=== PATIENT | female | born 1995 | race Caucasian/White ===

== ENCOUNTER 2020-01-29 15:37 | Outpatient (CLI) | payer OTHER ==
[2020-01-29 17:34] LABS: MUDS CUTOFF CONCENTRATIONS CUTOFF CONC BELOW:
[2020-01-29 17:36] LABS: BASOPHILS % (AUTO) 0.2 %; EOSINOPHILS % (AUTO) 0.9 %; HGB - HEMOGLOBIN 11.3 g/dL (12.0-16.0); LYMPHOCYTES # (AUTO) 1.5 10^3/uL (1.5-3.5); LYMPHOCYTES % (AUTO) 32.9 %; MEAN CORPUSCULAR HGB CONC 33.8 g/dL (32.0-36.0); MEAN CORPUSCULAR VOLUME 82.9 fL (81.0-99.0); MEAN PLATELET VOLUME 11.3 fL (7.9-10.8); MONOCYTES # (AUTO) 0.3 10^3/uL (0.0-1.0); MONOCYTES % (AUTO) 6.2 %; NEUTROPHILS # (AUTO) 2.7 10^3/uL (1.5-6.6); NEUTROPHILS % (AUTO) 59.6 %; PLT - PLATELET COUNT 119 10^3/uL (130-450); RED BLOOD COUNT 4.03 10^6/uL (4.20-5.40); RED CELL DISTRIBUTION WIDTH 16.8 % (12.0-15.0); WHITE BLOOD COUNT 4.5 x10^3/uL (4.8-10.8)
[2020-01-29 17:38] LABS: GLUCOSE, URINE (UA) 100 mg/dL (NEGATIVE); KETONES,URINE (UA) 40 mg/dL (NEGATIVE); LEUKOCYTE ESTERASE, URINE NEGATIVE (NEGATIVE); NITRITE,URINE NEGATIVE (NEGATIVE); OCCULT BLOOD,URINE NEGATIVE (NEGATIVE); PROTEIN,URINE TRACE mg/dL (NEGATIVE); UROBILINOGEN,URINE 0.2 (NORMAL) E.U./dL (NORMAL)
[2020-01-29 17:51] LABS: BACTERIA,URINE Few /HPF (None Seen); BILIRUBIN,URINE NEGATIVE (NEGATIVE); CLARITY,URINE HAZY (CLEAR); ICTOTEST,URINE NEGATIVE; RBC,URINE None Seen /HPF (0-5); SQUAMOUS EPITHELIAL CELL,UR FEW Squamous (<= Few)
[2020-01-29 17:52] LABS: AMPHETAMINE SCREEN,URINE NEGATIVE (NEGATIVE); BENZODIAZEPINES SCREEN, URINE NEGATIVE (NEGATIVE); COCAINE SCREEN URINE NEGATIVE (NEGATIVE); METHADONE SCREEN, URINE NEGATIVE (NEGATIVE); METHAMPHETAMINES SCREEN, URINE NEGATIVE (NEGATIVE); MUCUS,URINE Moderate Strands; OPIATE SCREEN, URINE NEGATIVE (NEGATIVE); OXYCODONE SCREEN, URINE NEGATIVE (NEGATIVE); PROPOXYPHENE SCREEN, URINE NEGATIVE (NEGATIVE); TRICYCLIC ANTIDEPRESSANT,URINE NEGATIVE (NEGATIVE)
[2020-01-30 10:57] LABS: HEPATITIS C ANTIBODY NON-REACTIVE (NON-REACTIVE)
[2020-01-30 11:13] LABS: HEPATITIS B SURFACE ANTIGEN NON-REACTIVE (NON-REACTIVE)
[2020-01-30 15:26] LABS: HIV AG/AB 4TH GEN NON-REACTIVE (NON-REACTIVE)
== END 2020-01-29 15:38 | disposition home or self-care (01) ==
LOC: LAB 15:37
PROVIDERS: ATTEND Obstetrics & Gynecology
DX: O99.840 Bariatric surgery status complicating pregnancy, unspecified trimester (principal); Z3A.00 Weeks of gestation of pregnancy not specified
CPT/HCPCS: 36415; 80306; 81001; 81599; 82746; 82950; 85025; 86592; 86762; 86787; 86803; 86850; 86900; 86901; 87086; 87340; 87389

== ENCOUNTER 2020-02-04 15:13 | Outpatient (CLI) | payer OTHER ==
[2020-02-04 18:31] LABS: HGB - HEMOGLOBIN 12.1 g/dL (12.0-16.0); MEAN CORPUSCULAR HEMOGLOBIN 27.6 pg (27.0-31.0); MEAN CORPUSCULAR HGB CONC 32.9 g/dL (32.0-36.0); MEAN PLATELET VOLUME 12.3 fL (7.9-10.8); RED BLOOD COUNT 4.38 10^6/uL (4.20-5.40); WHITE BLOOD COUNT 4.9 x10^3/uL (4.8-10.8)
== END 2020-02-04 23:59 | disposition home or self-care (01) ==
LOC: LAB.WCP 15:13
PROVIDERS: ATTEND Obstetrics & Gynecology
DX: Z34.90 Encounter for supervision of normal pregnancy, unspecified, unspecified trimester (principal)
CPT/HCPCS: 36415; 85025; 85027

== ENCOUNTER 2020-03-04 16:17 | Outpatient (CLI) | payer OTHER | END 2020-03-04 16:18 | disposition home or self-care (01) | LOC: LAB 16:17 | PROVIDERS: ATTEND Obstetrics & Gynecology | DX: Z36.8A Encounter for antenatal screening for other genetic defects (principal) | CPT/HCPCS: 81220; 81511; 81599 ==

== ENCOUNTER 2020-03-08 14:56 | Outpatient (CLI) | payer OTHER | END 2020-03-08 14:57 | disposition home or self-care (01) | LOC: NS 14:56 | PROVIDERS: ATTEND Family Medicine | DX: Z71.3 Dietary counseling and surveillance (principal); Z33.1 Pregnant state, incidental; Z98.84 Bariatric surgery status | CPT/HCPCS: 97802 ==

== ENCOUNTER 2020-04-05 15:01 | Outpatient (CLI) | payer OTHER ==
--- NOTE | 2020-04-06 10:32 | Ultrasound Report ---
PROCEDURE: OB Detailed Eval INDICATIONS: SCREENING TECHNIQUE: Real-time scanning was performed of the fetus, with image documentation and biometric measurements. Endovaginal scanning: Not performed COMPARISON: None. FINDINGS: General: A single living intrauterine gestation is present. Presentation: Cephalic Placenta: Placental position is posterior, without previa. Amniotic fluid index: 14 cm, 44th percentile for gestational age. heart rate: 139 beats per minute. Maternal cervical canal: 3.6 cm long; normal length is 2.5 cm or more. biometrics: Biparietal diameter: 5.4 centimeters Head circumference: 19.9 cm Abdominal circumference: 16.7 cm Femur length: 3.6 cm Estimated gestational age from initial scan: not applicable. Composite gestational age from present scan: 21 weeks 5 days Estimated weight and percentile: 437 g, 31st percentile Measurement variability in biometric dating: +/- 10 days from 12-20 weeks gestation, +/- 2 weeks from 20-30 weeks gestation, +/- 3 weeks at 30 weeks gestation or later. Anatomic survey: Neuro: Ventricles are normal at less than 10 mm. Cisterna magna is normal at 3-11 mm. Cerebellum i s normal in size and morphology. Nuchal skin fold: Normal at less than 6 mm between 14 and 20 weeks gestational age. Face: Nose and lips, facial profile are normal. Spine: No evidence for spina bifida. Heart: 4-chambered heart is present, with normal ventricular outflow tracts. Diaphragm: Diaphragm is intact. Stomach: Left-sided stomach is present. Kidneys: No hydronephrosis. Normal is less than 5 mm in 2nd trimester, less than 7 mm in 3rd trimester. Cord: Apparent 2 vessel cord with normal insertion. Bladder: Normal in size. Extremities: All 4 extremities are visualized. IMPRESSION: Suspected 2 vessel cord. Repeat study recommended to further assess. Otherwise normal anatomic survey. Reviewed by: Ari Monk MD on 04/06/2020 10:31 AM [facility] Approved by: Ari Monk MD on 04/06/2020 10:31 AM [facility] Station ID: [id number]
== END 2020-04-05 15:02 | disposition home or self-care (01) ==
LOC: DI 15:01
PROVIDERS: ATTEND Obstetrics & Gynecology
DX: Z36.89 Encounter for other specified antenatal screening (principal)

== ENCOUNTER 2020-04-30 16:56 | Outpatient (CLI) | payer OTHER ==
--- NOTE | 2020-05-03 17:15 | Ultrasound Report ---
PROCEDURE: OB F/U or Repeat INDICATIONS: TWO VESSEL CORD OUTSIDE/PRIOR DATING DATA: Last menstrual period (LMP): 11/04/2019. LMP-based estimated date of delivery (BRET): 08/10/2020. Estimated date of delivery (BRET) according to the provider: 08/10/2020. TECHNIQUE: Real-time scanning was performed of the fetus, with image documentation and biometric measurements. Endovaginal scanning: Not needed COMPARISON: 04/05/2020 FINDINGS: General: A single living intrauterine gestation is present. Presentation: Vertex Placenta: Placental position is posterior, without previa. Amniotic fluid index: 17.3 cm, normal for gestational age. heart rate: 147 beats per minute. Maternal cervical canal: 3.6 cm long; normal length is 2.5 cm or more. Estimated gestational age from first trimester scan: not applicable. Other: Two-vessel cord, normal amniotic fluid index. The umbilical artery systolic/diastolic ratio at the placenta, mid cord, and at the cord insertion is 3.0, 2.8, 3.8. IMPRESSION: 2 vessel cord, normal amniotic fluid index. Vertex presentation, normal systolic/diastol ic ratio through the umbilical artery within the cord. Reviewed by: Nate Rodriguez MD on 05/03/2020 5:14 PM PST Approved by: Nate Rodriguez MD on 05/03/2020 5:14 PM PST Station ID: [id number]
== END 2020-04-30 16:57 | disposition home or self-care (01) ==
LOC: DI 16:56
PROVIDERS: ATTEND Obstetrics & Gynecology
DX: Q27.0 Congenital absence and hypoplasia of umbilical artery (principal)

== ENCOUNTER 2020-05-07 08:00 | Outpatient (CLI) | payer OTHER ==
[2020-05-07 11:30] LABS: HGB - HEMOGLOBIN 8.8 g/dL (12.0-16.0); MEAN CORPUSCULAR HEMOGLOBIN 28.6 pg (27.0-31.0); MEAN CORPUSCULAR HGB CONC 30.4 g/dL (32.0-36.0); MEAN CORPUSCULAR VOLUME 93.8 fL (81.0-99.0); MEAN PLATELET VOLUME 10.7 fL (7.9-10.8); RED BLOOD COUNT 3.08 10^6/uL (4.20-5.40); RED CELL DISTRIBUTION WIDTH 13.3 % (12.0-15.0); WHITE BLOOD COUNT 4.1 x10^3/uL (4.8-10.8)
== END 2020-05-07 23:59 | disposition home or self-care (01) ==
LOC: LAB 08:00
PROVIDERS: ATTEND Obstetrics & Gynecology
DX: Z36.89 Encounter for other specified antenatal screening (principal)
CPT/HCPCS: 36415; 82950; 85027; 86850

== ENCOUNTER 2020-05-14 11:37 | Outpatient (CLI) | payer OTHER ==
[2020-05-14 11:57] VITALS: BP 115/59
[2020-05-14] MEDS ORDERED: FERRIC GLUCONATE 125 MG in SODIUM CHLORIDE 0.9% 100ML 100 ML IV ONE (12:30)
--- NOTE | 2020-05-14 17:01 | PROVIDER PROGRESS NOTE ---
Subjective - Subjective Subjective: Pt here for IV iron transfusion Dx = chronic iron deficiency anemia Not seen by MD. Objective - Vital Signs/Intake & Output Vital Signs: Vital Signs x48h Temp Pulse Pulse Resp BP Pulse Ox 05/14/20 11:56 98.2 F 83 16 115/59 L 05/14/20 11:50 98.2 F 83 16 115/59 L 100
== END 2020-05-14 14:05 | disposition home or self-care (01) ==
LOC: WFO 11:37 → FBP 11:39 → WFO 14:05
PROVIDERS: ATTEND Obstetrics & Gynecology
DX: O99.019 Anemia complicating pregnancy, unspecified trimester (principal); D50.9 Iron deficiency anemia, unspecified
CPT/HCPCS: 96365; J2916

== ENCOUNTER 2020-05-21 11:25 | Outpatient (CLI) | payer OTHER ==
[2020-05-21] MEDS ORDERED: FERRIC GLUCONATE 125 MG in SODIUM CHLORIDE 0.9% 100ML 100 ML IV ONE (12:00)
[2020-05-21 13:28] VITALS: BP 88/51
--- NOTE | 2020-06-15 23:41 | PROVIDER PROGRESS NOTE ---
- HPI Current : Current EDU 08/10/20 Gestation 28 Weeks and 3 Days 1 Para 0 Vital Signs Temperature 98.6 F 05/21/20 12:59 Heart Rate 100 05/21/20 12:59 Respiratory Rate 16 05/21/20 12:59 Blood Pressure 88/51 L 05/21/20 12:59 O2 Saturation 100 05/21/20 12:59 Temperature 98.6 F 05/21/20 13:28 Heart Rate 100 05/21/20 13:28 Respiratory Rate 16 05/21/20 13:28 Blood Pressure 88/51 L 05/21/20 13:28 O2 Saturation 100 05/21/20 12:59 - Exam Pt here for IV iron transfusion Dx = chronic iron deficiency anemia Not seen by MD. - Procedures NST Procedure: NST Procedure Stop Time 13:00 Patient States Movement Yes
== END 2020-05-21 13:15 | disposition home or self-care (01) ==
LOC: WFO 11:25 → FBP 11:26 → WFO 13:15
PROVIDERS: ATTEND Obstetrics & Gynecology
DX: O99.013 Anemia complicating pregnancy, third trimester (principal); D50.9 Iron deficiency anemia, unspecified; Z3A.28 28 weeks gestation of pregnancy
CPT/HCPCS: 96365; J2916

== ENCOUNTER 2020-05-25 08:00 | Outpatient (CLI) | payer OTHER ==
[2020-05-25 18:07] LABS: BASOPHILS % (AUTO) 0.4 %; EOSINOPHILS % (AUTO) 0.6 %; HGB - HEMOGLOBIN 9.8 g/dL (12.0-16.0); LYMPHOCYTES # (AUTO) 1.4 10^3/uL (1.5-3.5); LYMPHOCYTES % (AUTO) 25.4 %; MEAN CORPUSCULAR HEMOGLOBIN 28.7 pg (27.0-31.0); MEAN CORPUSCULAR HGB CONC 31.5 g/dL (32.0-36.0); MEAN CORPUSCULAR VOLUME 90.9 fL (81.0-99.0); MEAN PLATELET VOLUME 11.3 fL (7.9-10.8); MONOCYTES # (AUTO) 0.3 10^3/uL (0.0-1.0); MONOCYTES % (AUTO) 6.1 %; NEUTROPHILS # (AUTO) 3.6 10^3/uL (1.5-6.6); NEUTROPHILS % (AUTO) 67.3 %; PLT - PLATELET COUNT 161 10^3/uL (130-450); RED BLOOD COUNT 3.42 10^6/uL (4.20-5.40); RED CELL DISTRIBUTION WIDTH 14.3 % (12.0-15.0); WHITE BLOOD COUNT 5.4 x10^3/uL (4.8-10.8)
== END 2020-05-25 23:59 | disposition home or self-care (01) ==
LOC: LAB.WCP 08:00
PROVIDERS: ATTEND Obstetrics & Gynecology
DX: O99.012 Anemia complicating pregnancy, second trimester (principal)
CPT/HCPCS: 36415; 85025

== ENCOUNTER 2020-06-11 08:31 | Outpatient (CLI) | payer OTHER ==
[2020-06-11 09:09] VITALS: BP 106/56
[2020-06-11] MEDS ORDERED: FERRIC GLUCONATE 125 MG in SODIUM CHLORIDE 0.9% 100ML 100 ML IV ONE (09:45)
== END 2020-06-11 10:42 | disposition home or self-care (01) ==
LOC: WFO 08:31 → FBP 08:34 → WFO 10:42
PROVIDERS: ATTEND Obstetrics & Gynecology
DX: O99.012 Anemia complicating pregnancy, second trimester (principal); D64.9 Anemia, unspecified; Z3A.00 Weeks of gestation of pregnancy not specified
CPT/HCPCS: 96365; J2916

== ENCOUNTER 2020-06-29 16:01 | Outpatient (CLI) | payer OTHER ==
[2020-06-29 16:37] LABS: HCT - HEMATOCRIT 32.4 % (37.0-47.0); HGB - HEMOGLOBIN 10.5 g/dL (12.0-16.0); MEAN CORPUSCULAR HEMOGLOBIN 27.9 pg (27.0-31.0); MEAN CORPUSCULAR HGB CONC 32.4 g/dL (32.0-36.0); MEAN CORPUSCULAR VOLUME 86.2 fL (81.0-99.0); MEAN PLATELET VOLUME 10.8 fL (7.9-10.8); RED BLOOD COUNT 3.76 10^6/uL (4.20-5.40); RED CELL DISTRIBUTION WIDTH 15.1 % (12.0-15.0); WHITE BLOOD COUNT 5.3 x10^3/uL (4.8-10.8)
[2020-06-29 16:44] LABS: ALBUMIN 3.3 g/dL (3.2-5.5); ALBUMIN/GLOBULIN RATIO 0.9 (1.0-2.2); BILIRUBIN,TOTAL 0.3 mg/dL (0.2-1.0); CALCIUM 9.7 mg/dL (8.5-10.3); CREATININE 0.5 mg/dL (0.4-1.0); POTASSIUM 3.6 mmol/L (3.5-5.0); TOTAL PROTEIN 6.9 g/dL (6.7-8.2)
== END 2020-06-29 16:02 | disposition home or self-care (01) ==
LOC: LAB 16:01
PROVIDERS: ATTEND Obstetrics & Gynecology
DX: O99.012 Anemia complicating pregnancy, second trimester (principal); Z98.84 Bariatric surgery status
CPT/HCPCS: 36415; 80053; 85027

== ENCOUNTER 2020-06-30 15:10 | Outpatient (CLI) | payer OTHER ==
[2020-06-30 15:36] VITALS: BP 97/60
--- NOTE | 2020-06-30 16:38 | PROCEDURE REPORT ---
- HPI Diagnosis/Indication for NST: Other (Two vessel cord) Current EDU 08/10/20 Gestation 34 Weeks and 1 Days 1 Para 0 Vital Signs Temperature 99.0 F 06/30/20 15:32 Heart Rate 75 06/30/20 15:32 Respiratory Rate 16 06/30/20 15:32 Blood Pressure 97/60 06/30/20 15:32 Temperature 99.0 F 06/30/20 15:32 Heart Rate 75 06/30/20 15:32 Respiratory Rate 16 06/30/20 15:32 Blood Pressure 97/60 06/30/20 15:32 O2 Saturation - NST Procedure NST Procedure Start Date 06/30/20 Start Time 15:20 Stop Time 15:53 Vibroacoustic Stimulation Used No Patient States Movement Yes EFM 140 mod britton 15x15 accels no decels TOCO quiet - Results and Plan Findings/Impression: Patient is a 25 yo at 34+1 wga with 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
== END 2020-06-30 15:55 | disposition home or self-care (01) ==
LOC: WFO 15:10 → FBP 15:12 → WFO 15:55
PROVIDERS: ATTEND Obstetrics & Gynecology
DX: O35.8XX0 Maternal care for other (suspected) fetal abnormality and damage, not applicable or unspecified (principal); Z3A.34 34 weeks gestation of pregnancy
CPT/HCPCS: 59025

== ENCOUNTER 2020-07-02 09:47 | Outpatient (CLI) | payer OTHER ==
[2020-07-02 10:24] VITALS: BP 97/62
--- NOTE | 2020-07-03 09:38 | PROCEDURE REPORT ---
- HPI Diagnosis/Indication for NST: Other ( anomaly (2 vessel umbilical cord)) Current EDU 08/10/20 Gestation 34 Weeks and 3 Days 1 Para 0 Vital Signs Temperature 98.4 F 07/02/20 10:22 Heart Rate 110 H 07/02/20 10:22 Respiratory Rate 16 07/02/20 10:22 Blood Pressure 97/62 07/02/20 10:22 O2 Saturation 100 07/02/20 10:22 Temperature 98.4 F 07/02/20 10:22 Heart Rate 110 H 07/02/20 10:22 Respiratory Rate 16 07/02/20 10:22 Blood Pressure 97/62 07/02/20 10:22 O2 Saturation 100 07/02/20 10:22 - NST Procedure NST Procedure Start Date 07/02/20 Start Time 10:10 Stop Time 10:40 Vibroacoustic Stimulation Used No Patient States Movement Yes - Results and Plan Findings/Impression: Baseline: BPM 125 Variability: Moderate Accelerations: Present Decelerations: variable deceleration immediately after an acceleration, fanny 120BPM for 30 sec. Trends in FHR over time: no changes [place] contractions in 10 minutes: 0 Impression: reactive Category 1 NST
== END 2020-07-02 10:50 | disposition home or self-care (01) ==
LOC: WFO 09:47 → FBP 09:50 → WFO 10:50
PROVIDERS: ATTEND Obstetrics & Gynecology
DX: O36.8930 Maternal care for other specified fetal problems, third trimester, not applicable or unspecified (principal); Z3A.34 34 weeks gestation of pregnancy
CPT/HCPCS: 59025

== ENCOUNTER 2020-07-03 14:36 | Outpatient (CLI) | payer OTHER ==
--- NOTE | 2020-07-03 16:32 | Ultrasound Report ---
PROCEDURE: OB F/U or Repeat INDICATIONS: TWO VESSEL CORD OUTSIDE/PRIOR DATING DATA: Last menstrual period (LMP): 11/04/2019. LMP-based estimated date of delivery (BRET): 08/10/2020. First dating scan (date and location): None reported. Estimated date of delivery (BRET) from first dating scan: N/A. TECHNIQUE: Real-time scanning was performed of the fetus, with image documentation and biometric measurements. Additionally, cord Doppler and spectral ultrasound imaging was performed. COMPARISON: April 30, 2020 ultrasound FINDINGS: General: A single living intrauterine gestation is present. Presentation: Cephalic Placenta: Placental position is posterior, without previa. Amniotic fluid index: 8.5 cm, 6.6 for gestational age. heart rate: 133 beats per minute. Maternal cervical canal: 3.0 cm long; normal length is 2.5 cm or more. biometrics: Biparietal diameter: 8.5 cm, 34 weeks 1 day Head circumference: 30.4 cm, 33 weeks 6 days Abdominal circumference: 30.0 cm, 33 weeks 5 days Femur length: 6.7 cm, 34 weeks 4 days Estimated gestational age from initial scan: not applicable. Composite gestational age from present scan: 34 weeks 4 days Estimated weight and percentile: 2321 grams at the 29th percentile Measurement variability in biometric dating: +/- 10 days from 12-20 weeks gestation, +/- 2 weeks from 20-30 weeks gestation, +/- 3 weeks at 30 weeks gestation or more. Other: Two-vessel cord is present. cord Doppler measurements were obtained with a S/D range of 2.03-3.0 and a resistive index range of 0.51-0.67. IMPRESSION: 1. Estimated weight of 2321 g, at the 29th percentile for gestational age. 2. cord Doppler measurements were obtained with an S/D range of 2.03-3.0 and a resistive index range of 0.51-0.67, within normal range. Reviewed by: Drew Meyer on 07/03/2020 3:31 PM [facility] Approved by: Drew Meyer on 07/03/2020 3:31 PM [facility] Station ID: [id number]
== END 2020-07-03 14:37 | disposition home or self-care (01) ==
LOC: DI 14:36
PROVIDERS: ATTEND Obstetrics & Gynecology
DX: Q27.0 Congenital absence and hypoplasia of umbilical artery (principal)

== ENCOUNTER 2020-07-06 16:16 | Outpatient (CLI) | payer OTHER ==
[2020-07-06 17:46] VITALS: BP 97/56
--- NOTE | 2020-07-06 17:55 | PROCEDURE REPORT ---
- HPI Diagnosis/Indication for NST: Other ( anomaly (2 vessel cord)) Current EDU 08/10/20 Gestation 35 Weeks and 0 Days 1 Para 0 Vital Signs Temperature 98.8 F 07/06/20 17:44 Heart Rate 76 07/06/20 17:44 Respiratory Rate 16 07/06/20 17:44 Blood Pressure 97/56 L 07/06/20 17:44 Temperature 98.8 F 07/06/20 17:44 Heart Rate 76 07/06/20 17:44 Respiratory Rate 16 07/06/20 17:44 Blood Pressure 97/56 L 07/06/20 17:44 O2 Saturation - NST Procedure NST Procedure Start Date 07/06/20 Start Time 16:20 Stop Time 17:35 Vibroacoustic Stimulation Used No: patient used vibrate function on cellphone Patient States Movement Yes: 2 vessel cord - Results and Plan Findings/Impression: Baseline: BPM 130 Variability: Moderate Accelerations: Present Decelerations: Absent Trends in FHR over time: no changes [place] contractions in 10 minutes: 0 Impression: reactive Category 1 NST
== END 2020-07-06 17:35 | disposition home or self-care (01) ==
LOC: WFO 16:16 → FBP 16:17 → WFO 17:35
PROVIDERS: ATTEND Obstetrics & Gynecology
DX: O36.8930 Maternal care for other specified fetal problems, third trimester, not applicable or unspecified (principal); Z3A.35 35 weeks gestation of pregnancy
CPT/HCPCS: 59025

== ENCOUNTER 2020-07-09 09:35 | Outpatient (CLI) | payer OTHER ==
[2020-07-09 10:02] VITALS: BP 108/59
--- NOTE | 2020-07-09 14:20 | Ultrasound Report ---
PROCEDURE: OB Biophysical Profile INDICATIONS: non-reassuring NST OUTSIDE/PRIOR DATING DATA: Last menstrual period (LMP): 11/03/2020. LMP-based estimated date of delivery (BRET): 08/10/2020. Estimated date of delivery (BRET) according to provider: 08/10/2020. TECHNIQUE: Real-time scanning was performed of the fetus, with image documentation and biometric jasson surements. Biophysical profile was also obtained. COMPARISON: 04/05/2020, 04/30/2020, 07/03/2020. FINDINGS: General: A single living intrauterine gestation is present. Presentation: Vertex Placenta: Placental position is posterior, without previa. Amniotic fluid index: 9.7 cm, 13th percentile for gestational age. Largest pocket measures 4.9 cm. heart rate: 141 beats per minute. Maternal cervical canal: 3 cm long; normal length is 2.5 cm or more. Estimated gestational age from initial scan: 35 weeks 3 days Biophysical profile: Tone: 2 points. Movement: 2 points. Respiration: 2 points. Largest pocket of fluid: 2 points. Umbilical artery Doppler: Systolic/diastolic ratios within the amniotic cord measure 3.2 proximally, 2.7 in the midsegment and 2.4 distally. IMPRESSION: 1. Single living intrauterine in vertex presentation redemonstrated. 2. Normal biophysical profile of 11/07. 3. Umbilical artery waveforms within normal limits with preserved diastolic flow demonstrated. Reviewed by: Shady Mccauley MD on 07/09/2020 2:18 PM PDT Approved by: Shady Mccauley MD on 07/09/2020 2:18 PM PDT Station ID: [id number]
--- NOTE | 2020-07-09 15:26 | PROCEDURE REPORT ---
- HPI Diagnosis/Indication for NST: Other ( anomaly--2 vessel cord) Current EDU 08/10/20 Gestation 35 Weeks and 3 Days 1 Para 0 Vital Signs Heart Rate 78 07/09/20 09:59 Respiratory Rate 16 07/09/20 09:59 Blood Pressure 108/59 L 07/09/20 09:59 O2 Saturation 100 07/09/20 09:59 Temperature Heart Rate 78 07/09/20 09:59 Respiratory Rate 16 07/09/20 09:59 Blood Pressure 108/59 L 07/09/20 09:59 O2 Saturation 100 07/09/20 09:59 - NST Procedure NST Procedure Start Date 07/09/20 Start Time 09:55 Stop Time 10:55 Vibroacoustic Stimulation Used No Patient States Movement Yes - Results and Plan Findings/Impression: Baseline: BPM 135 Variability: Moderate Accelerations: Present Decelerations: Spontaneous deceleration lasting 80 sec, fanny 115 Trends in FHR over time: no further decels [place] contractions in 10 minutes: 0 Impression: reactive Category 1 NST Patient being monitored for 2V cord. Initial monitoring was reactive but there was the 80sec mild decel. Pt monitored for 2h following this without decels, with mod LTV, and with accels seen. BPP done which was 8/8, normal fluid, normal dopplers. Pt with normal FM. Plan routine followup for ongoing surveillance.
== END 2020-07-09 13:50 | disposition home or self-care (01) ==
LOC: WFO 09:35 → FBP 09:39 → WFO 13:50
PROVIDERS: ATTEND Obstetrics & Gynecology
DX: O36.8930 Maternal care for other specified fetal problems, third trimester, not applicable or unspecified (principal); O36.8330 Maternal care for abnormalities of the fetal heart rate or rhythm, third trimester, not applicable or unspecified; Z3A.35 35 weeks gestation of pregnancy
CPT/HCPCS: 59025; 99213

== ENCOUNTER 2020-07-13 15:22 | Outpatient (CLI) | payer OTHER ==
[2020-07-13 15:41] VITALS: BP 101/61
--- NOTE | 2020-07-13 18:54 | PROCEDURE REPORT ---
- HPI Diagnosis/Indication for NST: Other ( anomaly, 2 vessel umbilical cord) Current EDU 08/10/20 Gestation 36 Weeks and 0 Days 1 Para 0 Vital Signs Temperature 97.9 F 07/13/20 15:30 Heart Rate 94 07/13/20 15:30 Respiratory Rate 18 07/13/20 15:30 Blood Pressure 101/61 07/13/20 15:30 O2 Saturation 98 07/13/20 15:30 Temperature 97.9 F 07/13/20 15:30 Heart Rate 94 07/13/20 15:30 Respiratory Rate 18 07/13/20 15:30 Blood Pressure 101/61 07/13/20 15:30 O2 Saturation 98 07/13/20 15:30 - NST Procedure NST Procedure Start Date 07/13/20 Start Time 15:30 Stop Time 16:30 Vibroacoustic Stimulation Used Yes Patient States Movement Yes: decreased and more subtle - Results and Plan Findings/Impression: Baseline: BPM Variability: Moderate Accelerations: Present Decelerations: Absent Trends in FHR over time: no changes [place] contractions in 10 minutes: 0 Impression: reactive Category 1 NST
== END 2020-07-13 16:40 | disposition home or self-care (01) ==
LOC: WFO 15:22 → FBP 15:23 → WFO 16:40
PROVIDERS: ATTEND Obstetrics & Gynecology
DX: O36.8930 Maternal care for other specified fetal problems, third trimester, not applicable or unspecified (principal); Z3A.36 36 weeks gestation of pregnancy
CPT/HCPCS: 59025

== ENCOUNTER 2020-07-16 10:42 | Outpatient (CLI) | payer OTHER ==
[2020-07-16 10:54] VITALS: BP 103/72
--- NOTE | 2020-07-16 17:40 | PROCEDURE REPORT ---
- HPI Diagnosis/Indication for NST: Other (2VC, hx of gastric sleeve) Current EDU 08/10/20 Gestation 36 Weeks and 3 Days 1 Para 0 Vital Signs Heart Rate 61 07/16/20 10:52 Respiratory Rate 17 07/16/20 10:52 Blood Pressure 103/72 07/16/20 10:52 O2 Saturation 100 07/16/20 10:52 Temperature Heart Rate 61 07/16/20 10:52 Respiratory Rate 17 07/16/20 10:52 Blood Pressure 103/72 07/16/20 10:52 O2 Saturation 100 07/16/20 10:52 - NST Procedure NST Procedure Start Date 07/16/20 Start Time 10:50 Stop Time 11:25 Vibroacoustic Stimulation Used No Patient States Movement Yes EFM 130 mod britton 15x15 accels no decels TOCO: quiet - Results and Plan Findings/Impression: 25 yo at 36+3 with affected by 2VC, hx of gastric sleeve. had been jia overnight. Stopped at 3 am . No painful contractions at present. No contractions on monitor Cat I tracing Cont with twice weekly NST and weekly NATHANIEL for 2VC DX: IUP at 36+3 wga Single umbilical artery Hx of gastric sleeve
== END 2020-07-16 11:31 | disposition home or self-care (01) ==
LOC: WFO 10:42 → FBP 10:44 → WFO 11:31
PROVIDERS: ATTEND Obstetrics & Gynecology
DX: O36.8930 Maternal care for other specified fetal problems, third trimester, not applicable or unspecified (principal); O99.843 Bariatric surgery status complicating pregnancy, third trimester; Z3A.36 36 weeks gestation of pregnancy
CPT/HCPCS: 59025

== ENCOUNTER 2020-07-20 16:21 | Outpatient (CLI) | payer OTHER ==
[2020-07-20 16:33] VITALS: BP 110/71
--- NOTE | 2020-07-21 09:43 | PROCEDURE REPORT ---
- HPI Diagnosis/Indication for NST: Other (two vessel cord) Current EDU 08/10/20 Gestation 37 Weeks and 0 Days 1 Para 0 Vital Signs Temperature 36.7 C 07/20/20 16:32 Heart Rate 79 07/20/20 16:32 Respiratory Rate 16 07/20/20 16:32 Blood Pressure 110/71 07/20/20 16:32 O2 Saturation 100 07/20/20 16:32 Temperature 36.7 C 07/20/20 16:32 Heart Rate 79 07/20/20 16:32 Respiratory Rate 16 07/20/20 16:32 Blood Pressure 110/71 07/20/20 16:32 O2 Saturation 100 07/20/20 16:32 - NST Procedure NST Procedure Start Date 07/20/20 Start Time 16:26 Stop Time 16:47 Vibroacoustic Stimulation Used No Patient States Movement Yes - Results and Plan Findings/Impression: Reactive NST Plan: Continue antinatal testing
--- NOTE | 2020-07-21 12:55 | PROCEDURE REPORT ---
- HPI Diagnosis/Indication for NST: Other ([place] vessel cord) Current EDU 08/10/20 Gestation 37 Weeks and 0 Days 1 Para 0 Vital Signs Temperature 36.7 C 07/20/20 16:32 Heart Rate 79 07/20/20 16:32 Respiratory Rate 16 07/20/20 16:32 Blood Pressure 110/71 07/20/20 16:32 O2 Saturation 100 07/20/20 16:32 Temperature 36.7 C 07/20/20 16:32 Heart Rate 79 07/20/20 16:32 Respiratory Rate 16 07/20/20 16:32 Blood Pressure 110/71 07/20/20 16:32 O2 Saturation 100 07/20/20 16:32 - NST Procedure NST Procedure Start Date 07/20/20 Start Time 16:26 Stop Time 16:47 Vibroacoustic Stimulation Used No Patient States Movement Yes - Results and Plan Findings/Impression: Reactive NST Plan: Continue testing
== END 2020-07-20 16:50 | disposition home or self-care (01) ==
LOC: WFO 16:21 → FBP 16:21 → WFO 16:50
PROVIDERS: ATTEND Obstetrics & Gynecology
DX: O36.8930 Maternal care for other specified fetal problems, third trimester, not applicable or unspecified (principal); Z3A.37 37 weeks gestation of pregnancy
CPT/HCPCS: 59025

== ENCOUNTER 2020-07-21 08:00 | Outpatient (CLI) | payer OTHER | END 2020-07-21 23:59 | disposition home or self-care (01) | LOC: LAB.R 08:00 | PROVIDERS: ATTEND Obstetrics & Gynecology | DX: Z36.85 Encounter for antenatal screening for Streptococcus B (principal) | CPT/HCPCS: 87797 ==

== ENCOUNTER 2020-07-23 14:57 | Outpatient (CLI) | payer OTHER ==
[2020-07-23 15:27] VITALS: BP 110/64
--- NOTE | 2020-07-23 15:46 | PROCEDURE REPORT ---
- HPI Diagnosis/Indication for NST: Other (TWO VESSEL CORD) Current EDU 08/10/20 Gestation 37 Weeks and 3 Days 1 Para 0 Vital Signs Temperature 36.8 C 07/23/20 15:26 Heart Rate 75 07/23/20 15:26 Respiratory Rate 16 07/23/20 15:26 Blood Pressure 110/64 07/23/20 15:26 Temperature 36.8 C 07/23/20 15:26 Heart Rate 75 07/23/20 15:26 Respiratory Rate 16 07/23/20 15:26 Blood Pressure 110/64 07/23/20 15:26 O2 Saturation - NST Procedure NST Procedure Start Date 07/23/20 Start Time 15:05 Stop Time 16:47 Vibroacoustic Stimulation Used No Patient States Movement Yes - Results and Plan Findings/Impression: CONTINUE TESTING
== END 2020-07-23 15:45 | disposition home or self-care (01) ==
LOC: WFO 14:57 → FBP 14:58 → WFO 15:45
PROVIDERS: ATTEND Obstetrics & Gynecology
DX: O36.8930 Maternal care for other specified fetal problems, third trimester, not applicable or unspecified (principal); Z3A.37 37 weeks gestation of pregnancy
CPT/HCPCS: 59025

== ENCOUNTER 2020-07-25 15:03 | Outpatient (CLI) | payer OTHER ==
--- NOTE | 2020-07-25 16:23 | Ultrasound Report ---
PROCEDURE: OB F/U or Repeat INDICATIONS: TWO VESSEL CORD, SMALL FOR GESTATIONAL AGE OUTSIDE/PRIOR DATING DATA: Last menstrual period (LMP): 11/04/2019. LMP-based estimated date of delivery (BRET): 08/10/2020. First dating scan (date and location): The applicable Estimated date of delivery (BRET) from first dating scan: Given as 08/10/2020. TECHNIQUE: Real-time scanning was performed of the fetus, with image documentation and biometric measurements. COMPARISON: 07/09/2020, 07/03/2020, 04/30/2020, 04/05/2020 FINDINGS: General: A single live intrauterine gestation is present. Presentation: Cephalic Placenta: Placental position is posterior, without previa. Amniotic fluid index: 9.7 cm, 16 percentile for gestational age. heart rate: 150 beats per minute. Maternal cervical canal: 3.7 cm long; normal length is 2.5 cm or more. biometrics: Biparietal diameter: 9 cm equals 36 weeks 3 days Head circumference: 32.8 cm equals 37 weeks 2 days Abdominal circumference: 33.2 cm equals 37 weeks 1 day Femur length: 7 cm equals 36 weeks 0 days Estimated gestational age from initial scan: 37 weeks 5 days. Composite gestational age from present scan: 36 weeks 5 days Estimated weight and percentile: 3032 g, 36% Measurement variability in biometric dating: +/- 10 days from 12-20 weeks gestation, +/- 2 weeks from 20-30 weeks gestation, +/- 3 weeks at 30 weeks gestation or more. Other: Not applicable. Cord Dopplers measure 2.8 proximally and 2.3 within the midportion. The distal cord is not well seen. IMPRESSION: Normal interval growth compared to the prior ultrasound examination. The fetus is estimated to be at least 36 percentile for gestational age. Reviewed by: Isreal Samson MD on 07/25/2020 3:22 PM [facility] Approved by: Isreal Samson MD on 07/25/2020 3:22 PM [facility] Station ID: [id number]
== END 2020-07-25 15:04 | disposition home or self-care (01) ==
LOC: DI 15:03
PROVIDERS: ATTEND Obstetrics & Gynecology
DX: O36.5990 Maternal care for other known or suspected poor fetal growth, unspecified trimester, not applicable or unspecified (principal); O28.8 Other abnormal findings on antenatal screening of mother; Z3A.36 36 weeks gestation of pregnancy

== ENCOUNTER 2020-07-27 16:36 | Outpatient (CLI) | payer OTHER ==
[2020-07-27 16:52] VITALS: BP 114/65
--- NOTE | 2020-07-27 19:44 | Ultrasound Report ---
PROCEDURE: OB Biophysical Profile INDICATIONS: non-reasurring NST OUTSIDE/PRIOR DATING DATA: Last menstrual period (LMP): 11/04/2019. LMP-based estimated date of delivery (BRET): 08/10/2020. Estimated date of delivery (BRET) from from provider: 08/10/2020. TECHNIQUE: Real-time scanning was performed of the fetus, with image documentation and biometric jasson surements. Biophysical profile was also obtained. Endovaginal scanning: Not performed COMPARISON: 04/05/2020, 04/30/2020, 07/03/2020, 07/09/2020, 07/25/2020. FINDINGS: General: A single living intrauterine gestation is present. Presentation: Vertex Placenta: Placental position is posterior, without previa. Amniotic fluid index: 17.4 cm, 74th percentile for gestational age. heart rate: 141 beats per minute. Biophysical profile: Tone: 2 points. Movement: 2 points. Respiration: 2 points. Largest pocket of fluid: 2 points. Largest pocket measures 5.5 cm. Umbilical artery Doppler: SD ratios measure 2.0, 2.3, 2.4, within normal limits. bladder volume measures 44 cc. IMPRESSION: Single living intrauterine fetus in vertex presentation. Normal biophysical profile Normal cord Doppler examination Incidentally noted distended bladder measuring 44 cc in volume. Reviewed by: Armani Rockwell MD on 07/27/2020 7:43 PM PDT Approved by: Armani Rockwell MD on 07/27/2020 7:43 PM PDT Station ID: [id number]
--- NOTE | 2020-07-28 11:21 | PROCEDURE REPORT ---
- HPI Diagnosis/Indication for NST: Other (TWO VESSEL CORD DOS 07/27/20) Current EDU 08/10/20 Gestation 38 Weeks and 0 Days 1 Para 0 Vital Signs Temperature 36.6 C 07/27/20 16:47 Heart Rate 65 07/27/20 16:47 Respiratory Rate 16 07/27/20 16:47 Blood Pressure 114/65 07/27/20 16:47 O2 Saturation 100 07/27/20 16:47 Temperature 36.6 C 07/27/20 16:47 Heart Rate 65 07/27/20 16:47 Respiratory Rate 16 07/27/20 16:47 Blood Pressure 114/65 07/27/20 16:47 O2 Saturation 100 07/27/20 16:47 - NST Procedure NST Procedure Start Date 07/27/20 Start Time 16:43 Stop Time 15:35 Vibroacoustic Stimulation Used No Patient States Movement Yes - Results and Plan Findings/Impression: REACTIVE NST Plan: CONTINUE ANTINATAL TESTING
== END 2020-07-27 19:14 | disposition home or self-care (01) ==
LOC: WFO 16:36 → FBP 16:37 → WFO 19:14
PROVIDERS: ATTEND Obstetrics & Gynecology
DX: O36.8930 Maternal care for other specified fetal problems, third trimester, not applicable or unspecified (principal); Z3A.38 38 weeks gestation of pregnancy
CPT/HCPCS: 59025; 99213; 99214

== ENCOUNTER 2020-07-30 10:01 | Outpatient (CLI) | payer OTHER ==
[2020-07-30 10:11] VITALS: BP 102/65
--- NOTE | 2020-07-30 15:05 | PROCEDURE REPORT ---
- HPI Diagnosis/Indication for NST: Other (2VC) Current EDU 08/10/20 Gestation 38 Weeks and 3 Days 1 Para 0 Vital Signs Temperature 98.4 F 07/30/20 10:10 Heart Rate 87 07/30/20 10:10 Respiratory Rate 17 07/30/20 10:10 Blood Pressure 102/65 07/30/20 10:10 O2 Saturation 100 07/30/20 10:10 Temperature 98.4 F 07/30/20 10:10 Heart Rate 87 07/30/20 10:10 Respiratory Rate 17 07/30/20 10:10 Blood Pressure 102/65 07/30/20 10:10 O2 Saturation 100 07/30/20 10:10 - NST Procedure NST Procedure Start Date 07/30/20 Start Time 10:04 Stop Time 10:36 Vibroacoustic Stimulation Used Yes Patient States Movement Yes - Results and Plan Findings/Impression: 25 yo at 38+3 wga with affected by 2VC here for NST Cat I tracing Cont with twice weekly NSt and weekly [place]
== END 2020-07-30 10:50 | disposition home or self-care (01) ==
LOC: WFO 10:01 → FBP 10:02 → WFO 10:50
PROVIDERS: ATTEND Obstetrics & Gynecology
DX: O36.8930 Maternal care for other specified fetal problems, third trimester, not applicable or unspecified (principal); Z3A.38 38 weeks gestation of pregnancy
CPT/HCPCS: 59025

== ENCOUNTER 2020-08-03 08:14 | Inpatient (IN) | payer OTHER ==
--- NOTE | 2020-08-03 08:53 | HISTORY & PHYSICAL EXAMINATION ---
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 Varicella immune. Genetic: normal cell free DNA FAS: 2V cord, otherwise normal with MFM, post placenta, normal fluid Glucola normal RhoGAM s/p Tdap s/p GBS: negative MOD: Anticipate . Contraception: TBD. 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 Normal echo. Has been getting surveillance O: AVSS Alert, smiling, NAD Abd soft, nt/nd Max 7.5# EFG without lesions SVE unchanged from 07/27 /-3/medium/posterior, cervix well-applied to head but baby not in pelvis US: vertex, LOP, neck flexed Cat 1 NST [place] neg A/P: 25yo G1 at 39w0d by LMP c/w 9w US here for IOL due to 2V cord. --Anemia: last Hct 32, s/p IV fe. will get CBC and iron studies --HSV + titer in the past: on Valtrex. No hx of visible lesion prior to or during . No hx of burning or tingling sensations. No lesions on exam. Continue valtrex here. --Rh Neg: s/p Rhogam --Fetus--2V cord: normal CF DNA and remainder of anatomy. Normal echo. Has been getting surveillance. Cat 1 NST, normal EFW by max. --: will need rhogam eval. RI/, s/p Tdap --IOL/labor: 4cm but not in pelvis, encouraged lots of squats/movement. Pt plans epidural, discussed other pain options and encouraged ongoing movement when contractions start. Anticipate . Meds/Allgy - Allergies Allergies/Adverse Reactions: Allergies Allergy/AdvReac Type Severity Reaction Status Date / Time Sulfa (Sulfonamide AdvReac Rash Verified 05/14/20 11:47 Antibiotics)
[2020-08-03] MEDS ORDERED: TERBUTALINE 1 MG/ML VIAL SUBQ PRN (09:10)
[2020-08-03] MEDS ORDERED: CARBOPROST TROMETHAMINE 250 MCG/ML AMP IM PRN (09:10)
[2020-08-03] MEDS ORDERED: miSOPROStoL 200 MCG TABLET BC PRN (09:10)
[2020-08-03] MEDS ORDERED: SODIUM CHLORIDE FLUSH 0.9% 10 ML SYRINGE IVP PRN (09:10)
[2020-08-03] MEDS ORDERED: OXYTOCIN/SODIUM CHLORIDE 500 ML IV PRN ×2 (09:10)
[2020-08-03] MEDS ORDERED: fentaNYL 100 MCG/2 ML VIAL IVP PRN (09:10)
[2020-08-03] MEDS ORDERED: METOCLOPRAMIDE 10 MG/2 ML VIAL IVP PRN (09:10)
[2020-08-03] MEDS ORDERED: LIDOCAINE-MPF 1% 30 ML VIAL ID PRN (09:10)
[2020-08-03] MEDS ORDERED: OXYTOCIN 10 UNIT/ML VIAL IM PRN (09:10)
[2020-08-03] MEDS ORDERED: ONDANSETRON 4 MG/2 ML VIAL IVP PRN ×2 (09:10→17:47)
[2020-08-03] MEDS ORDERED: TRANEXAMIC ACID IN NACL 1,000 MG/100 ML BAG IV PRN (09:10)
[2020-08-03] MEDS ORDERED: METHYLERGONOVINE 0.2 MG/ML VIAL IM PRN (09:10)
[2020-08-03] MEDS ORDERED: miSOPROStoL 100 MCG TABLET BC SCH (09:13)
[2020-08-03 09:36] LABS: BASOPHILS % (AUTO) 0.5 %; EOSINOPHILS % (AUTO) 0.5 %; HCT - HEMATOCRIT 30.7 % (37.0-47.0); HGB - HEMOGLOBIN 10.3 g/dL (12.0-16.0); LYMPHOCYTES # (AUTO) 1.3 10^3/uL (1.5-3.5); LYMPHOCYTES % (AUTO) 30.7 %; MEAN CORPUSCULAR HEMOGLOBIN 28.2 pg (27.0-31.0); MEAN CORPUSCULAR HGB CONC 33.6 g/dL (32.0-36.0); MEAN CORPUSCULAR VOLUME 84.1 fL (81.0-99.0); MEAN PLATELET VOLUME 11.3 fL (7.9-10.8); MONOCYTES # (AUTO) 0.4 10^3/uL (0.0-1.0); MONOCYTES % (AUTO) 8.1 %; NEUTROPHILS # (AUTO) 2.6 10^3/uL (1.5-6.6); PLT - PLATELET COUNT 151 10^3/uL (130-450); RED BLOOD COUNT 3.65 10^6/uL (4.20-5.40); RED CELL DISTRIBUTION WIDTH 16.6 % (12.0-15.0); WHITE BLOOD COUNT 4.3 x10^3/uL (4.8-10.8)
[2020-08-03] MEDS: LACTATED RINGERS 1,000 ML IV PRN ×3 (10:45→20:28)
[2020-08-03 10:47] LABS: % IRON SATURATION 12 % (20-50); IRON 67 ug/dL (28-170); TOTAL IRON BINDING CAPACITY 547 ug/dL (250-450); TRANSFERRIN 391 mg/dL (192-382)
[2020-08-03] MEDS ORDERED: OXYTOCIN/SODIUM CHLORIDE 500 ML IV SCH (14:00)
[2020-08-03] MEDS ORDERED: SODIUM CHLORIDE FLUSH 0.9% 10 ML SYRINGE IVP SCH (17:00)
[2020-08-03] MEDS ORDERED: ROPIVACAINE 0.2% 200 MG/100 ML BAG EP ONE (17:43)
--- NOTE | 2020-08-03 17:46 | ANESTHESIA ---
Pre-Anesthesia VS, & Labs - Diagnosis Active labor - Procedure vaginal delivery Vital Signs: Temp Pulse Resp BP Pulse Ox 36.6 C 136 H 18 105/68 08/03/20 08:54 08/03/20 08:54 08/03/20 08:54 08/03/20 08:54 Height: 5 ft 4 in - NPO Other (clear liquids, labor) - Is Patient ?: Yes - Lab Results Current Lab Results: Laboratory Tests 08/03/20 10:00: Blood Type A NEGATIVE, Antibody Screen POSITIVE, Antibody Identification See Comments 08/03/20 09:15: Iron 67, TIBC 547 H, % Saturation 12 L, Transferrin 391 H 08/03/20 09:15: WBC 4.3 L, RBC 3.65 L, Hgb 10.3 L, Hct 30.7 L, MCV 84.1, MCH 28.2, MCHC 33.6, RDW 16.6 H, Plt Count 151, MPV 11.3 H, Neut # (Auto) 2.6, Lymph # (Auto) 1.3 L, Holt # (Auto) 0.4, Eos # (Auto) 0.0, Baso # (Auto) 0.0, Absolute Nucleated RBC 0.00, Nucleated RBC % 0.0 Fish Bones: 08/03/20 09:15 Home Medications and Allergies Home Medications: Ambulatory Orders Valacyclovir HCl [Valtrex] 500 mg PO 08/03/20 Active Medications Carboprost Tromethamine (Carboprost Tromethamine 250 Mcg/Ml Amp) 250 mcg IM Q15M PRN PRN Reason: Step 4: Hemorrhage protocol Stop: 08/08/20 09:10 Fentanyl (Fentanyl 100 Mcg/2 Ml Vial) 100 mcg IVP Q1H PRN PRN Reason: PAIN Oxytocin/Sodium Chloride (Pitocin/Sodium Chloride) 500 mls @ 999 mls/hr IV PRN PRN; Protocol PRN Reason: POST- HEMORR PREVENTION Stop: 08/08/20 09:10 Tranexamic Acid (Tranexamic 1,000 Mg/100ml-Nacl) 1,000 mg in 100 mls @ 600 mls/hr IV .ONCE PRN PRN Reason: EBL >1200mL and within 3hr Stop: 08/08/20 09:10 Oxytocin/Sodium Chloride (Pitocin/Sodium Chloride) 500 mls @ 1 mls/hr IV TITR PRN; Protocol PRN Reason: PRN labor indication Lactated Ringer's (Lr) 1,000 mls @ 75 mls/hr IV .[id number] PRN PRN Reason: Labor indication Last Admin: 08/03/20 14:27 Dose: 999 mls/hr Documented by: Oxytocin/Sodium Chloride (Pitocin/Sodium Chloride) 500 mls @ 1 mls/hr IV TITR ALL; Protocol Last Titration: 08/03/20 16:26 Dose: 3 milliunit/min, 3 mls/hr Documented by: Lidocaine HCl (Lidocaine-Mpf 1% 30 Ml Vial) 30 ml ID .ONCE PRN PRN Reason: PERINEAL REPAIR Stop: 08/08/20 09:10 Methylergonovine Maleate (Methylergonovine 0.2 Mg/Ml Vial) 0.2 mg IM .ONCE PRN PRN Reason: Step 2: Hemorrhage protocol Stop: 08/08/20 09:10 Metoclopramide HCl (Metoclopramide 10 Mg/2 Ml Vial) 10 mg IVP Q6H PRN PRN Reason: Nausea / Vomiting Misoprostol (Misoprostol 200 Mcg Tablet) 800 mcg BC .ONCE PRN PRN Reason: Step 3: Hemorrhage protocol Stop: 08/08/20 09:10 Misoprostol (Misoprostol 100 Mcg Tablet) 50 mcg BC Q4H ALL Last Admin: 08/03/20 09:50 Dose: 50 mcg Documented by: Ondansetron HCl (Ondansetron 4 Mg/2 Ml Vial) 4 mg IVP Q4H PRN PRN Reason: Nausea / Vomiting Oxytocin (Oxytocin 10 Unit/Ml Vial) 10 unit IM .ONCE PRN PRN Reason: Step one: If no IV access Stop: 08/08/20 09:10 Sodium Chloride (Sodium Chloride Flush 0.9% 10 Ml Syringe) 10 ml IVP PRN PRN PRN Reason: NEEDED PER PROVIDER ORDERS Sodium Chloride (Sodium Chloride Flush 0.9% 10 Ml Syringe) 10 ml IVP 0100,0900,1700 [facility] Terbutaline Sulfate (Terbutaline 1 Mg/Ml Vial) 0.25 mg SUBQ Q1H PRN PRN Reason: labor indication Valacyclovir HCl [Valtrex] 500 mg PO 08/03/20 Allergies/Adverse Reactions: Allergies Allergy/AdvReac Type Severity Reaction Status Date / Time Sulfa (Sulfonamide AdvReac Rash Verified 05/14/20 11:47 Antibiotics) Anes History & Medical History - Anesthetic History Anesthesia Complications: reports: No previous complications - Medical History Cardiovascular: reports: None Pulmonary: reports: None Gastrointestinal: reports: GERD Urinary: reports: None Neuro: reports: None Musculoskeletal: reports: None Endocrine/Autoimmune: reports: None Blood Disorders: reports: None Skin: reports: None Smoking Status: Never smoker Psychosocial: reports: No issues indicated History of Cancer?: No - Surgical History General: reports: Gastric surgery (gastric sleeve) - Obstetrical History : 1 Parity: 0 Events: reports: None Complications: reports: None Problems: 2 vessel cord Exam General: Alert, Oriented x3, Cooperative, No acute distress Dental: WNL Mouth Openin Fingerbreadth Neck Mobility: Normal Mallampati classification: II Thyromental Distance: 4-6 cm Mental/Cognitive Status: Alert/Oriented X3, Normal for patient Plan Anesthesia Type: Epidural Consent for Procedure(s) Verified and Reviewed: Yes Code Status: Attempt Resuscitation ASA classification: 2-Mild systemic disease Is this case an emergency?: No
[2020-08-03] MEDS ORDERED: ROPIVACAINE 0.2% 200 MG/100 ML BAG EP PRN (17:47)
[2020-08-03] MEDS ORDERED: NALBUPHINE 10 MG/ML AMP IVP PRN (17:47)
[2020-08-04] MEDS ORDERED: WITCH HAZEL/GLYCERIN 1 PAD TOP PRN (00:33)
[2020-08-04] MEDS ORDERED: diphenhydrAMINE 25 MG CAPSULE PO PRN (00:33)
[2020-08-04] MEDS ORDERED: ONDANSETRON ODT 4 MG TABLET TL PRN (00:33)
[2020-08-04] MEDS ORDERED: HYDROCORTISONE 1% CREAM 28 GM TUBE PR PRN (00:33)
--- NOTE | 2020-08-04 00:53 | DELIVERY NOTE ---
Delivery Note - Delivery Comments (Free Text/Narrative) Delivery Comments (Free Text/Narrative): Please see THOMAS Mccall note for delivery details. MD needed to attend to another emergent patient when patient delivered. Patient pushed very effectively and I had to depart when she was +3 station. Uncomplicated delivery of baby and placenta, EBL 200cc, and a superficial vaginal laceration was repaired. I will re-assume complete care of patient.
[2020-08-04] MEDS: IBUPROFEN 600 MG TABLET PO SCH ×4 (01:24→21:35)
[2020-08-04] MEDS: ACETAMINOPHEN 500 MG TABLET PO SCH ×3 (01:26→19:49)
--- NOTE | 2020-08-04 01:27 | DELIVERY NOTE ---
Delivery Note - Labor Labor: positive: Induced by oxytocin - Infant Delivery Method Delivery Method: positive: Spontaneous vaginal delivery - Presentation Presentation: positive: LOP - left occiput posterior - Nuchal Cord Nuchal Cord: positive: None - Amniotic Fluid Description Amniotic Fluid Description: positive: Clear - Laceration Laceration: positive: 1st degree, Vaginal - Suture Suture Type: positive: Vicryl Suture Size: positive: 2-0 - Delivery Outcome Delivery Outcome: positive: Livebirth - [place] : positive: Placed in direct skin contact with mother, Stimulated, Warmed, [place] used [place] sex: positive: Female - Cord Cord: positive: 3 vessels - Placenta Placenta: positive: Intact, Spontaneous - Estimated Blood Loss Estimated Blood Loss (in cc): 200 - Post Delivery Events Post Delivery Events: positive: No post delivery events - Delivery Comments (Free Text/Narrative) Delivery Comments (Free Text/Narrative): Note: I was called to assist in the delivery of this 25yo @ 39.1wks gestation by LMP c/w 9wk U/S who presented on 08/03/2020 for medical induction of labor secondary to 2 vessel umbilical cord. Normal labor course. Epidural placed per maternal request. Pitocin administered for induction of labor for a maximum infusion rate of 4mU/mL. Patient progressed to c/c @ 2245. AROM occurred at 2300 and was noted to be a moderate amount of clear fluid. Onset of pushing at 2328. I presented to the bedside for delivery secondary to operations analyst physician attending to obstetric emergency with another patient on the unit. Pitocin infusing at 2mU/mL. station 3+ at that time. : Normal of viable female on 08/04/2020 @ 0005 in LOP position. No nuchal cord. The was placed on maternal abdomen, stimulated, dried, and placed skin to skin. 's were 8/9 at 1 and 5 min respectively. Pitocin administered via IV for hemostasis. The umbilical cord was allowed to pulsate x 90 seconds at which time it was doubly clamped by CNM and cut by FOB. 2VC confirmed. Cord blood was obtained. Fundal massage and gentle cord traction applied for active management of the third stage. Placenta delivered spontaneously and intact @ 0008. Placenta sent to pathology secondary to 2 vessel umbilical cord. EBL 200mL. Fourth stage: Uterine fundus firm and there is no excessive bleeding. The mg neum, vagina, and cervix were inspected and noted to have 1st degree vaginal laceration which was repaired using a 2-[address]-1 needle, in standard fashion and under sterile conditions. Tissues well approximated. Family bonding well. Both mother and baby were left in stable condition. Complete care handed to operations analyst physician for further management and plan of care.
[2020-08-04] MEDS ORDERED: RHO(D) IMMUNE GLOBULIN 300 MCG SYRINGE IVP ONE (06:07)
[2020-08-04] MEDS: DOCUSATE SODIUM 100 MG CAPSULE PO SCH ×2 (10:08→19:49)
--- NOTE | 2020-08-04 13:38 | PROVIDER PROGRESS NOTE ---
Subjective - Subjective Subjective: No issues. No heavy bleeding, mood issues, significant pain, or problems. Urinate and ambulate OK. AVSS, alert smiling NAD, abd soft, nt/nd, fundus NT 1cm below U 25yo P1 PPD #0.5 s/p induced vag delivery at term, for 2V cord. Doing well, routine care. Baby rh + so rhogam ordered. Objective - Vital Signs/Intake & Output Vital Signs: Vital Signs x48h Temp Pulse Resp BP Pulse Ox 08/04/20 08:30 98.4 F 62 16 112/74 100 Intake & Output: Intake & Output 08/01/20 08/02/20 08/03/20 08/04/20 23:59 23:59 23:59 23:59 Intake Total 3702.716 Output Total 600 300 Balance 3102.716 -300 - Lab Results Fish Bones: 08/03/20 09:15 Other Labs: Lab Results x24hrs 08/04/20 Range/Units 03:20 Blood Type A NEGATIVE Weak D (Du) WEAK-D NEGATIVE Maternal Bleed NEGATIVE (NEGATIVE)
[2020-08-04] MEDS ORDERED: SIMETHICONE CHEW 80 MG TABLET PO PRN (19:29)
[2020-08-05] MEDS: IBUPROFEN 600 MG TABLET PO SCH ×2 (03:15→08:53)
[2020-08-05] MEDS: ACETAMINOPHEN 500 MG TABLET PO SCH ×2 (04:56→13:10)
[2020-08-05] MEDS: DOCUSATE SODIUM 100 MG CAPSULE PO SCH (08:53)
--- NOTE | 2020-08-05 09:18 | Discharge Plan ---
Discharge Plan Problem Reviewed?: Yes Disposition: Home, Self Care Condition: Good Diet: Regular Activity Restrictions: Nothing in vagina Shower Restrictions: No Driving Restrictions: No No Smoking: If you smoke, Please STOP! Call for help. Follow-up with: Kartik Alvarado MD [Provider Admit Priv/Credential] - 1 Week
--- NOTE | 2020-08-05 09:20 | DISCHARGE SUMMARY ---
"Discharge Summary Admit Date: 08/03/20 Discharge Date: 08/05/20 Discharging Provider: Jessica Condition at Discharge: Good Discharge Disposition: 01 Home, Self Care - DIAGNOSES Admission Diagnoses: Induction of labor at term for 2 vessel umbilical cord Discharge Diagnoses with Status of Each Condition: Status post spontaneous vaginal delivery - CONSULTS | PROCEDURES Procedures: Spontaneous vaginal delivery at term on 08/04/2020 - HOSPITAL COURSE Hospital Course: Admitted for induction, uncomplicated, received epidural. By day 1 she was requesting discharge home. Was eating, ambulating, urinating, and without problems. No abnormal pain or heavy bleeding. - ALLERGIES Allergies/Adverse Reactions: Allergies Allergy/AdvReac Type Severity Reaction Status Date / Time Sulfa (Sulfonamide AdvReac Rash Verified 08/04/20 20:26 Antibiotics) - MEDICATIONS Home Medications: Ambulatory Orders Medication Instructions Recorded Confirmed Valacyclovir HCl [Valtrex] 500 mg PO BID 08/03/20 08/04/20 - PHYSICAL EXAM AT DISCHARGE General Appearance: positive: No acute distress Eyes Bilateral: positive: EOMI Abdomen: positive: Non-tender, Other (Fundus 1cm below umbilicus, firm and non- tender) Skin: positive: Color nml Neurologic/Psychiatric: positive: Mood/affect nml - LABS Result Diagrams: 08/03/20 09:15 - FOLLOW UP Follow Up: 1w Dr. Alvarado"
[2020-08-05 09:37] VITALS: BP 106/60
--- NOTE | 2020-08-05 15:20 | Labor Flowsheet ---
Labor Flowsheet Datetime Report Generated by CPN: 08/05/2020 15:20 Datetime: 08/05/2020 09:15 VITAL SIGNS NBP Sys/Tracy/Mean (mmHg): 96 : 50 : 60 Pulse: 101 Datetime: 08/04/2020 00:45 Stage of : Datetime: 08/04/2020 00:30 LaborFlag: Labor Datetime: 08/04/2020 00:14 SpO2 (%): 100 Datetime: 08/04/2020 00:05 UTERINE ACTIVITY Monitor Mode: External Frequency (min): 1-2 Quality: Moderate Duration (sec): 60-80 Resting Tone (Palpate): Relaxed ASSESSMENT A Monitor Mode: Telemetry FHR Baseline Rate : 140 Variability: Moderate 6-25 bpm Accelerations: None Datetime: 08/04/2020 00:01 STAGE 2 Pushing: Coached on Pushing Pushing Position: Pushing with Contractions; Pushing Lithotomy Pushing Progress: Descent with Pushing; Presenting Part Visible; Pushing Effectively with Contracti ons Datetime: 08/04/2020 00:00 Pattern: Normal: <= 5 Contractions in 10 Minutes Decelerations: Variable Actions for Decelerations: Side to Side; Oxygen Applied Category: Category II Datetime: 08/03/2020 23:48 Patient Position/Activity: Right Lateral Datetime: 08/03/2020 23:45 Comments: halfed pitocin MEDICATIONS Pitocin (milliunits): Decreased to @ 2 Datetime: 08/03/2020 23:41 COMMUNICATION Communication: Provider at Bedside Provider Notified (Name): Jessica Datetime: 08/03/2020 23:23 VAGINAL EXAM Dilatation (cm): 10.0 Effacement (%): 100 Datetime: 08/03/2020 23:00 Resting Tone IUP (mmHg): PAIN Pain Scale: 0 Pain Presence: None/Denies Pain Type: N/A Membranes Rupture Method: Artificial Amniotic Fluid Color: Clear Amniotic Fluid Amount: Small Membrane Comments: rupture 2300 Datetime: 08/03/2020 22:56 Communication Comments: jessica @ bedside Datetime: 08/03/2020 22:52 Anesthesia Level Check: T9 Datetime: 08/03/2020 22:45 Station: -1 Exam by: Jeffrey Atkinson, RN Datetime: 08/03/2020 22:30 Vibroacoustic Stim: Datetime: 08/03/2020 22:20 Patient Care Comments: peanut ball positioned under right leg, throne Datetime: 08/03/2020 21:57 Hygiene: Yudy Care Datetime: 08/03/2020 21:55 Temperature (C): 36.8 Datetime: 08/03/2020 20:24 Monitor Interventions for UA: [place] Adjusted Datetime: 08/03/2020 20:23 PATIENT CARE IV/Blood Work: New IV Bag Hung Datetime: 08/03/2020 19:57 Pain Assessment Comments: resting Datetime: 08/03/2020 19:39 MATERNAL ASSESSMENT Level of Consciousness: Alert DTR's/Clonus: DTRs 2+; No Clonus Headache: Denies Breath Sounds, Left: Clear and Equal Breath Sounds, Right: Clear and Equal Nausea/Vomiting: Denies RUQ Epigastric Pain: Denies I/O Interventions: Ice Chips Given; Clear Liquids Given Datetime: 08/03/2020 18:30 Pitocin Checklist: At Least 1 Acceleration of 15 bpm x 15 Seconds in 30 Minutes or Adequate Variabi lity; Uterus Palpates Soft between Contractions FHR Baseline Changes: No Baseline Change Oxygen Method: Room Air Datetime: 08/03/2020 18:11 Anesthesia Comments: Pt Positioned low fowlers Datetime: 08/03/2020 18:09 Epidural Procedure: Loading Dose Datetime: 08/03/2020 17:53 PROCEDURE TIME OUT Procedure Type: Call out Procedure Verify: Correct Patient Identity; Correct Side and Site are Marked; Accurate Procedure Co nsent Form; Agreement on Procedure to be Done; Correct Patient Position ANESTHESIA Anesthesia Plans: Epidural Epidural Positioning: Sitting Datetime: 08/03/2020 17:16 Pain Location: Abdomen Pain Coping: Requesting Pain Medication or Epidural Vaginal Bleeding: Normal Show Cervix, Consistency: Soft Cervix, Position: Anterior Datetime: 08/03/2020 13:59 Comfort Measures: Breathing/Relaxation; Family Support Datetime: 08/03/2020 13:30 Provider Reviewed Strip: No Strip Reviewed by: [facility] Notification Reason: Status Update Datetime: 08/03/2020 13:00 Monitor Interventions for FHR: Ultrasound Adjusted Datetime: 08/03/2020 10:00 Contraction Comments: uterine irritability noted Datetime: 08/03/2020 09:50 Cervical Ripening Agents: Cytotec @
== END 2020-08-05 14:45 | disposition home or self-care (01) | DRG 806 ==
LOC: WFO 08:14 → FBP 08:19 → WFO 09:09 → FBP 09:10 → OBSVTOIN 14:35
PROVIDERS: ADMIT Obstetrics & Gynecology; ATTEND Obstetrics & Gynecology
PROC: 3E033VJ Introduction of Other Hormone into Peripheral Vein, Percutaneous Approach (ICD-10-PCS; 2020-08-03)
PROC: 10907ZC Drainage of Amniotic Fluid, Therapeutic from Products of Conception, Via Natural or Artificial Opening (ICD-10-PCS; 2020-08-03)
PROC: 10E0XZZ Delivery of Products of Conception, External Approach (ICD-10-PCS; principal; 2020-08-04)
PROC: 0HQ9XZZ Repair Perineum Skin, External Approach (ICD-10-PCS; 2020-08-04)
DX: O69.89X0 Labor and delivery complicated by other cord complications, not applicable or unspecified (principal); O98.32 Other infections with a predominantly sexual mode of transmission complicating childbirth; Z37.0 Single live birth; A60.00 Herpesviral infection of urogenital system, unspecified; O99.02 Anemia complicating childbirth; D50.9 Iron deficiency anemia, unspecified; O70.0 First degree perineal laceration during delivery; O75.89 Other specified complications of labor and delivery; O99.844 Bariatric surgery status complicating childbirth; Z67.11 Type A blood, Rh negative; Z3A.39 39 weeks gestation of pregnancy; Z79.899 Other long term (current) drug therapy
CPT/HCPCS: 36415; 83033; 83540; 84466; 85025; 86850; 86870; 86900; 86901; A9270; G0378; J7120

== ENCOUNTER 2020-10-07 08:00 | Outpatient (CLI) | payer OTHER ==
[2020-10-07 21:52] LABS: BACTERIAL VAGINOSIS DNA NEGATIVE (NEGATIVE); CANDIDA GLABRATA DNA NEGATIVE (NEGATIVE); CANDIDA GROUP DNA NEGATIVE (NEGATIVE); CANDIDA KRUSEI DNA NEGATIVE (NEGATIVE); TRICHOMONAS VAGINALIS DNA NEGATIVE (NEGATIVE)
== END 2020-10-07 23:59 | disposition home or self-care (01) ==
LOC: LAB.WC 08:00
PROVIDERS: ATTEND Obstetrics & Gynecology
DX: Z39.1 Encounter for care and examination of lactating mother (principal)
CPT/HCPCS: 87661; 87797; 87801

== ENCOUNTER 2021-07-27 14:48 | Emergency (ER) | payer OTHER ==
[2021-07-27 15:14] LABS: EOSINOPHILS # (AUTO) 0.1 10^3/uL (0.0-0.7); EOSINOPHILS % (AUTO) 2.4 %; HCT - HEMATOCRIT 35.9 % (37.0-47.0); HGB - HEMOGLOBIN 12.3 g/dL (12.0-16.0); LYMPHOCYTES # (AUTO) 1.2 10^3/uL (1.5-3.5); MEAN CORPUSCULAR HEMOGLOBIN 29.6 pg (27.0-31.0); MEAN CORPUSCULAR HGB CONC 34.3 g/dL (32.0-36.0); MEAN CORPUSCULAR VOLUME 86.3 fL (81.0-99.0); MEAN PLATELET VOLUME 11.1 fL (7.9-10.8); MONOCYTES # (AUTO) 0.4 10^3/uL (0.0-1.0); MONOCYTES % (AUTO) 9.3 %; NEUTROPHILS # (AUTO) 2.5 10^3/uL (1.5-6.6); NEUTROPHILS % (AUTO) 59.1 %; PLT - PLATELET COUNT 165 10^3/uL (130-450); RED BLOOD COUNT 4.16 10^6/uL (4.20-5.40); RED CELL DISTRIBUTION WIDTH 14.5 % (12.0-15.0); WHITE BLOOD COUNT 4.2 x10^3/uL (4.8-10.8)
[2021-07-27 15:25] LABS: ALBUMIN 3.9 g/dL (3.2-5.5); BILIRUBIN,TOTAL 0.7 mg/dL (0.2-1.0); CREATININE 0.7 mg/dL (0.4-1.0); POTASSIUM 3.4 mmol/L (3.5-5.0); TOTAL PROTEIN 7.7 g/dL (6.7-8.2)
--- NOTE | 2021-07-27 15:39 | ED Physician Documentation ---
History of Present Illness - Stated complaint Stated Complaint: CRAMPING - Chief complaint Chief Complaint: Abd Pain - History obtained from History obtained from: Patient - History of Present Illness Timing: How many days ago (2) Pain level max: 3 Pain level now: 2 - Additonal information Additional information: Patient is a 26-year-old female, 2 para 1, think she is about 5 weeks . States that she has developed lower abdominal pain and pelvic cramping over the past 2 days. No vaginal bleeding or discharge. Nothing makes it better or worse. She states that she just wanted to come in to "get checked out". Review of Systems Constitutional: denies: Fever, Chills Respiratory: denies: Cough GI: denies: Nausea, Vomiting, Diarrhea Skin: denies: Rash Musculoskeletal: denies: Neck pain, Back pain Neurologic: denies: Headache PD PAST MEDICAL HISTORY - Past Medical History Past Medical History: Yes Cardiovascular: None Respiratory: None Neuro: None Endocrine/Autoimmune: None GI: GERD : None Musculoskeletal: None Derm: None - Past Surgical History General: Gastric surgery - Present Medications Home Medications: Ambulatory Orders Medication Instructions Recorded Confirmed Valacyclovir HCl [Valtrex] 500 mg PO BID 08/03/20 08/04/20 Metoclopramide [Reglan] 10 mg PO Q6H PRN #20 tablet 07/27/21 - Allergies Allergies/Adverse Reactions: Allergies Allergy/AdvReac Type Severity Reaction Status Date / Time Sulfa (Sulfonamide AdvReac Rash Verified 07/27/21 14:53 Antibiotics) - Social History Does the pt smoke?: No Smoking Status: Never smoker PD ED PE NORMAL - Vitals Vital signs reviewed: Yes - General General: Alert and oriented X 3, No acute distress - HEENT HEENT: Moist mucous membranes - Neck Neck: Supple, no meningeal sign - Cardiac Cardiac: RRR, Strong equal pulses - Respiratory Respiratory: No respiratory distress, Clear bilaterally - Abdomen Abdomen: Soft, Non tender, Non distended - Derm Derm: Warm and dry - Extremities Extremities: No edema - Neuro Neuro: Alert and oriented X 3 - Psych Psych: Normal mood, Normal affect Results - Vitals Vitals: Vital Signs - 24 hr 07/27/21 07/27/21 14:50 18:20 Temperature 36.0 C L Heart Rate 96 84 Respiratory 16 16 Rate Blood Pressure 127/87 H 123/82 H O2 Saturation 100 99 Oxygen O2 Source Room air - Labs Labs: Laboratory Tests 07/27/21 07/27/21 07/27/21 15:07 15:07 15:07 WBC 4.2 L RBC 4.16 L Hgb 12.3 Hct 35.9 L MCV 86.3 MCH 29.6 MCHC 34.3 RDW 14.5 Plt Count 165 MPV 11.1 H Neut # (Auto) 2.5 Lymph # (Auto) 1.2 L Ashley # (Auto) 0.4 Eos # (Auto) 0.1 Baso # (Auto) 0.0 Absolute Nucleated RBC 0.00 Nucleated RBC % 0.0 Sodium 134 L Potassium 3.4 L Chloride 101 Carbon Dioxide 19 L Anion Gap 14.0 H BUN 14 Creatinine 0.7 Estimated GFR (MDRD) 100 Glucose 84 Calcium 9.0 Total Bilirubin 0.7 AST 58 H ALT 36 Alkaline Phosphatase 51 Total Protein 7.7 Albumin 3.9 Globulin 3.8 Albumin/Globulin Ratio 1.0 Lipase 39 HCG, Quant 2670.00 Urine Color Urine Clarity Urine pH Ur Specific [place] Urine Protein Urine Glucose (UA) Urine Ketones Urine Occult Blood Urine Nitrite Urine Bilirubin Urine Urobilinogen Ur Leukocyte Esterase Urine RBC Urine WBC Ur Squamous Epith Cells Urine Bacteria Urine Mucus Ur Microscopic Review Urine Culture Comments 07/27/21 15:38 WBC RBC Hgb Hct MCV MCH MCHC RDW Plt Count MPV Neut # (Auto) Lymph # (Auto) Ashley # (Auto) Eos # (Auto) Baso # (Auto) Absolute Nucleated RBC Nucleated RBC % Sodium Potassium Chloride Carbon Dioxide Anion Gap BUN Creatinine Estimated GFR (MDRD) Glucose Calcium Total Bilirubin AST ALT Alkaline Phosphatase Total Protein Albumin Globulin Albumin/Globulin Ratio Lipase HCG, Quant Urine Color YELLOW Urine Clarity CLOUDY Urine pH 6.0 Ur Specific [place] >=1.030 H Urine Protein NEGATIVE Urine Glucose (UA) NEGATIVE Urine Ketones 15 H Urine Occult Blood NEGATIVE Urine Nitrite NEGATIVE Urine Bilirubin NEGATIVE Urine Urobilinogen 0.2 (NORMAL) Ur Leukocyte Esterase TRACE H Urine RBC 0-5 Urine WBC 6-10 H Ur Squamous Epith Cells MANY Squamous H Urine Bacteria Many H Urine Mucus Moderate Strands Ur Microscopic Review INDICATED Urine Culture Comments NOT INDICATED - Rads (name of study) OB US Radiology: Final report received, EMP read contemporaneously, See rad report PD MEDICAL DECISION MAKING - ED course Complexity details: reviewed results, re-evaluated patient, considered differential, d/w patient ED course: 26-year-old female, EGA 5 weeks 1 day. Does have some crampy abdominal pain, ectopic precautions given at bedside. Recommend follow-up ultrasound with her doctor. I will prescribe nausea medications for home. No vaginal bleeding or discharge. Patient is well-appearing, nontoxic. Patient counseled regarding signs and symptoms for which I believe and urgent re-evaluation would be necessary. Patient with good understanding of and agreement to plan and is comfortable going home at this time This document was made in part using voice recognition software. While efforts are made to proofread this document, sound alike and grammatical errors may occur. IMPRESSION: There is a gestational sac with a mean gestational sac diameter of 0.35 cm, 5 weeks 1 day. There may potentially be a tiny pole without a heart rate. Comment: Recommend serial beta-hCGs and possible follow-up ultrasound in 1-2 weeks. Urinalysis appears likely contaminated by squamous cells. Departure - Departure Disposition: 01 Home, Self Care Clinical Impression: Intrauterine normal Qualifiers: Trimester: first trimester Qualified Code(s): Z34.91 - Encounter for supervision of normal , unspecified, first trimester Condition: Good Instructions: ED Abdominal Pain Rule Out Ectopic, ED Care Follow-Up: Mar Chapin ARNP [Primary Care Provider] - Within 1 week Prescriptions: Metoclopramide [Reglan] 10 mg PO Q6H PRN #20 tablet PRN Reason: Nausea / Vomiting Comments: Your prescription was sent to [facility] in [place]. You appear to have an intrauterine that is approximately 5 weeks and 1 day along. If your pain continues, you should have a repeat ultrasound in approximately 1 week. Your hCG was 2670 today. Please follow-up with OB for further care. Please return if you worsen. You can use Tylenol for pain at home. Discharge Date/Time: 07/27/21 19:06
[2021-07-27 15:59] LABS: GLUCOSE, URINE (UA) NEGATIVE (NEGATIVE); KETONES,URINE (UA) 15 mg/dL (NEGATIVE); LEUKOCYTE ESTERASE, URINE TRACE (NEGATIVE); NITRITE,URINE NEGATIVE (NEGATIVE); OCCULT BLOOD,URINE NEGATIVE (NEGATIVE); PROTEIN,URINE NEGATIVE (NEGATIVE); UROBILINOGEN,URINE 0.2 (NORMAL) E.U./dL (NORMAL)
[2021-07-27 16:00] LABS: CLARITY,URINE CLOUDY (CLEAR)
[2021-07-27 16:08] LABS: BACTERIA,URINE Many /HPF (None Seen); BILIRUBIN,URINE NEGATIVE (NEGATIVE); ICTOTEST,URINE NEGATIVE; RBC,URINE 0-5 /HPF (0-5); SQUAMOUS EPITHELIAL CELL,UR MANY Squamous (<= Few)
[2021-07-27 16:09] LABS: MUCUS,URINE Moderate Strands
[2021-07-27 18:21] VITALS: BP 123/82
--- NOTE | 2021-07-27 19:49 | Ultrasound Report ---
PROCEDURE: OB First Trimester w/TV INDICATIONS: pelvic pain, 5 weeks preg OUTSIDE/PRIOR DATING DATA: Last menstrual period (LMP): 06/24/2021. LMP-based estimated date of delivery (BRET): 03/31/2022. First dating scan (date and location): 07/27/2021. Estimated date of delivery (BRET) from first dating scan: N/A TECHNIQUE: Real-time scanning was performed of the fetus and maternal pelvic organs, with image documentation. Endovaginal scanning was also performed to better visualize the fetus and maternal ovaries. COMPARISON: None FINDINGS: There is a gestational sac which measures 0.35 cm, 5 weeks 1 day. There is a question tiny crown-rump length measuring 1.1 mm. No heart rate is noted. Measurement variability in dating: +/- 4 weeks by LMP, +/- 7 days by mean sac diameter (use before 6 weeks gestation if crown-rump length not able to be measured), +/- 5 days by crown-rump length (6-12 weeks gestation). Maternal organs: Ovaries demonstrate a left corpus luteum. IMPRESSION: There is a gestational sac with a mean gestational sac diameter of 0.35 cm, 5 weeks 1 day. There may potentially be a tiny pole without a heart rate. Comment: Recommend serial beta-hCGs and possible follow-up ultrasound in 1-2 weeks. Reviewed by: Santos Payne MD on 07/27/2021 7:47 PM PDT Approved by: Santos Payne MD on 07/27/2021 7:47 PM PDT Station ID: [id number]
== END 2021-07-27 19:06 | disposition home or self-care (01) ==
LOC: ED 14:48
DX: O26.891 Other specified pregnancy related conditions, first trimester (principal); R10.30 Lower abdominal pain, unspecified; Z3A.01 Less than 8 weeks gestation of pregnancy
CPT/HCPCS: 36415; 80053; 81001; 81003; 83690; 84702; 85025; 87086; 99282; 99284

== ENCOUNTER 2021-08-02 09:10 | Outpatient (CLI) | payer OTHER | END 2021-08-02 09:11 | disposition home or self-care (01) | LOC: LAB.N 09:10 | PROVIDERS: ATTEND Physician Assistant | DX: Z33.1 Pregnant state, incidental (principal) | CPT/HCPCS: 36415; 84702 ==

== ENCOUNTER 2022-04-18 12:00 | Inpatient (IN) | payer OTHER ==
--- NOTE | 2022-04-18 12:39 | XRAY Report ---
PROCEDURE: Chest 1 View X-Ray INDICATIONS: Chest pain TECHNIQUE: One view of the chest was acquired. COMPARISON: None. FINDINGS: Surgical changes and devices: None. Lungs and pleura: No pleural effusions or pneumothorax. Lungs are clear. Mediastinum: Mediastinal contours appear normal. Heart size is normal. Bones and chest wall: No suspicious bony lesions. Overlying soft tissues appear unremarkable. IMPRESSION: No acute pulmonary process. Reviewed by: Lisa Hall MD on 04/18/2022 12:38 PM [facility] Approved by: Lisa Hall MD on 04/18/2022 12:38 PM [facility] Station ID: [id number]
--- OUTSIDE RECORDS SUMMARY | 2022-04-18 12:41 | EXTERNAL MEDICAL SUMMARY RPT | Continuity of Care Document ---
:1995 Author Organization [facility] Address [address] [place] [address] Phone Care Team Providers Name Role Phone Destinee Colin Unavailable Unavailable Allergies and Intolerances date description facility type (no date) [facility] (unknown) (no date) Sulfa (Sulfonamide Antibiotics) [facility] (unknown) Encounters No information. Functional Status No information. Immunizations date description facility 2022-03-08 00:00 MMR-Measles, Mumps, and Rubella Virus V accine [facility] Medications date description facility 2022-03-07 00:00 Ondansetron [facility] 2022-04-05 00:00 Ibuprofen [facility] 2022-02-17 00:00 Valacyclovir [facility] Problems date description facility 2022-01-22 [facility]42 M[facility] care for other known or suspec [facility] growth 2022-03-02 00:00 Varices of umbilical vein [facility] 2022-03-02 00:00 36 weeks gestation of [facility] 2022-03-03 07:40 36 weeks gestation of [facility] 2022-03-06 08:46 36 weeks gestation of [facility] 2022-03-20 09:29 Maternal care for other known or suspec [facility] growth 2022-04-18 09:40 Presence of (intrauterine) contraceptiv e device [facility] 2022-04-18 09:43 Presence of (intrauterine) contraceptiv e device [facility] Procedures date description facility 2022-03-06 00:00 drainage of amniotic fluid, therapeutic from [facility] products of conception, via natural or artificial opening 2022-03-06 00:00 Delivery of Products of Conception, Ext [facility] Approach 2022-02-24 00:00 US biophysical profile [facility] 2022-03-06 00:00 Introduction of Other Hormone into [facility] Vein, Percutaneous Approach Results/Labs test date author facility value unit interpret ation Result panel 1 (unknown) (no date[facility]) Result panel 2 (unknown) (no date) (unknown[facility]) Result panel 3 (unknown) (no date) (unknown[facility]) Result panel 4 (unknown) (no date) (unknown[facility]) Result panel 5 (unknown) (no date) (unknown[facility]) Result panel 6 (unknown) (no date) (unknown[facility]) Result panel 7 (unknown) (no date) (unknown[facility]) Result panel 8 (unknown) (no date) (unknown[facility]) Result panel 9 (unknown) (no date) (unknown[facility]) Result panel 10 (unknown) (no date) (unknown[facility]) Result panel 11 (unknown) (no date) (unknown[facility]) Result panel 12 (unknown) (no date) (unknown[facility]) Result panel 13 (unknown) (no date) (unknown[facility]) Result panel 14 (unknown) (no date) (unknown[facility]) Result panel 15 (unknown) (no date) (unknown[facility]) Result panel 16 (unknown) (no date) (unknown[facility]) Result panel 17 (unknown) (no date) (unknown[facility]) Result panel 18 (unknown) (no date) (unknown[facility]) Result panel 19 (unknown) (no date) (unknown[facility]) Result panel 20 (unknown) (no date) (unknown[facility]) Result panel 21 (unknown) (no date) (unknown[facility]) Result panel 22 (unknown) (no date) (unknown[facility]) Result panel 23 (unknown) (no date) (unknown[facility]) Result panel 24 (unknown) (no date) (unknown[facility]) Result panel 25 (unknown) (no date) (unknown[facility]) Result panel 26 (unknown) (no date) (unknown[facility]) Result panel 27 (unknown) (no date) (unknown[facility]) Result panel 28 (unknown) (no date) (unknown[facility]) Result panel 29 (unknown) (no date) (unknown[facility]) Result panel 30 (unknown) (no date) (unknown[facility]) Result panel 31 (unknown) (no date) (unknown[facility]) Result panel 32 (unknown) (no date) (unknown[facility]) Result panel 33 (unknown) (no date) (unknown[facility]) Result panel 34 (unknown) (no date) (unknown[facility]) Result panel 35 (unknown) (no date) (unknown[facility]) Result panel 36 (unknown) (no date) (unknown[facility]) Result panel 37 (unknown) (no date) (unknown[facility]) Result panel 38 (unknown) (no date) (unknown[facility]) Result panel 39 (unknown) (no date) (unknown[facility]) Result panel 40 (unknown) (no date) (unknown[facility]) Result panel 41 (unknown) (no date) (unknown[facility]) Result panel 42 (unknown) (no date) (unknown[facility]) Result panel 43 (unknown) (no date) (unknown[facility]) Result panel 44 (unknown) (no date) (unknown[facility]) Result panel 45 (unknown) (no date) (unknown[facility]) Result panel 46 (unknown) (no date) (unknown[facility]) Result panel 47 (unknown) (no date) (unknown[facility]) Result panel 48 (unknown) (no date) (unknown[facility]) Result panel 49 (unknown) (no date) (unknown[facility]) Result panel 50 (unknown) (no date) (unknown[facility]) Result panel 51 (unknown) (no date) (unknown[facility]) Result panel 52 (unknown) (no date) (unknown[facility]) Result panel 53 (unknown) (no date) (unknown[facility]) Result panel 54 (unknown) (no date) (unknown[facility]) Result panel 55 (unknown) (no date) (unknown[facility]) Result panel 56 (unknown) (no date) (unknown[facility]) Result panel 57 (unknown) (no date) (unknown[facility]) Result panel 58 (unknown) (no date) (unknown[facility]) Result panel 59 (unknown) (no date) (unknown[facility]) Result panel 60 (unknown) (no date) (unknown[facility]) Result panel 61 (unknown) (no date) (unknown[facility]) Result panel 62 (unknown) (no date) (unknown[facility]) Result panel 63 (unknown) (no date) (unknown[facility]) Result panel 64 (unknown) (no date) (unknown[facility]) Result panel 65 (unknown) (no date) (unknown[facility]) Result panel 66 (unknown) (no date) (unknown[facility]) Result panel 67 (unknown) (no date) (unknown[facility]) Result panel 68 (unknown) (no date) (unknown[facility]) Result panel 69 (unknown) (no date) (unknown[facility]) Result panel 70 (unknown) (no date) (unknown[facility]) Result panel 71 (unknown) (no date) (unknown[facility]) Result panel 72 (unknown) (no date) (unknown[facility]) Result panel 73 (unknown) (no date) (unknown[facility]) Result panel 74 (unknown) (no date) (unknown[facility]) Result panel 75 (unknown) (no date) (unknown[facility]) Result panel 76 (unknown) (no date) (unknown[facility]) Result panel 77 (unknown) (no date) (unknown[facility]) Result panel 78 (unknown) (no date) (unknown[facility]) Result panel 79 (unknown) (no date) (unknown[facility]) Result panel 80 (unknown) (no date) (unknown[facility]) Result panel 81 (unknown) (no date) (unknown[facility]) Result panel 82 (unknown) (no date) (unknown[facility]) Result panel 83 (unknown) (no date) (unknown[facility]) Result panel 84 (unknown) (no date) (unknown[facility]) Result panel 85 (unknown) (no date) (unknown[facility]) Result panel 86 (unknown) (no date) (unknown[facility]) Result panel 87 (unknown) (no date) (unknown[facility]) Result panel 88 (unknown) (no date) (unknown[facility]) Result panel 89 (unknown) (no date) (unknown[facility]) Result panel 90 (unknown) (no date) (unknown[facility]) Result panel 91 (unknown) (no date) (unknown[facility]) Result panel 92 (unknown) (no date) (unknown[facility]) Result panel 93 (unknown) (no date) (unknown[facility]) Result panel 94 (unknown) (no date) (unknown[facility]) Result panel 95 (unknown) (no date) (unknown[facility]) Result panel 96 (unknown) (no date) (unknown[facility]) Result panel 97 (unknown) (no date) (unknown[facility]) Result panel 98 (unknown) (no date) (unknown[facility]) Result panel 99 (unknown) (no date) (unknown[facility]) Result panel 100 (unknown) (no date) (unknown[facility]) Result panel 101 (unknown) (no date) (unknown[facility]) Result panel 102 (unknown) (no date) (unknown[facility]) Result panel 103 (unknown) (no date) (unknown[facility]) Result panel 104 (unknown) (no date) (unknown[facility]) Result panel 105 (unknown) (no date) (unknown[facility]) Result panel 106 (unknown) (no date) (unknown[facility]) Result panel 107 (unknown) (no date) (unknown[facility]) Result panel 108 (unknown) (no date) (unknown[facility]) Result panel 109 (unknown) (no date) (unknown[facility]) Result panel 110 (unknown) (no date) (unknown[facility]) Result panel 111 (unknown) (no date) (unknown[facility]) Result panel 112 (unknown) (no date) (unknown[facility]) Result panel 113 (unknown) (no date) (unknown[facility]) Result panel 114 (unknown) (no date) (unknown[facility]) Result panel 115 (unknown) (no date) (unknown[facility]) Result panel 116 (unknown) (no date) (unknown[facility]) Result panel 117 (unknown) (no date) (unknown[facility]) Result panel 118 (unknown) (no date) (unknown[facility]) Result panel 119 (unknown) (no date) (unknown[facility]) Result panel 120 (unknown) (no date) (unknown[facility]) Result panel 121 (unknown) (no date) (unknown[facility]) Result panel 122 (unknown) (no date) (unknown[facility]) Result panel 123 (unknown) (no date) (unknown[facility]) Result panel 124 (unknown) (no date) (unknown[facility]) Result panel 125 (unknown) (no date) (unknown[facility]) Result panel 126 (unknown) (no date) (unknown[facility]) Result panel 127 (unknown) (no date) (unknown[facility]) Result panel 128 (unknown) (no (unknown) (unknown) (no value) (units (unk nown) date) unknown) (unknown) (no (unknown) (unknown) (-16 oz) 100/68 (units (unknown) date) N unknown) (unknown) (no (unknown) (unknown) (-16 oz) 108/64 (units (unknown) date) N unknown) (unknown) (no (unknown) (unknown) (-5 lb) 100/62 N (units (unknown) date) unknown) (unknown) (no (unknown) (unknown) (-6 lb) 110/64 N (units (unknown) date) unknown) (unknown) (no (unknown) (unknown) (EG,TYPE 1 (units (unk nown) date) Diabetes, PKU), unknown) Denies Patient or baby's father had a child with (unknown) (no (unknown) (unknown) Genetic (units (unkn own) date) Screening/Teratol unknown) ogy Counseling - Includes patient, baby's father, or (unknown) (no (unknown) (unknown) -?-?-?-?-?-?-?-? (units (unknown) date) -?-?-?-? unknown) (unknown) (no (unknown) (unknown) 08/04/20 39 15 6 (units (unknown) date) lb 13 oz Female unknown) vaginal live - full term (unknown) (no (unknown) (unknown) 09/15/21 (units (unkno wn) date) unknown) (unknown) (no (unknown) (unknown) 10/14/21 (units (unkno wn) date) unknown) (unknown) (no (unknown) (unknown) 11/14/21 (units (unkno wn) date) unknown) (unknown) (no (unknown) (unknown) 1+ No no 158 16 (units (unknown) date) N/A absent 4 wks unknown) (unknown) (no (unknown) (unknown) 1+ No no 176 12 (units (unknown) date) N/A absent unknown) long/closed AGA (unknown) (no (unknown) (unknown) 01/06/22 (units (unkno wn) date) unknown) (unknown) (no (unknown) (unknown) 01/20/22 (units (unkno wn) date) unknown) (unknown) (no (unknown) (unknown) 01/20/22] (units (unkn own) date) unknown) (unknown) (no (unknown) (unknown) 11w5d 4 wks (units (un known) date) unknown) (unknown) (no (unknown) (unknown) 04/01/22 (units (unkno wn) date) Ultrasound #2 29w unknown) 6d (unknown) (no (unknown) (unknown) 12w 2d 179 lb (units ( unknown) date) unknown) (unknown) (no (unknown) (unknown) 16:05 (units (unkno wn) date) unknown) (unknown) (no (unknown) (unknown) 16w 3d 174 lb (units ( unknown) date) unknown) (unknown) (no (unknown) (unknown) 20w 6d 179 lb (units ( unknown) date) unknown) (unknown) (no (unknown) (unknown) 28w 3d 175 lb (units ( unknown) date) unknown) (unknown) (no (unknown) (unknown) 364 (units (unkno wn) date) unknown) (unknown) (no (unknown) (unknown) Abnormal lab (units (u nknown) date) values 1st unknown) trimester: discussed (unknown) (no (unknown) (unknown) Add'l Plan (units (unk nown) date) Details unknown) (unknown) (no (unknown) (unknown) Age/Sex: 26 / F (units (unknown) date) Date of Service: unknown) (unknown) (no (unknown) (unknown) Allergies (units (unkn own) date) unknown) (unknown) (no (unknown) (unknown) [place], [place] (units ( unknown) date) [id number] unknown) (unknown) (no (unknown) (unknown) Anemia (-2010) (units (unknown) date) unknown) (unknown) (no (unknown) (unknown) Anesthesia (units (unk nown) date) unknown) (unknown) (no (unknown) (unknown) Aneuploidy (units (unk nown) date) Screening unknown) Offered: Accepted (unknown) (no (unknown) (unknown) Anticipated (units (un known) date) course of unknown) care: discussed (unknown) (no (unknown) (unknown) Assessment and (units (unknown) date) Plan unknown) (unknown) (no (unknown) (unknown) Asthma (units (unkno wn) date) unknown) (unknown) (no (unknown) (unknown) Attending Dr: (units ( unknown) date) Destinee Colin unknown) (unknown) (no (unknown) (unknown) Autoimmune (units (unk nown) date) vasculitis unknown) (unknown) (no (unknown) (unknown) BMI 32.0 (units (unkno wn) date) unknown) (unknown) (no (unknown) (unknown) BP 100/68 (units (unkn own) date) unknown) (unknown) (no (unknown) (unknown) (units (unkno wn) date) Plan/Preferences unknown) (unknown) (no (unknown) (unknown) Planning (units (unknown) date) unknown) (unknown) (no (unknown) (unknown) Blood Pressure (units (unknown) date) Location Rt unknown) brachial (unknown) (no (unknown) (unknown) Blood (units (unkno wn) date) transfusions?: unknown) yes (Never had but would accept) (unknown) (no (unknown) (unknown) Breastfeed Preg (units (unknown) date) Comp Name unknown) (unknown) (no (unknown) (unknown) Caffeine use, (units ( unknown) date) Exercise and unknown) activity, work/environmenta l/hazards, Sexual (unknown) (no (unknown) (unknown) Covid x 2, boost (units (unknown) date) x1 unknown) (unknown) (no (unknown) (unknown) Current Estimate (units (unknown) date) 03/28/22 unknown) Ultrasound #1 30w 3d (unknown) (no (unknown) (unknown) Current (units (unkno wn) date) History unknown) (unknown) (no (unknown) (unknown) DNA (units (unkno wn) date) unknown) (unknown) (no (unknown) (unknown) : 1995 (units (unknown) date) Acct:[id number] unknown) (unknown) (no (unknown) (unknown) Date of positive (units (unknown) date) home unknown) test: 07/19/21 (unknown) (no (unknown) (unknown) Date (units (unkno wn) date) unknown) (unknown) (no (unknown) (unknown) Del. Date (units (unkn own) date) GA/Weeks Labor unknown) Lgth Wt Sex Route Outcome Anesthesia Place (unknown) (no (unknown) (unknown) Delivery Date: (units (unknown) date) 08/04/20 Last unknown) Updated by: Courtney Hanson R.N. (unknown) (no (unknown) (unknown) Delv (units (unkno wn) date) unknown) (unknown) (no (unknown) (unknown) Denies Congenital (units (unknown) date) Heart Defect, unknown) Denies Down Syndrome, Denies Muscular Dystrophy, (unknown) (no (unknown) (unknown) Denies Neural (units ( unknown) date) Tube Defect unknown) (Meningomyelocele , Spina Bifida, or Anencephaly), (unknown) (no (unknown) (unknown) Denies Sickle (units ( unknown) date) Cell Disease or unknown) Trait (), Denies Hemophilia or other blood (unknown) (no (unknown) (unknown) Denies Giancarlo-Sachs (units (unknown) date) (Ashkenazi unknown) Confucianism, Cajun, Anguillan Bhutanese), Denies Sebastian (unknown) (no (unknown) (unknown) Denies other (units (u nknown) date) unknown) (unknown) (no (unknown) (unknown) Denies over the (units (unknown) date) counter unknown) medications, Denies alcohol, Denies illicit drugs and (unknown) (no (unknown) (unknown) Depression: (units (un known) date) discussed unknown) (unknown) (no (unknown) (unknown) Dept at (units (unkno wn) date) . unknown) (unknown) (no (unknown) (unknown) Diabetes (units (unkno wn) date) mellitus unknown) (unknown) (no (unknown) (unknown) Diet and (units (unkno wn) date) Exercise unknown) (unknown) (no (unknown) (unknown) Disease (units (unkno wn) date) (Ashkenazi unknown) Confucianism), Denies Familial Dysautonomia (Ashkenazi Confucianism), (unknown) (no (unknown) (unknown) Documented By: (units (unknown) date) Destinee Colin unknownYe YOUNG 01/20/22 1603 (unknown) (no (unknown) (unknown) Draft (units (unkno wn) date) unknown) (unknown) (no (unknown) (unknown) BRET Calculator (units (unknown) date) unknown) (unknown) (no (unknown) (unknown) EGA Weight BP (units ( unknown) date) UGlucose unknown) (unknown) (no (unknown) (unknown) Emphysema lung (units (unknown) date) unknown) (unknown) (no (unknown) (unknown) Estimated (units (unkn own) date) Delivery Date unknown) Method Current (unknown) (no (unknown) (unknown) Family History (units (unknown) date) (Updated 10/04/21 unknown) @ 15:41 by Kiki Barksdale) (unknown) (no (unknown) (unknown) Father TBI (units (unk nown) date) (traumatic brain unknown) injury) (unknown) (no (unknown) (unknown) Father of Baby: (units (unknown) date) same unknown) (unknown) (no (unknown) (unknown) [facility]) (unknown) (no (unknown) (unknown) First Trimester (units (unknown) date) Education unknown) Checklist (unknown) (no (unknown) (unknown) (units (unkno wn) date) unknown) (unknown) (no (unknown) (unknown) GERD (units (unkno wn) date) (gastroesophageal unknown) reflux disease) (-2017) (unknown) (no (unknown) (unknown) Genetic (units (unkno wn) date) Screening + unknown) Counseling (unknown) (no (unknown) (unknown) Genetic (units (unkno wn) date) Screening unknown) (unknown) (no (unknown) (unknown) Grandfather (units (un known) date) Asthma unknown) (unknown) (no (unknown) (unknown) Grandfather (units (un known) date) Heart unknown) disease (unknown) (no (unknown) (unknown) Grandmother (units (un known) date) Bladder cancer unknown) (unknown) (no (unknown) (unknown) Grandmother (units (un known) date) unknown) Hypertension (unknown) (no (unknown) (unknown) 2 (units (unkn own) date) Multiple births unknown) (unknown) (no (unknown) (unknown) H/O gastric (units (un known) date) sleeve () unknown) (unknown) (no (unknown) (unknown) HEG, Reglan, (units (u nknown) date) added Zofran unknown) (unknown) (no (unknown) (unknown) HIV risk (units (unkno wn) date) evaluation: low unknown) risk (unknown) (no (unknown) (unknown) 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) (unknown) (no (unknown) (unknown) [facility] (units ( unknown) date) Education unknown) (unknown) (no (unknown) (unknown) Health center (units ( unknown) date) information: unknown) nature of practice discussed, personnel (unknown) (no (unknown) (unknown) Heart disease (units ( unknown) date) unknown) (unknown) (no (unknown) (unknown) Heavy menstrual (units (unknown) date) period (-2009) unknown) (unknown) (no (unknown) (unknown) Height 5 ft 2 in (units (unknown) date) unknown) (unknown) (no (unknown) (unknown) Hepatitis C risk (units (unknown) date) evaluation: low unknown) risk (unknown) (no (unknown) (unknown) History of (units (unk nown) date) Hepatitis B: No unknown) (unknown) (no (unknown) (unknown) History of (units (unk nown) date) Hepatitis C: No unknown) (unknown) (no (unknown) (unknown) History of (units (unk nown) date) repair of hiatal unknown) hernia () (unknown) (no (unknown) (unknown) [facility] ([facility] ([facility] n[facility] unknown) (unknown) (no (unknown) (unknown) 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) (unknown) (no (unknown) (unknown) Hx # (units (u nknown) date) Pregnancies unknown) Elective abortions (unknown) (no (unknown) (unknown) Hx # Term (units (unkn own) date) Pregnancies 1 unknown) Ectopic pregnancies (unknown) (no (unknown) (unknown) Hx HSV-2, 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 (unknown) (no (unknown) (unknown) Hx severe anemia (units (unknown) date) w/ 1st pg unknown) requiring weekly iron infusion (unknown) (no (unknown) (unknown) Hyperlipidemia (units (unknown) date) unknown) (unknown) (no (unknown) (unknown) Hypertension (units (u nknown) date) unknown) (unknown) (no (unknown) (unknown) Infant will be (units (unknown) date) adopted?: no unknown) (unknown) (no (unknown) (unknown) Infection (units (unkn own) date) History unknown) (unknown) (no (unknown) (unknown) Infectious (units (unk nown) date) Disease Education unknown) (unknown) (no (unknown) (unknown) Infectious (units (unk nown) date) disease exposure: unknown) chicken pox immunity discussed, hepatitis risk (unknown) (no (unknown) (unknown) Initial Weight: (units (unknown) date) 180 lb unknown) (unknown) (no (unknown) (unknown) Initials (units (unkno wn) date) unknown) (unknown) (no (unknown) (unknown) Intake Clinical (units (unknown) date) Staff unknown) (unknown) (no (unknown) (unknown) Intake Note: (units (u nknown) date) unknown) (unknown) (no (unknown) (unknown) Intake performed (units (unknown) date) by: unknown) Nicky Emerson (unknown) (no (unknown) (unknown) Intake (units (unkno wn) date) unknown) (unknown) (no (unknown) (unknown) Live with (units (unkn own) date) someone with TB unknown) or exposed to TB: No (unknown) (no (unknown) (unknown) Loc: [facility] (units (unkno wn) date) unknown) (unknown) (no (unknown) (unknown) Lung cancer (units (un known) date) unknown) (unknown) (no (unknown) (unknown) Marital status: (units (unknown) date) unknown) (unknown) (no (unknown) (unknown) Maternal (units (unknown) date) Medicine to unknown) evaluate the enlarged renal pelvises. No (unknown) (no (unknown) (unknown) Medical History (units (unknown) date) (Updated 11/14/21 unknown) @ 15:06 by Anitra Najera MD) (unknown) (no (unknown) (unknown) Medications (units (un known) date) unknown) (unknown) (no (unknown) (unknown) Mother (units (unkno wn) date) Gestational unknown) diabetes (unknown) (no (unknown) (unknown) Myocardial (units (unk nown) date) infarction unknown) (unknown) (no (unknown) (unknown) NF (units (unkno wn) date) unknown) (unknown) (no (unknown) (unknown) Notes (units (unkno wn) date) unknown) (unknown) (no (unknown) (unknown) Number of Living (units (unknown) date) Children unknown) (unknown) (no (unknown) (unknown) Number of (units (unkn own) date) fetuses:: Single unknown) (unknown) (no (unknown) (unknown) Nutrition and (units ( unknown) date) weight gain unknown) counseling: special diet: discussed (unknown) (no (unknown) (unknown) OB Office Visit (units (unknown) date) unknown) (unknown) (no (unknown) (unknown) OB Visit Log (units (u nknown) date) unknown) (unknown) (no (unknown) (unknown) OB check (units (unkno wn) date) unknown) (unknown) (no (unknown) (unknown) On control (units (unknown) date) at conception?: unknown) No (unknown) (no (unknown) (unknown) Other Estimates (units (unknown) date) 03/31/22 LMP unknown) (Certain) 30w 0d (unknown) (no (unknown) (unknown) PFSH (units (unkno wn) date) unknown) (unknown) (no (unknown) (unknown) Painful (units (unkno wn) date) menstrual periods unknown) (-2009) (unknown) (no (unknown) (unknown) Pap performed?: (units (unknown) date) No unknown) (unknown) (no (unknown) (unknown) Para 1 (units (unkno wn) date) Spontaneous unknown) abortions (unknown) (no (unknown) (unknown) Partner history (units (unknown) date) of STD: denies hx unknown) (unknown) (no (unknown) (unknown) Partner history (units (unknown) date) of genital unknown) herpes: No (unknown) (no (unknown) (unknown) Partner: Manny (units ( unknown) date) Diaz unknown) (unknown) (no (unknown) (unknown) Past Pregnancies (units (unknown) date) unknown) (unknown) (no (unknown) (unknown) Patient comes in (units (unknown) date) for routine OB unknown) visit at 28 weeks. She has not been able (unknown) (no (unknown) (unknown) Patient presents (units (unknown) date) for a new OB unknown) visit at 12 weeks gestation. She has had (unknown) (no (unknown) (unknown) Patient presents (units (unknown) date) for a routine unknown) visit at 16 weeks gestation. She (unknown) (no (unknown) (unknown) Patient states (units (unknown) date) she is starting unknown) to feel some baby movement. Her nausea is (unknown) (no (unknown) (unknown) Patient's age 34 (units (unknown) date) years or older as unknown) of estimated date of delivery: No (unknown) (no (unknown) (unknown) Patient: (units (unkno wn) date) Suzi Diaz MR#: unknown) [id number] (unknown) (no (unknown) (unknown) [employer]: (units ( unknown) date) Pediatric unknown) [facility] (unknown) (no (unknown) (unknown) Personal history (units (unknown) date) of STD: other unknown) (HSV-2) (unknown) (no (unknown) (unknown) Personal history (units (unknown) date) of genital unknown) herpes: Yes (unknown) (no (unknown) (unknown) Position Sitting (units (unknown) date) unknown) (unknown) (no (unknown) (unknown) (units (unk nown) date) depression unknown) (unknown) (no (unknown) (unknown) Pre-diabetes (units (u nknown) date) unknown) (unknown) (no (unknown) (unknown) (units (unkn own) date) History unknown) (unknown) (no (unknown) (unknown) type:: (units (unknown) date) Other Normal unknown) (unknown) (no (unknown) (unknown) (units (unkno wn) date) Education unknown) (unknown) (no (unknown) (unknown) Initial (units (unknown) date) Assessment unknown) (unknown) (no (unknown) (unknown) (units (unkno wn) date) Specific unknown) Issues/Plans (unknown) (no (unknown) (unknown) (units (unkno wn) date) Testing: unknown) discussed (unknown) (no (unknown) (unknown) Visit (units (unknown) date) unknown) (unknown) (no (unknown) (unknown) (units (unkno wn) date) education packet: unknown) Child education/plan, symptoms, (unknown) (no (unknown) (unknown) Primary Care (units (u nknown) date) Provider: Mar unknown) CARRINGTON Chapin (unknown) (no (unknown) (unknown) Primary Ob (units (unk nown) date) Provider: unknown) Destinee Colin (unknown) (no (unknown) (unknown) Prior (units (unkno wn) date) GBS-Infected unknown) child: No (unknown) (no (unknown) (unknown) Providers (units (unkn own) date) unknown) (unknown) (no (unknown) (unknown) Rash or viral (units ( unknown) date) illness since unknown) last menstrual period: No (unknown) (no (unknown) (unknown) Rash (units (unkno wn) date) unknown) (unknown) (no (unknown) (unknown) Reason For Visit (units (unknown) date) unknown) (unknown) (no (unknown) (unknown) Recent travel (units ( unknown) date) outside of unknown) country?: No (unknown) (no (unknown) (unknown) Recurrent (units (unkn own) date) loss or unknown) a stillbirth: No (unknown) (no (unknown) (unknown) Reports Mental (units (unknown) date) Retardation/Autis unknown) m ('s family (multiple cousins and (unknown) (no (unknown) (unknown) Safety (units (unkno wn) date) unknown) (unknown) (no (unknown) (unknown) Signed By: (units (unk nown) date) unknown) (unknown) (no (unknown) (unknown) Sister Asthma (units ( unknown) date) unknown) (unknown) (no (unknown) (unknown) Smoking Status: (units (unknown) date) Never smoker unknown) (unknown) (no (unknown) (unknown) Social History (units (unknown) date) unknown) (unknown) (no (unknown) (unknown) Sulfa (units (unkno wn) date) (Sulfonamide unknown) Antibiotics) Adverse Reaction (Mild, Verified 01/20/22 16:04) (unknown) (no (unknown) (unknown) Support (units (unkno wn) date) Person(s):: Manny unknown) (unknown) (no (unknown) (unknown) Surgical History (units (unknown) date) (Updated 11/14/21 unknown) @ 15:06 by Anitra Najera MD) (unknown) (no (unknown) (unknown) Surrogate (units (unkn own) date) ?: no unknown) (unknown) (no (unknown) (unknown) Symptoms since (units (unknown) date) LMP: Reports unknown) amenorrhea, nausea, vomiting, fatigue, breast (unknown) (no (unknown) (unknown) TR Yes no 150 20 (units (unknown) date) N/A absent 4wk unknown) (unknown) (no (unknown) (unknown) TR Yes no 152 28 (units (unknown) date) N/A absent 2wk unknown) (unknown) (no (unknown) (unknown) Teratogen (units (unkn own) date) Exposures since unknown) LMP/Conception: Denies prescription medications, (unknown) (no (unknown) (unknown) Testing (units (unkno wn) date) Education unknown) (unknown) (no (unknown) (unknown) Testing (units (unkno wn) date) education unknown) completed: group B strep, Spina bifida testing and Cell Free (unknown) (no (unknown) (unknown) This note may (units ( unknown) date) have been all or unknown) partially generated using voice recognition (unknown) (no (unknown) (unknown) Tobacco + (units (unkn own) date) Substance Use unknown) (unknown) (no (unknown) (unknown) Tobacco Status (units (unknown) date) unknown) (unknown) (no (unknown) (unknown) Trimester:: 3rd (units (unknown) date) Trimester unknown) (28wks-Del) (unknown) (no (unknown) (unknown) Two vessel (units (unk nown) date) umbilical cord in unknown) gates , antepartum (unknown) (no (unknown) (unknown) Type(s) of (units (unk nown) date) exercise: walking unknown) (unknown) (no (unknown) (unknown) UProtein Movement (units (unknown) date) PreLabor FHR Fndl unknown) Ht Pres Edema Cerv Exam US/Comment Next Appt (unknown) (no (unknown) (unknown) Varicella/chicke (units (unknown) date) n pox status: unknown) immunized (unknown) (no (unknown) (unknown) Visit Date: (units (un known) date) 09/15/21 Last unknown) Updated by: Destinee Colin MD (unknown) (no (unknown) (unknown) Visit Date: (units (un known) date) 10/14/21 Last unknown) Updated by: Destinee Colin MD (unknown) (no (unknown) (unknown) Visit Date: (units (un known) date) 11/14/21 Last unknown) Updated by: Anitra Najera MD (unknown) (no (unknown) (unknown) Visit Date: (units (un known) date) 01/06/22 Last unknown) Updated by: Anitra Najera MD (unknown) (no (unknown) (unknown) Visit Reasons: (units (unknown) date) OB check unknown) (unknown) (no (unknown) (unknown) Vitals (units (unkno wn) date) unknown) (unknown) (no (unknown) (unknown) Vitamins and (units (u nknown) date) iron, Diet and unknown) weight gain, Fish and mercury intake, Smoking, (unknown) (no (unknown) (unknown) WG (units (unkno wn) date) unknown) (unknown) (no (unknown) (unknown) [facility] 1 month (units (un known) date) unknown) (unknown) (no (unknown) (unknown) Weeks (units (unkno wn) date) gestation:: 30 unknown) (unknown) (no (unknown) (unknown) Weight 175 lb (units ( unknown) date) unknown) (unknown) (no (unknown) (unknown) [place] teeth (units (u nknown) date) extracted unknown) (-10/2017) (unknown) (no (unknown) (unknown) Zika virus (units (unk nown) date) exposure: No unknown) (unknown) (no (unknown) (unknown) activity, X-ray (units (unknown) date) exposure, unknown) Medication use, Sauna/hot tub use, Dental care, HIV (unknown) (no (unknown) (unknown) alcohol intake: (units (unknown) date) former unknown) (unknown) (no (unknown) (unknown) anyone in either (units (unknown) date) family with: unknown) (unknown) (no (unknown) (unknown) defects (units ( unknown) date) not listed above unknown) and Denies Other (unknown) (no (unknown) (unknown) caffeine: Yes (units ( unknown) date) unknown) (unknown) (no (unknown) (unknown) carbon monox (units (u nknown) date) detector in home: unknown) Yes (unknown) (no (unknown) (unknown) current (units (unkno wn) date) occupational unknown) exposures/hazards : No (unknown) (no (unknown) (unknown) daily servings (units (unknown) date) fruits/ve-4 unknown) (unknown) (no (unknown) (unknown) described, visit (units (unknown) date) schedule unknown) reviewed, ultrasounds policy reviewed, coverage 24 (unknown) (no (unknown) (unknown) discussed, (units (unk nown) date) tuberculosis unknown) exposure discussed, CMV discussed, Toxoplasmosis (unknown) (no (unknown) (unknown) disorders, (units (unk nown) date) Denies Cystic unknown) Fibrosis, Denies Jyoti's Chorea, Denies Other (unknown) (no (unknown) (unknown) do you feel safe (units (unknown) date) at home: Yes unknown) (unknown) (no (unknown) (unknown) during the past (units (unknown) date) year weight has: unknown) remained stable (unknown) (no (unknown) (unknown) education level: (units (unknown) date) vocational unknown) (unknown) (no (unknown) (unknown) education, (units (unk nown) date) Travel and unknown) Influenza vaccine (no flu vaccine, Covid x2) (unknown) (no (unknown) (unknown) octavio/confucianism: (units (unknown) date) Mandaen unknown) (unknown) (no (unknown) (unknown) fire (units (unkno wn) date) extinguisher in unknown) home: Yes (unknown) (no (unknown) (unknown) firearms in (units (un known) date) home: No unknown) (unknown) (no (unknown) (unknown) frequency: 3-4 (units (unknown) date) times per week unknown) (unknown) (no (unknown) (unknown) gastric bypass (units (unknown) date) surgery. She is unknown) unable to tolerate the iron pills. Will try to (unknown) (no (unknown) (unknown) get prior (units (unkn own) date) authorization for unknown) IV iron infusions. Patient with some structures not (unknown) (no (unknown) (unknown) have occurred. (units (unknown) date) If there are any unknown) questions, please contact the Medical Records (unknown) (no (unknown) (unknown) hours a day and (units (unknown) date) participation of unknown) father in care and office visits (unknown) (no (unknown) (unknown) household (units (unkn own) date) members: spouse unknown) and children (unknown) (no (unknown) (unknown) housing: (units (unkno wn) date) apartment unknown) (townhouse ) (unknown) (no (unknown) (unknown) improving (units (unkn own) date) significantly. unknown) She has significant constipation and she was okay to (unknown) (no (unknown) (unknown) inherited (units (unkn own) date) genetic or unknown) chromosomal disorder, Denies Maternal Metabolic Disorder (unknown) (no (unknown) (unknown) intrauterine (units (u nknown) date) gestational sac unknown) with a fetus measuring 4.99 cm consistent with 11 (unknown) (no (unknown) (unknown) is receiving (units (u nknown) date) Zofran infusions unknown) for nausea and vomiting. No movement. No (unknown) (no (unknown) (unknown) kag (units (unkno wn) date) unknown) (unknown) (no (unknown) (unknown) leakage of fluid (units (unknown) date) or vaginal unknown) bleeding. Plan: Quad screen ordered. Twenty week (unknown) (no (unknown) (unknown) lives (units (unkno wn) date) independently: unknown) Yes (unknown) (no (unknown) (unknown) marital status: (units (unknown) date) unknown) (unknown) (no (unknown) (unknown) may occur. (units (unk nown) date) Occasional unknown) wrong-word or 'sound-alike' substitutions may have (unknown) (no (unknown) (unknown) number of (units (unkn own) date) children: 1 unknown) (unknown) (no (unknown) (unknown) occasionally use (units (unknown) date) an enema. Patient unknown) with significant anemia with a history of (unknown) (no (unknown) (unknown) occupational (units (u nknown) date) status: employed unknown) (Works from home ) (unknown) (no (unknown) (unknown) occurred due to (units (unknown) date) the inherent unknown) limitations of voice recognition software. Please (unknown) (no (unknown) (unknown) ondansetron 4 mg (units (unknown) date) disintegrating unknown) tablet 4 mg PO Q6H PRN nausea and vomiting #20 (unknown) (no (unknown) (unknown) other (units (unkno wn) date) unknown) (unknown) (no (unknown) (unknown) pets and (units (unkno wn) date) animals: No unknown) (unknown) (no (unknown) (unknown) precautions (units (un known) date) reviewed. unknown) Follow-up in 4 weeks. (unknown) (no (unknown) (unknown) precautions, (units (u nknown) date) Listeriosis unknown) prevention and Rubella Immunization (unknown) (no (unknown) (unknown) prenat.vits,charles, (units (unknown) date) [id number] 1 unknown) tab PO DAILY 08/23/21 [History Confirmed (unknown) (no (unknown) (unknown) labor (units ( unknown) date) Denisa unknown) (unknown) (no (unknown) (unknown) labor (units ( unknown) date) symptoms. Good unknown) movement. Routine precautions reviewed. (unknown) (no (unknown) (unknown) read the note (units ( unknown) date) carefully and unknown) recognize, using context, where these substitutions (unknown) (no (unknown) (unknown) relatives)); (units (u nknown) date) unknown) (unknown) (no (unknown) (unknown) right ovary. The (units (unknown) date) left ovary was unknown) not visualized. Plan: Zofran. Labs with quad (unknown) (no (unknown) (unknown) screen next (units (un known) date) visit. Warning unknown) signs reviewed. kag (unknown) (no (unknown) (unknown) seatbelt use: (units ( unknown) date) always unknown) (unknown) (no (unknown) (unknown) second hand (units (un known) date) exposure: Yes unknown) ( smokes, mostly outside) (unknown) (no (unknown) (unknown) software. (units (unkn own) date) Although every unknown) effort is made to edit content, gunstock spray unit feeder errors (unknown) (no (unknown) (unknown) some nausea. No (units (unknown) date) meds so far. No unknown) vaginal bleeding. 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 She is going to (unknown) (no (unknown) (unknown) two vessel cord (units (unknown) date) unknown) (unknown) (no (unknown) (unknown) ultrasound (units (unk nown) date) ordered. unknown) Follow-up in 4 weeks. Warning signs reviewed. kag (unknown) (no (unknown) (unknown) water heater (units (u nknown) date) temp set < 120 unknown) deg: Yes (unknown) (no (unknown) (unknown) weeks 5 days. (units ( unknown) date) heart rate unknown) 176 beats per minute. Corpus luteal cyst on the (unknown) (no (unknown) (unknown) well seen on (units (u nknown) date) ultrasound will unknown) call to schedule follow-up ultrasound. Routine (unknown) (no (unknown) (unknown) well-balanced (units ( unknown) date) diet: daily or unknown) most days (unknown) (no (unknown) (unknown) work hard at (units (u nknown) date) trying to get unknown) this started. She has an appointment next week with (unknown) (no (unknown) (unknown) working smoke (units ( unknown) date) detector in home: unknown) Yes Result panel 129 (unknown) (no (unknown) (unknown) (no value) (units (unk nown) date) unknown) (unknown) (no (unknown) (unknown) (-16 oz) 100/68 (units (unknown) date) N unknown) (unknown) (no (unknown) (unknown) (-16 oz) 108/64 (units (unknown) date) N unknown) (unknown) (no (unknown) (unknown) (-5 lb) 100/62 N (units (unknown) date) unknown) (unknown) (no (unknown) (unknown) (-5 lb) 100/68 (units (unknown) date) unknown) (unknown) (no (unknown) (unknown) (-6 lb) 110/64 N (units (unknown) date) unknown) (unknown) (no (unknown) (unknown) (1) growth (units (unknown) date) restriction: unknown) (unknown) (no (unknown) (unknown) (2) 30 weeks (units (u nknown) date) gestation of unknown) : (unknown) (no (unknown) (unknown) (EG,TYPE 1 (units (unk nown) date) Diabetes, PKU), unknown) Denies Patient or baby's father had a child with (unknown) (no (unknown) (unknown) Genetic (units (unkn own) date) Screening/Teratol unknown) ogy Counseling - Includes patient, baby's father, or (unknown) (no (unknown) (unknown) -?-?-?-?-?-?-?-? (units (unknown) date) -?-?-?-? unknown) (unknown) (no (unknown) (unknown) 08/04/20 39 15 6 (units (unknown) date) lb 13 oz Female unknown) vaginal live - full term (unknown) (no (unknown) (unknown) 09/15/21 (units (unkno wn) date) unknown) (unknown) (no (unknown) (unknown) 10/14/21 (units (unkno wn) date) unknown) (unknown) (no (unknown) (unknown) 11/14/21 (units (unkno wn) date) unknown) (unknown) (no (unknown) (unknown) 1 wk (units (unkno wn) date) unknown) (unknown) (no (unknown) (unknown) 1+ No no 158 16 (units (unknown) date) N/A absent 4 wks unknown) (unknown) (no (unknown) (unknown) 1+ No no 176 12 (units (unknown) date) N/A absent unknown) long/closed AGA (unknown) (no (unknown) (unknown) 01/06/22 (units (unkno wn) date) unknown) (unknown) (no (unknown) (unknown) 01/20/22 (units (unkno wn) date) unknown) (unknown) (no (unknown) (unknown) 01/20/22] (units (unkn own) date) unknown) (unknown) (no (unknown) (unknown) 01/22/22 1814 (units ( unknown) date) unknown) (unknown) (no (unknown) (unknown) 11w5d 4 wks (units (un known) date) unknown) (unknown) (no (unknown) (unknown) 04/01/22 (units (unkno wn) date) Ultrasound #2 30w unknown) 1d (unknown) (no (unknown) (unknown) 12w 2d 179 lb (units ( unknown) date) unknown) (unknown) (no (unknown) (unknown) 16:05 (units (unkno wn) date) unknown) (unknown) (no (unknown) (unknown) 16w 3d 174 lb (units ( unknown) date) unknown) (unknown) (no (unknown) (unknown) 20w 6d 179 lb (units ( unknown) date) unknown) (unknown) (no (unknown) (unknown) 28w 3d 175 lb (units ( unknown) date) unknown) (unknown) (no (unknown) (unknown) 2cm Pocket of (units ( unknown) date) fluid: 2 unknown) (unknown) (no (unknown) (unknown) 30w 3d 175 lb (units ( unknown) date) unknown) (unknown) (no (unknown) (unknown) 364 (units (unkno wn) date) unknown) (unknown) (no (unknown) (unknown) Abnormal lab (units (u nknown) date) values 1st unknown) trimester: discussed (unknown) (no (unknown) (unknown) Add'l Plan (units (unk nown) date) Details unknown) (unknown) (no (unknown) (unknown) Age/Sex: 26 / F (units (unknown) date) Date of Service: unknown) (unknown) (no (unknown) (unknown) Allergies (units (unkn own) date) unknown) (unknown) (no (unknown) (unknown) [place], [place] (units ( unknown) date) [id number] unknown) (unknown) (no (unknown) (unknown) Anemia (-2010) (units (unknown) date) unknown) (unknown) (no (unknown) (unknown) Anesthesia (units (unk nown) date) unknown) (unknown) (no (unknown) (unknown) Aneuploidy (units (unk nown) date) Screening unknown) Offered: Accepted (unknown) (no (unknown) (unknown) Anticipated (units (un known) date) course of unknown) care: discussed (unknown) (no (unknown) (unknown) Assessment and (units (unknown) date) Plan unknown) (unknown) (no (unknown) (unknown) Asthma (units (unkno wn) date) unknown) (unknown) (no (unknown) (unknown) Attending Dr: (units ( unknown) date) Destinee Colin unknown) (unknown) (no (unknown) (unknown) Autoimmune (units (unk nown) date) vasculitis unknown) (unknown) (no (unknown) (unknown) BMI 32.0 (units (unkno wn) date) unknown) (unknown) (no (unknown) (unknown) BP 100/68 (units (unkn own) date) unknown) (unknown) (no (unknown) (unknown) BPP Score: 8 (units (u nknown) date) unknown) (unknown) (no (unknown) (unknown) BPP-Biophysical (units (unknown) date) Profile Score unknown) (unknown) (no (unknown) (unknown) Billing- BPP US: (units (unknown) date) Biophysical unknown) Profile/BPP- [id number] (unknown) (no (unknown) (unknown) Biophysical (units (un known) date) Profile Score unknown) Notes: (unknown) (no (unknown) (unknown) (units (unkno wn) date) Plan/Preferences unknown) (unknown) (no (unknown) (unknown) Planning (units (unknown) date) unknown) (unknown) (no (unknown) (unknown) Blood Pressure (units (unknown) date) Location Rt unknown) brachial (unknown) (no (unknown) (unknown) Blood (units (unkno wn) date) transfusions?: unknown) yes (Never had but would accept) (unknown) (no (unknown) (unknown) Breastfeed Preg (units (unknown) date) Comp Name unknown) (unknown) (no (unknown) (unknown) Breathin (units (u nknown) date) unknown) (unknown) (no (unknown) (unknown) Caffeine use, (units ( unknown) date) Exercise and unknown) activity, work/environmenta l/hazards, Sexual (unknown) (no (unknown) (unknown) Covid x 2, boost (units (unknown) date) x1 unknown) (unknown) (no (unknown) (unknown) Current Estimate (units (unknown) date) 03/28/22 unknown) Ultrasound #1 30w 5d (unknown) (no (unknown) (unknown) Current (units (unkno wn) date) History unknown) (unknown) (no (unknown) (unknown) DNA (units (unkno wn) date) unknown) (unknown) (no (unknown) (unknown) : 1995 (units (unknown) date) Acct:[id number] unknown) (unknown) (no (unknown) (unknown) Date of positive (units (unknown) date) home unknown) test: 07/19/21 (unknown) (no (unknown) (unknown) Date (units (unkno wn) date) unknown) (unknown) (no (unknown) (unknown) Del. Date (units (unkn own) date) GA/Weeks Labor unknown) Lgth Wt Sex Route Outcome Anesthesia Place (unknown) (no (unknown) (unknown) Delivery Date: (units (unknown) date) 08/04/20 Last unknown) Updated by: Courtney Hanson R.N. (unknown) (no (unknown) (unknown) Delv (units (unkno wn) date) unknown) (unknown) (no (unknown) (unknown) Denies Congenital (units (unknown) date) Heart Defect, unknown) Denies Down Syndrome, Denies Muscular Dystrophy, (unknown) (no (unknown) (unknown) Denies Neural (units ( unknown) date) Tube Defect unknown) (Meningomyelocele , Spina Bifida, or Anencephaly), (unknown) (no (unknown) (unknown) Denies Sickle (units ( unknown) date) Cell Disease or unknown) Trait (), Denies Hemophilia or other blood (unknown) (no (unknown) (unknown) Denies Giancarlo-Sachs (units (unknown) date) (Ashkenazi unknown) Confucianism, Cajun, Anguillan Bhutanese), Denies Sebastian (unknown) (no (unknown) (unknown) Denies other (units (u nknown) date) unknown) (unknown) (no (unknown) (unknown) Denies over the (units (unknown) date) counter unknown) medications, Denies alcohol, Denies illicit drugs and (unknown) (no (unknown) (unknown) Depression: (units (un known) date) discussed unknown) (unknown) (no (unknown) (unknown) Dept at (units (unkno wn) date) . unknown) (unknown) (no (unknown) (unknown) Diabetes (units (unkno wn) date) mellitus unknown) (unknown) (no (unknown) (unknown) Diet and (units (unkno wn) date) Exercise unknown) (unknown) (no (unknown) (unknown) Disease (units (unkno wn) date) (Ashkenazi unknown) Confucianism), Denies Familial Dysautonomia (Ashkenazi Confucianism), (unknown) (no (unknown) (unknown) Documented By: (units (unknown) date) eDstinee Colin unknownYe YOUNG 01/20/22 1603 (unknown) (no (unknown) (unknown) BRET Calculator (units (unknown) date) unknown) (unknown) (no (unknown) (unknown) EGA Weight BP (units ( unknown) date) UGlucose unknown) (unknown) (no (unknown) (unknown) Emphysema lung (units (unknown) date) unknown) (unknown) (no (unknown) (unknown) Estimated (units (unkn own) date) Delivery Date unknown) Method Current (unknown) (no (unknown) (unknown) Explained (units (unkn own) date) Risks/Benefits/Al unknown) ternatives: Yes (unknown) (no (unknown) (unknown) Family History (units (unknown) date) (Updated 10/04/21 unknown) @ 15:41 by Kiki Barksdale) (unknown) (no (unknown) (unknown) Father TBI (units (unk nown) date) (traumatic brain unknown) injury) (unknown) (no (unknown) (unknown) Father of Baby: (units (unknown) date) same unknown) (unknown) (no (unknown) (unknown) [facility] ([facility] unknown) (unknown) (no (unknown) (unknown) First Trimester (units (unknown) date) Education unknown) Checklist (unknown) (no (unknown) (unknown) (units (unkno wn) date) unknown) (unknown) (no (unknown) (unknown) GERD (units (unkno wn) date) (gastroesophageal unknown) reflux disease) (-2017) (unknown) (no (unknown) (unknown) Genetic (units (unkno wn) date) Screening + unknown) Counseling (unknown) (no (unknown) (unknown) Genetic (units (unkno wn) date) Screening unknown) (unknown) (no (unknown) (unknown) Grandfather (units (un known) date) Asthma unknown) (unknown) (no (unknown) (unknown) Grandfather (units (un known) date) Heart unknown) disease (unknown) (no (unknown) (unknown) Grandmother (units (un known) date) Bladder cancer unknown) (unknown) (no (unknown) (unknown) Grandmother (units (un known) date) unknown) Hypertension (unknown) (no (unknown) (unknown) 2 (units (unkn own) date) Multiple births unknown) (unknown) (no (unknown) (unknown) Gross body (units (unk nown) date) movement: 2 unknown) (unknown) (no (unknown) (unknown) H/O gastric (units (un known) date) sleeve () unknown) (unknown) (no (unknown) (unknown) HEG, Reglan, (units (u nknown) date) added Zofran unknown) (unknown) (no (unknown) (unknown) HIV risk (units (unkno wn) date) evaluation: low unknown) risk (unknown) (no (unknown) (unknown) 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) (unknown) (no (unknown) (unknown) Health Center (units ( unknown) date) Education unknown) (unknown) (no (unknown) (unknown) Health center (units ( unknown) date) information: unknown) nature of practice discussed, personnel (unknown) (no (unknown) (unknown) Heart disease (units ( unknown) date) unknown) (unknown) (no (unknown) (unknown) Heavy menstrual (units (unknown) date) period (-2009) unknown) (unknown) (no (unknown) (unknown) Height 5 ft 2 in (units (unknown) date) unknown) (unknown) (no (unknown) (unknown) Hepatitis C risk (units (unknown) date) evaluation: low unknown) risk (unknown) (no (unknown) (unknown) History of (units (unk nown) date) Hepatitis B: No unknown) (unknown) (no (unknown) (unknown) History of (units (unk nown) date) Hepatitis C: No unknown) (unknown) (no (unknown) (unknown) History of (units (unk nown) date) repair of hiatal unknown) hernia () (unknown) (no (unknown) (unknown) [facility] (units (u nknown) date) unknown) (unknown) (no (unknown) (unknown) 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) (unknown) (no (unknown) (unknown) Hx # (units (u nknown) date) Pregnancies unknown) Elective abortions (unknown) (no (unknown) (unknown) Hx # Term (units (unkn own) date) Pregnancies 1 unknown) Ectopic pregnancies (unknown) (no (unknown) (unknown) Hx HSV-2, 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 (unknown) (no (unknown) (unknown) Hx severe anemia (units (unknown) date) w/ 1st pg unknown) requiring weekly iron infusion (unknown) (no (unknown) (unknown) Hyperlipidemia (units (unknown) date) unknown) (unknown) (no (unknown) (unknown) Hypertension (units (u nknown) date) unknown) (unknown) (no (unknown) (unknown) will be (units (unknown) date) adopted?: no unknown) (unknown) (no (unknown) (unknown) Infection (units (unkn own) date) History unknown) (unknown) (no (unknown) (unknown) Infectious (units (unk nown) date) Disease Education unknown) (unknown) (no (unknown) (unknown) Infectious (units (unk nown) date) disease exposure: unknown) chicken pox immunity discussed, hepatitis risk (unknown) (no (unknown) (unknown) Initial Weight: (units (unknown) date) 180 lb unknown) (unknown) (no (unknown) (unknown) Initials (units (unkno wn) date) unknown) (unknown) (no (unknown) (unknown) Intake Clinical (units (unknown) date) Staff unknown) (unknown) (no (unknown) (unknown) Intake Note: (units (u nknown) date) unknown) (unknown) (no (unknown) (unknown) Intake performed (units (unknown) date) by: unknown) Nicky Emerson (unknown) (no (unknown) (unknown) Intake (units (unkno wn) date) unknown) (unknown) (no (unknown) (unknown) Limb movement: 2 (units (unknown) date) unknown) (unknown) (no (unknown) (unknown) Live with (units (unkn own) date) someone with TB unknown) or exposed to TB: No (unknown) (no (unknown) (unknown) Loc: [facility] (units (unkno wn) date) unknown) (unknown) (no (unknown) (unknown) Lung cancer (units (un known) date) unknown) (unknown) (no (unknown) (unknown) Marital status: (units (unknown) date) unknown) (unknown) (no (unknown) (unknown) Maternal (units (unknown) date) Medicine to unknown) evaluate the enlarged renal pelvises. No (unknown) (no (unknown) (unknown) Medical History (units (unknown) date) (Updated 01/22/22 unknown) @ 18:14 by Destinee Colin MD) (unknown) (no (unknown) (unknown) Medications (units (un known) date) unknown) (unknown) (no (unknown) (unknown) Mother (units (unkno wn) date) Gestational unknown) diabetes (unknown) (no (unknown) (unknown) Myocardial (units (unk nown) date) infarction unknown) (unknown) (no (unknown) (unknown) NF (units (unkno wn) date) unknown) (unknown) (no (unknown) (unknown) Notes (units (unkno wn) date) unknown) (unknown) (no (unknown) (unknown) Number of Living (units (unknown) date) Children unknown) (unknown) (no (unknown) (unknown) Number of (units (unkn own) date) fetuses:: Single unknown) (unknown) (no (unknown) (unknown) Nutrition and (units ( unknown) date) weight gain unknown) counseling: special diet: discussed (unknown) (no (unknown) (unknown) OB Office Visit (units (unknown) date) unknown) (unknown) (no (unknown) (unknown) OB Visit Log (units (u nknown) date) unknown) (unknown) (no (unknown) (unknown) OB check (units (unkno wn) date) unknown) (unknown) (no (unknown) (unknown) Office Procedure (units (unknown) date) unknown) (unknown) (no (unknown) (unknown) Office (units (unkno wn) date) Procedures unknown) (unknown) (no (unknown) (unknown) On control (units (unknown) date) at conception?: unknown) No (unknown) (no (unknown) (unknown) Other Estimates (units (unknown) date) 03/31/22 LMP unknown) (Certain) 30w 2d (unknown) (no (unknown) (unknown) PFSH (units (unkno wn) date) unknown) (unknown) (no (unknown) (unknown) Painful (units (unkno wn) date) menstrual periods unknown) () (unknown) (no (unknown) (unknown) Pap performed?: (units (unknown) date) No unknown) (unknown) (no (unknown) (unknown) Para 1 (units (unkno wn) date) Spontaneous unknown) abortions (unknown) (no (unknown) (unknown) Partner history (units (unknown) date) of STD: denies hx unknown) (unknown) (no (unknown) (unknown) Partner history (units (unknown) date) of genital unknown) herpes: No (unknown) (no (unknown) (unknown) Partner: Manny (units ( unknown) date) Diaz unknown) (unknown) (no (unknown) (unknown) Past Pregnancies (units (unknown) date) unknown) (unknown) (no (unknown) (unknown) Patient comes in (units (unknown) date) for routine OB unknown) visit at 28 weeks. She has not been able (unknown) (no (unknown) (unknown) Patient presents (units (unknown) date) for a new OB unknown) visit at 12 weeks gestation. She has had (unknown) (no (unknown) (unknown) Patient presents (units (unknown) date) for a routine unknown) visit at 16 weeks gestation. She (unknown) (no (unknown) (unknown) Patient states (units (unknown) date) she is starting unknown) to feel some baby movement. Her nausea is (unknown) (no (unknown) (unknown) Patient's age 34 (units (unknown) date) years or older as unknown) of estimated date of delivery: No (unknown) (no (unknown) (unknown) Patient: (units (unkno wn) date) Suzi Diaz MR#: unknown) [id number] (unknown) (no (unknown) (unknown) [employer]: (units ( unknown) date) Pediatric unknown) [facility] (unknown) (no (unknown) (unknown) Personal history (units (unknown) date) of STD: other unknown) (HSV-2) (unknown) (no (unknown) (unknown) Personal history (units (unknown) date) of genital unknown) herpes: Yes (unknown) (no (unknown) (unknown) Placenta grade (units (unknown) date) 0. Plan: To BC unknown) for NST. F/U 1 wk for BPP/NST. FKC's discussed. (unknown) (no (unknown) (unknown) Position Sitting (units (unknown) date) unknown) (unknown) (no (unknown) (unknown) (units (unk nown) date) depression unknown) (unknown) (no (unknown) (unknown) Pre-diabetes (units (u nknown) date) unknown) (unknown) (no (unknown) (unknown) (units (unkn own) date) History unknown) (unknown) (no (unknown) (unknown) type:: (units (unknown) date) Other Normal unknown) (unknown) (no (unknown) (unknown) (units (unkno wn) date) Education unknown) (unknown) (no (unknown) (unknown) Initial (units (unknown) date) Assessment unknown) (unknown) (no (unknown) (unknown) (units (unkno wn) date) Specific unknown) Issues/Plans (unknown) (no (unknown) (unknown) (units (unkno wn) date) Testing: unknown) discussed (unknown) (no (unknown) (unknown) Visit (units (unknown) date) unknown) (unknown) (no (unknown) (unknown) (units (unkno wn) date) education packet: unknown) Child education/plan, symptoms, (unknown) (no (unknown) (unknown) Primary Care (units (u nknown) date) Provider: Mar unknown) CARRINGTON Chapin (unknown) (no (unknown) (unknown) Primary Ob (units (unk nown) date) Provider: unknown) Destinee Colin (unknown) (no (unknown) (unknown) Prior (units (unkno wn) date) GBS-Infected unknown) child: No (unknown) (no (unknown) (unknown) Providers (units (unkn own) date) unknown) (unknown) (no (unknown) (unknown) Pt presents for (units (unknown) date) a routine PNV at unknown) 30 wks gest. Seen at [facility] 01/17/22 for (unknown) (no (unknown) (unknown) Rash or viral (units ( unknown) date) illness since unknown) last menstrual period: No (unknown) (no (unknown) (unknown) Rash (units (unkno wn) date) unknown) (unknown) (no (unknown) (unknown) Reason For Visit (units (unknown) date) unknown) (unknown) (no (unknown) (unknown) Recent travel (units ( unknown) date) outside of unknown) country?: No (unknown) (no (unknown) (unknown) Recurrent (units (unkn own) date) loss or unknown) a stillbirth: No (unknown) (no (unknown) (unknown) Reports Mental (units (unknown) date) Retardation/Autis unknown) m ('s family (multiple cousins and (unknown) (no (unknown) (unknown) Safety (units (unkno wn) date) unknown) (unknown) (no (unknown) (unknown) Signed By: (units (unk nown) date) <Electronically unknown) signed by Destinee Colin MD> (unknown) (no (unknown) (unknown) Signed (units (unkno wn) date) unknown) (unknown) (no (unknown) (unknown) Sister Asthma (units ( unknown) date) unknown) (unknown) (no (unknown) (unknown) Smoking Status: (units (unknown) date) Never smoker unknown) (unknown) (no (unknown) (unknown) Social History (units (unknown) date) unknown) (unknown) (no (unknown) (unknown) Status: Acute (units ( unknown) date) unknown) (unknown) (no (unknown) (unknown) Sulfa (units (unkno wn) date) (Sulfonamide unknown) Antibiotics) Adverse Reaction (Mild, Verified 01/20/22 16:04) (unknown) (no (unknown) (unknown) Support (units (unkno wn) date) Person(s):: Manny unknown) (unknown) (no (unknown) (unknown) Surgical History (units (unknown) date) (Updated 11/14/21 unknown) @ 15:06 by Anitra Najera MD) (unknown) (no (unknown) (unknown) Surrogate (units (unkn own) date) ?: no unknown) (unknown) (no (unknown) (unknown) Symptoms since (units (unknown) date) LMP: Reports unknown) amenorrhea, nausea, vomiting, fatigue, breast (unknown) (no (unknown) (unknown) TR Yes no 150 20 (units (unknown) date) N/A absent 4wk unknown) (unknown) (no (unknown) (unknown) TR Yes no 152 28 (units (unknown) date) N/A absent 2wk unknown) (unknown) (no (unknown) (unknown) Teratogen (units (unkn own) date) Exposures since unknown) LMP/Conception: Denies prescription medications, (unknown) (no (unknown) (unknown) Testing (units (unkno wn) date) Education unknown) (unknown) (no (unknown) (unknown) Testing (units (unkno wn) date) education unknown) completed: group B strep, Spina bifida testing and Cell Free (unknown) (no (unknown) (unknown) This note may (units ( unknown) date) have been all or unknown) partially generated using voice recognition (unknown) (no (unknown) (unknown) Tobacco + (units (unkn own) date) Substance Use unknown) (unknown) (no (unknown) (unknown) Tobacco Status (units (unknown) date) unknown) (unknown) (no (unknown) (unknown) Took 18 minutes (units (unknown) date) to get all unknown) components. (unknown) (no (unknown) (unknown) Trimester:: 3rd (units (unknown) date) Trimester unknown) (28wks-Del) (unknown) (no (unknown) (unknown) Two vessel (units (unk nown) date) umbilical cord in unknown) gates , antepartum (unknown) (no (unknown) (unknown) Type(s) of (units (unk nown) date) exercise: walking unknown) (unknown) (no (unknown) (unknown) UProtein Movement (units (unknown) date) PreLabor FHR Fndl unknown) Ht Pres Edema Cerv Exam US/Comment Next Appt (unknown) (no (unknown) (unknown) Varicella/chicke (units (unknown) date) n pox status: unknown) immunized (unknown) (no (unknown) (unknown) Visit Date: (units (un known) date) 09/15/21 Last unknown) Updated by: Destinee Colin MD (unknown) (no (unknown) (unknown) Visit Date: (units (un known) date) 10/14/21 Last unknown) Updated by: Destinee Colin MD (unknown) (no (unknown) (unknown) Visit Date: (units (un known) date) 11/14/21 Last unknown) Updated by: Anitra Najera MD (unknown) (no (unknown) (unknown) Visit Date: (units (un known) date) 01/06/22 Last unknown) Updated by: Anitra Najera MD (unknown) (no (unknown) (unknown) Visit Date: (units (un known) date) 01/20/22 Last unknown) Updated by: Destinee Colin MD (unknown) (no (unknown) (unknown) Visit Reasons: (units (unknown) date) OB check unknown) (unknown) (no (unknown) (unknown) Vitals (units (unkno wn) date) unknown) (unknown) (no (unknown) (unknown) Vitamins and (units (u nknown) date) iron, Diet and unknown) weight gain, Fish and mercury intake, Smoking, (unknown) (no (unknown) (unknown) WG (units (unkno wn) date) unknown) (unknown) (no (unknown) (unknown) [facility] 1 month (units (un known) date) unknown) (unknown) (no (unknown) (unknown) Warning signs (units ( unknown) date) reviewed. unknown) (unknown) (no (unknown) (unknown) Weeks (units (unkno wn) date) gestation:: 30 unknown) (unknown) (no (unknown) (unknown) Weight 175 lb (units ( unknown) date) unknown) (unknown) (no (unknown) (unknown) [place] teeth (units (u nknown) date) extracted unknown) (-10/2017) (unknown) (no (unknown) (unknown) Yes no 132 30 (units ( unknown) date) Vertex absent NATHANIEL unknown) 18.45cm (unknown) (no (unknown) (unknown) Zika virus (units (unk nown) date) exposure: No unknown) (unknown) (no (unknown) (unknown) activity, X-ray (units (unknown) date) exposure, unknown) Medication use, Sauna/hot tub use, Dental care, HIV (unknown) (no (unknown) (unknown) alcohol intake: (units (unknown) date) former unknown) (unknown) (no (unknown) (unknown) anyone in either (units (unknown) date) family with: unknown) (unknown) (no (unknown) (unknown) defects (units ( unknown) date) not listed above unknown) and Denies Other (unknown) (no (unknown) (unknown) caffeine: Yes (units ( unknown) date) unknown) (unknown) (no (unknown) (unknown) carbon monox (units (u nknown) date) detector in home: unknown) Yes (unknown) (no (unknown) (unknown) current (units (unkno wn) date) occupational unknown) exposures/hazards : No (unknown) (no (unknown) (unknown) daily servings (units (unknown) date) fruits/ve-4 unknown) (unknown) (no (unknown) (unknown) described, visit (units (unknown) date) schedule unknown) reviewed, ultrasounds policy reviewed, coverage 24 (unknown) (no (unknown) (unknown) discussed, (units (unk nown) date) tuberculosis unknown) exposure discussed, CMV discussed, Toxoplasmosis (unknown) (no (unknown) (unknown) disorders, (units (unk nown) date) Denies Cystic unknown) Fibrosis, Denies Jyoti's Chorea, Denies Other (unknown) (no (unknown) (unknown) do you feel safe (units (unknown) date) at home: Yes unknown) (unknown) (no (unknown) (unknown) during the past (units (unknown) date) year weight has: unknown) remained stable (unknown) (no (unknown) (unknown) education level: (units (unknown) date) vocational unknown) (unknown) (no (unknown) (unknown) education, (units (unk nown) date) Travel and unknown) Influenza vaccine (no flu vaccine, Covid x2) (unknown) (no (unknown) (unknown) f/u dilated (units (un known) date) renal pelvices in unknown) baby. Found AC at 8%ile. Recommend dopplers (unknown) (no (unknown) (unknown) octavio/confucianism: (units (unknown) date) Mandaen unknown) (unknown) (no (unknown) (unknown) fire (units (unkno wn) date) extinguisher in unknown) home: Yes (unknown) (no (unknown) (unknown) firearms in (units (un known) date) home: No unknown) (unknown) (no (unknown) (unknown) frequency: 3-4 (units (unknown) date) times per week unknown) (unknown) (no (unknown) (unknown) gastric bypass (units (unknown) date) surgery. She is unknown) unable to tolerate the iron pills. Will try to (unknown) (no (unknown) (unknown) get prior (units (unkn own) date) authorization for unknown) IV iron infusions. Patient with some structures not (unknown) (no (unknown) (unknown) have occurred. (units (unknown) date) If there are any unknown) questions, please contact the Medical Records (unknown) (no (unknown) (unknown) hours a day and (units (unknown) date) participation of unknown) father in care and office visits (unknown) (no (unknown) (unknown) household (units (unkn own) date) members: spouse unknown) and children (unknown) (no (unknown) (unknown) housing: (units (unkno wn) date) [facility] (unknown) (no (unknown) (unknown) improving (units (unkn own) date) significantly. unknown) She has significant constipation and she was okay to (unknown) (no (unknown) (unknown) inherited (units (unkn own) date) genetic or unknown) chromosomal disorder, Denies Maternal Metabolic Disorder (unknown) (no (unknown) (unknown) intrauterine (units (u nknown) date) gestational sac unknown) with a fetus measuring 4.99 cm consistent with 11 (unknown) (no (unknown) (unknown) is receiving (units (u nknown) date) Zofran infusions unknown) for nausea and vomiting. No movement. No (unknown) (no (unknown) (unknown) kag (units (unkno wn) date) unknown) (unknown) (no (unknown) (unknown) leakage of fluid (units (unknown) date) or vaginal unknown) bleeding. Plan: Quad screen ordered. Twenty week (unknown) (no (unknown) (unknown) lives (units (unkno wn) date) independently: unknown) Yes (unknown) (no (unknown) (unknown) marital status: (units (unknown) date) unknown) (unknown) (no (unknown) (unknown) may occur. (units (unk nown) date) Occasional unknown) wrong-word or 'sound-alike' substitutions may have (unknown) (no (unknown) (unknown) number of (units (unkn own) date) children: 1 unknown) (unknown) (no (unknown) (unknown) occasionally use (units (unknown) date) an enema. Patient unknown) with significant anemia with a history of (unknown) (no (unknown) (unknown) occupational (units (u nknown) date) status: employed unknown) (Works from home ) (unknown) (no (unknown) (unknown) occurred due to (units (unknown) date) the inherent unknown) limitations of voice recognition software. Please (unknown) (no (unknown) (unknown) ondansetron 4 mg (units (unknown) date) disintegrating unknown) tablet 4 mg PO Q6H PRN nausea and vomiting #20 (unknown) (no (unknown) (unknown) other (units (unkno wn) date) unknown) (unknown) (no (unknown) (unknown) pets and (units (unkno wn) date) animals: No unknown) (unknown) (no (unknown) (unknown) precautions (units (un known) date) reviewed. unknown) Follow-up in 4 weeks. (unknown) (no (unknown) (unknown) precautions, (units (u nknown) date) Listeriosis unknown) prevention and Rubella Immunization (unknown) (no (unknown) (unknown) prenat.vits,charles, (units (unknown) date) [id number] 1 unknown) tab PO DAILY 08/23/21 [History Confirmed (unknown) (no (unknown) (unknown) labor (units ( unknown) date) Denisa unknown) (unknown) (no (unknown) (unknown) labor (units ( unknown) date) symptoms. Good unknown) movement. Routine precautions reviewed. (unknown) (no (unknown) (unknown) read the note (units ( unknown) date) carefully and unknown) recognize, using context, where these substitutions (unknown) (no (unknown) (unknown) relatives)); (units (u nknown) date) unknown) (unknown) (no (unknown) (unknown) right ovary. The (units (unknown) date) left ovary was unknown) not visualized. Plan: Zofran. Labs with quad (unknown) (no (unknown) (unknown) screen next (units (un known) date) visit. Warning unknown) signs reviewed. kag (unknown) (no (unknown) (unknown) seatbelt use: (units ( unknown) date) always unknown) (unknown) (no (unknown) (unknown) second hand (units (un known) date) exposure: Yes unknown) ( smokes, mostly outside) (unknown) (no (unknown) (unknown) software. (units (unkn own) date) Although every unknown) effort is made to edit content, gunstock spray unit feeder errors (unknown) (no (unknown) (unknown) some nausea. No (units (unknown) date) meds so far. No unknown) vaginal bleeding. 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 She is going to (unknown) (no (unknown) (unknown) two vessel cord (units (unknown) date) unknown) (unknown) (no (unknown) (unknown) ultrasound (units (un nown) date) ordered. unknown) Follow-up in 4 weeks. Warning signs reviewed. kag (unknown) (no (unknown) (unknown) water heater (units (u ) date) temp set < 120 unknown) deg: Yes (unknown) (no (unknown) (unknown) weekly or BPP. (units (unknown) date) Good FM. No LOF unknown) or VB. On U/S: BPP 11/07. NATHANIEL 18.45cm. (unknown) (no (unknown) (unknown) weeks 5 days. (units ( unknown) date) heart rate unknown) 176 beats per minute. Corpus luteal cyst on the (unknown) (no (unknown) (unknown) well seen on (units (u ) date) ultrasound will unknown) call to schedule follow-up ultrasound. Routine (unknown) (no (unknown) (unknown) well-balanced (units ( unknown) date) diet: daily or unknown) most days (unknown) (no (unknown) (unknown) work hard at (units (u n) date) trying to get unknown) this started. She has an appointment next week with (unknown) (no (unknown) (unknown) working smoke (units ( unknown) date) detector in home: unknown) Yes Result panel 130 (unknown) (no (unknown) (unknown) (no value) (units (unk nown) date) unknown) (unknown) (no (unknown) (unknown) (-16 oz) 100/68 (units (unknown) date) N unknown) (unknown) (no (unknown) (unknown) (-16 oz) 108/64 (units (unknown) date) N unknown) (unknown) (no (unknown) (unknown) (-5 lb) 100/62 N (units (unknown) date) unknown) (unknown) (no (unknown) (unknown) (-5 lb) 100/68 (units (unknown) date) unknown) (unknown) (no (unknown) (unknown) (-6 lb) 110/64 N (units (unknown) date) unknown) (unknown) (no (unknown) (unknown) (EG,TYPE 1 (units (unk nown) date) Diabetes, PKU), unknown) Denies Patient or baby's father had a child with (unknown) (no (unknown) (unknown) Genetic (units (unkn own) date) Screening/Teratol unknown) ogy Counseling - Includes patient, baby's father, or (unknown) (no (unknown) (unknown) -?-?-?-?-?-?-?-? (units (unknown) date) -?-?-?-? unknown) (unknown) (no (unknown) (unknown) 08/04/20 39 15 6 (units (unknown) date) lb 13 oz Female unknown) vaginal live - full term (unknown) (no (unknown) (unknown) 09/15/21 (units (unkno wn) date) unknown) (unknown) (no (unknown) (unknown) 10/14/21 (units (unkno wn) date) unknown) (unknown) (no (unknown) (unknown) 11/14/21 (units (unkno wn) date) unknown) (unknown) (no (unknown) (unknown) 1 wk (units (unkno wn) date) unknown) (unknown) (no (unknown) (unknown) 1+ No no 158 16 (units (unknown) date) N/A absent 4 wks unknown) (unknown) (no (unknown) (unknown) 1+ No no 176 12 (units (unknown) date) N/A absent unknown) long/closed AGA (unknown) (no (unknown) (unknown) 01/06/22 (units (unkno wn) date) unknown) (unknown) (no (unknown) (unknown) 01/20/22 (units (unkno wn) date) unknown) (unknown) (no (unknown) (unknown) 01/27/22 (units (unkno wn) date) unknown) (unknown) (no (unknown) (unknown) 01/27/22] (units (unkn own) date) unknown) (unknown) (no (unknown) (unknown) 11w5d 4 wks (units (un known) date) unknown) (unknown) (no (unknown) (unknown) 04/01/22 (units (unkno wn) date) Ultrasound #2 30w unknown) 6d (unknown) (no (unknown) (unknown) 12w 2d 179 lb (units ( unknown) date) unknown) (unknown) (no (unknown) (unknown) 16:22 (units (unkno wn) date) unknown) (unknown) (no (unknown) (unknown) 16w 3d 174 lb (units ( unknown) date) unknown) (unknown) (no (unknown) (unknown) 20w 6d 179 lb (units ( unknown) date) unknown) (unknown) (no (unknown) (unknown) 28w 3d 175 lb (units ( unknown) date) unknown) (unknown) (no (unknown) (unknown) 30w 3d 175 lb (units ( unknown) date) unknown) (unknown) (no (unknown) (unknown) 364 (units (unkno wn) date) unknown) (unknown) (no (unknown) (unknown) Abnormal lab (units (u nknown) date) values 1st unknown) trimester: discussed (unknown) (no (unknown) (unknown) Add'l Plan (units (unk nown) date) Details unknown) (unknown) (no (unknown) (unknown) Age/Sex: 26 / F (units (unknown) date) Date of Service: unknown) (unknown) (no (unknown) (unknown) Allergies (units (unkn own) date) unknown) (unknown) (no (unknown) (unknown) [place], [place] (units ( unknown) date) [id number] unknown) (unknown) (no (unknown) (unknown) Anemia (-2010) (units (unknown) date) unknown) (unknown) (no (unknown) (unknown) Anesthesia (units (unk nown) date) unknown) (unknown) (no (unknown) (unknown) Aneuploidy (units (unk nown) date) Screening unknown) Offered: Accepted (unknown) (no (unknown) (unknown) Anticipated (units (un known) date) course of unknown) care: discussed (unknown) (no (unknown) (unknown) Assessment and (units (unknown) date) Plan unknown) (unknown) (no (unknown) (unknown) Asthma (units (unkno wn) date) unknown) (unknown) (no (unknown) (unknown) Attending Dr: (units ( unknown) date) Destinee Colin unknown) (unknown) (no (unknown) (unknown) Autoimmune (units (unk nown) date) vasculitis unknown) (unknown) (no (unknown) (unknown) BMI 32.0 (units (unkno wn) date) unknown) (unknown) (no (unknown) (unknown) BP 100/68 (units (unkn own) date) unknown) (unknown) (no (unknown) (unknown) (units (unkno wn) date) Plan/Preferences unknown) (unknown) (no (unknown) (unknown) Planning (units (unknown) date) unknown) (unknown) (no (unknown) (unknown) Blood Pressure (units (unknown) date) Location Lt unknown) brachial (unknown) (no (unknown) (unknown) Blood (units (unkno wn) date) transfusions?: unknown) yes (Never had but would accept) (unknown) (no (unknown) (unknown) Breastfeed Preg (units (unknown) date) Comp Name unknown) (unknown) (no (unknown) (unknown) Caffeine use, (units ( unknown) date) Exercise and unknown) activity, work/environmenta l/hazards, Sexual (unknown) (no (unknown) (unknown) Covid x 2, boost (units (unknown) date) x1 unknown) (unknown) (no (unknown) (unknown) Current Estimate (units (unknown) date) 03/28/22 unknown) Ultrasound #1 31w 3d (unknown) (no (unknown) (unknown) Current (units (unkno wn) date) History unknown) (unknown) (no (unknown) (unknown) DNA (units (unkno wn) date) unknown) (unknown) (no (unknown) (unknown) : 1995 (units (unknown) date) Acct:[id number] unknown) (unknown) (no (unknown) (unknown) Date of positive (units (unknown) date) home unknown) test: 07/19/21 (unknown) (no (unknown) (unknown) Date (units (unkno wn) date) unknown) (unknown) (no (unknown) (unknown) Del. Date (units (unkn own) date) GA/Weeks Labor unknown) Lgth Wt Sex Route Outcome Anesthesia Place (unknown) (no (unknown) (unknown) Delivery Date: (units (unknown) date) 08/04/20 Last unknown) Updated by: Courtney Hanson R.N. (unknown) (no (unknown) (unknown) Delv (units (unkno wn) date) unknown) (unknown) (no (unknown) (unknown) Denies Congenital (units (unknown) date) Heart Defect, unknown) Denies Down Syndrome, Denies Muscular Dystrophy, (unknown) (no (unknown) (unknown) Denies Neural (units ( unknown) date) Tube Defect unknown) (Meningomyelocele , Spina Bifida, or Anencephaly), (unknown) (no (unknown) (unknown) Denies Sickle (units ( unknown) date) Cell Disease or unknown) Trait (), Denies Hemophilia or other blood (unknown) (no (unknown) (unknown) Denies Giancarlo-Sachs (units (unknown) date) (Ashkenazi unknown) Confucianism, Cajun, [place]guillan Bhutanese), Denies Sebastian (unknown) (no (unknown) (unknown) Denies other (units (u nknown) date) unknown) (unknown) (no (unknown) (unknown) Denies over the (units (unknown) date) counter unknown) medications, Denies alcohol, Denies illicit drugs and (unknown) (no (unknown) (unknown) Depression: (units (un known) date) discussed unknown) (unknown) (no (unknown) (unknown) Dept at (units (unkno wn) date) . unknown) (unknown) (no (unknown) (unknown) Diabetes (units (unkno wn) date) mellitus unknown) (unknown) (no (unknown) (unknown) Diet and (units (unkno wn) date) Exercise unknown) (unknown) (no (unknown) (unknown) Disease (units (unkno wn) date) (Ashkenazi unknown) Confucianism), Denies Familial Dysautonomia (Ashkenazi Confucianism), (unknown) (no (unknown) (unknown) Documented By: (units (unknown) date) Destinee Colin unknownYe YOUNG 01/27/22 1621 (unknown) (no (unknown) (unknown) Draft (units (unkno wn) date) unknown) (unknown) (no (unknown) (unknown) BRET Calculator (units (unknown) date) unknown) (unknown) (no (unknown) (unknown) EGA Weight BP (units ( unknown) date) UGlucose unknown) (unknown) (no (unknown) (unknown) Emphysema lung (units (unknown) date) unknown) (unknown) (no (unknown) (unknown) Estimated (units (unkn own) date) Delivery Date unknown) Method Current (unknown) (no (unknown) (unknown) Family History (units (unknown) date) (Updated 10/04/21 unknown) @ 15:41 by Kiki Barksdale) (unknown) (no (unknown) (unknown) Father TBI (units (unk nown) date) (traumatic brain unknown) injury) (unknown) (no (unknown) (unknown) Father of Baby: (units (unknown) date) same unknown) (unknown) (no (unknown) (unknown) [facility] ([facility] unknown) (unknown) (no (unknown) (unknown) First Trimester (units (unknown) date) Education unknown) Checklist (unknown) (no (unknown) (unknown) (units (unkno wn) date) unknown) (unknown) (no (unknown) (unknown) GERD (units (unkno wn) date) (gastroesophageal unknown) reflux disease) (-2017) (unknown) (no (unknown) (unknown) Genetic (units (unkno wn) date) Screening + unknown) Counseling (unknown) (no (unknown) (unknown) Genetic (units (unkno wn) date) Screening unknown) (unknown) (no (unknown) (unknown) Grandfather (units (un known) date) Asthma unknown) (unknown) (no (unknown) (unknown) Grandfather (units (un known) date) Heart unknown) disease (unknown) (no (unknown) (unknown) Grandmother (units (un known) date) Bladder cancer unknown) (unknown) (no (unknown) (unknown) Grandmother (units (un known) date) unknown) Hypertension (unknown) (no (unknown) (unknown) 2 (units (unkn own) date) Multiple births unknown) (unknown) (no (unknown) (unknown) H/O gastric (units (un known) date) sleeve () unknown) (unknown) (no (unknown) (unknown) HEG, Reglan, (units (u nknown) date) added Zofran unknown) (unknown) (no (unknown) (unknown) HIV risk (units (unkno wn) date) evaluation: low unknown) risk (unknown) (no (unknown) (unknown) 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) (unknown) (no (unknown) (unknown) Health Center (units ( unknown) date) Education unknown) (unknown) (no (unknown) (unknown) Health center (units ( unknown) date) information: unknown) nature of practice discussed, personnel (unknown) (no (unknown) (unknown) Heart disease (units ( unknown) date) unknown) (unknown) (no (unknown) (unknown) Heavy menstrual (units (unknown) date) period (-2009) unknown) (unknown) (no (unknown) (unknown) Height 5 ft 2 in (units (unknown) date) unknown) (unknown) (no (unknown) (unknown) Hepatitis C risk (units (unknown) date) evaluation: low unknown) risk (unknown) (no (unknown) (unknown) History of (units (unk nown) date) Hepatitis B: No unknown) (unknown) (no (unknown) (unknown) History of (units (unk nown) date) Hepatitis C: No unknown) (unknown) (no (unknown) (unknown) History of (units (unk nown) date) repair of hiatal unknown) hernia () (unknown) (no (unknown) (unknown) [facility] (units (u nknown) date) unknown) (unknown) (no (unknown) (unknown) 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) (unknown) (no (unknown) (unknown) Hx # (units (u nknown) date) Pregnancies unknown) Elective abortions (unknown) (no (unknown) (unknown) Hx # Term (units (unkn own) date) Pregnancies 1 unknown) Ectopic pregnancies (unknown) (no (unknown) (unknown) Hx HSV-2, 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 (unknown) (no (unknown) (unknown) Hx severe anemia (units (unknown) date) w/ 1st pg unknown) requiring weekly iron infusion (unknown) (no (unknown) (unknown) Hyperlipidemia (units (unknown) date) unknown) (unknown) (no (unknown) (unknown) Hypertension (units (u nknown) date) unknown) (unknown) (no (unknown) (unknown) will be (units (unknown) date) adopted?: no unknown) (unknown) (no (unknown) (unknown) Infection (units (unkn own) date) History unknown) (unknown) (no (unknown) (unknown) Infectious (units (unk nown) date) Disease Education unknown) (unknown) (no (unknown) (unknown) Infectious (units (unk nown) date) disease exposure: unknown) chicken pox immunity discussed, hepatitis risk (unknown) (no (unknown) (unknown) Initial Weight: (units (unknown) date) 180 lb unknown) (unknown) (no (unknown) (unknown) Initials (units (unkno wn) date) unknown) (unknown) (no (unknown) (unknown) Intake Clinical (units (unknown) date) Staff unknown) (unknown) (no (unknown) (unknown) Intake Note: (units (u nknown) date) unknown) (unknown) (no (unknown) (unknown) Intake performed (units (unknown) date) by: unknown) Nicky Emerson (unknown) (no (unknown) (unknown) Intake (units (unkno wn) date) unknown) (unknown) (no (unknown) (unknown) Live with (units (unkn own) date) someone with TB unknown) or exposed to TB: No (unknown) (no (unknown) (unknown) Loc: [facility] (units (unkno wn) date) unknown) (unknown) (no (unknown) (unknown) Lung cancer (units (un known) date) unknown) (unknown) (no (unknown) (unknown) Marital status: (units (unknown) date) unknown) (unknown) (no (unknown) (unknown) Maternal (units (unknown) date) Medicine to unknown) evaluate the enlarged renal pelvises. No (unknown) (no (unknown) (unknown) Medical History (units (unknown) date) (Updated 01/22/22 unknown) @ 18:14 by Destinee Colin MD) (unknown) (no (unknown) (unknown) Medications (units (un known) date) unknown) (unknown) (no (unknown) (unknown) Mother (units (unkno wn) date) Gestational unknown) diabetes (unknown) (no (unknown) (unknown) Myocardial (units (unk nown) date) infarction unknown) (unknown) (no (unknown) (unknown) NF (units (unkno wn) date) unknown) (unknown) (no (unknown) (unknown) Notes (units (unkno wn) date) unknown) (unknown) (no (unknown) (unknown) Number of Living (units (unknown) date) Children unknown) (unknown) (no (unknown) (unknown) Number of (units (unkn own) date) fetuses:: Single unknown) (unknown) (no (unknown) (unknown) Nutrition and (units ( unknown) date) weight gain unknown) counseling: special diet: discussed (unknown) (no (unknown) (unknown) OB Office Visit (units (unknown) date) unknown) (unknown) (no (unknown) (unknown) OB Visit Log (units (u nknown) date) unknown) (unknown) (no (unknown) (unknown) OB check (units (unkno wn) date) unknown) (unknown) (no (unknown) (unknown) On control (units (unknown) date) at conception?: unknown) No (unknown) (no (unknown) (unknown) Other Estimates (units (unknown) date) 03/31/22 LMP unknown) (Certain) 31w 0d (unknown) (no (unknown) (unknown) PFSH (units (unkno wn) date) unknown) (unknown) (no (unknown) (unknown) Painful (units (unkno wn) date) menstrual periods unknown) (-2009) (unknown) (no (unknown) (unknown) Pap performed?: (units (unknown) date) No unknown) (unknown) (no (unknown) (unknown) Para 1 (units (unkno wn) date) Spontaneous unknown) abortions (unknown) (no (unknown) (unknown) Partner history (units (unknown) date) of STD: denies hx unknown) (unknown) (no (unknown) (unknown) Partner history (units (unknown) date) of genital unknown) herpes: No (unknown) (no (unknown) (unknown) Partner: Manny (units ( unknown) date) Diaz unknown) (unknown) (no (unknown) (unknown) Past Pregnancies (units (unknown) date) unknown) (unknown) (no (unknown) (unknown) Patient comes in (units (unknown) date) for routine OB unknown) visit at 28 weeks. She has not been able (unknown) (no (unknown) (unknown) Patient presents (units (unknown) date) for a new OB unknown) visit at 12 weeks gestation. She has had (unknown) (no (unknown) (unknown) Patient presents (units (unknown) date) for a routine unknown) visit at 16 weeks gestation. She (unknown) (no (unknown) (unknown) Patient states (units (unknown) date) she is starting unknown) to feel some baby movement. Her nausea is (unknown) (no (unknown) (unknown) Patient's age 34 (units (unknown) date) years or older as unknown) of estimated date of delivery: No (unknown) (no (unknown) (unknown) Patient: (units (unkno wn) date) Suzi Diaz MR#: unknown) [id number] (unknown) (no (unknown) (unknown) [employer]: (units ( unknown) date) Pediatric unknown) [facility] (unknown) (no (unknown) (unknown) Personal history (units (unknown) date) of STD: other unknown) (HSV-2) (unknown) (no (unknown) (unknown) Personal history (units (unknown) date) of genital unknown) herpes: Yes (unknown) (no (unknown) (unknown) Placenta grade (units (unknown) date) 0. Plan: To BC unknown) for NST. F/U 1 wk for BPP/NST. C's discussed. (unknown) (no (unknown) (unknown) Position Sitting (units (unknown) date) unknown) (unknown) (no (unknown) (unknown) (units (unk nown) date) depression unknown) (unknown) (no (unknown) (unknown) Pre-diabetes (units (u nknown) date) unknown) (unknown) (no (unknown) (unknown) (units (unkn own) date) History unknown) (unknown) (no (unknown) (unknown) type:: (units (unknown) date) Other Normal unknown) (unknown) (no (unknown) (unknown) (units (unkno wn) date) Education unknown) (unknown) (no (unknown) (unknown) Initial (units (unknown) date) Assessment unknown) (unknown) (no (unknown) (unknown) (units (unkno wn) date) Specific unknown) Issues/Plans (unknown) (no (unknown) (unknown) (units (unkno wn) date) Testing: unknown) discussed (unknown) (no (unknown) (unknown) Visit (units (unknown) date) unknown) (unknown) (no (unknown) (unknown) (units (unkno wn) date) education packet: unknown) Child education/plan, symptoms, (unknown) (no (unknown) (unknown) Primary Care (units (u nknown) date) Provider: Mar unknown) CARRINGTON Chapin (unknown) (no (unknown) (unknown) Primary Ob (units (unk nown) date) Provider: unknown) Destinee Colin (unknown) (no (unknown) (unknown) Prior (units (unkno wn) date) GBS-Infected unknown) child: No (unknown) (no (unknown) (unknown) Providers (units (unkn own) date) unknown) (unknown) (no (unknown) (unknown) Pt presents for (units (unknown) date) a routine PNV at unknown) 30 wks gest. Seen at [facility] 01/17/22 for (unknown) (no (unknown) (unknown) Rash or viral (units ( unknown) date) illness since unknown) last menstrual period: No (unknown) (no (unknown) (unknown) Rash (units (unkno wn) date) unknown) (unknown) (no (unknown) (unknown) Reason For Visit (units (unknown) date) unknown) (unknown) (no (unknown) (unknown) Recent travel (units ( unknown) date) outside of unknown) country?: No (unknown) (no (unknown) (unknown) Recurrent (units (unkn own) date) loss or unknown) a stillbirth: No (unknown) (no (unknown) (unknown) Reports Mental (units (unknown) date) Retardation/Autis unknown) m ('s family (multiple cousins and (unknown) (no (unknown) (unknown) Safety (units (unkno wn) date) unknown) (unknown) (no (unknown) (unknown) Signed By: (units (unk nown) date) unknown) (unknown) (no (unknown) (unknown) Sister Asthma (units ( unknown) date) unknown) (unknown) (no (unknown) (unknown) Smoking Status: (units (unknown) date) Never smoker unknown) (unknown) (no (unknown) (unknown) Social History (units (unknown) date) unknown) (unknown) (no (unknown) (unknown) Sulfa (units (unkno wn) date) (Sulfonamide unknown) Antibiotics) Adverse Reaction (Mild, Verified 01/27/22 16:22) (unknown) (no (unknown) (unknown) Support (units (unkno wn) date) Person(s):: Manny unknown) (unknown) (no (unknown) (unknown) Surgical History (units (unknown) date) (Updated 11/14/21 unknown) @ 15:06 by Anitra Najera MD) (unknown) (no (unknown) (unknown) Surrogate (units (unkn own) date) ?: no unknown) (unknown) (no (unknown) (unknown) Symptoms since (units (unknown) date) LMP: Reports unknown) amenorrhea, nausea, vomiting, fatigue, breast (unknown) (no (unknown) (unknown) TR Yes no 150 20 (units (unknown) date) N/A absent 4wk unknown) (unknown) (no (unknown) (unknown) TR Yes no 152 28 (units (unknown) date) N/A absent 2wk unknown) (unknown) (no (unknown) (unknown) Teratogen (units (unkn own) date) Exposures since unknown) LMP/Conception: Denies prescription medications, (unknown) (no (unknown) (unknown) Testing (units (unkno wn) date) Education unknown) (unknown) (no (unknown) (unknown) Testing (units (unkno wn) date) education unknown) completed: group B strep, Spina bifida testing and Cell Free (unknown) (no (unknown) (unknown) This note may (units ( unknown) date) have been all or unknown) partially generated using voice recognition (unknown) (no (unknown) (unknown) Tobacco + (units (unkn own) date) Substance Use unknown) (unknown) (no (unknown) (unknown) Tobacco Status (units (unknown) date) unknown) (unknown) (no (unknown) (unknown) Trimester:: 3rd (units (unknown) date) Trimester unknown) (28wks-Del) (unknown) (no (unknown) (unknown) Two vessel (units (unk nown) date) umbilical cord in unknown) gates , antepartum (unknown) (no (unknown) (unknown) Type(s) of (units (unk nown) date) exercise: walking unknown) (unknown) (no (unknown) (unknown) UProtein Movement (units (unknown) date) PreLabor FHR Fndl unknown) Ht Pres Edema Cerv Exam US/Comment Next Appt (unknown) (no (unknown) (unknown) Ultrasound (units (unk nown) date) performed?: Yes unknown) (unknown) (no (unknown) (unknown) Varicella/chicke (units (unknown) date) n pox status: unknown) immunized (unknown) (no (unknown) (unknown) Visit Date: (units (un known) date) 09/15/21 Last unknown) Updated by: Destinee Colin MD (unknown) (no (unknown) (unknown) Visit Date: (units (un known) date) 10/14/21 Last unknown) Updated by: Destinee Colin MD (unknown) (no (unknown) (unknown) Visit Date: (units (un known) date) 11/14/21 Last unknown) Updated by: Anitra Najera MD (unknown) (no (unknown) (unknown) Visit Date: (units (un known) date) 01/06/22 Last unknown) Updated by: Anitra Najera MD (unknown) (no (unknown) (unknown) Visit Date: (units (un known) date) 01/20/22 Last unknown) Updated by: Destinee Colin MD (unknown) (no (unknown) (unknown) Visit Reasons: (units (unknown) date) OB w/NATHANIEL/BPP and unknown) NST after (unknown) (no (unknown) (unknown) Vitals (units (unkno wn) date) unknown) (unknown) (no (unknown) (unknown) Vitamins and (units (u nknown) date) iron, Diet and unknown) weight gain, Fish and mercury intake, Smoking, (unknown) (no (unknown) (unknown) WG (units (unkno wn) date) unknown) (unknown) (no (unknown) (unknown) [facility] 1 month (units (un known) date) unknown) (unknown) (no (unknown) (unknown) Warning signs (units ( unknown) date) reviewed. unknown) (unknown) (no (unknown) (unknown) Weeks (units (unkno wn) date) gestation:: 31 unknown) (unknown) (no (unknown) (unknown) Weight 175 lb (units ( unknown) date) unknown) (unknown) (no (unknown) (unknown) [place] teeth (units (u nknown) date) extracted unknown) (-10/2017) (unknown) (no (unknown) (unknown) Yes no 132 30 (units ( unknown) date) Vertex absent NATHANIEL unknown) 18.45cm (unknown) (no (unknown) (unknown) Zika virus (units (unk nown) date) exposure: No unknown) (unknown) (no (unknown) (unknown) activity, X-ray (units (unknown) date) exposure, unknown) Medication use, Sauna/hot tub use, Dental care, HIV (unknown) (no (unknown) (unknown) alcohol intake: (units (unknown) date) former unknown) (unknown) (no (unknown) (unknown) anyone in either (units (unknown) date) family with: unknown) (unknown) (no (unknown) (unknown) defects (units ( unknown) date) not listed above unknown) and Denies Other (unknown) (no (unknown) (unknown) caffeine: Yes (units ( unknown) date) unknown) (unknown) (no (unknown) (unknown) carbon monox (units (u nknown) date) detector in home: unknown) Yes (unknown) (no (unknown) (unknown) current (units (unkno wn) date) occupational unknown) exposures/hazards : No (unknown) (no (unknown) (unknown) daily servings (units (unknown) date) fruits/ve-4 unknown) (unknown) (no (unknown) (unknown) described, visit (units (unknown) date) schedule unknown) reviewed, ultrasounds policy reviewed, coverage 24 (unknown) (no (unknown) (unknown) discussed, (units (unk nown) date) tuberculosis unknown) exposure discussed, CMV discussed, Toxoplasmosis (unknown) (no (unknown) (unknown) disorders, (units (unk nown) date) Denies Cystic unknown) Fibrosis, Denies [place]'s Chorea, Denies Other (unknown) (no (unknown) (unknown) do you feel safe (units (unknown) date) at home: Yes unknown) (unknown) (no (unknown) (unknown) during the past (units (unknown) date) year weight has: unknown) remained stable (unknown) (no (unknown) (unknown) education level: (units (unknown) date) vocational unknown) (unknown) (no (unknown) (unknown) education, (units (unk nown) date) Travel and unknown) Influenza vaccine (no flu vaccine, Covid x2) (unknown) (no (unknown) (unknown) f/u dilated (units (un known) date) renal pelvices in unknown) baby. Found AC at 8%ile. Recommend dopplers (unknown) (no (unknown) (unknown) octavio/confucianism: (units (unknown) date) Mandaen unknown) (unknown) (no (unknown) (unknown) fire (units (unkno wn) date) extinguisher in unknown) home: Yes (unknown) (no (unknown) (unknown) firearms in (units (un known) date) home: No unknown) (unknown) (no (unknown) (unknown) frequency: 3-4 (units (unknown) date) times per week unknown) (unknown) (no (unknown) (unknown) gastric bypass (units (unknown) date) surgery. She is unknown) unable to tolerate the iron pills. Will try to (unknown) (no (unknown) (unknown) get prior (units (unkn own) date) authorization for unknown) IV iron infusions. Patient with some structures not (unknown) (no (unknown) (unknown) have occurred. (units (unknown) date) If there are any unknown) questions, please contact the Medical Records (unknown) (no (unknown) (unknown) hours a day and (units (unknown) date) participation of unknown) father in care and office visits (unknown) (no (unknown) (unknown) household (units (unkn own) date) members: spouse unknown) and children (unknown) (no (unknown) (unknown) housing: (units (unkno wn) date) apartment unknown) ([facility] ) (unknown) (no (unknown) (unknown) improving (units (unkn own) date) significantly. unknown) She has significant constipation and she was okay to (unknown) (no (unknown) (unknown) inherited (units (unkn own) date) genetic or unknown) chromosomal disorder, Denies Maternal Metabolic Disorder (unknown) (no (unknown) (unknown) intrauterine (units (u nknown) date) gestational sac unknown) with a fetus measuring 4.99 cm consistent with 11 (unknown) (no (unknown) (unknown) is receiving (units (u nknown) date) Zofran infusions unknown) for nausea and vomiting. No movement. No (unknown) (no (unknown) (unknown) kag (units (unkno wn) date) unknown) (unknown) (no (unknown) (unknown) leakage of fluid (units (unknown) date) or vaginal unknown) bleeding. Plan: Quad screen ordered. Twenty week (unknown) (no (unknown) (unknown) lives (units (unkno wn) date) independently: unknown) Yes (unknown) (no (unknown) (unknown) marital status: (units (unknown) date) unknown) (unknown) (no (unknown) (unknown) may occur. (units (unk nown) date) Occasional unknown) wrong-word or 'sound-alike' substitutions may have (unknown) (no (unknown) (unknown) number of (units (unkn own) date) children: 1 unknown) (unknown) (no (unknown) (unknown) occasionally use (units (unknown) date) an enema. Patient unknown) with significant anemia with a history of (unknown) (no (unknown) (unknown) occupational (units (u nknown) date) status: employed unknown) (Works from home ) (unknown) (no (unknown) (unknown) occurred due to (units (unknown) date) the inherent unknown) limitations of voice recognition software. Please (unknown) (no (unknown) (unknown) ondansetron 4 mg (units (unknown) date) disintegrating unknown) tablet 4 mg PO Q6H PRN nausea and vomiting #20 (unknown) (no (unknown) (unknown) other (units (unkno wn) date) unknown) (unknown) (no (unknown) (unknown) pets and (units (unkno wn) date) animals: No unknown) (unknown) (no (unknown) (unknown) precautions (units (un known) date) reviewed. unknown) Follow-up in 4 weeks. (unknown) (no (unknown) (unknown) precautions, (units (u nknown) date) Listeriosis unknown) prevention and Rubella Immunization (unknown) (no (unknown) (unknown) prenat.vits,charles, (units (unknown) date) [id number] 1 unknown) tab PO DAILY 08/23/21 [History Confirmed (unknown) (no (unknown) (unknown) labor (units ( unknown) date) Denisa unknown) (unknown) (no (unknown) (unknown) labor (units ( unknown) date) symptoms. Good unknown) movement. Routine precautions reviewed. (unknown) (no (unknown) (unknown) read the note (units ( unknown) date) carefully and unknown) recognize, using context, where these substitutions (unknown) (no (unknown) (unknown) relatives)); (units (u nknown) date) unknown) (unknown) (no (unknown) (unknown) right ovary. The (units (unknown) date) left ovary was unknown) not visualized. Plan: Zofran. Labs with quad (unknown) (no (unknown) (unknown) screen next (units (un known) date) visit. Warning unknown) signs reviewed. kag (unknown) (no (unknown) (unknown) seatbelt use: (units ( unknown) date) always unknown) (unknown) (no (unknown) (unknown) second hand (units (un known) date) exposure: Yes unknown) ( smokes, mostly outside) (unknown) (no (unknown) (unknown) software. (units (unkn own) date) Although every unknown) effort is made to edit content, gunstock spray unit feeder errors (unknown) (no (unknown) (unknown) some nausea. No (units (unknown) date) meds so far. No unknown) vaginal bleeding. 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 She is going to (unknown) (no (unknown) (unknown) two vessel cord (units (unknown) date) unknown) (unknown) (no (unknown) (unknown) ultrasound (units (unk nown) date) ordered. unknown) Follow-up in 4 weeks. Warning signs reviewed. kag (unknown) (no (unknown) (unknown) water heater (units (u nknown) date) temp set < 120 unknown) deg: Yes (unknown) (no (unknown) (unknown) weekly or BPP. (units (unknown) date) Good FM. No LOF unknown) or VB. On U/S: BPP 11/07. NATHANIEL 18.45cm. (unknown) (no (unknown) (unknown) weeks 5 days. (units ( unknown) date) heart rate unknown) 176 beats per minute. Corpus luteal cyst on the (unknown) (no (unknown) (unknown) well seen on (units (u nknown) date) ultrasound will unknown) call to schedule follow-up ultrasound. Routine (unknown) (no (unknown) (unknown) well-balanced (units ( unknown) date) diet: daily or unknown) most days (unknown) (no (unknown) (unknown) work hard at (units (u nknown) date) trying to get unknown) this started. She has an appointment next week with (unknown) (no (unknown) (unknown) working smoke (units ( unknown) date) detector in home: unknown) Yes Result panel 131 (unknown) (no (unknown) (unknown) (no value) (units (unk nown) date) unknown) (unknown) (no (unknown) (unknown) (-16 oz) 100/68 (units (unknown) date) N unknown) (unknown) (no (unknown) (unknown) (-16 oz) 108/64 (units (unknown) date) N unknown) (unknown) (no (unknown) (unknown) (-5 lb) 100/62 N (units (unknown) date) unknown) (unknown) (no (unknown) (unknown) (-5 lb) 100/68 N (units (unknown) date) unknown) (unknown) (no (unknown) (unknown) (-5 lb) 100/68 (units (unknown) date) unknown) (unknown) (no (unknown) (unknown) (-6 lb) 110/64 N (units (unknown) date) unknown) (unknown) (no (unknown) (unknown) Genetic (units (unkn own) date) Screening/Teratol unknown) ogy Counseling - Includes patient, baby's father, or (unknown) (no (unknown) (unknown) -?-?-?-?-?-?-?-? (units (unknown) date) -?-?-?-? unknown) (unknown) (no (unknown) (unknown) 08/04/20 39 15 6 (units (unknown) date) lb 13 oz Female unknown) vaginal live - full term (unknown) (no (unknown) (unknown) 09/15/21 (units (unkno wn) date) unknown) (unknown) (no (unknown) (unknown) 10/14/21 (units (unkno wn) date) unknown) (unknown) (no (unknown) (unknown) 11/14/21 (units (unkno wn) date) unknown) (unknown) (no (unknown) (unknown) 1 wk (units (unkno wn) date) unknown) (unknown) (no (unknown) (unknown) 1+ No no 158 16 (units (unknown) date) N/A absent 4 wks unknown) (unknown) (no (unknown) (unknown) 1+ No no 176 12 (units (unknown) date) N/A absent unknown) long/closed AGA (unknown) (no (unknown) (unknown) 01/06/22 (units (unkno wn) date) unknown) (unknown) (no (unknown) (unknown) 01/20/22 (units (unkno wn) date) unknown) (unknown) (no (unknown) (unknown) 01/27/22 (units (unkno wn) date) unknown) (unknown) (no (unknown) (unknown) 01/27/22] (units (unkn own) date) unknown) (unknown) (no (unknown) (unknown) 11w5d 4 wks (units (un known) date) unknown) (unknown) (no (unknown) (unknown) 04/01/22 (units (unkno wn) date) Ultrasound #2 30w unknown) 6d (unknown) (no (unknown) (unknown) 12w 2d 179 lb (units ( unknown) date) unknown) (unknown) (no (unknown) (unknown) 16:22 (units (unkno wn) date) unknown) (unknown) (no (unknown) (unknown) 16w 3d 174 lb (units ( unknown) date) unknown) (unknown) (no (unknown) (unknown) 20w 6d 179 lb (units ( unknown) date) unknown) (unknown) (no (unknown) (unknown) 28w 3d 175 lb (units ( unknown) date) unknown) (unknown) (no (unknown) (unknown) 30w 3d 175 lb (units ( unknown) date) unknown) (unknown) (no (unknown) (unknown) 31w 3d 175 lb (units ( unknown) date) unknown) (unknown) (no (unknown) (unknown) 364 (units (unkno wn) date) unknown) (unknown) (no (unknown) (unknown) Abnormal lab (units (u nknown) date) values 1st unknown) trimester: discussed (unknown) (no (unknown) (unknown) Add'l Plan (units (unk nown) date) Details unknown) (unknown) (no (unknown) (unknown) Age/Sex: 26 / F (units (unknown) date) Date of Service: unknown) (unknown) (no (unknown) (unknown) Allergies (units (unkn own) date) unknown) (unknown) (no (unknown) (unknown) [place], [place] (units ( unknown) date) [id number] unknown) (unknown) (no (unknown) (unknown) Anemia (-2009) (units (unknown) date) unknown) (unknown) (no (unknown) (unknown) Anesthesia (units (unk nown) date) unknown) (unknown) (no (unknown) (unknown) Aneuploidy (units (unk nown) date) Screening unknown) Offered: Accepted (unknown) (no (unknown) (unknown) Anticipated (units (un known) date) course of unknown) care: discussed (unknown) (no (unknown) (unknown) Assessment and (units (unknown) date) Plan unknown) (unknown) (no (unknown) (unknown) Asthma (units (unkno wn) date) unknown) (unknown) (no (unknown) (unknown) Attending Dr: (units ( unknown) date) Destinee Colin unknown) (unknown) (no (unknown) (unknown) Autoimmune (units (unk nown) date) vasculitis unknown) (unknown) (no (unknown) (unknown) BMI 32.0 (units (unkno wn) date) unknown) (unknown) (no (unknown) (unknown) BP 100/68 (units (unkn own) date) unknown) (unknown) (no (unknown) (unknown) (units (unkno wn) date) Plan/Preferences unknown) (unknown) (no (unknown) (unknown) Planning (units (unknown) date) unknown) (unknown) (no (unknown) (unknown) Blood Pressure (units (unknown) date) Location Lt unknown) brachial (unknown) (no (unknown) (unknown) Blood (units (unkno wn) date) transfusions?: unknown) yes (Never had but would accept) (unknown) (no (unknown) (unknown) Breastfeed Preg (units (unknown) date) Comp Name unknown) (unknown) (no (unknown) (unknown) Caffeine use, (units ( unknown) date) Exercise and unknown) activity, work/environmenta l/hazards, Sexual (unknown) (no (unknown) (unknown) Covid x 2, boost (units (unknown) date) x1 unknown) (unknown) (no (unknown) (unknown) Current Estimate (units (unknown) date) 03/28/22 unknown) Ultrasound #1 31w 3d (unknown) (no (unknown) (unknown) Current (units (unkno wn) date) History unknown) (unknown) (no (unknown) (unknown) DNA (units (unkno wn) date) unknown) (unknown) (no (unknown) (unknown) : 1995 (units (unknown) date) Acct:[id number] unknown) (unknown) (no (unknown) (unknown) Date of positive (units (unknown) date) home unknown) test: 07/19/21 (unknown) (no (unknown) (unknown) Date (units (unkno wn) date) unknown) (unknown) (no (unknown) (unknown) Del. Date (units (unkn own) date) GA/Weeks Labor unknown) Lgth Wt Sex Route Outcome Anesthesia Place (unknown) (no (unknown) (unknown) Delivery Date: (units (unknown) date) 08/04/20 Last unknown) Updated by: Courtney Hanson R.N. (unknown) (no (unknown) (unknown) Delv (units (unkno wn) date) unknown) (unknown) (no (unknown) (unknown) Denies Congenital (units (unknown) date) Heart Defect, unknown) Denies Down Syndrome, Denies Muscular Dystrophy, (unknown) (no (unknown) (unknown) Denies Neural (units ( unknown) date) Tube Defect unknown) (Meningomyelocele , Spina Bifida, or Anencephaly), (unknown) (no (unknown) (unknown) Denies Sickle (units ( unknown) date) Cell Disease or unknown) Trait (), Denies Hemophilia or other blood (unknown) (no (unknown) (unknown) Denies Giancarlo-Sachs (units (unknown) date) (Ashkenazi unknown) Confucianism, Cajun, [place]guillan Bhutanese), Denies Sebastian (unknown) (no (unknown) (unknown) Denies other (units (u nknown) date) unknown) (unknown) (no (unknown) (unknown) Denies over the (units (unknown) date) counter unknown) medications, Denies alcohol, Denies illicit drugs and (unknown) (no (unknown) (unknown) Depression: (units (un known) date) discussed unknown) (unknown) (no (unknown) (unknown) Dept at (units (unkno wn) date) . unknown) (unknown) (no (unknown) (unknown) Diabetes (units (unkno wn) date) mellitus unknown) (unknown) (no (unknown) (unknown) Diet and (units (unkno wn) date) Exercise unknown) (unknown) (no (unknown) (unknown) Disease (units (unkno wn) date) (Ashkenazi unknown) Confucianism), Denies Familial Dysautonomia (Ashkenazi Confucianism), (unknown) (no (unknown) (unknown) Documented By: (units (unknown) date) Destinee Colin unknown) 01/27/22 1621 (unknown) (no (unknown) (unknown) Draft (units (unkno wn) date) unknown) (unknown) (no (unknown) (unknown) BRET Calculator (units (unknown) date) unknown) (unknown) (no (unknown) (unknown) EG,TYPE 1 (units (unkno wn) date) Diabetes, PKU), unknown) Denies Patient or baby's father had a child with (unknown) (no (unknown) (unknown) EGA Weight BP (units ( unknown) date) UGlucose unknown) (unknown) (no (unknown) (unknown) Emphysema lung (units (unknown) date) unknown) (unknown) (no (unknown) (unknown) Estimated (units (unkn own) date) Delivery Date unknown) Method Current (unknown) (no (unknown) (unknown) Family History (units (unknown) date) (Updated 10/04/21 unknown) @ 15:41 by Kiki Barksdale) (unknown) (no (unknown) (unknown) Father TBI (units (unk nown) date) (traumatic brain unknown) injury) (unknown) (no (unknown) (unknown) Father of Baby: (units (unknown) date) same unknown) (unknown) (no (unknown) (unknown) [facility] ([facility] unknown) (unknown) (no (unknown) (unknown) First Trimester (units (unknown) date) Education unknown) Checklist (unknown) (no (unknown) (unknown) (units (unkno wn) date) unknown) (unknown) (no (unknown) (unknown) GERD (units (unkno wn) date) (gastroesophageal unknown) reflux disease) () (unknown) (no (unknown) (unknown) Genetic (units (unkno wn) date) Screening + unknown) Counseling (unknown) (no (unknown) (unknown) Genetic (units (unkno wn) date) Screening unknown) (unknown) (no (unknown) (unknown) Grandfather (units (un known) date) Asthma unknown) (unknown) (no (unknown) (unknown) Grandfather (units (un known) date) Heart unknown) disease (unknown) (no (unknown) (unknown) Grandmother (units (un known) date) Bladder cancer unknown) (unknown) (no (unknown) (unknown) Grandmother (units (un known) date) unknown) Hypertension (unknown) (no (unknown) (unknown) 2 (units (unkn own) date) Multiple births unknown) (unknown) (no (unknown) (unknown) H/O gastric (units (un known) date) sleeve () unknown) (unknown) (no (unknown) (unknown) HEG, Reglan, (units (u nknown) date) added Zofran unknown) (unknown) (no (unknown) (unknown) HIV risk (units (unkno wn) date) evaluation: low unknown) risk (unknown) (no (unknown) (unknown) 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) (unknown) (no (unknown) (unknown) Health Center (units ( unknown) date) Education unknown) (unknown) (no (unknown) (unknown) Health center (units ( unknown) date) information: unknown) nature of practice discussed, personnel (unknown) (no (unknown) (unknown) Heart disease (units ( unknown) date) unknown) (unknown) (no (unknown) (unknown) Heavy menstrual (units (unknown) date) period (-2009) unknown) (unknown) (no (unknown) (unknown) Height 5 ft 2 in (units (unknown) date) unknown) (unknown) (no (unknown) (unknown) Hepatitis C risk (units (unknown) date) evaluation: low unknown) risk (unknown) (no (unknown) (unknown) History of (units (unk nown) date) Hepatitis B: No unknown) (unknown) (no (unknown) (unknown) History of (units (unk nown) date) Hepatitis C: No unknown) (unknown) (no (unknown) (unknown) History of (units (unk nown) date) repair of hiatal unknown) hernia () (unknown) (no (unknown) (unknown) Hospital: [facility] (units (u nknown) date) unknown) (unknown) (no (unknown) (unknown) 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) (unknown) (no (unknown) (unknown) Hx # (units (u nknown) date) Pregnancies unknown) Elective abortions (unknown) (no (unknown) (unknown) Hx # Term (units (unkn own) date) Pregnancies 1 unknown) Ectopic pregnancies (unknown) (no (unknown) (unknown) Hx HSV-2, 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 (unknown) (no (unknown) (unknown) Hx severe anemia (units (unknown) date) w/ 1st pg unknown) requiring weekly iron infusion (unknown) (no (unknown) (unknown) Hyperlipidemia (units (unknown) date) unknown) (unknown) (no (unknown) (unknown) Hypertension (units (u nknown) date) unknown) (unknown) (no (unknown) (unknown) Infant will be (units (unknown) date) adopted?: no unknown) (unknown) (no (unknown) (unknown) Infection (units (unkn own) date) History unknown) (unknown) (no (unknown) (unknown) Infectious (units (unk nown) date) Disease Education unknown) (unknown) (no (unknown) (unknown) Infectious (units (unk nown) date) disease exposure: unknown) chicken pox immunity discussed, hepatitis risk (unknown) (no (unknown) (unknown) Initial Weight: (units (unknown) date) 180 lb unknown) (unknown) (no (unknown) (unknown) Initials (units (unkno wn) date) unknown) (unknown) (no (unknown) (unknown) Intake Clinical (units (unknown) date) Staff unknown) (unknown) (no (unknown) (unknown) Intake Note: (units (u nknown) date) unknown) (unknown) (no (unknown) (unknown) Intake performed (units (unknown) date) by: unknown) Nicky Emerson (unknown) (no (unknown) (unknown) Intake (units (unkno wn) date) unknown) (unknown) (no (unknown) (unknown) Live with (units (unkn own) date) someone with TB unknown) or exposed to TB: No (unknown) (no (unknown) (unknown) Loc: [facility] (units (unkno wn) date) unknown) (unknown) (no (unknown) (unknown) Lung cancer (units (un known) date) unknown) (unknown) (no (unknown) (unknown) Marital status: (units (unknown) date) unknown) (unknown) (no (unknown) (unknown) Maternal (units (unknown) date) Medicine to unknown) evaluate the enlarged renal pelvises. No (unknown) (no (unknown) (unknown) Medical History (units (unknown) date) (Updated 01/22/22 unknown) @ 18:14 by Destinee Colin MD) (unknown) (no (unknown) (unknown) Medications (units (un known) date) unknown) (unknown) (no (unknown) (unknown) Mother (units (unkno wn) date) Gestational unknown) diabetes (unknown) (no (unknown) (unknown) Myocardial (units (unk nown) date) infarction unknown) (unknown) (no (unknown) (unknown) N Yes no 31 (units (un known) date) unknown) (unknown) (no (unknown) (unknown) NF (units (unkno wn) date) unknown) (unknown) (no (unknown) (unknown) Notes (units (unkno wn) date) unknown) (unknown) (no (unknown) (unknown) Number of Living (units (unknown) date) Children unknown) (unknown) (no (unknown) (unknown) Number of (units (unkn own) date) fetuses:: Single unknown) (unknown) (no (unknown) (unknown) Nutrition and (units ( unknown) date) weight gain unknown) counseling: special diet: discussed (unknown) (no (unknown) (unknown) OB Office Visit (units (unknown) date) unknown) (unknown) (no (unknown) (unknown) OB Visit Log (units (u nknown) date) unknown) (unknown) (no (unknown) (unknown) OB check (units (unkno wn) date) unknown) (unknown) (no (unknown) (unknown) On control (units (unknown) date) at conception?: unknown) No (unknown) (no (unknown) (unknown) Other Estimates (units (unknown) date) 03/31/22 LMP unknown) (Certain) 31w 0d (unknown) (no (unknown) (unknown) PFSH (units (unkno wn) date) unknown) (unknown) (no (unknown) (unknown) Painful (units (unkno wn) date) menstrual periods unknown) () (unknown) (no (unknown) (unknown) Pap performed?: (units (unknown) date) No unknown) (unknown) (no (unknown) (unknown) Para 1 (units (unkno wn) date) Spontaneous unknown) abortions (unknown) (no (unknown) (unknown) Partner history (units (unknown) date) of STD: denies hx unknown) (unknown) (no (unknown) (unknown) Partner history (units (unknown) date) of genital unknown) herpes: No (unknown) (no (unknown) (unknown) Partner: Manny (units ( unknown) date) Diaz unknown) (unknown) (no (unknown) (unknown) Past Pregnancies (units (unknown) date) unknown) (unknown) (no (unknown) (unknown) Patient comes in (units (unknown) date) for routine OB unknown) visit at 28 weeks. She has not been able (unknown) (no (unknown) (unknown) Patient presents (units (unknown) date) for a new OB unknown) visit at 12 weeks gestation. She has had (unknown) (no (unknown) (unknown) Patient presents (units (unknown) date) for a routine unknown) visit at 16 weeks gestation. She (unknown) (no (unknown) (unknown) Patient states (units (unknown) date) she is starting unknown) to feel some baby movement. Her nausea is (unknown) (no (unknown) (unknown) Patient's age 34 (units (unknown) date) years or older as unknown) of estimated date of delivery: No (unknown) (no (unknown) (unknown) Patient: (units (unkno wn) date) Suzi Diaz MR#: unknown) [id number] (unknown) (no (unknown) (unknown) [employer]: (units ( unknown) date) Pediatric unknown) [facility] (unknown) (no (unknown) (unknown) Personal history (units (unknown) date) of STD: other unknown) (HSV-2) (unknown) (no (unknown) (unknown) Personal history (units (unknown) date) of genital unknown) herpes: Yes (unknown) (no (unknown) (unknown) Placenta grade (units (unknown) date) 0. Plan: To BC unknown) for NST. F/U 1 wk for BPP/NST. C's discussed. (unknown) (no (unknown) (unknown) Position Sitting (units (unknown) date) unknown) (unknown) (no (unknown) (unknown) (units (unk nown) date) depression unknown) (unknown) (no (unknown) (unknown) Pre-diabetes (units (u nknown) date) unknown) (unknown) (no (unknown) (unknown) (units (unkn own) date) History unknown) (unknown) (no (unknown) (unknown) type:: (units (unknown) date) Other Normal unknown) (unknown) (no (unknown) (unknown) (units (unkno wn) date) Education unknown) (unknown) (no (unknown) (unknown) Initial (units (unknown) date) Assessment unknown) (unknown) (no (unknown) (unknown) (units (unkno wn) date) Specific unknown) Issues/Plans (unknown) (no (unknown) (unknown) (units (unkno wn) date) Testing: unknown) discussed (unknown) (no (unknown) (unknown) Visit (units (unknown) date) unknown) (unknown) (no (unknown) (unknown) (units (unkno wn) date) education packet: unknown) Child education/plan, symptoms, (unknown) (no (unknown) (unknown) Primary Care (units (u nknown) date) Provider: Mar unknown) CARRINGTON Chapin (unknown) (no (unknown) (unknown) Primary Ob (units (unk nown) date) Provider: unknown) Destinee Colin (unknown) (no (unknown) (unknown) Prior (units (unkno wn) date) GBS-Infected unknown) child: No (unknown) (no (unknown) (unknown) Providers (units (unkn own) date) unknown) (unknown) (no (unknown) (unknown) Pt presents for (units (unknown) date) a routine PNV at unknown) 30 wks gest. Seen at [facility] 01/17/22 for (unknown) (no (unknown) (unknown) Rash or viral (units ( unknown) date) illness since unknown) last menstrual period: No (unknown) (no (unknown) (unknown) Rash (units (unkno wn) date) unknown) (unknown) (no (unknown) (unknown) Reason For Visit (units (unknown) date) unknown) (unknown) (no (unknown) (unknown) Recent travel (units ( unknown) date) outside of unknown) country?: No (unknown) (no (unknown) (unknown) Recurrent (units (unkn own) date) loss or unknown) a stillbirth: No (unknown) (no (unknown) (unknown) Reports Mental (units (unknown) date) Retardation/Autis unknown) m ('s family (multiple cousins and (unknown) (no (unknown) (unknown) Safety (units (unkno wn) date) unknown) (unknown) (no (unknown) (unknown) Signed By: (units (unk nown) date) unknown) (unknown) (no (unknown) (unknown) Sister Asthma (units ( unknown) date) unknown) (unknown) (no (unknown) (unknown) Smoking Status: (units (unknown) date) Never smoker unknown) (unknown) (no (unknown) (unknown) Social History (units (unknown) date) unknown) (unknown) (no (unknown) (unknown) Sulfa (units (unkno wn) date) (Sulfonamide unknown) Antibiotics) Adverse Reaction (Mild, Verified 01/27/22 16:22) (unknown) (no (unknown) (unknown) Support (units (unkno wn) date) Person(s):: Manny unknown) (unknown) (no (unknown) (unknown) Surgical History (units (unknown) date) (Updated 11/14/21 unknown) @ 15:06 by Anitra Najera MD) (unknown) (no (unknown) (unknown) Surrogate (units (unkn own) date) ?: no unknown) (unknown) (no (unknown) (unknown) Symptoms since (units (unknown) date) LMP: Reports unknown) amenorrhea, nausea, vomiting, fatigue, breast (unknown) (no (unknown) (unknown) TR Yes no 150 20 (units (unknown) date) N/A absent 4wk unknown) (unknown) (no (unknown) (unknown) TR Yes no 152 28 (units (unknown) date) N/A absent 2wk unknown) (unknown) (no (unknown) (unknown) Teratogen (units (unkn own) date) Exposures since unknown) LMP/Conception: Denies prescription medications, (unknown) (no (unknown) (unknown) Testing (units (unkno wn) date) Education unknown) (unknown) (no (unknown) (unknown) Testing (units (unkno wn) date) education unknown) completed: group B strep, Spina bifida testing and Cell Free (unknown) (no (unknown) (unknown) This note may (units ( unknown) date) have been all or unknown) partially generated using voice recognition (unknown) (no (unknown) (unknown) Tobacco + (units (unkn own) date) Substance Use unknown) (unknown) (no (unknown) (unknown) Tobacco Status (units (unknown) date) unknown) (unknown) (no (unknown) (unknown) Trimester:: 3rd (units (unknown) date) Trimester unknown) (28wks-Del) (unknown) (no (unknown) (unknown) Two vessel (units (unk nown) date) umbilical cord in unknown) gates , antepartum (unknown) (no (unknown) (unknown) Type(s) of (units (unk nown) date) exercise: walking unknown) (unknown) (no (unknown) (unknown) UProtein Movement (units (unknown) date) PreLabor FHR Fndl unknown) Ht Pres Edema Cerv Exam US/Comment Next Appt (unknown) (no (unknown) (unknown) Ultrasound (units (unk nown) date) performed?: Yes unknown) (unknown) (no (unknown) (unknown) Varicella/chicke (units (unknown) date) n pox status: unknown) immunized (unknown) (no (unknown) (unknown) Visit Date: (units (un known) date) 09/15/21 Last unknown) Updated by: Destinee Colin MD (unknown) (no (unknown) (unknown) Visit Date: (units (un known) date) 10/14/21 Last unknown) Updated by: Destinee Colin MD (unknown) (no (unknown) (unknown) Visit Date: (units (un known) date) 11/14/21 Last unknown) Updated by: Anitra Najera MD (unknown) (no (unknown) (unknown) Visit Date: (units (un known) date) 01/06/22 Last unknown) Updated by: Anitra Najera MD (unknown) (no (unknown) (unknown) Visit Date: (units (un known) date) 01/20/22 Last unknown) Updated by: Destinee Colin MD (unknown) (no (unknown) (unknown) Visit Reasons: (units (unknown) date) OB w/NATHANIEL/BPP and unknown) NST after (unknown) (no (unknown) (unknown) Vitals (units (unkno wn) date) unknown) (unknown) (no (unknown) (unknown) Vitamins and (units (u nknown) date) iron, Diet and unknown) weight gain, Fish and mercury intake, Smoking, (unknown) (no (unknown) (unknown) WG (units (unkno wn) date) unknown) (unknown) (no (unknown) (unknown) [facility] 1 month (units (un known) date) unknown) (unknown) (no (unknown) (unknown) Warning signs (units ( unknown) date) reviewed. unknown) (unknown) (no (unknown) (unknown) Weeks (units (unkno wn) date) gestation:: 31 unknown) (unknown) (no (unknown) (unknown) Weight 175 lb (units ( unknown) date) unknown) (unknown) (no (unknown) (unknown) [place] teeth (units (u nknown) date) extracted unknown) () (unknown) (no (unknown) (unknown) Yes no 132 30 (units ( unknown) date) Vertex absent NATHANIEL unknown) 18.45cm (unknown) (no (unknown) (unknown) Zika virus (units (unk nown) date) exposure: No unknown) (unknown) (no (unknown) (unknown) activity, X-ray (units (unknown) date) exposure, unknown) Medication use, Sauna/hot tub use, Dental care, HIV (unknown) (no (unknown) (unknown) alcohol intake: (units (unknown) date) former unknown) (unknown) (no (unknown) (unknown) anyone in either (units (unknown) date) family with: unknown) (unknown) (no (unknown) (unknown) caffeine: Yes (units ( unknown) date) unknown) (unknown) (no (unknown) (unknown) carbon monox (units (u nknown) date) detector in home: unknown) Yes (unknown) (no (unknown) (unknown) current (units (unkno wn) date) occupational unknown) exposures/hazards : No (unknown) (no (unknown) (unknown) daily servings (units (unknown) date) fruits/ve-4 unknown) (unknown) (no (unknown) (unknown) defects not (units (un known) date) listed above and unknown) Denies Other (unknown) (no (unknown) (unknown) described, visit (units (unknown) date) schedule unknown) reviewed, ultrasounds policy reviewed, coverage 24 (unknown) (no (unknown) (unknown) discussed, (units (unk nown) date) tuberculosis unknown) exposure discussed, CMV discussed, Toxoplasmosis (unknown) (no (unknown) (unknown) disorders, (units (unk nown) date) Denies Cystic unknown) Fibrosis, Denies [place]'s Chorea, Denies Other (unknown) (no (unknown) (unknown) do you feel safe (units (unknown) date) at home: Yes unknown) (unknown) (no (unknown) (unknown) during the past (units (unknown) date) year weight has: unknown) remained stable (unknown) (no (unknown) (unknown) education level: (units (unknown) date) vocational unknown) (unknown) (no (unknown) (unknown) education, (units (unk nown) date) Travel and unknown) Influenza vaccine (no flu vaccine, Covid x2) (unknown) (no (unknown) (unknown) f/u dilated (units (un known) date) renal pelvices in unknown) baby. Found AC at 8%ile. Recommend dopplers (unknown) (no (unknown) (unknown) octavio/confucianism: (units (unknown) date) Mandaen unknown) (unknown) (no (unknown) (unknown) fire (units (unkno wn) date) extinguisher in unknown) home: Yes (unknown) (no (unknown) (unknown) firearms in (units (un known) date) home: No unknown) (unknown) (no (unknown) (unknown) frequency: 3-4 (units (unknown) date) times per week unknown) (unknown) (no (unknown) (unknown) gastric bypass (units (unknown) date) surgery. She is unknown) unable to tolerate the iron pills. Will try to (unknown) (no (unknown) (unknown) get prior (units (unkn own) date) authorization for unknown) IV iron infusions. Patient with some structures not (unknown) (no (unknown) (unknown) have occurred. (units (unknown) date) If there are any unknown) questions, please contact the Medical Records (unknown) (no (unknown) (unknown) hours a day and (units (unknown) date) participation of unknown) father in care and office visits (unknown) (no (unknown) (unknown) household (units (unkn own) date) members: spouse unknown) and children (unknown) (no (unknown) (unknown) housing: (units (unkno wn) date) apartment unknown) ([facility] ) (unknown) (no (unknown) (unknown) improving (units (unkn own) date) significantly. unknown) She has significant constipation and she was okay to (unknown) (no (unknown) (unknown) inherited (units (unkn own) date) genetic or unknown) chromosomal disorder, Denies Maternal Metabolic Disorder ( (unknown) (no (unknown) (unknown) intrauterine (units (u nknown) date) gestational sac unknown) with a fetus measuring 4.99 cm consistent with 11 (unknown) (no (unknown) (unknown) is receiving (units (u nknown) date) Zofran infusions unknown) for nausea and vomiting. No movement. No (unknown) (no (unknown) (unknown) kag (units (unkno wn) date) unknown) (unknown) (no (unknown) (unknown) leakage of fluid (units (unknown) date) or vaginal unknown) bleeding. Plan: Quad screen ordered. Twenty week (unknown) (no (unknown) (unknown) lives (units (unkno wn) date) independently: unknown) Yes (unknown) (no (unknown) (unknown) marital status: (units (unknown) date) unknown) (unknown) (no (unknown) (unknown) may occur. (units (unk nown) date) Occasional unknown) wrong-word or 'sound-alike' substitutions may have (unknown) (no (unknown) (unknown) number of (units (unkn own) date) children: 1 unknown) (unknown) (no (unknown) (unknown) occasionally use (units (unknown) date) an enema. Patient unknown) with significant anemia with a history of (unknown) (no (unknown) (unknown) occupational (units (u nknown) date) status: employed unknown) (Works from home ) (unknown) (no (unknown) (unknown) occurred due to (units (unknown) date) the inherent unknown) limitations of voice recognition software. Please (unknown) (no (unknown) (unknown) ondansetron 4 mg (units (unknown) date) disintegrating unknown) tablet 4 mg PO Q6H PRN nausea and vomiting #20 (unknown) (no (unknown) (unknown) other (units (unkno wn) date) unknown) (unknown) (no (unknown) (unknown) pets and (units (unkno wn) date) animals: No unknown) (unknown) (no (unknown) (unknown) precautions (units (un known) date) reviewed. unknown) Follow-up in 4 weeks. (unknown) (no (unknown) (unknown) precautions, (units (u nknown) date) Listeriosis unknown) prevention and Rubella Immunization (unknown) (no (unknown) (unknown) prenat.vits,charles, (units (unknown) date) [id number] 1 unknown) tab PO DAILY 08/23/21 [History Confirmed (unknown) (no (unknown) (unknown) labor (units ( unknown) date) Denisa unknown) (unknown) (no (unknown) (unknown) labor (units ( unknown) date) symptoms. Good unknown) movement. Routine precautions reviewed. (unknown) (no (unknown) (unknown) read the note (units ( unknown) date) carefully and unknown) recognize, using context, where these substitutions (unknown) (no (unknown) (unknown) relatives)); (units (u nknown) date) unknown) (unknown) (no (unknown) (unknown) right ovary. The (units (unknown) date) left ovary was unknown) not visualized. Plan: Zofran. Labs with quad (unknown) (no (unknown) (unknown) screen next (units (un known) date) visit. Warning unknown) signs reviewed. kag (unknown) (no (unknown) (unknown) seatbelt use: (units ( unknown) date) always unknown) (unknown) (no (unknown) (unknown) second hand (units (un known) date) exposure: Yes unknown) ( smokes, mostly outside) (unknown) (no (unknown) (unknown) software. (units (unkn own) date) Although every unknown) effort is made to edit content, gunstock spray unit feeder errors (unknown) (no (unknown) (unknown) some nausea. No (units (unknown) date) meds so far. No unknown) vaginal bleeding. 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 She is going to (unknown) (no (unknown) (unknown) two vessel cord (units (unknown) date) unknown) (unknown) (no (unknown) (unknown) ultrasound (units (un) date) ordered. unknown) Follow-up in 4 weeks. Warning signs reviewed. kag (unknown) (no (unknown) (unknown) water heater (units (u n) date) temp set < 120 unknown) deg: Yes (unknown) (no (unknown) (unknown) weekly or BPP. (units (unknown) date) Good FM. No LOF unknown) or VB. On U/S: BPP 11/07. NATHANIEL 18.45cm. (unknown) (no (unknown) (unknown) weeks 5 days. (units ( unknown) date) heart rate unknown) 176 beats per minute. Corpus luteal cyst on the (unknown) (no (unknown) (unknown) well seen on (units (u ) date) ultrasound will unknown) call to schedule follow-up ultrasound. Routine (unknown) (no (unknown) (unknown) well-balanced (units ( unknown) date) diet: daily or unknown) most days (unknown) (no (unknown) (unknown) work hard at (units (u ) date) trying to get unknown) this started. She has an appointment next week with (unknown) (no (unknown) (unknown) working smoke (units ( unknown) date) detector in home: unknown) Yes Result panel 132 (unknown) (no (unknown) (unknown) (no value) (units (unk nown) date) unknown) (unknown) (no (unknown) (unknown) (-16 oz) 100/68 (units (unknown) date) N unknown) (unknown) (no (unknown) (unknown) (-16 oz) 108/64 (units (unknown) date) N unknown) (unknown) (no (unknown) (unknown) (-5 lb) 100/62 N (units (unknown) date) unknown) (unknown) (no (unknown) (unknown) (-5 lb) 100/68 N (units (unknown) date) unknown) (unknown) (no (unknown) (unknown) (-5 lb) 100/68 (units (unknown) date) unknown) (unknown) (no (unknown) (unknown) (-6 lb) 110/64 N (units (unknown) date) unknown) (unknown) (no (unknown) (unknown) (1) growth (units (unknown) date) restriction: unknown) (unknown) (no (unknown) (unknown) (2) 31 weeks (units (u nknown) date) gestation of unknown) : (unknown) (no (unknown) (unknown) (EG,TYPE 1 (units (unk nown) date) Diabetes, PKU), unknown) Denies Patient or baby's father had a child with (unknown) (no (unknown) (unknown) Genetic (units (unkn own) date) Screening/Teratol unknown) ogy Counseling - Includes patient, baby's father, or (unknown) (no (unknown) (unknown) -?-?-?-?-?-?-?-? (units (unknown) date) -?-?-?-? unknown) (unknown) (no (unknown) (unknown) 08/04/20 39 15 6 (units (unknown) date) lb 13 oz Female unknown) vaginal live - full term (unknown) (no (unknown) (unknown) 09/15/21 (units (unkno wn) date) unknown) (unknown) (no (unknown) (unknown) 10/14/21 (units (unkno wn) date) unknown) (unknown) (no (unknown) (unknown) 11/14/21 (units (unkno wn) date) unknown) (unknown) (no (unknown) (unknown) 1 wk (units (unkno wn) date) unknown) (unknown) (no (unknown) (unknown) 1+ No no 158 16 (units (unknown) date) N/A absent 4 wks unknown) (unknown) (no (unknown) (unknown) 1+ No no 176 12 (units (unknown) date) N/A absent unknown) long/closed AGA (unknown) (no (unknown) (unknown) 01/06/22 (units (unkno wn) date) unknown) (unknown) (no (unknown) (unknown) 01/20/22 (units (unkno wn) date) unknown) (unknown) (no (unknown) (unknown) 01/27/22 (units (unkno wn) date) unknown) (unknown) (no (unknown) (unknown) 01/27/22] (units (unkn own) date) unknown) (unknown) (no (unknown) (unknown) 02/15/222058 (units ( unknown) date) unknown) (unknown) (no (unknown) (unknown) 11w5d 4 wks (units (un known) date) unknown) (unknown) (no (unknown) (unknown) 04/01/22 (units (unkno wn) date) Ultrasound #2 33w unknown) 4d (unknown) (no (unknown) (unknown) 12w 2d 179 lb (units ( unknown) date) unknown) (unknown) (no (unknown) (unknown) 16:22 (units (unkno wn) date) unknown) (unknown) (no (unknown) (unknown) 16w 3d 174 lb (units ( unknown) date) unknown) (unknown) (no (unknown) (unknown) 20w 6d 179 lb (units ( unknown) date) unknown) (unknown) (no (unknown) (unknown) 28w 3d 175 lb (units ( unknown) date) unknown) (unknown) (no (unknown) (unknown) 2cm Pocket of (units ( unknown) date) fluid: 2 unknown) (unknown) (no (unknown) (unknown) 30w 3d 175 lb (units ( unknown) date) unknown) (unknown) (no (unknown) (unknown) 31w 3d 175 lb (units ( unknown) date) unknown) (unknown) (no (unknown) (unknown) 364 (units (unkno wn) date) unknown) (unknown) (no (unknown) (unknown) Abnormal lab (units (u nknown) date) values 1st unknown) trimester: discussed (unknown) (no (unknown) (unknown) Add'l Plan (units (unk nown) date) Details unknown) (unknown) (no (unknown) (unknown) Age/Sex: 26 / F (units (unknown) date) Date of Service: unknown) (unknown) (no (unknown) (unknown) Allergies (units (unkn own) date) unknown) (unknown) (no (unknown) (unknown) MORENA Hurtado (units ( unknown) date) [id number] unknown) (unknown) (no (unknown) (unknown) Anemia (-2010) (units (unknown) date) unknown) (unknown) (no (unknown) (unknown) Anesthesia (units (unk nown) date) unknown) (unknown) (no (unknown) (unknown) Aneuploidy (units (unk nown) date) Screening unknown) Offered: Accepted (unknown) (no (unknown) (unknown) Anticipated (units (un known) date) course of unknown) care: discussed (unknown) (no (unknown) (unknown) Assessment and (units (unknown) date) Plan unknown) (unknown) (no (unknown) (unknown) Asthma (units (unkno wn) date) unknown) (unknown) (no (unknown) (unknown) Attending Dr: (units ( unknown) date) Destinee Colin unknown) (unknown) (no (unknown) (unknown) Autoimmune (units (unk nown) date) vasculitis unknown) (unknown) (no (unknown) (unknown) BMI 32.0 (units (unkno wn) date) unknown) (unknown) (no (unknown) (unknown) BP 100/68 (units (unkn own) date) unknown) (unknown) (no (unknown) (unknown) BPP Score: 8 (units (u nknown) date) unknown) (unknown) (no (unknown) (unknown) BPP-Biophysical (units (unknown) date) Profile Score unknown) (unknown) (no (unknown) (unknown) Billing- BPP US: (units (unknown) date) Biophysical unknown) Profile/BPP- [id number] (unknown) (no (unknown) (unknown) (units (unkno wn) date) Plan/Preferences unknown) (unknown) (no (unknown) (unknown) Planning (units (unknown) date) unknown) (unknown) (no (unknown) (unknown) Blood Pressure (units (unknown) date) Location Lt unknown) brachial (unknown) (no (unknown) (unknown) Blood (units (unkno wn) date) transfusions?: unknown) yes (Never had but would accept) (unknown) (no (unknown) (unknown) Breastfeed Preg (units (unknown) date) Comp Name unknown) (unknown) (no (unknown) (unknown) Breathin (units (u nknown) date) unknown) (unknown) (no (unknown) (unknown) Caffeine use, (units ( unknown) date) Exercise and unknown) activity, work/environmenta l/hazards, Sexual (unknown) (no (unknown) (unknown) Center for NST. (units (unknown) date) Warning signs unknown) reviewed. F/U 1 wk. kag (unknown) (no (unknown) (unknown) Covid x 2, boost (units (unknown) date) x1 unknown) (unknown) (no (unknown) (unknown) Current Estimate (units (unknown) date) 03/28/22 unknown) Ultrasound #1 34w 1d (unknown) (no (unknown) (unknown) Current (units (unkno wn) date) History unknown) (unknown) (no (unknown) (unknown) DNA (units (unkno wn) date) unknown) (unknown) (no (unknown) (unknown) : 1995 (units (unknown) date) Acct:[id number] unknown) (unknown) (no (unknown) (unknown) Date of positive (units (unknown) date) home unknown) test: 07/19/21 (unknown) (no (unknown) (unknown) Date (units (unkno wn) date) unknown) (unknown) (no (unknown) (unknown) Del. Date (units (unkn own) date) GA/Weeks Labor unknown) Lgth Wt Sex Route Outcome Anesthesia Place (unknown) (no (unknown) (unknown) Delivery Date: (units (unknown) date) 08/04/20 Last unknown) Updated by: Courtney Hanson R.N. (unknown) (no (unknown) (unknown) Delv (units (unkno wn) date) unknown) (unknown) (no (unknown) (unknown) Denies Congenital (units (unknown) date) Heart Defect, unknown) Denies Down Syndrome, Denies Muscular Dystrophy, (unknown) (no (unknown) (unknown) Denies Neural (units ( unknown) date) Tube Defect unknown) (Meningomyelocele , Spina Bifida, or Anencephaly), (unknown) (no (unknown) (unknown) Denies Sickle (units ( unknown) date) Cell Disease or unknown) Trait (), Denies Hemophilia or other blood (unknown) (no (unknown) (unknown) Denies Giancarlo-Sachs (units (unknown) date) (Ashkenazi unknown) Confucianism, Cajun, [place]guillan Bhutanese), Denies Sebastian (unknown) (no (unknown) (unknown) Denies other (units (u nknown) date) unknown) (unknown) (no (unknown) (unknown) Denies over the (units (unknown) date) counter unknown) medications, Denies alcohol, Denies illicit drugs and (unknown) (no (unknown) (unknown) Depression: (units (un known) date) discussed unknown) (unknown) (no (unknown) (unknown) Dept at (units (unkno wn) date) . unknown) (unknown) (no (unknown) (unknown) Diabetes (units (unkno wn) date) mellitus unknown) (unknown) (no (unknown) (unknown) Diet and (units (unkno wn) date) Exercise unknown) (unknown) (no (unknown) (unknown) Disease (units (unkno wn) date) (Ashkenazi unknown) Confucianism), Denies Familial Dysautonomia (Ashkenazi Confucianism), (unknown) (no (unknown) (unknown) Documented By: (units (unknown) date) Destinee Colin unknownYe YOUNG 01/27/22 1621 (unknown) (no (unknown) (unknown) BRET Calculator (units (unknown) date) unknown) (unknown) (no (unknown) (unknown) EGA Weight BP (units ( unknown) date) UGlucose unknown) (unknown) (no (unknown) (unknown) Emphysema lung (units (unknown) date) unknown) (unknown) (no (unknown) (unknown) Estimated (units (unkn own) date) Delivery Date unknown) Method Current (unknown) (no (unknown) (unknown) FM. No LOF/VB. (units (unknown) date) On U/S: NATHANIEL unknown) 15.66cm. Placenta Grade 0. BPP 11/07. Plan: To (unknown) (no (unknown) (unknown) Family History (units (unknown) date) (Updated 10/04/21 unknown) @ 15:41 by Kiki Barksdale) (unknown) (no (unknown) (unknown) Father TBI (units (unk nown) date) (traumatic brain unknown) injury) (unknown) (no (unknown) (unknown) Father of Baby: (units (unknown) date) same unknown) (unknown) (no (unknown) (unknown) [facility]) (unknown) (no (unknown) (unknown) First Trimester (units (unknown) date) Education unknown) Checklist (unknown) (no (unknown) (unknown) (units (unkno wn) date) unknown) (unknown) (no (unknown) (unknown) GERD (units (unkno wn) date) (gastroesophageal unknown) reflux disease) () (unknown) (no (unknown) (unknown) Genetic (units (unkno wn) date) Screening + unknown) Counseling (unknown) (no (unknown) (unknown) Genetic (units (unkno wn) date) Screening unknown) (unknown) (no (unknown) (unknown) Grandfather (units (un known) date) Asthma unknown) (unknown) (no (unknown) (unknown) Grandfather (units (un known) date) Heart unknown) disease (unknown) (no (unknown) (unknown) Grandmother (units (un known) date) Bladder cancer unknown) (unknown) (no (unknown) (unknown) Grandmother (units (un known) date) unknown) Hypertension (unknown) (no (unknown) (unknown) 2 (units (unkn own) date) Multiple births unknown) (unknown) (no (unknown) (unknown) Gross body (units (unk nown) date) movement: 2 unknown) (unknown) (no (unknown) (unknown) H/O gastric (units (un known) date) sleeve (-06/2019) unknown) (unknown) (no (unknown) (unknown) HEG, Reglan, (units (u nknown) date) added Zofran unknown) (unknown) (no (unknown) (unknown) HIV risk (units (unkno wn) date) evaluation: low unknown) risk (unknown) (no (unknown) (unknown) 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) (unknown) (no (unknown) (unknown) Health Center (units ( unknown) date) Education unknown) (unknown) (no (unknown) (unknown) Health center (units ( unknown) date) information: unknown) nature of practice discussed, personnel (unknown) (no (unknown) (unknown) Heart disease (units ( unknown) date) unknown) (unknown) (no (unknown) (unknown) Heavy menstrual (units (unknown) date) period (-2009) unknown) (unknown) (no (unknown) (unknown) Height 5 ft 2 in (units (unknown) date) unknown) (unknown) (no (unknown) (unknown) Hepatitis C risk (units (unknown) date) evaluation: low unknown) risk (unknown) (no (unknown) (unknown) History of (units (unk nown) date) Hepatitis B: No unknown) (unknown) (no (unknown) (unknown) History of (units (unk nown) date) Hepatitis C: No unknown) (unknown) (no (unknown) (unknown) History of (units (unk nown) date) repair of hiatal unknown) hernia () (unknown) (no (unknown) (unknown) [facility] ([facility] (u nknown) date) unknown) (unknown) (no (unknown) (unknown) 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) (unknown) (no (unknown) (unknown) Hx # (units (u nknown) date) Pregnancies unknown) Elective abortions (unknown) (no (unknown) (unknown) Hx # Term (units (unkn own) date) Pregnancies 1 unknown) Ectopic pregnancies (unknown) (no (unknown) (unknown) Hx HSV-2, 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 (unknown) (no (unknown) (unknown) Hx severe anemia (units (unknown) date) w/ 1st pg unknown) requiring weekly iron infusion (unknown) (no (unknown) (unknown) Hyperlipidemia (units (unknown) date) unknown) (unknown) (no (unknown) (unknown) Hypertension (units (u nknown) date) unknown) (unknown) (no (unknown) (unknown) Infant will be (units (unknown) date) adopted?: no unknown) (unknown) (no (unknown) (unknown) Infection (units (unkn own) date) History unknown) (unknown) (no (unknown) (unknown) Infectious (units (unk nown) date) Disease Education unknown) (unknown) (no (unknown) (unknown) Infectious (units (unk nown) date) disease exposure: unknown) chicken pox immunity discussed, hepatitis risk (unknown) (no (unknown) (unknown) Initial Weight: (units (unknown) date) 180 lb unknown) (unknown) (no (unknown) (unknown) Initials (units (unkno wn) date) unknown) (unknown) (no (unknown) (unknown) Intake Clinical (units (unknown) date) Staff unknown) (unknown) (no (unknown) (unknown) Intake Note: (units (u nknown) date) unknown) (unknown) (no (unknown) (unknown) Intake performed (units (unknown) date) by: unknown) Nicky Emerson (unknown) (no (unknown) (unknown) Intake (units (unkno wn) date) unknown) (unknown) (no (unknown) (unknown) Limb movement: 2 (units (unknown) date) unknown) (unknown) (no (unknown) (unknown) Live with (units (unkn own) date) someone with TB unknown) or exposed to TB: No (unknown) (no (unknown) (unknown) Loc: [facility] (units (unkno wn) date) unknown) (unknown) (no (unknown) (unknown) Lung cancer (units (un known) date) unknown) (unknown) (no (unknown) (unknown) Marital status: (units (unknown) date) unknown) (unknown) (no (unknown) (unknown) Maternal (units (unknown) date) Medicine to unknown) evaluate the enlarged renal pelvises. No (unknown) (no (unknown) (unknown) Medical History (units (unknown) date) (Updated 01/22/22 unknown) @ 18:14 by Destinee Colin MD) (unknown) (no (unknown) (unknown) Medications (units (un known) date) unknown) (unknown) (no (unknown) (unknown) Mother (units (unkno wn) date) Gestational unknown) diabetes (unknown) (no (unknown) (unknown) Myocardial (units (unk nown) date) infarction unknown) (unknown) (no (unknown) (unknown) N Yes no 154 31 (units (unknown) date) Vertex absent NATHANIEL unknown) 15.66cm (unknown) (no (unknown) (unknown) NF (units (unkno wn) date) unknown) (unknown) (no (unknown) (unknown) Notes (units (unkno wn) date) unknown) (unknown) (no (unknown) (unknown) Number of Living (units (unknown) date) Children unknown) (unknown) (no (unknown) (unknown) Number of (units (unkn own) date) fetuses:: Single unknown) (unknown) (no (unknown) (unknown) Nutrition and (units ( unknown) date) weight gain unknown) counseling: special diet: discussed (unknown) (no (unknown) (unknown) OB Office Visit (units (unknown) date) unknown) (unknown) (no (unknown) (unknown) OB Visit Log (units (u nknown) date) unknown) (unknown) (no (unknown) (unknown) OB check (units (unkno wn) date) unknown) (unknown) (no (unknown) (unknown) Office Procedure (units (unknown) date) unknown) (unknown) (no (unknown) (unknown) Office (units (unkno wn) date) Procedures unknown) (unknown) (no (unknown) (unknown) On control (units (unknown) date) at conception?: unknown) No (unknown) (no (unknown) (unknown) Other Estimates (units (unknown) date) 03/31/22 LMP unknown) (Certain) 33w 5d (unknown) (no (unknown) (unknown) PFSH (units (unkno wn) date) unknown) (unknown) (no (unknown) (unknown) Painful (units (unkno wn) date) menstrual periods unknown) (-2009) (unknown) (no (unknown) (unknown) Pap performed?: (units (unknown) date) No unknown) (unknown) (no (unknown) (unknown) Para 1 (units (unkno wn) date) Spontaneous unknown) abortions (unknown) (no (unknown) (unknown) Partner history (units (unknown) date) of STD: denies hx unknown) (unknown) (no (unknown) (unknown) Partner history (units (unknown) date) of genital unknown) herpes: No (unknown) (no (unknown) (unknown) Partner: Manny (units ( unknown) date) Diaz unknown) (unknown) (no (unknown) (unknown) Past Pregnancies (units (unknown) date) unknown) (unknown) (no (unknown) (unknown) Patient comes in (units (unknown) date) for routine OB unknown) visit at 28 weeks. She has not been able (unknown) (no (unknown) (unknown) Patient presents (units (unknown) date) for a new OB unknown) visit at 12 weeks gestation. She has had (unknown) (no (unknown) (unknown) Patient presents (units (unknown) date) for a routine unknown) visit at 16 weeks gestation. She (unknown) (no (unknown) (unknown) Patient states (units (unknown) date) she is starting unknown) to feel some baby movement. Her nausea is (unknown) (no (unknown) (unknown) Patient's age 34 (units (unknown) date) years or older as unknown) of estimated date of delivery: No (unknown) (no (unknown) (unknown) Patient: (units (unkno wn) date) Suzi Diaz MR#: unknown) [id number] (unknown) (no (unknown) (unknown) [employer]: (units ( unknown) date) Pediatric unknown) [facility] (unknown) (no (unknown) (unknown) Personal history (units (unknown) date) of STD: other unknown) (HSV-2) (unknown) (no (unknown) (unknown) Personal history (units (unknown) date) of genital unknown) herpes: Yes (unknown) (no (unknown) (unknown) Placenta grade (units (unknown) date) 0. Plan: To [facility] unknown) for NST. F/U 1 wk for BPP/NST. FKC's discussed. (unknown) (no (unknown) (unknown) Position Sitting (units (unknown) date) unknown) (unknown) (no (unknown) (unknown) (units (unk nown) date) depression unknown) (unknown) (no (unknown) (unknown) Pre-diabetes (units (u nknown) date) unknown) (unknown) (no (unknown) (unknown) (units (unkn own) date) History unknown) (unknown) (no (unknown) (unknown) type:: (units (unknown) date) Other Normal unknown) (unknown) (no (unknown) (unknown) (units (unkno wn) date) Education unknown) (unknown) (no (unknown) (unknown) Initial (units (unknown) date) Assessment unknown) (unknown) (no (unknown) (unknown) (units (unkno wn) date) Specific unknown) Issues/Plans (unknown) (no (unknown) (unknown) (units (unkno wn) date) Testing: unknown) discussed (unknown) (no (unknown) (unknown) Visit (units (unknown) date) unknown) (unknown) (no (unknown) (unknown) (units (unkno wn) date) education packet: unknown) Child education/plan, symptoms, (unknown) (no (unknown) (unknown) Primary Care (units (u nknown) date) Provider: Mar unknown) CARRINGTON Chapin (unknown) (no (unknown) (unknown) Primary Ob (units (unk nown) date) Provider: unknown) Destinee Colin (unknown) (no (unknown) (unknown) Prior (units (unkno wn) date) GBS-Infected unknown) child: No (unknown) (no (unknown) (unknown) Providers (units (unkn own) date) unknown) (unknown) (no (unknown) (unknown) Pt presents for (units (unknown) date) a routine PNV at unknown) 30 wks gest. Seen at [facility] 01/17/22 for (unknown) (no (unknown) (unknown) Pt presents for (units (unknown) date) a routine PNV at unknown) 31 wks gestation. AC at 8%ile. Good (unknown) (no (unknown) (unknown) Rash or viral (units ( unknown) date) illness since unknown) last menstrual period: No (unknown) (no (unknown) (unknown) Rash (units (unkno wn) date) unknown) (unknown) (no (unknown) (unknown) Reason For Visit (units (unknown) date) unknown) (unknown) (no (unknown) (unknown) Recent travel (units ( unknown) date) outside of unknown) country?: No (unknown) (no (unknown) (unknown) Recurrent (units (unkn own) date) loss or unknown) a stillbirth: No (unknown) (no (unknown) (unknown) Reports Mental (units (unknown) date) Retardation/Autis unknown) m ('s family (multiple cousins and (unknown) (no (unknown) (unknown) Safety (units (unkno wn) date) unknown) (unknown) (no (unknown) (unknown) Signed By: (units (unk nown) date) <Electronically unknown) signed by Destinee Colin MD> (unknown) (no (unknown) (unknown) Signed (units (unkno wn) date) unknown) (unknown) (no (unknown) (unknown) Sister Asthma (units ( unknown) date) unknown) (unknown) (no (unknown) (unknown) Smoking Status: (units (unknown) date) Never smoker unknown) (unknown) (no (unknown) (unknown) Social History (units (unknown) date) unknown) (unknown) (no (unknown) (unknown) Status: Acute (units ( unknown) date) unknown) (unknown) (no (unknown) (unknown) Sulfa (units (unkno wn) date) (Sulfonamide unknown) Antibiotics) Adverse Reaction (Mild, Verified 01/27/22 16:22) (unknown) (no (unknown) (unknown) Support (units (unkno wn) date) Person(s):: Manny unknown) (unknown) (no (unknown) (unknown) Surgical History (units (unknown) date) (Updated 11/14/21 unknown) @ 15:06 by Anitra Najera MD) (unknown) (no (unknown) (unknown) Surrogate (units (unkn own) date) ?: no unknown) (unknown) (no (unknown) (unknown) Symptoms since (units (unknown) date) LMP: Reports unknown) amenorrhea, nausea, vomiting, fatigue, breast (unknown) (no (unknown) (unknown) TR Yes no 150 20 (units (unknown) date) N/A absent 4wk unknown) (unknown) (no (unknown) (unknown) TR Yes no 152 28 (units (unknown) date) N/A absent 2wk unknown) (unknown) (no (unknown) (unknown) Teratogen (units (unkn own) date) Exposures since unknown) LMP/Conception: Denies prescription medications, (unknown) (no (unknown) (unknown) Testing (units (unkno wn) date) Education unknown) (unknown) (no (unknown) (unknown) Testing (units (unkno wn) date) education unknown) completed: group B strep, Spina bifida testing and Cell Free (unknown) (no (unknown) (unknown) This note may (units ( unknown) date) have been all or unknown) partially generated using voice recognition (unknown) (no (unknown) (unknown) Tobacco + (units (unkn own) date) Substance Use unknown) (unknown) (no (unknown) (unknown) Tobacco Status (units (unknown) date) unknown) (unknown) (no (unknown) (unknown) Trimester:: 3rd (units (unknown) date) Trimester unknown) (28wks-Del) (unknown) (no (unknown) (unknown) Two vessel (units (unk nown) date) umbilical cord in unknown) gates , antepartum (unknown) (no (unknown) (unknown) Type(s) of (units (unk nown) date) exercise: walking unknown) (unknown) (no (unknown) (unknown) UProtein Movement (units (unknown) date) PreLabor FHR Fndl unknown) Ht Pres Edema Cerv Exam US/Comment Next Appt (unknown) (no (unknown) (unknown) Ultrasound (units (unk nown) date) performed?: Yes unknown) (unknown) (no (unknown) (unknown) Varicella/chicke (units (unknown) date) n pox status: unknown) immunized (unknown) (no (unknown) (unknown) Visit Date: (units (un known) date) 09/15/21 Last unknown) Updated by: Destinee Colin MD (unknown) (no (unknown) (unknown) Visit Date: (units (un known) date) 10/14/21 Last unknown) Updated by: Destinee Colin MD (unknown) (no (unknown) (unknown) Visit Date: (units (un known) date) 11/14/21 Last unknown) Updated by: Anitra Najera MD (unknown) (no (unknown) (unknown) Visit Date: (units (un known) date) 01/06/22 Last unknown) Updated by: Anitra Najera MD (unknown) (no (unknown) (unknown) Visit Date: (units (un known) date) 01/20/22 Last unknown) Updated by: Destinee Colin MD (unknown) (no (unknown) (unknown) Visit Date: (units (un known) date) 01/27/22 Last unknown) Updated by: Destinee Colin MD (unknown) (no (unknown) (unknown) Visit Reasons: (units (unknown) date) OB w/NATHANIEL/BPP and unknown) NST after (unknown) (no (unknown) (unknown) Vitals (units (unkno wn) date) unknown) (unknown) (no (unknown) (unknown) Vitamins and (units (u nknown) date) iron, Diet and unknown) weight gain, Fish and mercury intake, Smoking, (unknown) (no (unknown) (unknown) WG (units (unkno wn) date) unknown) (unknown) (no (unknown) (unknown) [facility] 1 month (units (un known) date) unknown) (unknown) (no (unknown) (unknown) Warning signs (units ( unknown) date) reviewed. unknown) (unknown) (no (unknown) (unknown) Weeks (units (unkno wn) date) gestation:: 31 unknown) (unknown) (no (unknown) (unknown) Weight 175 lb (units ( unknown) date) unknown) (unknown) (no (unknown) (unknown) [place] teeth (units (u nknown) date) extracted unknown) (-10/2017) (unknown) (no (unknown) (unknown) Yes no 132 30 (units ( unknown) date) Vertex absent NATHANIEL unknown) 18.45cm (unknown) (no (unknown) (unknown) Zika virus (units (unk nown) date) exposure: No unknown) (unknown) (no (unknown) (unknown) activity, X-ray (units (unknown) date) exposure, unknown) Medication use, Sauna/hot tub use, Dental care, HIV (unknown) (no (unknown) (unknown) alcohol intake: (units (unknown) date) former unknown) (unknown) (no (unknown) (unknown) anyone in either (units (unknown) date) family with: unknown) (unknown) (no (unknown) (unknown) defects (units ( unknown) date) not listed above unknown) and Denies Other (unknown) (no (unknown) (unknown) caffeine: Yes (units ( unknown) date) unknown) (unknown) (no (unknown) (unknown) carbon monox (units (u nknown) date) detector in home: unknown) Yes (unknown) (no (unknown) (unknown) current (units (unkno wn) date) occupational unknown) exposures/hazards : No (unknown) (no (unknown) (unknown) daily servings (units (unknown) date) fruits/ve-4 unknown) (unknown) (no (unknown) (unknown) described, visit (units (unknown) date) schedule unknown) reviewed, ultrasounds policy reviewed, coverage 24 (unknown) (no (unknown) (unknown) discussed, (units (unk nown) date) tuberculosis unknown) exposure discussed, CMV discussed, Toxoplasmosis (unknown) (no (unknown) (unknown) disorders, (units (unk nown) date) Denies Cystic unknown) Fibrosis, Denies Jyoti's Chorea, Denies Other (unknown) (no (unknown) (unknown) do you feel safe (units (unknown) date) at home: Yes unknown) (unknown) (no (unknown) (unknown) during the past (units (unknown) date) year weight has: unknown) remained stable (unknown) (no (unknown) (unknown) education level: (units (unknown) date) vocational unknown) (unknown) (no (unknown) (unknown) education, (units (unk nown) date) Travel and unknown) Influenza vaccine (no flu vaccine, Covid x2) (unknown) (no (unknown) (unknown) f/u dilated (units (un known) date) renal pelvices in unknown) baby. Found AC at 8%ile. Recommend dopplers (unknown) (no (unknown) (unknown) octavio/confucianism: (units (unknown) date) Mandaen unknown) (unknown) (no (unknown) (unknown) fire (units (unkno wn) date) extinguisher in unknown) home: Yes (unknown) (no (unknown) (unknown) firearms in (units (un known) date) home: No unknown) (unknown) (no (unknown) (unknown) frequency: 3-4 (units (unknown) date) times per week unknown) (unknown) (no (unknown) (unknown) gastric bypass (units (unknown) date) surgery. She is unknown) unable to tolerate the iron pills. Will try to (unknown) (no (unknown) (unknown) get prior (units (unkn own) date) authorization for unknown) IV iron infusions. Patient with some structures not (unknown) (no (unknown) (unknown) have occurred. (units (unknown) date) If there are any unknown) questions, please contact the Medical Records (unknown) (no (unknown) (unknown) hours a day and (units (unknown) date) participation of unknown) father in care and office visits (unknown) (no (unknown) (unknown) household (units (unkn own) date) members: spouse unknown) and children (unknown) (no (unknown) (unknown) housing: (units (unkno wn) date) apartment unknown) ([facility] ) (unknown) (no (unknown) (unknown) improving (units (unkn own) date) significantly. unknown) She has significant constipation and she was okay to (unknown) (no (unknown) (unknown) inherited (units (unkn own) date) genetic or unknown) chromosomal disorder, Denies Maternal Metabolic Disorder (unknown) (no (unknown) (unknown) is receiving (units (u nknown) date) Zofran infusions unknown) for nausea and vomiting. No movement. No (unknown) (no (unknown) (unknown) kag (units (unkno wn) date) unknown) (unknown) (no (unknown) (unknown) leakage of fluid (units (unknown) date) or vaginal unknown) bleeding. Plan: Quad screen ordered. Twenty week (unknown) (no (unknown) (unknown) lives (units (unkno wn) date) independently: unknown) Yes (unknown) (no (unknown) (unknown) marital status: (units (unknown) date) unknown) (unknown) (no (unknown) (unknown) may occur. (units (unk nown) date) Occasional unknown) wrong-word or 'sound-alike' substitutions may have (unknown) (no (unknown) (unknown) number of (units (unkn own) date) children: 1 unknown) (unknown) (no (unknown) (unknown) occasionally use (units (unknown) date) an enema. Patient unknown) with significant anemia with a history of (unknown) (no (unknown) (unknown) occupational (units (u nknown) date) status: employed unknown) (Works from home ) (unknown) (no (unknown) (unknown) occurred due to (units (unknown) date) the inherent unknown) limitations of voice recognition software. Please (unknown) (no (unknown) (unknown) ondansetron 4 mg (units (unknown) date) disintegrating unknown) tablet 4 mg PO Q6H PRN nausea and vomiting #20 (unknown) (no (unknown) (unknown) other (units (unkno wn) date) unknown) (unknown) (no (unknown) (unknown) pets and (units (unkno wn) date) animals: No unknown) (unknown) (no (unknown) (unknown) precautions (units (un known) date) reviewed. unknown) Follow-up in 4 weeks. (unknown) (no (unknown) (unknown) precautions, (units (u nknown) date) Listeriosis unknown) prevention and Rubella Immunization (unknown) (no (unknown) (unknown) prenat.vits,charles, (units (unknown) date) [id number] 1 unknown) tab PO DAILY 08/23/21 [History Confirmed (unknown) (no (unknown) (unknown) labor (units ( unknown) date) Denisa unknown) (unknown) (no (unknown) (unknown) labor (units ( unknown) date) symptoms. Good unknown) movement. Routine precautions reviewed. (unknown) (no (unknown) (unknown) rauterine (units (unkn own) date) gestational sac unknown) with a fetus measuring 4.99 cm consistent with 11 (unknown) (no (unknown) (unknown) read the note (units ( unknown) date) carefully and unknown) recognize, using context, where these substitutions (unknown) (no (unknown) (unknown) relatives)); (units (u nknown) date) unknown) (unknown) (no (unknown) (unknown) right ovary. The (units (unknown) date) left ovary was unknown) not visualized. Plan: Zofran. Labs with quad (unknown) (no (unknown) (unknown) screen next (units (un known) date) visit. Warning unknown) signs reviewed. kag (unknown) (no (unknown) (unknown) seatbelt use: (units ( unknown) date) always unknown) (unknown) (no (unknown) (unknown) second hand (units (un known) date) exposure: Yes unknown) ( smokes, mostly outside) (unknown) (no (unknown) (unknown) software. (units (unkn own) date) Although every unknown) effort is made to edit content, gunstock spray unit feeder errors (unknown) (no (unknown) (unknown) some nausea. No (units (unknown) date) meds so far. No unknown) vaginal bleeding. 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 She is going to (unknown) (no (unknown) (unknown) two vessel cord (units (unknown) date) unknown) (unknown) (no (unknown) (unknown) ultrasound (units (unk nown) date) ordered. unknown) Follow-up in 4 weeks. Warning signs reviewed. kag (unknown) (no (unknown) (unknown) water heater (units (u nknown) date) temp set < 120 unknown) deg: Yes (unknown) (no (unknown) (unknown) weekly or BPP. (units (unknown) date) Good FM. No LOF unknown) or VB. On U/S: BPP 8/8. NATHANIEL 18.45cm. (unknown) (no (unknown) (unknown) weeks 5 days. (units ( unknown) date) heart rate unknown) 176 beats per minute. Corpus luteal cyst on the (unknown) (no (unknown) (unknown) well seen on (units (u nknown) date) ultrasound will unknown) call to schedule follow-up ultrasound. Routine (unknown) (no (unknown) (unknown) well-balanced (units ( unknown) date) diet: daily or unknown) most days (unknown) (no (unknown) (unknown) work hard at (units (u nknown) date) trying to get unknown) this started. She has an appointment next week with (unknown) (no (unknown) (unknown) working smoke (units ( unknown) date) detector in home: unknown) Yes Result panel 133 (unknown) (no (unknown) (unknown) (no value) (units (unk nown) date) unknown) (unknown) (no (unknown) (unknown) (-16 oz) 100/68 (units (unknown) date) N unknown) (unknown) (no (unknown) (unknown) (-16 oz) 108/64 (units (unknown) date) N unknown) (unknown) (no (unknown) (unknown) (-5 lb) 100/62 N (units (unknown) date) unknown) (unknown) (no (unknown) (unknown) (-5 lb) 100/68 N (units (unknown) date) unknown) (unknown) (no (unknown) (unknown) (-5 lb) 100/68 (units (unknown) date) unknown) (unknown) (no (unknown) (unknown) (-6 lb) 110/64 N (units (unknown) date) unknown) (unknown) (no (unknown) (unknown) (EG,TYPE 1 (units (unk nown) date) Diabetes, PKU), unknown) Denies Patient or baby's father had a child with (unknown) (no (unknown) (unknown) Genetic (units (unkn own) date) Screening/Teratol unknown) ogy Counseling - Includes patient, baby's father, or (unknown) (no (unknown) (unknown) -?-?-?-?-?-?-?-? (units (unknown) date) -?-?-?-? unknown) (unknown) (no (unknown) (unknown) 08/04/20 39 15 6 (units (unknown) date) lb 13 oz Female unknown) vaginal live - full term (unknown) (no (unknown) (unknown) 09/15/21 (units (unkno wn) date) unknown) (unknown) (no (unknown) (unknown) 10/14/21 (units (unkno wn) date) unknown) (unknown) (no (unknown) (unknown) 11/14/21 (units (unkno wn) date) unknown) (unknown) (no (unknown) (unknown) 1 wk (units (unkno wn) date) unknown) (unknown) (no (unknown) (unknown) 1+ No no 158 16 (units (unknown) date) N/A absent 4 wks unknown) (unknown) (no (unknown) (unknown) 1+ No no 176 12 (units (unknown) date) N/A absent unknown) long/closed AGA (unknown) (no (unknown) (unknown) 01/06/22 (units (unkno wn) date) unknown) (unknown) (no (unknown) (unknown) 01/20/22 (units (unkno wn) date) unknown) (unknown) (no (unknown) (unknown) 01/27/22 (units (unkno wn) date) unknown) (unknown) (no (unknown) (unknown) 02/17/22 (units (unkno wn) date) unknown) (unknown) (no (unknown) (unknown) 02/17/22] (units (unkn own) date) unknown) (unknown) (no (unknown) (unknown) 11w5d 4 wks (units (un known) date) unknown) (unknown) (no (unknown) (unknown) 04/01/22 (units (unkno wn) date) Ultrasound #2 33w unknown) 6d (unknown) (no (unknown) (unknown) 12w 2d 179 lb (units ( unknown) date) unknown) (unknown) (no (unknown) (unknown) 16:11 (units (unkno wn) date) unknown) (unknown) (no (unknown) (unknown) 16w 3d 174 lb (units ( unknown) date) unknown) (unknown) (no (unknown) (unknown) 20w 6d 179 lb (units ( unknown) date) unknown) (unknown) (no (unknown) (unknown) 28w 3d 175 lb (units ( unknown) date) unknown) (unknown) (no (unknown) (unknown) 30w 3d 175 lb (units ( unknown) date) unknown) (unknown) (no (unknown) (unknown) 31w 3d 175 lb (units ( unknown) date) unknown) (unknown) (no (unknown) (unknown) 364 (units (unkno wn) date) unknown) (unknown) (no (unknown) (unknown) Abnormal lab (units (u nknown) date) values 1st unknown) trimester: discussed (unknown) (no (unknown) (unknown) Add'l Plan (units (unk nown) date) Details unknown) (unknown) (no (unknown) (unknown) Age/Sex: 27 / F (units (unknown) date) Date of Service: unknown) (unknown) (no (unknown) (unknown) Allergies (units (unkn own) date) unknown) (unknown) (no (unknown) (unknown) [place], [place] (units ( unknown) date) [id number] unknown) (unknown) (no (unknown) (unknown) Anemia (-2010) (units (unknown) date) unknown) (unknown) (no (unknown) (unknown) Anesthesia (units (unk nown) date) unknown) (unknown) (no (unknown) (unknown) Aneuploidy (units (unk nown) date) Screening unknown) Offered: Accepted (unknown) (no (unknown) (unknown) Anticipated (units (un known) date) course of unknown) care: discussed (unknown) (no (unknown) (unknown) Assessment and (units (unknown) date) Plan unknown) (unknown) (no (unknown) (unknown) Asthma (units (unkno wn) date) unknown) (unknown) (no (unknown) (unknown) Attending Dr: (units ( unknown) date) Destinee Colin unknown) (unknown) (no (unknown) (unknown) Autoimmune (units (unk nown) date) vasculitis unknown) (unknown) (no (unknown) (unknown) BMI 31.8 (units (unkno wn) date) unknown) (unknown) (no (unknown) (unknown) BP 110/70 (units (unkn own) date) unknown) (unknown) (no (unknown) (unknown) (units (unkno wn) date) Plan/Preferences unknown) (unknown) (no (unknown) (unknown) Planning (units (unknown) date) unknown) (unknown) (no (unknown) (unknown) Blood Pressure (units (unknown) date) Location Lt unknown) brachial (unknown) (no (unknown) (unknown) Blood (units (unkno wn) date) transfusions?: unknown) yes (Never had but would accept) (unknown) (no (unknown) (unknown) Breastfeed Preg (units (unknown) date) Comp Name unknown) (unknown) (no (unknown) (unknown) Caffeine use, (units ( unknown) date) Exercise and unknown) activity, work/environmenta l/hazards, Sexual (unknown) (no (unknown) (unknown) Center for NST. (units (unknown) date) Warning signs unknown) reviewed. F/U 1 wk. kag (unknown) (no (unknown) (unknown) Covid x 2, boost (units (unknown) date) x1 unknown) (unknown) (no (unknown) (unknown) Current Estimate (units (unknown) date) 03/28/22 unknown) Ultrasound #1 34w 3d (unknown) (no (unknown) (unknown) Current (units (unkno wn) date) History unknown) (unknown) (no (unknown) (unknown) DNA (units (unkno wn) date) unknown) (unknown) (no (unknown) (unknown) : 1995 (units (unknown) date) Acct:[id number] unknown) (unknown) (no (unknown) (unknown) Date of positive (units (unknown) date) home unknown) test: 07/19/21 (unknown) (no (unknown) (unknown) Date (units (unkno wn) date) unknown) (unknown) (no (unknown) (unknown) Del. Date (units (unkn own) date) GA/Weeks Labor unknown) Lgth Wt Sex Route Outcome Anesthesia Place (unknown) (no (unknown) (unknown) Delivery Date: (units (unknown) date) 08/04/20 Last unknown) Updated by: Courtney Valentin, R.N. (unknown) (no (unknown) (unknown) Delv (units (unkno wn) date) unknown) (unknown) (no (unknown) (unknown) Denies Congenital (units (unknown) date) Heart Defect, unknown) Denies Down Syndrome, Denies Muscular Dystrophy, (unknown) (no (unknown) (unknown) Denies Neural (units ( unknown) date) Tube Defect unknown) (Meningomyelocele , Spina Bifida, or Anencephaly), (unknown) (no (unknown) (unknown) Denies Sickle (units ( unknown) date) Cell Disease or unknown) Trait (), Denies Hemophilia or other blood (unknown) (no (unknown) (unknown) Denies Giancarlo-Sachs (units (unknown) date) (Ashkenazi unknown) Confucianism, Cajun, Anguillan Bhutanese), Denies Sebastian (unknown) (no (unknown) (unknown) Denies other (units (u nknown) date) unknown) (unknown) (no (unknown) (unknown) Denies over the (units (unknown) date) counter unknown) medications, Denies alcohol, Denies illicit drugs and (unknown) (no (unknown) (unknown) Depression: (units (un known) date) discussed unknown) (unknown) (no (unknown) (unknown) Dept at (units (unkno wn) date) . unknown) (unknown) (no (unknown) (unknown) Diabetes (units (unkno wn) date) mellitus unknown) (unknown) (no (unknown) (unknown) Diet and (units (unkno wn) date) Exercise unknown) (unknown) (no (unknown) (unknown) Disease (units (unkno wn) date) (Ashkenazi unknown) Confucianism), Denies Familial Dysautonomia (Ashkenazi Confucianism), (unknown) (no (unknown) (unknown) Documented By: (units (unknown) date) Destinee Colin unknownYe YOUNG 02/17/22 1610 (unknown) (no (unknown) (unknown) Draft (units (unkno wn) date) unknown) (unknown) (no (unknown) (unknown) BRET Calculator (units (unknown) date) unknown) (unknown) (no (unknown) (unknown) EGA Weight BP (units ( unknown) date) UGlucose unknown) (unknown) (no (unknown) (unknown) Emphysema lung (units (unknown) date) unknown) (unknown) (no (unknown) (unknown) Estimated (units (unkn own) date) Delivery Date unknown) Method Current (unknown) (no (unknown) (unknown) FM. No LOF/VB. (units (unknown) date) On U/S: NATHANIEL unknown) 15.66cm. Placenta Grade 0. BPP 11/07. Plan: To (unknown) (no (unknown) (unknown) Family History (units (unknown) date) (Updated 10/04/21 unknown) @ 15:41 by Kiki Barksdale) (unknown) (no (unknown) (unknown) Father TBI (units (unk nown) date) (traumatic brain unknown) injury) (unknown) (no (unknown) (unknown) Father of Baby: (units (unknown) date) same unknown) (unknown) (no (unknown) (unknown) [facility] ([facility] unknown) (unknown) (no (unknown) (unknown) First Trimester (units (unknown) date) Education unknown) Checklist (unknown) (no (unknown) (unknown) (units (unkno wn) date) unknown) (unknown) (no (unknown) (unknown) GERD (units (unkno wn) date) (gastroesophageal unknown) reflux disease) () (unknown) (no (unknown) (unknown) Genetic (units (unkno wn) date) Screening + unknown) Counseling (unknown) (no (unknown) (unknown) Genetic (units (unkno wn) date) Screening unknown) (unknown) (no (unknown) (unknown) Grandfather (units (un known) date) Asthma unknown) (unknown) (no (unknown) (unknown) Grandfather (units (un known) date) Heart unknown) disease (unknown) (no (unknown) (unknown) Grandmother (units (un known) date) Bladder cancer unknown) (unknown) (no (unknown) (unknown) Grandmother (units (un known) date) unknown) Hypertension (unknown) (no (unknown) (unknown) 2 (units (unkn own) date) Multiple births unknown) (unknown) (no (unknown) (unknown) H/O gastric (units (un known) date) sleeve () unknown) (unknown) (no (unknown) (unknown) HEG, Reglan, (units (u nknown) date) added Zofran unknown) (unknown) (no (unknown) (unknown) HIV risk (units (unkno wn) date) evaluation: low unknown) risk (unknown) (no (unknown) (unknown) 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) (unknown) (no (unknown) (unknown) Health Center (units ( unknown) date) Education unknown) (unknown) (no (unknown) (unknown) Health center (units ( unknown) date) information: unknown) nature of practice discussed, personnel (unknown) (no (unknown) (unknown) Heart disease (units ( unknown) date) unknown) (unknown) (no (unknown) (unknown) Heavy menstrual (units (unknown) date) period () unknown) (unknown) (no (unknown) (unknown) Height 5 ft 2 in (units (unknown) date) unknown) (unknown) (no (unknown) (unknown) Hepatitis C risk (units (unknown) date) evaluation: low unknown) risk (unknown) (no (unknown) (unknown) History of (units (unk nown) date) Hepatitis B: No unknown) (unknown) (no (unknown) (unknown) History of (units (unk nown) date) Hepatitis C: No unknown) (unknown) (no (unknown) (unknown) History of (units (unk nown) date) repair of hiatal unknown) hernia () (unknown) (no (unknown) (unknown) [facility] (units (u nknown) date) unknown) (unknown) (no (unknown) (unknown) 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) (unknown) (no (unknown) (unknown) Hx # (units (u nknown) date) Pregnancies unknown) Elective abortions (unknown) (no (unknown) (unknown) Hx # Term (units (unkn own) date) Pregnancies 1 unknown) Ectopic pregnancies (unknown) (no (unknown) (unknown) Hx HSV-2, 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 (unknown) (no (unknown) (unknown) Hx severe anemia (units (unknown) date) w/ 1st pg unknown) requiring weekly iron infusion (unknown) (no (unknown) (unknown) Hyperlipidemia (units (unknown) date) unknown) (unknown) (no (unknown) (unknown) Hypertension (units (u nknown) date) unknown) (unknown) (no (unknown) (unknown) Infant will be (units (unknown) date) adopted?: no unknown) (unknown) (no (unknown) (unknown) Infection (units (unkn own) date) History unknown) (unknown) (no (unknown) (unknown) Infectious (units (unk nown) date) Disease Education unknown) (unknown) (no (unknown) (unknown) Infectious (units (unk nown) date) disease exposure: unknown) chicken pox immunity discussed, hepatitis risk (unknown) (no (unknown) (unknown) Initial Weight: (units (unknown) date) 180 lb unknown) (unknown) (no (unknown) (unknown) Initials (units (unkno wn) date) unknown) (unknown) (no (unknown) (unknown) Intake Clinical (units (unknown) date) Staff unknown) (unknown) (no (unknown) (unknown) Intake Note: (units (u nknown) date) unknown) (unknown) (no (unknown) (unknown) Intake performed (units (unknown) date) by: unknown) Nicky Emerson (unknown) (no (unknown) (unknown) Intake (units (unkno wn) date) unknown) (unknown) (no (unknown) (unknown) Live with (units (unkn own) date) someone with TB unknown) or exposed to TB: No (unknown) (no (unknown) (unknown) Loc: [facility] (units (unkno wn) date) unknown) (unknown) (no (unknown) (unknown) Lung cancer (units (un known) date) unknown) (unknown) (no (unknown) (unknown) Marital status: (units (unknown) date) unknown) (unknown) (no (unknown) (unknown) Maternal (units (unknown) date) Medicine to unknown) evaluate the enlarged renal pelvises. No (unknown) (no (unknown) (unknown) Medical History (units (unknown) date) (Updated 01/22/22 unknown) @ 18:14 by Destinee Colin MD) (unknown) (no (unknown) (unknown) Medications (units (un known) date) unknown) (unknown) (no (unknown) (unknown) Mother (units (unkno wn) date) Gestational unknown) diabetes (unknown) (no (unknown) (unknown) Myocardial (units (unk nown) date) infarction unknown) (unknown) (no (unknown) (unknown) N Yes no 154 31 (units (unknown) date) Vertex absent NATHANIEL unknown) 15.66cm (unknown) (no (unknown) (unknown) NF (units (unkno wn) date) unknown) (unknown) (no (unknown) (unknown) Notes (units (unkno wn) date) unknown) (unknown) (no (unknown) (unknown) Number of Living (units (unknown) date) Children unknown) (unknown) (no (unknown) (unknown) Number of (units (unkn own) date) fetuses:: Single unknown) (unknown) (no (unknown) (unknown) Nutrition and (units ( unknown) date) weight gain unknown) counseling: special diet: discussed (unknown) (no (unknown) (unknown) OB Office Visit (units (unknown) date) unknown) (unknown) (no (unknown) (unknown) OB Visit Log (units (u nknown) date) unknown) (unknown) (no (unknown) (unknown) OB check (units (unkno wn) date) unknown) (unknown) (no (unknown) (unknown) On control (units (unknown) date) at conception?: unknown) No (unknown) (no (unknown) (unknown) Other Estimates (units (unknown) date) 03/31/22 LMP unknown) (Certain) 34w 0d (unknown) (no (unknown) (unknown) PFSH (units (unkno wn) date) unknown) (unknown) (no (unknown) (unknown) Painful (units (unkno wn) date) menstrual periods unknown) () (unknown) (no (unknown) (unknown) Pap performed?: (units (unknown) date) No unknown) (unknown) (no (unknown) (unknown) Para 1 (units (unkno wn) date) Spontaneous unknown) abortions (unknown) (no (unknown) (unknown) Partner history (units (unknown) date) of STD: denies hx unknown) (unknown) (no (unknown) (unknown) Partner history (units (unknown) date) of genital unknown) herpes: No (unknown) (no (unknown) (unknown) Partner: Manny (units ( unknown) date) Diaz unknown) (unknown) (no (unknown) (unknown) Past Pregnancies (units (unknown) date) unknown) (unknown) (no (unknown) (unknown) Patient comes in (units (unknown) date) for routine OB unknown) visit at 28 weeks. She has not been able (unknown) (no (unknown) (unknown) Patient presents (units (unknown) date) for a new OB unknown) visit at 12 weeks gestation. She has had (unknown) (no (unknown) (unknown) Patient presents (units (unknown) date) for a routine unknown) visit at 16 weeks gestation. She (unknown) (no (unknown) (unknown) Patient states (units (unknown) date) she is starting unknown) to feel some baby movement. Her nausea is (unknown) (no (unknown) (unknown) Patient's age 34 (units (unknown) date) years or older as unknown) of estimated date of delivery: No (unknown) (no (unknown) (unknown) Patient: (units (unkno wn) date) Suzi Diaz MR#: unknown) [id number] (unknown) (no (unknown) (unknown) [employer]: (units ( unknown) date) Pediatric unknown) [facility] (unknown) (no (unknown) (unknown) Personal history (units (unknown) date) of STD: other unknown) (HSV-2) (unknown) (no (unknown) (unknown) Personal history (units (unknown) date) of genital unknown) herpes: Yes (unknown) (no (unknown) (unknown) Placenta grade (units (unknown) date) 0. Plan: To BC unknown) for NST. F/U 1 wk for BPP/NST. FKC's discussed. (unknown) (no (unknown) (unknown) Position Sitting (units (unknown) date) unknown) (unknown) (no (unknown) (unknown) (units (unk nown) date) depression unknown) (unknown) (no (unknown) (unknown) Pre-diabetes (units (u nknown) date) unknown) (unknown) (no (unknown) (unknown) (units (unkn own) date) History unknown) (unknown) (no (unknown) (unknown) type:: (units (unknown) date) Other Normal unknown) (unknown) (no (unknown) (unknown) (units (unkno wn) date) Education unknown) (unknown) (no (unknown) (unknown) Initial (units (unknown) date) Assessment unknown) (unknown) (no (unknown) (unknown) (units (unkno wn) date) Specific unknown) Issues/Plans (unknown) (no (unknown) (unknown) (units (unkno wn) date) Testing: unknown) discussed (unknown) (no (unknown) (unknown) Visit (units (unknown) date) unknown) (unknown) (no (unknown) (unknown) (units (unkno wn) date) education packet: unknown) Child education/plan, symptoms, (unknown) (no (unknown) (unknown) Primary Care (units (u nknown) date) Provider: Mar unknown) CARRINGTON Chapin (unknown) (no (unknown) (unknown) Primary Ob (units (unk nown) date) Provider: unknown) Destinee Colin (unknown) (no (unknown) (unknown) Prior (units (unkno wn) date) GBS-Infected unknown) child: No (unknown) (no (unknown) (unknown) Providers (units (unkn own) date) unknown) (unknown) (no (unknown) (unknown) Pt presents for (units (unknown) date) a routine PNV at unknown) 30 wks gest. Seen at [facility] 01/17/22 for (unknown) (no (unknown) (unknown) Pt presents for (units (unknown) date) a routine PNV at unknown) 31 wks gestation. AC at 8%ile. Good (unknown) (no (unknown) (unknown) Rash or viral (units ( unknown) date) illness since unknown) last menstrual period: No (unknown) (no (unknown) (unknown) Rash (units (unkno wn) date) unknown) (unknown) (no (unknown) (unknown) Reason For Visit (units (unknown) date) unknown) (unknown) (no (unknown) (unknown) Recent travel (units ( unknown) date) outside of unknown) country?: No (unknown) (no (unknown) (unknown) Recurrent (units (unkn own) date) loss or unknown) a stillbirth: No (unknown) (no (unknown) (unknown) Reports Mental (units (unknown) date) Retardation/Autis unknown) m ('s family (multiple cousins and (unknown) (no (unknown) (unknown) Safety (units (unkno wn) date) unknown) (unknown) (no (unknown) (unknown) Signed By: (units (unk nown) date) unknown) (unknown) (no (unknown) (unknown) Sister Asthma (units ( unknown) date) unknown) (unknown) (no (unknown) (unknown) Smoking Status: (units (unknown) date) Never smoker unknown) (unknown) (no (unknown) (unknown) Social History (units (unknown) date) unknown) (unknown) (no (unknown) (unknown) Sulfa (units (unkno wn) date) (Sulfonamide unknown) Antibiotics) Adverse Reaction (Mild, Verified 02/17/22 16:11) (unknown) (no (unknown) (unknown) Support (units (unkno wn) date) Person(s):: Manny unknown) (unknown) (no (unknown) (unknown) Surgical History (units (unknown) date) (Updated 11/14/21 unknown) @ 15:06 by Anitra Najera MD) (unknown) (no (unknown) (unknown) Surrogate (units (unkn own) date) ?: no unknown) (unknown) (no (unknown) (unknown) Symptoms since (units (unknown) date) LMP: Reports unknown) amenorrhea, nausea, vomiting, fatigue, breast (unknown) (no (unknown) (unknown) TR Yes no 150 20 (units (unknown) date) N/A absent 4wk unknown) (unknown) (no (unknown) (unknown) TR Yes no 152 28 (units (unknown) date) N/A absent 2wk unknown) (unknown) (no (unknown) (unknown) Teratogen (units (unkn own) date) Exposures since unknown) LMP/Conception: Denies prescription medications, (unknown) (no (unknown) (unknown) Testing (units (unkno wn) date) Education unknown) (unknown) (no (unknown) (unknown) Testing (units (unkno wn) date) education unknown) completed: group B strep, Spina bifida testing and Cell Free (unknown) (no (unknown) (unknown) This note may (units ( unknown) date) have been all or unknown) partially generated using voice recognition (unknown) (no (unknown) (unknown) Tobacco + (units (unkn own) date) Substance Use unknown) (unknown) (no (unknown) (unknown) Tobacco Status (units (unknown) date) unknown) (unknown) (no (unknown) (unknown) Trimester:: 3rd (units (unknown) date) Trimester unknown) (28wks-Del) (unknown) (no (unknown) (unknown) Two vessel (units (unk nown) date) umbilical cord in unknown) gates , antepartum (unknown) (no (unknown) (unknown) Type(s) of (units (unk nown) date) exercise: walking unknown) (unknown) (no (unknown) (unknown) UProtein Movement (units (unknown) date) PreLabor FHR Fndl unknown) Ht Pres Edema Cerv Exam US/Comment Next Appt (unknown) (no (unknown) (unknown) Ultrasound (units (unk nown) date) performed?: Yes unknown) (unknown) (no (unknown) (unknown) Varicella/chicke (units (unknown) date) n pox status: unknown) immunized (unknown) (no (unknown) (unknown) Visit Date: (units (un known) date) 09/15/21 Last unknown) Updated by: Destinee Colin MD (unknown) (no (unknown) (unknown) Visit Date: (units (un known) date) 10/14/21 Last unknown) Updated by: Destinee Colin MD (unknown) (no (unknown) (unknown) Visit Date: (units (un known) date) 11/14/21 Last unknown) Updated by: Anitra Najera MD (unknown) (no (unknown) (unknown) Visit Date: (units (un known) date) 01/06/22 Last unknown) Updated by: Anitra Najera MD (unknown) (no (unknown) (unknown) Visit Date: (units (un known) date) 01/20/22 Last unknown) Updated by: Destinee Colin MD (unknown) (no (unknown) (unknown) Visit Date: (units (un known) date) 01/27/22 Last unknown) Updated by: Destinee Colin MD (unknown) (no (unknown) (unknown) Visit Reasons: (units (unknown) date) OB Ck w/ US NATHANIEL unknown) and BPP (unknown) (no (unknown) (unknown) Vitals (units (unkno wn) date) unknown) (unknown) (no (unknown) (unknown) Vitamins and (units (u nknown) date) iron, Diet and unknown) weight gain, Fish and mercury intake, Smoking, (unknown) (no (unknown) (unknown) WG (units (unkno wn) date) unknown) (unknown) (no (unknown) (unknown) [facility] 1 month (units (un known) date) unknown) (unknown) (no (unknown) (unknown) Warning signs (units ( unknown) date) reviewed. unknown) (unknown) (no (unknown) (unknown) Weeks (units (unkno wn) date) gestation:: 34 unknown) (unknown) (no (unknown) (unknown) Weight 174 lb (units ( unknown) date) unknown) (unknown) (no (unknown) (unknown) [place] teeth (units (u nknown) date) extracted unknown) (-10/2017) (unknown) (no (unknown) (unknown) Yes no 132 30 (units ( unknown) date) Vertex absent NATHANIEL unknown) 18.45cm (unknown) (no (unknown) (unknown) Zika virus (units (unk nown) date) exposure: No unknown) (unknown) (no (unknown) (unknown) activity, X-ray (units (unknown) date) exposure, unknown) Medication use, Sauna/hot tub use, Dental care, HIV (unknown) (no (unknown) (unknown) alcohol intake: (units (unknown) date) former unknown) (unknown) (no (unknown) (unknown) anyone in either (units (unknown) date) family with: unknown) (unknown) (no (unknown) (unknown) defects (units ( unknown) date) not listed above unknown) and Denies Other (unknown) (no (unknown) (unknown) caffeine: Yes (units ( unknown) date) unknown) (unknown) (no (unknown) (unknown) carbon monox (units (u nknown) date) detector in home: unknown) Yes (unknown) (no (unknown) (unknown) current (units (unkno wn) date) occupational unknown) exposures/hazards : No (unknown) (no (unknown) (unknown) daily servings (units (unknown) date) fruits/ve-4 unknown) (unknown) (no (unknown) (unknown) described, visit (units (unknown) date) schedule unknown) reviewed, ultrasounds policy reviewed, coverage 24 (unknown) (no (unknown) (unknown) discussed, (units (unk nown) date) tuberculosis unknown) exposure discussed, CMV discussed, Toxoplasmosis (unknown) (no (unknown) (unknown) disorders, (units (unk nown) date) Denies Cystic unknown) Fibrosis, Denies [place]'s Chorea, Denies Other (unknown) (no (unknown) (unknown) do you feel safe (units (unknown) date) at home: Yes unknown) (unknown) (no (unknown) (unknown) during the past (units (unknown) date) year weight has: unknown) remained stable (unknown) (no (unknown) (unknown) education level: (units (unknown) date) vocational unknown) (unknown) (no (unknown) (unknown) education, (units (unk nown) date) Travel and unknown) Influenza vaccine (no flu vaccine, Covid x2) (unknown) (no (unknown) (unknown) f/u dilated (units (un known) date) renal pelvices in unknown) baby. Found AC at 8%ile. Recommend dopplers (unknown) (no (unknown) (unknown) octavio/confucianism: (units (unknown) date) Mandaen unknown) (unknown) (no (unknown) (unknown) fire (units (unkno wn) date) extinguisher in unknown) home: Yes (unknown) (no (unknown) (unknown) firearms in (units (un known) date) home: No unknown) (unknown) (no (unknown) (unknown) frequency: 3-4 (units (unknown) date) times per week unknown) (unknown) (no (unknown) (unknown) gastric bypass (units (unknown) date) surgery. She is unknown) unable to tolerate the iron pills. Will try to (unknown) (no (unknown) (unknown) get prior (units (unkn own) date) authorization for unknown) IV iron infusions. Patient with some structures not (unknown) (no (unknown) (unknown) have occurred. (units (unknown) date) If there are any unknown) questions, please contact the Medical Records (unknown) (no (unknown) (unknown) hours a day and (units (unknown) date) participation of unknown) father in care and office visits (unknown) (no (unknown) (unknown) household (units (unkn own) date) members: spouse unknown) and children (unknown) (no (unknown) (unknown) housing: (units (unkno wn) date) apartment unknown) ([facility] ) (unknown) (no (unknown) (unknown) improving (units (unkn own) date) significantly. unknown) She has significant constipation and she was okay to (unknown) (no (unknown) (unknown) inherited (units (unkn own) date) genetic or unknown) chromosomal disorder, Denies Maternal Metabolic Disorder (unknown) (no (unknown) (unknown) is receiving (units (u nknown) date) Zofran infusions unknown) for nausea and vomiting. No movement. No (unknown) (no (unknown) (unknown) kag (units (unkno wn) date) unknown) (unknown) (no (unknown) (unknown) leakage of fluid (units (unknown) date) or vaginal unknown) bleeding. Plan: Quad screen ordered. Twenty week (unknown) (no (unknown) (unknown) lives (units (unkno wn) date) independently: unknown) Yes (unknown) (no (unknown) (unknown) marital status: (units (unknown) date) unknown) (unknown) (no (unknown) (unknown) may occur. (units (unk nown) date) Occasional unknown) wrong-word or 'sound-alike' substitutions may have (unknown) (no (unknown) (unknown) number of (units (unkn own) date) children: 1 unknown) (unknown) (no (unknown) (unknown) occasionally use (units (unknown) date) an enema. Patient unknown) with significant anemia with a history of (unknown) (no (unknown) (unknown) occupational (units (u nknown) date) status: employed unknown) (Works from home ) (unknown) (no (unknown) (unknown) occurred due to (units (unknown) date) the inherent unknown) limitations of voice recognition software. Please (unknown) (no (unknown) (unknown) ondansetron 4 mg (units (unknown) date) disintegrating unknown) tablet 4 mg PO Q6H PRN nausea and vomiting #20 (unknown) (no (unknown) (unknown) other (units (unkno wn) date) unknown) (unknown) (no (unknown) (unknown) pets and (units (unkno wn) date) animals: No unknown) (unknown) (no (unknown) (unknown) precautions (units (un known) date) reviewed. unknown) Follow-up in 4 weeks. (unknown) (no (unknown) (unknown) precautions, (units (u nknown) date) Listeriosis unknown) prevention and Rubella Immunization (unknown) (no (unknown) (unknown) prenat.vits,charles, (units (unknown) date) ham-sflk-pnyza 1 unknown) tab PO DAILY 08/23/21 [History Confirmed (unknown) (no (unknown) (unknown) labor (units ( unknown) date) Denisa unknown) (unknown) (no (unknown) (unknown) labor (units ( unknown) date) symptoms. Good unknown) movement. Routine precautions reviewed. (unknown) (no (unknown) (unknown) rauterine (units (unkn own) date) gestational sac unknown) with a fetus measuring 4.99 cm consistent with 11 (unknown) (no (unknown) (unknown) read the note (units ( unknown) date) carefully and unknown) recognize, using context, where these substitutions (unknown) (no (unknown) (unknown) relatives)); (units (u nknown) date) unknown) (unknown) (no (unknown) (unknown) right ovary. The (units (unknown) date) left ovary was unknown) not visualized. Plan: Zofran. Labs with quad (unknown) (no (unknown) (unknown) screen next (units (un known) date) visit. Warning unknown) signs reviewed. kag (unknown) (no (unknown) (unknown) seatbelt use: (units ( unknown) date) always unknown) (unknown) (no (unknown) (unknown) second hand (units (un known) date) exposure: Yes unknown) ( smokes, mostly outside) (unknown) (no (unknown) (unknown) software. (units (unkn own) date) Although every unknown) effort is made to edit content, gunstock spray unit feeder errors (unknown) (no (unknown) (unknown) some nausea. No (units (unknown) date) meds so far. No unknown) vaginal bleeding. 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 She is going to (unknown) (no (unknown) (unknown) two vessel cord (units (unknown) date) unknown) (unknown) (no (unknown) (unknown) ultrasound (units (unk nown) date) ordered. unknown) Follow-up in 4 weeks. Warning signs reviewed. kag (unknown) (no (unknown) (unknown) water heater (units (u nknown) date) temp set < 120 unknown) deg: Yes (unknown) (no (unknown) (unknown) weekly or BPP. (units (unknown) date) Good FM. No LOF unknown) or VB. On U/S: BPP 11/07. NATHANIEL 18.45cm. (unknown) (no (unknown) (unknown) weeks 5 days. (units ( unknown) date) heart rate unknown) 176 beats per minute. Corpus luteal cyst on the (unknown) (no (unknown) (unknown) well seen on (units (u nknown) date) ultrasound will unknown) call to schedule follow-up ultrasound. Routine (unknown) (no (unknown) (unknown) well-balanced (units ( unknown) date) diet: daily or unknown) most days (unknown) (no (unknown) (unknown) work hard at (units (u nknown) date) trying to get unknown) this started. She has an appointment next week with (unknown) (no (unknown) (unknown) working smoke (units ( unknown) date) detector in home: unknown) Yes Result panel 134 (unknown) (no (unknown) (unknown) (no value) (units (unk nown) date) unknown) (unknown) (no (unknown) (unknown) (-16 oz) 100/68 (units (unknown) date) N unknown) (unknown) (no (unknown) (unknown) (-16 oz) 108/64 (units (unknown) date) N unknown) (unknown) (no (unknown) (unknown) (-5 lb) 100/62 N (units (unknown) date) unknown) (unknown) (no (unknown) (unknown) (-5 lb) 100/68 N (units (unknown) date) unknown) (unknown) (no (unknown) (unknown) (-5 lb) 100/68 (units (unknown) date) unknown) (unknown) (no (unknown) (unknown) (-6 lb) 110/64 N (units (unknown) date) unknown) (unknown) (no (unknown) (unknown) (-6 lb) 110/70 (units (unknown) date) unknown) (unknown) (no (unknown) (unknown) (EG,TYPE 1 (units (unk nown) date) Diabetes, PKU), unknown) Denies Patient or baby's father had a child with (unknown) (no (unknown) (unknown) Genetic (units (unkn own) date) Screening/Teratol unknown) ogy Counseling - Includes patient, baby's father, or (unknown) (no (unknown) (unknown) -?-?-?-?-?-?-?-? (units (unknown) date) -?-?-?-? unknown) (unknown) (no (unknown) (unknown) 08/04/20 39 15 6 (units (unknown) date) lb 13 oz Female unknown) vaginal live - full term (unknown) (no (unknown) (unknown) 09/15/21 (units (unkno wn) date) unknown) (unknown) (no (unknown) (unknown) 10/14/21 (units (unkno wn) date) unknown) (unknown) (no (unknown) (unknown) 11/14/21 (units (unkno wn) date) unknown) (unknown) (no (unknown) (unknown) 1 wk (units (unkno wn) date) unknown) (unknown) (no (unknown) (unknown) 1+ No no 158 16 (units (unknown) date) N/A absent 4 wks unknown) (unknown) (no (unknown) (unknown) 1+ No no 176 12 (units (unknown) date) N/A absent unknown) long/closed AGA (unknown) (no (unknown) (unknown) 01/06/22 (units (unkno wn) date) unknown) (unknown) (no (unknown) (unknown) 01/20/22 (units (unkno wn) date) unknown) (unknown) (no (unknown) (unknown) 01/27/22 (units (unkno wn) date) unknown) (unknown) (no (unknown) (unknown) 02/17/22 (units (unkno wn) date) unknown) (unknown) (no (unknown) (unknown) 02/17/22] (units (unkn own) date) unknown) (unknown) (no (unknown) (unknown) 11w5d 4 wks (units (un known) date) unknown) (unknown) (no (unknown) (unknown) 04/01/22 (units (unkno wn) date) Ultrasound #2 33w unknown) 6d (unknown) (no (unknown) (unknown) 12w 2d 179 lb (units ( unknown) date) unknown) (unknown) (no (unknown) (unknown) 16:11 (units (unkno wn) date) unknown) (unknown) (no (unknown) (unknown) 16w 3d 174 lb (units ( unknown) date) unknown) (unknown) (no (unknown) (unknown) 20w 6d 179 lb (units ( unknown) date) unknown) (unknown) (no (unknown) (unknown) 28w 3d 175 lb (units ( unknown) date) unknown) (unknown) (no (unknown) (unknown) 30w 3d 175 lb (units ( unknown) date) unknown) (unknown) (no (unknown) (unknown) 31w 3d 175 lb (units ( unknown) date) unknown) (unknown) (no (unknown) (unknown) 34w 3d 174 lb (units ( unknown) date) unknown) (unknown) (no (unknown) (unknown) 364 (units (unkno wn) date) unknown) (unknown) (no (unknown) (unknown) Abnormal lab (units (u nknown) date) values 1st unknown) trimester: discussed (unknown) (no (unknown) (unknown) Add'l Plan (units (unk nown) date) Details unknown) (unknown) (no (unknown) (unknown) Age/Sex: 27 / F (units (unknown) date) Date of Service: unknown) (unknown) (no (unknown) (unknown) Allergies (units (unkn own) date) unknown) (unknown) (no (unknown) (unknown) [place], [place] (units ( unknown) date) [id number] unknown) (unknown) (no (unknown) (unknown) Anemia (-2010) (units (unknown) date) unknown) (unknown) (no (unknown) (unknown) Anesthesia (units (unk nown) date) unknown) (unknown) (no (unknown) (unknown) Aneuploidy (units (unk nown) date) Screening unknown) Offered: Accepted (unknown) (no (unknown) (unknown) Anticipated (units (un known) date) course of unknown) care: discussed (unknown) (no (unknown) (unknown) Assessment and (units (unknown) date) Plan unknown) (unknown) (no (unknown) (unknown) Asthma (units (unkno wn) date) unknown) (unknown) (no (unknown) (unknown) Attending Dr: (units ( unknown) date) Destinee Colin unknown) (unknown) (no (unknown) (unknown) Autoimmune (units (unk nown) date) vasculitis unknown) (unknown) (no (unknown) (unknown) BMI 31.8 (units (unkno wn) date) unknown) (unknown) (no (unknown) (unknown) BP 110/70 (units (unkn own) date) unknown) (unknown) (no (unknown) (unknown) (units (unkno wn) date) Plan/Preferences unknown) (unknown) (no (unknown) (unknown) Planning (units (unknown) date) unknown) (unknown) (no (unknown) (unknown) Blood Pressure (units (unknown) date) Location Lt unknown) brachial (unknown) (no (unknown) (unknown) Blood (units (unkno wn) date) transfusions?: unknown) yes (Never had but would accept) (unknown) (no (unknown) (unknown) Breastfeed Preg (units (unknown) date) Comp Name unknown) (unknown) (no (unknown) (unknown) Caffeine use, (units ( unknown) date) Exercise and unknown) activity, work/environmenta l/hazards, Sexual (unknown) (no (unknown) (unknown) Center for NST. (units (unknown) date) Warning signs unknown) reviewed. F/U 1 wk. kag (unknown) (no (unknown) (unknown) Confirmed (units (unkn own) date) 02/17/22] unknown) (unknown) (no (unknown) (unknown) Covid x 2, boost (units (unknown) date) x1 unknown) (unknown) (no (unknown) (unknown) Current Estimate (units (unknown) date) 03/28/22 unknown) Ultrasound #1 34w 3d (unknown) (no (unknown) (unknown) Current (units (unkno wn) date) History unknown) (unknown) (no (unknown) (unknown) DNA (units (unkno wn) date) unknown) (unknown) (no (unknown) (unknown) : 1995 (units (unknown) date) Acct:[id number] unknown) (unknown) (no (unknown) (unknown) Date of positive (units (unknown) date) home unknown) test: 07/19/21 (unknown) (no (unknown) (unknown) Date (units (unkno wn) date) unknown) (unknown) (no (unknown) (unknown) Del. Date (units (unkn own) date) GA/Weeks Labor unknown) Lgth Wt Sex Route Outcome Anesthesia Place (unknown) (no (unknown) (unknown) Delivery Date: (units (unknown) date) 08/04/20 Last unknown) Updated by: Courtney Hanson R.N. (unknown) (no (unknown) (unknown) Delv (units (unkno wn) date) unknown) (unknown) (no (unknown) (unknown) Denies Congenital (units (unknown) date) Heart Defect, unknown) Denies Down Syndrome, Denies Muscular Dystrophy, (unknown) (no (unknown) (unknown) Denies Neural (units ( unknown) date) Tube Defect unknown) (Meningomyelocele , Spina Bifida, or Anencephaly), (unknown) (no (unknown) (unknown) Denies Sickle (units ( unknown) date) Cell Disease or unknown) Trait (), Denies Hemophilia or other blood (unknown) (no (unknown) (unknown) Denies Giancarlo-Sachs (units (unknown) date) (Ashkenazi unknown) Confucianism, Cajun, [place]guillan Bhutanese), Denies Sebastian (unknown) (no (unknown) (unknown) Denies other (units (u nknown) date) unknown) (unknown) (no (unknown) (unknown) Denies over the (units (unknown) date) counter unknown) medications, Denies alcohol, Denies illicit drugs and (unknown) (no (unknown) (unknown) Depression: (units (un known) date) discussed unknown) (unknown) (no (unknown) (unknown) Dept at (units (unkno wn) date) . unknown) (unknown) (no (unknown) (unknown) Diabetes (units (unkno wn) date) mellitus unknown) (unknown) (no (unknown) (unknown) Diet and (units (unkno wn) date) Exercise unknown) (unknown) (no (unknown) (unknown) Disease (units (unkno wn) date) (Ashkenazi unknown) Confucianism), Denies Familial Dysautonomia (Ashkenazi Confucianism), (unknown) (no (unknown) (unknown) Documented By: (units (unknown) date) Destinee Colin unknownYe YOUNG 02/17/22 1610 (unknown) (no (unknown) (unknown) Draft (units (unkno wn) date) unknown) (unknown) (no (unknown) (unknown) BRET Calculator (units (unknown) date) unknown) (unknown) (no (unknown) (unknown) EGA Weight BP (units ( unknown) date) UGlucose unknown) (unknown) (no (unknown) (unknown) Emphysema lung (units (unknown) date) unknown) (unknown) (no (unknown) (unknown) Estimated (units (unkn own) date) Delivery Date unknown) Method Current (unknown) (no (unknown) (unknown) FM. No LOF/VB. (units (unknown) date) On U/S: NATHANIEL unknown) 15.66cm. Placenta Grade 0. BPP 11/07. Plan: To (unknown) (no (unknown) (unknown) Family History (units (unknown) date) (Updated 10/04/21 unknown) @ 15:41 by Kiki Barksdale) (unknown) (no (unknown) (unknown) Father TBI (units (unk nown) date) (traumatic brain unknown) injury) (unknown) (no (unknown) (unknown) Father of Baby: (units (unknown) date) same unknown) (unknown) (no (unknown) (unknown) [facility] ([facility] unknown) (unknown) (no (unknown) (unknown) First Trimester (units (unknown) date) Education unknown) Checklist (unknown) (no (unknown) (unknown) (units (unkno wn) date) unknown) (unknown) (no (unknown) (unknown) GERD (units (unkno wn) date) (gastroesophageal unknown) reflux disease) () (unknown) (no (unknown) (unknown) Genetic (units (unkno wn) date) Screening + unknown) Counseling (unknown) (no (unknown) (unknown) Genetic (units (unkno wn) date) Screening unknown) (unknown) (no (unknown) (unknown) Grandfather (units (un known) date) Asthma unknown) (unknown) (no (unknown) (unknown) Grandfather (units (un known) date) Heart unknown) disease (unknown) (no (unknown) (unknown) Grandmother (units (un known) date) Bladder cancer unknown) (unknown) (no (unknown) (unknown) Grandmother (units (un known) date) unknown) Hypertension (unknown) (no (unknown) (unknown) 2 (units (unkn own) date) Multiple births unknown) (unknown) (no (unknown) (unknown) H/O gastric (units (un known) date) sleeve () unknown) (unknown) (no (unknown) (unknown) HEG, Reglan, (units (u nknown) date) added Zofran unknown) (unknown) (no (unknown) (unknown) HIV risk (units (unkno wn) date) evaluation: low unknown) risk (unknown) (no (unknown) (unknown) 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) (unknown) (no (unknown) (unknown) Health Center (units ( unknown) date) Education unknown) (unknown) (no (unknown) (unknown) Health center (units ( unknown) date) information: unknown) nature of practice discussed, personnel (unknown) (no (unknown) (unknown) Heart disease (units ( unknown) date) unknown) (unknown) (no (unknown) (unknown) Heavy menstrual (units (unknown) date) period (-2009) unknown) (unknown) (no (unknown) (unknown) Height 5 ft 2 in (units (unknown) date) unknown) (unknown) (no (unknown) (unknown) Hepatitis C risk (units (unknown) date) evaluation: low unknown) risk (unknown) (no (unknown) (unknown) History of (units (unk nown) date) Hepatitis B: No unknown) (unknown) (no (unknown) (unknown) History of (units (unk nown) date) Hepatitis C: No unknown) (unknown) (no (unknown) (unknown) History of (units (unk nown) date) repair of hiatal unknown) hernia () (unknown) (no (unknown) (unknown) Hospital: [facility] (units (u nknown) date) unknown) (unknown) (no (unknown) (unknown) 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) (unknown) (no (unknown) (unknown) Hx # (units (u nknown) date) Pregnancies unknown) Elective abortions (unknown) (no (unknown) (unknown) Hx # Term (units (unkn own) date) Pregnancies 1 unknown) Ectopic pregnancies (unknown) (no (unknown) (unknown) Hx HSV-2, 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 (unknown) (no (unknown) (unknown) Hx severe anemia (units (unknown) date) w/ 1st pg unknown) requiring weekly iron infusion (unknown) (no (unknown) (unknown) Hyperlipidemia (units (unknown) date) unknown) (unknown) (no (unknown) (unknown) Hypertension (units (u nknown) date) unknown) (unknown) (no (unknown) (unknown) Infant will be (units (unknown) date) adopted?: no unknown) (unknown) (no (unknown) (unknown) Infection (units (unkn own) date) History unknown) (unknown) (no (unknown) (unknown) Infectious (units (unk nown) date) Disease Education unknown) (unknown) (no (unknown) (unknown) Infectious (units (unk nown) date) disease exposure: unknown) chicken pox immunity discussed, hepatitis risk (unknown) (no (unknown) (unknown) Initial Weight: (units (unknown) date) 180 lb unknown) (unknown) (no (unknown) (unknown) Initials (units (unkno wn) date) unknown) (unknown) (no (unknown) (unknown) Intake Clinical (units (unknown) date) Staff unknown) (unknown) (no (unknown) (unknown) Intake Note: (units (u nknown) date) unknown) (unknown) (no (unknown) (unknown) Intake performed (units (unknown) date) by: unknown) Nicky Emerson (unknown) (no (unknown) (unknown) Intake (units (unkno wn) date) unknown) (unknown) (no (unknown) (unknown) Live with (units (unkn own) date) someone with TB unknown) or exposed to TB: No (unknown) (no (unknown) (unknown) Loc: [facility] (units (unkno wn) date) unknown) (unknown) (no (unknown) (unknown) Lung cancer (units (un known) date) unknown) (unknown) (no (unknown) (unknown) Marital status: (units (unknown) date) unknown) (unknown) (no (unknown) (unknown) Maternal (units (unknown) date) Medicine to unknown) evaluate the enlarged renal pelvises. No (unknown) (no (unknown) (unknown) Medical History (units (unknown) date) (Updated 01/22/22 unknown) @ 18:14 by Destinee Colin MD) (unknown) (no (unknown) (unknown) Medications (units (un known) date) unknown) (unknown) (no (unknown) (unknown) Medications: (units (u nknown) date) unknown) (unknown) (no (unknown) (unknown) Mother (units (unkno wn) date) Gestational unknown) diabetes (unknown) (no (unknown) (unknown) Myocardial (units (unk nown) date) infarction unknown) (unknown) (no (unknown) (unknown) N Yes no 154 31 (units (unknown) date) Vertex absent NATHANIEL unknown) 15.66cm (unknown) (no (unknown) (unknown) NF (units (unkno wn) date) unknown) (unknown) (no (unknown) (unknown) New (units (unkno wn) date) unknown) (unknown) (no (unknown) (unknown) Notes (units (unkno wn) date) unknown) (unknown) (no (unknown) (unknown) Number of Living (units (unknown) date) Children unknown) (unknown) (no (unknown) (unknown) Number of (units (unkn own) date) fetuses:: Single unknown) (unknown) (no (unknown) (unknown) Nutrition and (units ( unknown) date) weight gain unknown) counseling: special diet: discussed (unknown) (no (unknown) (unknown) OB Office Visit (units (unknown) date) unknown) (unknown) (no (unknown) (unknown) OB Visit Log (units (u nknown) date) unknown) (unknown) (no (unknown) (unknown) OB check (units (unkno wn) date) unknown) (unknown) (no (unknown) (unknown) On control (units (unknown) date) at conception?: unknown) No (unknown) (no (unknown) (unknown) Other Estimates (units (unknown) date) 03/31/22 LMP unknown) (Certain) 34w 0d (unknown) (no (unknown) (unknown) PFSH (units (unkno wn) date) unknown) (unknown) (no (unknown) (unknown) Painful (units (unkno wn) date) menstrual periods unknown) (-2009) (unknown) (no (unknown) (unknown) Pap performed?: (units (unknown) date) No unknown) (unknown) (no (unknown) (unknown) Para 1 (units (unkno wn) date) Spontaneous unknown) abortions (unknown) (no (unknown) (unknown) Partner history (units (unknown) date) of STD: denies hx unknown) (unknown) (no (unknown) (unknown) Partner history (units (unknown) date) of genital unknown) herpes: No (unknown) (no (unknown) (unknown) Partner: Manny (units ( unknown) date) Diaz unknown) (unknown) (no (unknown) (unknown) Past Pregnancies (units (unknown) date) unknown) (unknown) (no (unknown) (unknown) Patient comes in (units (unknown) date) for routine OB unknown) visit at 28 weeks. She has not been able (unknown) (no (unknown) (unknown) Patient presents (units (unknown) date) for a new OB unknown) visit at 12 weeks gestation. She has had (unknown) (no (unknown) (unknown) Patient presents (units (unknown) date) for a routine unknown) visit at 16 weeks gestation. She (unknown) (no (unknown) (unknown) Patient states (units (unknown) date) she is starting unknown) to feel some baby movement. Her nausea is (unknown) (no (unknown) (unknown) Patient's age 34 (units (unknown) date) years or older as unknown) of estimated date of delivery: No (unknown) (no (unknown) (unknown) Patient: (units (unkno wn) date) Suzi Diaz MR#: unknown) [id number] (unknown) (no (unknown) (unknown) [employer]: (units ( unknown) date) Pediatric unknown) [facility] (unknown) (no (unknown) (unknown) Personal history (units (unknown) date) of STD: other unknown) (HSV-2) (unknown) (no (unknown) (unknown) Personal history (units (unknown) date) of genital unknown) herpes: Yes (unknown) (no (unknown) (unknown) Placenta grade (units (unknown) date) 0. Plan: To [facility] unknown) for NST. F/U 1 wk for BPP/NST. [facility]'s discussed. (unknown) (no (unknown) (unknown) Position Sitting (units (unknown) date) unknown) (unknown) (no (unknown) (unknown) (units (unk nown) date) depression unknown) (unknown) (no (unknown) (unknown) Pre-diabetes (units (u nknown) date) unknown) (unknown) (no (unknown) (unknown) (units (unkn own) date) History unknown) (unknown) (no (unknown) (unknown) type:: (units (unknown) date) Other Normal unknown) (unknown) (no (unknown) (unknown) (units (unkno wn) date) Education unknown) (unknown) (no (unknown) (unknown) Initial (units (unknown) date) Assessment unknown) (unknown) (no (unknown) (unknown) (units (unkno wn) date) Specific unknown) Issues/Plans (unknown) (no (unknown) (unknown) (units (unkno wn) date) Testing: unknown) discussed (unknown) (no (unknown) (unknown) Visit (units (unknown) date) unknown) (unknown) (no (unknown) (unknown) (units (unkno wn) date) education packet: unknown) Child education/plan, symptoms, (unknown) (no (unknown) (unknown) Primary Care (units (u nknown) date) Provider: Mar unknown) CARRINGTON Chapin (unknown) (no (unknown) (unknown) Primary Ob (units (unk nown) date) Provider: unknown) Destinee Colin (unknown) (no (unknown) (unknown) Prior (units (unkno wn) date) GBS-Infected unknown) child: No (unknown) (no (unknown) (unknown) Providers (units (unkn own) date) unknown) (unknown) (no (unknown) (unknown) Pt presents for (units (unknown) date) a routine PNV at unknown) 30 wks gest. Seen at [facility] 01/17/22 for (unknown) (no (unknown) (unknown) Pt presents for (units (unknown) date) a routine PNV at unknown) 31 wks gestation. AC at 8%ile. Good (unknown) (no (unknown) (unknown) Rash or viral (units ( unknown) date) illness since unknown) last menstrual period: No (unknown) (no (unknown) (unknown) Rash (units (unkno wn) date) unknown) (unknown) (no (unknown) (unknown) Reason For Visit (units (unknown) date) unknown) (unknown) (no (unknown) (unknown) Recent travel (units ( unknown) date) outside of unknown) country?: No (unknown) (no (unknown) (unknown) Recurrent (units (unkn own) date) loss or unknown) a stillbirth: No (unknown) (no (unknown) (unknown) Reports Mental (units (unknown) date) Retardation/Autis unknown) m ('s family (multiple cousins and (unknown) (no (unknown) (unknown) Safety (units (unkno wn) date) unknown) (unknown) (no (unknown) (unknown) Signed By: (units (unk nown) date) unknown) (unknown) (no (unknown) (unknown) Sister Asthma (units ( unknown) date) unknown) (unknown) (no (unknown) (unknown) Smoking Status: (units (unknown) date) Never smoker unknown) (unknown) (no (unknown) (unknown) Social History (units (unknown) date) unknown) (unknown) (no (unknown) (unknown) Sulfa (units (unkno wn) date) (Sulfonamide unknown) Antibiotics) Adverse Reaction (Mild, Verified 02/17/22 16:11) (unknown) (no (unknown) (unknown) Support (units (unkno wn) date) Person(s):: Manny unknown) (unknown) (no (unknown) (unknown) Surgical History (units (unknown) date) (Updated 11/14/21 unknown) @ 15:06 by Anitra Najera MD) (unknown) (no (unknown) (unknown) Surrogate (units (unkn own) date) ?: no unknown) (unknown) (no (unknown) (unknown) Symptoms since (units (unknown) date) LMP: Reports unknown) amenorrhea, nausea, vomiting, fatigue, breast (unknown) (no (unknown) (unknown) TR Yes no 150 20 (units (unknown) date) N/A absent 4wk unknown) (unknown) (no (unknown) (unknown) TR Yes no 152 28 (units (unknown) date) N/A absent 2wk unknown) (unknown) (no (unknown) (unknown) Teratogen (units (unkn own) date) Exposures since unknown) LMP/Conception: Denies prescription medications, (unknown) (no (unknown) (unknown) Testing (units (unkno wn) date) Education unknown) (unknown) (no (unknown) (unknown) Testing (units (unkno wn) date) education unknown) completed: group B strep, Spina bifida testing and Cell Free (unknown) (no (unknown) (unknown) This note may (units ( unknown) date) have been all or unknown) partially generated using voice recognition (unknown) (no (unknown) (unknown) Tobacco + (units (unkn own) date) Substance Use unknown) (unknown) (no (unknown) (unknown) Tobacco Status (units (unknown) date) unknown) (unknown) (no (unknown) (unknown) Trimester:: 3rd (units (unknown) date) Trimester unknown) (28wks-Del) (unknown) (no (unknown) (unknown) Two vessel (units (unk nown) date) umbilical cord in unknown) gates , antepartum (unknown) (no (unknown) (unknown) Type(s) of (units (unk nown) date) exercise: walking unknown) (unknown) (no (unknown) (unknown) UProtein Movement (units (unknown) date) PreLabor FHR Fndl unknown) Ht Pres Edema Cerv Exam US/Comment Next Appt (unknown) (no (unknown) (unknown) Ultrasound (units (unk nown) date) performed?: Yes unknown) (unknown) (no (unknown) (unknown) Varicella/chicke (units (unknown) date) n pox status: unknown) immunized (unknown) (no (unknown) (unknown) Visit Date: (units (un known) date) 09/15/21 Last unknown) Updated by: Destinee Colin MD (unknown) (no (unknown) (unknown) Visit Date: (units (un known) date) 10/14/21 Last unknown) Updated by: Destinee Colin MD (unknown) (no (unknown) (unknown) Visit Date: (units (un known) date) 11/14/21 Last unknown) Updated by: Anitra Najera MD (unknown) (no (unknown) (unknown) Visit Date: (units (un known) date) 01/06/22 Last unknown) Updated by: Anitra Najera MD (unknown) (no (unknown) (unknown) Visit Date: (units (un known) date) 01/20/22 Last unknown) Updated by: Destinee Colin MD (unknown) (no (unknown) (unknown) Visit Date: (units (un known) date) 01/27/22 Last unknown) Updated by: Destinee Colin MD (unknown) (no (unknown) (unknown) Visit Reasons: (units (unknown) date) OB Ck w/ US NATHANIEL unknown) and BPP (unknown) (no (unknown) (unknown) Vitals (units (unkno wn) date) unknown) (unknown) (no (unknown) (unknown) Vitamins and (units (u nknown) date) iron, Diet and unknown) weight gain, Fish and mercury intake, Smoking, (unknown) (no (unknown) (unknown) WG (units (unkno wn) date) unknown) (unknown) (no (unknown) (unknown) [facility] 1 month (units (un known) date) unknown) (unknown) (no (unknown) (unknown) Warning signs (units ( unknown) date) reviewed. unknown) (unknown) (no (unknown) (unknown) Weeks (units (unkno wn) date) gestation:: 34 unknown) (unknown) (no (unknown) (unknown) Weight 174 lb (units ( unknown) date) unknown) (unknown) (no (unknown) (unknown) [place] teeth (units (u nknown) date) extracted unknown) (-10/2017) (unknown) (no (unknown) (unknown) Yes no 132 30 (units ( unknown) date) Vertex absent NATHANIEL unknown) 18.45cm (unknown) (no (unknown) (unknown) Yes no 34 Vertex (units (unknown) date) unknown) (unknown) (no (unknown) (unknown) Zika virus (units (unk nown) date) exposure: No unknown) (unknown) (no (unknown) (unknown) activity, X-ray (units (unknown) date) exposure, unknown) Medication use, Sauna/hot tub use, Dental care, HIV (unknown) (no (unknown) (unknown) alcohol intake: (units (unknown) date) former unknown) (unknown) (no (unknown) (unknown) anyone in either (units (unknown) date) family with: unknown) (unknown) (no (unknown) (unknown) defects (units ( unknown) date) not listed above unknown) and Denies Other (unknown) (no (unknown) (unknown) caffeine: Yes (units ( unknown) date) unknown) (unknown) (no (unknown) (unknown) carbon monox (units (u nknown) date) detector in home: unknown) Yes (unknown) (no (unknown) (unknown) current (units (unkno wn) date) occupational unknown) exposures/hazards : No (unknown) (no (unknown) (unknown) daily servings (units (unknown) date) fruits/ve-4 unknown) (unknown) (no (unknown) (unknown) described, visit (units (unknown) date) schedule unknown) reviewed, ultrasounds policy reviewed, coverage 24 (unknown) (no (unknown) (unknown) discussed, (units (unk nown) date) tuberculosis unknown) exposure discussed, CMV discussed, Toxoplasmosis (unknown) (no (unknown) (unknown) disorders, (units (unk nown) date) Denies Cystic unknown) Fibrosis, Denies [place]'s Chorea, Denies Other (unknown) (no (unknown) (unknown) do you feel safe (units (unknown) date) at home: Yes unknown) (unknown) (no (unknown) (unknown) during the past (units (unknown) date) year weight has: unknown) remained stable (unknown) (no (unknown) (unknown) education level: (units (unknown) date) vocational unknown) (unknown) (no (unknown) (unknown) education, (units (unk nown) date) Travel and unknown) Influenza vaccine (no flu vaccine, Covid x2) (unknown) (no (unknown) (unknown) f/u dilated (units (un known) date) renal pelvices in unknown) baby. Found AC at 8%ile. Recommend dopplers (unknown) (no (unknown) (unknown) octavio/confucianism: (units (unknown) date) Mandaen unknown) (unknown) (no (unknown) (unknown) fire (units (unkno wn) date) extinguisher in unknown) home: Yes (unknown) (no (unknown) (unknown) firearms in (units (un known) date) home: No unknown) (unknown) (no (unknown) (unknown) frequency: 3-4 (units (unknown) date) times per week unknown) (unknown) (no (unknown) (unknown) gastric bypass (units (unknown) date) surgery. She is unknown) unable to tolerate the iron pills. Will try to (unknown) (no (unknown) (unknown) get prior (units (unkn own) date) authorization for unknown) IV iron infusions. Patient with some structures not (unknown) (no (unknown) (unknown) have occurred. (units (unknown) date) If there are any unknown) questions, please contact the Medical Records (unknown) (no (unknown) (unknown) hours a day and (units (unknown) date) participation of unknown) father in care and office visits (unknown) (no (unknown) (unknown) household (units (unkn own) date) members: spouse unknown) and children (unknown) (no (unknown) (unknown) housing: (units (unkno wn) date) apartment unknown) ([facility] ) (unknown) (no (unknown) (unknown) improving (units (unkn own) date) significantly. unknown) She has significant constipation and she was okay to (unknown) (no (unknown) (unknown) inherited (units (unkn own) date) genetic or unknown) chromosomal disorder, Denies Maternal Metabolic Disorder (unknown) (no (unknown) (unknown) intrauterine (units (u nknown) date) gestational sac unknown) with a fetus measuring 4.99 cm consistent with 11 (unknown) (no (unknown) (unknown) is receiving (units (u nknown) date) Zofran infusions unknown) for nausea and vomiting. No movement. No (unknown) (no (unknown) (unknown) kag (units (unkno wn) date) unknown) (unknown) (no (unknown) (unknown) leakage of fluid (units (unknown) date) or vaginal unknown) bleeding. Plan: Quad screen ordered. Twenty week (unknown) (no (unknown) (unknown) lives (units (unkno wn) date) independently: unknown) Yes (unknown) (no (unknown) (unknown) marital status: (units (unknown) date) unknown) (unknown) (no (unknown) (unknown) may occur. (units (unk nown) date) Occasional unknown) wrong-word or 'sound-alike' substitutions may have (unknown) (no (unknown) (unknown) number of (units (unkn own) date) children: 1 unknown) (unknown) (no (unknown) (unknown) occasionally use (units (unknown) date) an enema. Patient unknown) with significant anemia with a history of (unknown) (no (unknown) (unknown) occupational (units (u nknown) date) status: employed unknown) (Works from home ) (unknown) (no (unknown) (unknown) occurred due to (units (unknown) date) the inherent unknown) limitations of voice recognition software. Please (unknown) (no (unknown) (unknown) ondansetron 4 mg (units (unknown) date) disintegrating unknown) tablet 4 mg PO Q6H PRN nausea and vomiting #20 (unknown) (no (unknown) (unknown) other (units (unkno wn) date) unknown) (unknown) (no (unknown) (unknown) pets and (units (unkno wn) date) animals: No unknown) (unknown) (no (unknown) (unknown) precautions (units (un known) date) reviewed. unknown) Follow-up in 4 weeks. (unknown) (no (unknown) (unknown) precautions, (units (u nknown) date) Listeriosis unknown) prevention and Rubella Immunization (unknown) (no (unknown) (unknown) prenat.vits,charles, (units (unknown) date) [id number] 1 unknown) tab PO DAILY 08/23/21 [History Confirmed (unknown) (no (unknown) (unknown) labor (units ( unknown) date) Denisa unknown) (unknown) (no (unknown) (unknown) labor (units ( unknown) date) symptoms. Good unknown) movement. Routine precautions reviewed. (unknown) (no (unknown) (unknown) read the note (units ( unknown) date) carefully and unknown) recognize, using context, where these substitutions (unknown) (no (unknown) (unknown) relatives)); (units (u nknown) date) unknown) (unknown) (no (unknown) (unknown) right ovary. The (units (unknown) date) left ovary was unknown) not visualized. Plan: Zofran. Labs with quad (unknown) (no (unknown) (unknown) screen next (units (un known) date) visit. Warning unknown) signs reviewed. kag (unknown) (no (unknown) (unknown) seatbelt use: (units ( unknown) date) always unknown) (unknown) (no (unknown) (unknown) second hand (units (un known) date) exposure: Yes unknown) ( smokes, mostly outside) (unknown) (no (unknown) (unknown) software. (units (unkn own) date) Although every unknown) effort is made to edit content, gunstock spray unit feeder errors (unknown) (no (unknown) (unknown) some nausea. No (units (unknown) date) meds so far. No unknown) vaginal bleeding. 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 She is going to (unknown) (no (unknown) (unknown) two vessel cord (units (unknown) date) unknown) (unknown) (no (unknown) (unknown) ultrasound (units (unk nown) date) ordered. unknown) Follow-up in 4 weeks. Warning signs reviewed. kag (unknown) (no (unknown) (unknown) valacyclovir (units (u nknown) date) (Valtrex) 500 mg unknown) PO DAILY 21 tabs 0RF (unknown) (no (unknown) (unknown) valacyclovir 500 (units (unknown) date) mg tablet unknown) (Valtrex) 500 mg PO DAILY #21 tabs 02/17/22 [Rx (unknown) (no (unknown) (unknown) water heater (units (u nknown) date) temp set < 120 unknown) deg: Yes (unknown) (no (unknown) (unknown) weekly or BPP. (units (unknown) date) Good FM. No LOF unknown) or VB. On U/S: BPP 11/07. NATHANIEL 18.45cm. (unknown) (no (unknown) (unknown) weeks 5 days. (units ( unknown) date) heart rate unknown) 176 beats per minute. Corpus luteal cyst on the (unknown) (no (unknown) (unknown) well seen on (units (u wn) date) ultrasound will unknown) call to schedule follow-up ultrasound. Routine (unknown) (no (unknown) (unknown) well-balanced (units ( unknown) date) diet: daily or unknown) most days (unknown) (no (unknown) (unknown) work hard at (units (u wn) date) trying to get unknown) this started. She has an appointment next week with (unknown) (no (unknown) (unknown) working smoke (units ( unknown) date) detector in home: unknown) Yes Result panel 135 (unknown) (no (unknown) (unknown) (no value) (units (unk nown) date) unknown) (unknown) (no (unknown) (unknown) (-16 oz) 100/68 (units (unknown) date) N unknown) (unknown) (no (unknown) (unknown) (-16 oz) 108/64 (units (unknown) date) N unknown) (unknown) (no (unknown) (unknown) (-5 lb) 100/62 N (units (unknown) date) unknown) (unknown) (no (unknown) (unknown) (-5 lb) 100/68 N (units (unknown) date) unknown) (unknown) (no (unknown) (unknown) (-5 lb) 100/68 (units (unknown) date) unknown) (unknown) (no (unknown) (unknown) (-6 lb) 110/64 N (units (unknown) date) unknown) (unknown) (no (unknown) (unknown) (-6 lb) 110/70 (units (unknown) date) unknown) (unknown) (no (unknown) (unknown) (1) growth (units (unknown) date) restriction: unknown) (unknown) (no (unknown) (unknown) (2) 34 weeks (units (u nknown) date) gestation of unknown) : (unknown) (no (unknown) (unknown) (EG,TYPE 1 (units (unk nown) date) Diabetes, PKU), unknown) Denies Patient or baby's father had a child with (unknown) (no (unknown) (unknown) Genetic (units (unkn own) date) Screening/Teratol unknown) ogy Counseling - Includes patient, baby's father, or (unknown) (no (unknown) (unknown) -?-?-?-?-?-?-?-? (units (unknown) date) -?-?-?-? unknown) (unknown) (no (unknown) (unknown) 08/04/20 39 15 6 (units (unknown) date) lb 13 oz Female unknown) vaginal live - full term (unknown) (no (unknown) (unknown) 09/15/21 (units (unkno wn) date) unknown) (unknown) (no (unknown) (unknown) 10/14/21 (units (unkno wn) date) unknown) (unknown) (no (unknown) (unknown) 11/14/21 (units (unkno wn) date) unknown) (unknown) (no (unknown) (unknown) 1 wk (units (unkno wn) date) unknown) (unknown) (no (unknown) (unknown) 1+ No no 158 16 (units (unknown) date) N/A absent 4 wks unknown) (unknown) (no (unknown) (unknown) 1+ No no 176 12 (units (unknown) date) N/A absent unknown) long/closed AGA (unknown) (no (unknown) (unknown) 01/06/22 (units (unkno wn) date) unknown) (unknown) (no (unknown) (unknown) 01/20/22 (units (unkno wn) date) unknown) (unknown) (no (unknown) (unknown) 01/27/22 (units (unkno wn) date) unknown) (unknown) (no (unknown) (unknown) 02/17/22 (units (unkno wn) date) unknown) (unknown) (no (unknown) (unknown) 02/17/22] (units (unkn own) date) unknown) (unknown) (no (unknown) (unknown) 02/19/22 2254 (units ( unknown) date) unknown) (unknown) (no (unknown) (unknown) 11w5d 4 wks (units (un known) date) unknown) (unknown) (no (unknown) (unknown) 04/01/22 (units (unkno wn) date) Ultrasound #2 34w unknown) 1d (unknown) (no (unknown) (unknown) 12w 2d 179 lb (units ( unknown) date) unknown) (unknown) (no (unknown) (unknown) 16:11 (units (unkno wn) date) unknown) (unknown) (no (unknown) (unknown) 16w 3d 174 lb (units ( unknown) date) unknown) (unknown) (no (unknown) (unknown) 20w 6d 179 lb (units ( unknown) date) unknown) (unknown) (no (unknown) (unknown) 28w 3d 175 lb (units ( unknown) date) unknown) (unknown) (no (unknown) (unknown) 2cm Pocket of (units ( unknown) date) fluid: 2 unknown) (unknown) (no (unknown) (unknown) 30w 3d 175 lb (units ( unknown) date) unknown) (unknown) (no (unknown) (unknown) 31w 3d 175 lb (units ( unknown) date) unknown) (unknown) (no (unknown) (unknown) 34w 3d 174 lb (units ( unknown) date) unknown) (unknown) (no (unknown) (unknown) 364 (units (unkno wn) date) unknown) (unknown) (no (unknown) (unknown) Abnormal lab (units (u nknown) date) values 1st unknown) trimester: discussed (unknown) (no (unknown) (unknown) Add'l Plan (units (unk nown) date) Details unknown) (unknown) (no (unknown) (unknown) Age/Sex: 27 / F (units (unknown) date) Date of Service: unknown) (unknown) (no (unknown) (unknown) Allergies (units (unkn own) date) unknown) (unknown) (no (unknown) (unknown) [place], [place] (units ( unknown) date) [id number] unknown) (unknown) (no (unknown) (unknown) Anemia (-2010) (units (unknown) date) unknown) (unknown) (no (unknown) (unknown) Anesthesia (units (unk nown) date) unknown) (unknown) (no (unknown) (unknown) Aneuploidy (units (unk nown) date) Screening unknown) Offered: Accepted (unknown) (no (unknown) (unknown) Anticipated (units (un known) date) course of unknown) care: discussed (unknown) (no (unknown) (unknown) Assessment and (units (unknown) date) Plan unknown) (unknown) (no (unknown) (unknown) Asthma (units (unkno wn) date) unknown) (unknown) (no (unknown) (unknown) Attending Dr: (units ( unknown) date) Destinee Colin unknown) (unknown) (no (unknown) (unknown) Autoimmune (units (unk nown) date) vasculitis unknown) (unknown) (no (unknown) (unknown) BMI 31.8 (units (unkno wn) date) unknown) (unknown) (no (unknown) (unknown) BP 110/70 (units (unkn own) date) unknown) (unknown) (no (unknown) (unknown) BPP Score: 8 (units (u nknown) date) unknown) (unknown) (no (unknown) (unknown) BPP-Biophysical (units (unknown) date) Profile Score unknown) (unknown) (no (unknown) (unknown) Billing- BPP US: (units (unknown) date) Biophysical unknown) Profile/BPP- [id number] (unknown) (no (unknown) (unknown) (units (unkno wn) date) Plan/Preferences unknown) (unknown) (no (unknown) (unknown) Planning (units (unknown) date) unknown) (unknown) (no (unknown) (unknown) Blood Pressure (units (unknown) date) Location Lt unknown) brachial (unknown) (no (unknown) (unknown) Blood (units (unkno wn) date) transfusions?: unknown) yes (Never had but would accept) (unknown) (no (unknown) (unknown) Breastfeed Preg (units (unknown) date) Comp Name unknown) (unknown) (no (unknown) (unknown) Breathin (units (u nknown) date) unknown) (unknown) (no (unknown) (unknown) Caffeine use, (units ( unknown) date) Exercise and unknown) activity, work/environmenta l/hazards, Sexual (unknown) (no (unknown) (unknown) [facility] (units (unknown) date) Warning signs unknown) reviewed. F/U 1 wk. kag (unknown) (no (unknown) (unknown) Confirmed (units (unkn own) date) 02/17/22] unknown) (unknown) (no (unknown) (unknown) Covid x 2, boost (units (unknown) date) x1 unknown) (unknown) (no (unknown) (unknown) Current Estimate (units (unknown) date) 03/28/22 unknown) Ultrasound #1 34w 5d (unknown) (no (unknown) (unknown) Current (units (unkno wn) date) History unknown) (unknown) (no (unknown) (unknown) DNA (units (unkno wn) date) unknown) (unknown) (no (unknown) (unknown) : 1995 (units (unknown) date) Acct:[id number] unknown) (unknown) (no (unknown) (unknown) Date of positive (units (unknown) date) home unknown) test: 07/19/21 (unknown) (no (unknown) (unknown) Date (units (unkno wn) date) unknown) (unknown) (no (unknown) (unknown) Del. Date (units (unkn own) date) GA/Weeks Labor unknown) Lgth Wt Sex Route Outcome Anesthesia Place (unknown) (no (unknown) (unknown) Delivery Date: (units (unknown) date) 08/04/20 Last unknown) Updated by: Courtney Hanson R.N. (unknown) (no (unknown) (unknown) Delv (units (unkno wn) date) unknown) (unknown) (no (unknown) (unknown) Denies Congenital (units (unknown) date) Heart Defect, unknown) Denies Down Syndrome, Denies Muscular Dystrophy, (unknown) (no (unknown) (unknown) Denies Neural (units ( unknown) date) Tube Defect unknown) (Meningomyelocele , Spina Bifida, or Anencephaly), (unknown) (no (unknown) (unknown) Denies Sickle (units ( unknown) date) Cell Disease or unknown) Trait (), Denies Hemophilia or other blood (unknown) (no (unknown) (unknown) Denies Giancarlo-Sachs (units (unknown) date) (Ashkenazi unknown) Confucianism, Cajun, [place]guillan Bhutanese), Denies Sebastian (unknown) (no (unknown) (unknown) Denies other (units (u nknown) date) unknown) (unknown) (no (unknown) (unknown) Denies over the (units (unknown) date) counter unknown) medications, Denies alcohol, Denies illicit drugs and (unknown) (no (unknown) (unknown) Depression: (units (un known) date) discussed unknown) (unknown) (no (unknown) (unknown) Dept at (units (unkno wn) date) . unknown) (unknown) (no (unknown) (unknown) Diabetes (units (unkno wn) date) mellitus unknown) (unknown) (no (unknown) (unknown) Diet and (units (unkno wn) date) Exercise unknown) (unknown) (no (unknown) (unknown) Disease (units (unkno wn) date) (Ashkenazi unknown) Confucianism), Denies Familial Dysautonomia (Ashkenazi Confucianism), (unknown) (no (unknown) (unknown) Documented By: (units (unknown) date) Destinee Colin unknownYe YOUNG 02/17/22 1610 (unknown) (no (unknown) (unknown) BRET Calculator (units (unknown) date) unknown) (unknown) (no (unknown) (unknown) EGA Weight BP (units ( unknown) date) UGlucose unknown) (unknown) (no (unknown) (unknown) Emphysema lung (units (unknown) date) unknown) (unknown) (no (unknown) (unknown) Estimated (units (unkn own) date) Delivery Date unknown) Method Current (unknown) (no (unknown) (unknown) FM. No LOF/VB. (units (unknown) date) On U/S: NATHANIEL unknown) 15.66cm. Placenta Grade 0. BPP 11/07. Plan: To (unknown) (no (unknown) (unknown) Family History (units (unknown) date) (Updated 10/04/21 unknown) @ 15:41 by Kiki Barksdale) (unknown) (no (unknown) (unknown) Father TBI (units (unk nown) date) (traumatic brain unknown) injury) (unknown) (no (unknown) (unknown) Father of Baby: (units (unknown) date) same unknown) (unknown) (no (unknown) (unknown) [facility]) (unknown) (no (unknown) (unknown) First Trimester (units (unknown) date) Education unknown) Checklist (unknown) (no (unknown) (unknown) (units (unkno wn) date) unknown) (unknown) (no (unknown) (unknown) GERD (units (unkno wn) date) (gastroesophageal unknown) reflux disease) () (unknown) (no (unknown) (unknown) Genetic (units (unkno wn) date) Screening + unknown) Counseling (unknown) (no (unknown) (unknown) Genetic (units (unkno wn) date) Screening unknown) (unknown) (no (unknown) (unknown) Grandfather (units (un known) date) Asthma unknown) (unknown) (no (unknown) (unknown) Grandfather (units (un known) date) Heart unknown) disease (unknown) (no (unknown) (unknown) Grandmother (units (un known) date) Bladder cancer unknown) (unknown) (no (unknown) (unknown) Grandmother (units (un known) date) unknown) Hypertension (unknown) (no (unknown) (unknown) 2 (units (unkn own) date) Multiple births unknown) (unknown) (no (unknown) (unknown) Gross body (units (unk nown) date) movement: 2 unknown) (unknown) (no (unknown) (unknown) H/O gastric (units (un known) date) sleeve () unknown) (unknown) (no (unknown) (unknown) HEG, Reglan, (units (u nknown) date) added Zofran unknown) (unknown) (no (unknown) (unknown) HIV risk (units (unkno wn) date) evaluation: low unknown) risk (unknown) (no (unknown) (unknown) 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) (unknown) (no (unknown) (unknown) Health Center (units ( unknown) date) Education unknown) (unknown) (no (unknown) (unknown) Health center (units ( unknown) date) information: unknown) nature of practice discussed, personnel (unknown) (no (unknown) (unknown) Heart disease (units ( unknown) date) unknown) (unknown) (no (unknown) (unknown) Heavy menstrual (units (unknown) date) period (-2009) unknown) (unknown) (no (unknown) (unknown) Height 5 ft 2 in (units (unknown) date) unknown) (unknown) (no (unknown) (unknown) Hepatitis C risk (units (unknown) date) evaluation: low unknown) risk (unknown) (no (unknown) (unknown) History of (units (unk nown) date) Hepatitis B: No unknown) (unknown) (no (unknown) (unknown) History of (units (unk nown) date) Hepatitis C: No unknown) (unknown) (no (unknown) (unknown) History of (units (unk nown) date) repair of hiatal unknown) hernia () (unknown) (no (unknown) (unknown) Hospital: [facility] (units (u nknown) date) unknown) (unknown) (no (unknown) (unknown) 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) (unknown) (no (unknown) (unknown) Hx # (units (u nknown) date) Pregnancies unknown) Elective abortions (unknown) (no (unknown) (unknown) Hx # Term (units (unkn own) date) Pregnancies 1 unknown) Ectopic pregnancies (unknown) (no (unknown) (unknown) Hx HSV-2, 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 (unknown) (no (unknown) (unknown) Hx severe anemia (units (unknown) date) w/ 1st pg unknown) requiring weekly iron infusion (unknown) (no (unknown) (unknown) Hyperlipidemia (units (unknown) date) unknown) (unknown) (no (unknown) (unknown) Hypertension (units (u nknown) date) unknown) (unknown) (no (unknown) (unknown) Infant will be (units (unknown) date) adopted?: no unknown) (unknown) (no (unknown) (unknown) Infection (units (unkn own) date) History unknown) (unknown) (no (unknown) (unknown) Infectious (units (unk nown) date) Disease Education unknown) (unknown) (no (unknown) (unknown) Infectious (units (unk nown) date) disease exposure: unknown) chicken pox immunity discussed, hepatitis risk (unknown) (no (unknown) (unknown) Initial Weight: (units (unknown) date) 180 lb unknown) (unknown) (no (unknown) (unknown) Initials (units (unkno wn) date) unknown) (unknown) (no (unknown) (unknown) Intake Clinical (units (unknown) date) Staff unknown) (unknown) (no (unknown) (unknown) Intake Note: (units (u nknown) date) unknown) (unknown) (no (unknown) (unknown) Intake performed (units (unknown) date) by: unknown) Nicky Emerson (unknown) (no (unknown) (unknown) Intake (units (unkno wn) date) unknown) (unknown) (no (unknown) (unknown) Limb movement: 2 (units (unknown) date) unknown) (unknown) (no (unknown) (unknown) Live with (units (unkn own) date) someone with TB unknown) or exposed to TB: No (unknown) (no (unknown) (unknown) Loc: [facility] (units (unkno wn) date) unknown) (unknown) (no (unknown) (unknown) Lung cancer (units (un known) date) unknown) (unknown) (no (unknown) (unknown) Marital status: (units (unknown) date) unknown) (unknown) (no (unknown) (unknown) Maternal (units (unknown) date) Medicine to unknown) evaluate the enlarged renal pelvises. No (unknown) (no (unknown) (unknown) Medical History (units (unknown) date) (Updated 01/22/22 unknown) @ 18:14 by Destinee Colin MD) (unknown) (no (unknown) (unknown) Medications (units (un known) date) unknown) (unknown) (no (unknown) (unknown) Medications: (units (u nknown) date) unknown) (unknown) (no (unknown) (unknown) Mother (units (unkno wn) date) Gestational unknown) diabetes (unknown) (no (unknown) (unknown) Myocardial (units (unk nown) date) infarction unknown) (unknown) (no (unknown) (unknown) N Yes no 154 31 (units (unknown) date) Vertex absent NATHANIEL unknown) 15.66cm (unknown) (no (unknown) (unknown) NF (units (unkno wn) date) unknown) (unknown) (no (unknown) (unknown) New (units (unkno wn) date) unknown) (unknown) (no (unknown) (unknown) Notes (units (unkno wn) date) unknown) (unknown) (no (unknown) (unknown) Number of Living (units (unknown) date) Children unknown) (unknown) (no (unknown) (unknown) Number of (units (unkn own) date) fetuses:: Single unknown) (unknown) (no (unknown) (unknown) Nutrition and (units ( unknown) date) weight gain unknown) counseling: special diet: discussed (unknown) (no (unknown) (unknown) OB Office Visit (units (unknown) date) unknown) (unknown) (no (unknown) (unknown) OB Visit Log (units (u nknown) date) unknown) (unknown) (no (unknown) (unknown) OB check (units (unkno wn) date) unknown) (unknown) (no (unknown) (unknown) Office Procedure (units (unknown) date) unknown) (unknown) (no (unknown) (unknown) Office (units (unkno wn) date) Procedures unknown) (unknown) (no (unknown) (unknown) On control (units (unknown) date) at conception?: unknown) No (unknown) (no (unknown) (unknown) Other Estimates (units (unknown) date) 03/31/22 LMP unknown) (Certain) 34w 2d (unknown) (no (unknown) (unknown) PFSH (units (unkno wn) date) unknown) (unknown) (no (unknown) (unknown) Painful (units (unkno wn) date) menstrual periods unknown) (-2009) (unknown) (no (unknown) (unknown) Pap performed?: (units (unknown) date) No unknown) (unknown) (no (unknown) (unknown) Para 1 (units (unkno wn) date) Spontaneous unknown) abortions (unknown) (no (unknown) (unknown) Partner history (units (unknown) date) of STD: denies hx unknown) (unknown) (no (unknown) (unknown) Partner history (units (unknown) date) of genital unknown) herpes: No (unknown) (no (unknown) (unknown) Partner: Manny (units ( unknown) date) Diaz unknown) (unknown) (no (unknown) (unknown) Past Pregnancies (units (unknown) date) unknown) (unknown) (no (unknown) (unknown) Patient comes in (units (unknown) date) for routine OB unknown) visit at 28 weeks. She has not been able (unknown) (no (unknown) (unknown) Patient presents (units (unknown) date) for a new OB unknown) visit at 12 weeks gestation. She has had (unknown) (no (unknown) (unknown) Patient presents (units (unknown) date) for a routine unknown) visit at 16 weeks gestation. She (unknown) (no (unknown) (unknown) Patient presents (units (unknown) date) for a routine unknown) visit at 34 weeks gestation. Good (unknown) (no (unknown) (unknown) Patient states (units (unknown) date) she is starting unknown) to feel some baby movement. 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 Plan: To BC unknown) for NST. F/U 1 wk for BPP/NST. FKC's discussed. (unknown) (no (unknown) (unknown) Position Sitting (units (unknown) date) unknown) (unknown) (no (unknown) (unknown) (units (unk nown) date) depression unknown) (unknown) (no (unknown) (unknown) Pre-diabetes (units (u nknown) date) unknown) (unknown) (no (unknown) (unknown) (units (unkn own) date) History unknown) (unknown) (no (unknown) (unknown) type:: (units (unknown) date) Other Normal unknown) (unknown) (no (unknown) (unknown) (units (unkno wn) date) Education unknown) (unknown) (no (unknown) (unknown) Initial (units (unknown) date) Assessment unknown) (unknown) (no (unknown) (unknown) (units (unkno wn) date) Specific unknown) Issues/Plans (unknown) (no (unknown) (unknown) (units (unkno wn) date) Testing: unknown) discussed (unknown) (no (unknown) (unknown) Visit (units (unknown) date) unknown) (unknown) (no (unknown) (unknown) (units (unkno wn) date) education packet: unknown) Child education/plan, symptoms, (unknown) (no (unknown) (unknown) Primary Care (units (u nknown) date) Provider: Mar unknown) CARRINGTON Chapin (unknown) (no (unknown) (unknown) Primary Ob (units (unk nown) date) Provider: unknown) Destinee Colin (unknown) (no (unknown) (unknown) Prior (units (unkno wn) date) GBS-Infected unknown) child: No (unknown) (no (unknown) (unknown) Providers (units (unkn own) date) unknown) (unknown) (no (unknown) (unknown) Pt presents for (units (unknown) date) a routine PNV at unknown) 30 wks gest. Seen at [facility] 01/17/22 for (unknown) (no (unknown) (unknown) Pt presents for (units (unknown) date) a routine PNV at unknown) 31 wks gestation. AC at 8%ile. Good (unknown) (no (unknown) (unknown) Rash or viral (units ( unknown) date) illness since unknown) last menstrual period: No (unknown) (no (unknown) (unknown) Rash (units (unkno wn) date) unknown) (unknown) (no (unknown) (unknown) Reason For Visit (units (unknown) date) unknown) (unknown) (no (unknown) (unknown) Recent travel (units ( unknown) date) outside of unknown) country?: No (unknown) (no (unknown) (unknown) Recurrent (units (unkn own) date) loss or unknown) a stillbirth: No (unknown) (no (unknown) (unknown) Reports Mental (units (unknown) date) Retardation/Autis unknown) m ('s family (multiple cousins and (unknown) (no (unknown) (unknown) Safety (units (unkno wn) date) unknown) (unknown) (no (unknown) (unknown) Signed By: (units (unk nown) date) <Electronically unknown) signed by Destinee Colin MD> (unknown) (no (unknown) (unknown) Signed (units (unkno wn) date) unknown) (unknown) (no (unknown) (unknown) Sister Asthma (units ( unknown) date) unknown) (unknown) (no (unknown) (unknown) Smoking Status: (units (unknown) date) Never smoker unknown) (unknown) (no (unknown) (unknown) Social History (units (unknown) date) unknown) (unknown) (no (unknown) (unknown) Status: Acute (units ( unknown) date) unknown) (unknown) (no (unknown) (unknown) Sulfa (units (unkno wn) date) (Sulfonamide unknown) Antibiotics) Adverse Reaction (Mild, Verified 02/17/22 16:11) (unknown) (no (unknown) (unknown) Support (units (unkno wn) date) Person(s):: Manny unknown) (unknown) (no (unknown) (unknown) Surgical History (units (unknown) date) (Updated 11/14/21 unknown) @ 15:06 by Anitra Najera MD) (unknown) (no (unknown) (unknown) Surrogate (units (unkn own) date) ?: no unknown) (unknown) (no (unknown) (unknown) Symptoms since (units (unknown) date) LMP: Reports unknown) amenorrhea, nausea, vomiting, fatigue, breast (unknown) (no (unknown) (unknown) TR Yes no 150 20 (units (unknown) date) N/A absent 4wk unknown) (unknown) (no (unknown) (unknown) TR Yes no 152 28 (units (unknown) date) N/A absent 2wk unknown) (unknown) (no (unknown) (unknown) Teratogen (units (unkn own) date) Exposures since unknown) LMP/Conception: Denies prescription medications, (unknown) (no (unknown) (unknown) Testing (units (unkno wn) date) Education unknown) (unknown) (no (unknown) (unknown) Testing (units (unkno wn) date) education unknown) completed: group B strep, Spina bifida testing and Cell Free (unknown) (no (unknown) (unknown) This note may (units ( unknown) date) have been all or unknown) partially generated using voice recognition (unknown) (no (unknown) (unknown) Tobacco + (units (unkn own) date) Substance Use unknown) (unknown) (no (unknown) (unknown) Tobacco Status (units (unknown) date) unknown) (unknown) (no (unknown) (unknown) Trimester:: 3rd (units (unknown) date) Trimester unknown) (28wks-Del) (unknown) (no (unknown) (unknown) Two vessel (units (unk nown) date) umbilical cord in unknown) gates , antepartum (unknown) (no (unknown) (unknown) Type(s) of (units (unk nown) date) exercise: walking unknown) (unknown) (no (unknown) (unknown) UProtein Movement (units (unknown) date) PreLabor FHR Fndl unknown) Ht Pres Edema Cerv Exam US/Comment Next Appt (unknown) (no (unknown) (unknown) Ultrasound (units (unk nown) date) performed?: Yes unknown) (unknown) (no (unknown) (unknown) Varicella/chicke (units (unknown) date) n pox status: unknown) immunized (unknown) (no (unknown) (unknown) Visit Date: (units (un known) date) 09/15/21 Last unknown) Updated by: Destinee Colin MD (unknown) (no (unknown) (unknown) Visit Date: (units (un known) date) 10/14/21 Last unknown) Updated by: Destinee Colin MD (unknown) (no (unknown) (unknown) Visit Date: (units (un known) date) 11/14/21 Last unknown) Updated by: Anitra Najera MD (unknown) (no (unknown) (unknown) Visit Date: (units (un known) date) 01/06/22 Last unknown) Updated by: Anitra Najera MD (unknown) (no (unknown) (unknown) Visit Date: (units (un known) date) 01/20/22 Last unknown) Updated by: Destinee Colin MD (unknown) (no (unknown) (unknown) Visit Date: (units (un known) date) 01/27/22 Last unknown) Updated by: Destinee Colin MD (unknown) (no (unknown) (unknown) Visit Date: (units (un known) date) 02/17/22 Last unknown) Updated by: Destinee Colin MD (unknown) (no (unknown) (unknown) Visit Reasons: (units (unknown) date) OB Ck w/ US NATHANIEL unknown) and BPP (unknown) (no (unknown) (unknown) Vitals (units (unkno wn) date) unknown) (unknown) (no (unknown) (unknown) Vitamins and (units (u nknown) date) iron, Diet and unknown) weight gain, Fish and mercury intake, Smoking, (unknown) (no (unknown) (unknown) WG (units (unkno wn) date) unknown) (unknown) (no (unknown) (unknown) [facility] 1 month (units (un known) date) unknown) (unknown) (no (unknown) (unknown) Warning signs (units ( unknown) date) reviewed. unknown) (unknown) (no (unknown) (unknown) Vega last (units (unknown) date) week baby was at unknown) the thirty-ninth percentile. On ultrasound (unknown) (no (unknown) (unknown) Weeks (units (unkno wn) date) gestation:: 34 unknown) (unknown) (no (unknown) (unknown) Weight 174 lb (units ( unknown) date) unknown) (unknown) (no (unknown) (unknown) [place] teeth (units (u nknown) date) extracted unknown) () (unknown) (no (unknown) (unknown) Yes no 132 30 (units ( unknown) date) Vertex absent NATHANIEL unknown) 18.45cm (unknown) (no (unknown) (unknown) Yes no 144 34 (units ( unknown) date) Vertex absent NATHANIEL unknown) 12.67 cm (unknown) (no (unknown) (unknown) Zika virus (units (unk nown) date) exposure: No unknown) (unknown) (no (unknown) (unknown) activity, X-ray (units (unknown) date) exposure, unknown) Medication use, Sauna/hot tub use, Dental care, HIV (unknown) (no (unknown) (unknown) alcohol intake: (units (unknown) date) former unknown) (unknown) (no (unknown) (unknown) anyone in either (units (unknown) date) family with: unknown) (unknown) (no (unknown) (unknown) defects (units ( unknown) date) not listed above unknown) and Denies Other (unknown) (no (unknown) (unknown) caffeine: Yes (units ( unknown) date) unknown) (unknown) (no (unknown) (unknown) carbon monox (units (u nknown) date) detector in home: unknown) Yes (unknown) (no (unknown) (unknown) current (units (unkno wn) date) occupational unknown) exposures/hazards : No (unknown) (no (unknown) (unknown) daily servings (units (unknown) date) fruits/ve-4 unknown) (unknown) (no (unknown) (unknown) described, visit (units (unknown) date) schedule unknown) reviewed, ultrasounds policy reviewed, coverage 24 (unknown) (no (unknown) (unknown) discussed, (units (unk n) date) tuberculosis unknown) exposure discussed, CMV discussed, Toxoplasmosis (unknown) (no (unknown) (unknown) disorders, (units (unk nown) date) Denies Cystic unknown) Fibrosis, Denies Jyoti's Chorea, Denies Other (unknown) (no (unknown) (unknown) do you feel safe (units (unknown) date) at home: Yes unknown) (unknown) (no (unknown) (unknown) during the past (units (unknown) date) year weight has: unknown) remained stable (unknown) (no (unknown) (unknown) education level: (units (unknown) date) vocational unknown) (unknown) (no (unknown) (unknown) education, (units (unk nown) date) Travel and unknown) Influenza vaccine (no flu vaccine, Covid x2) (unknown) (no (unknown) (unknown) f/u dilated (units (un known) date) renal pelvices in unknown) baby. Found AC at 8%ile. Recommend dopplers (unknown) (no (unknown) (unknown) octavio/confucianism: (units (unknown) date) Mandaen unknown) (unknown) (no (unknown) (unknown) movement. (units (unknown) date) No leakage of unknown) fluid or vaginal bleeding. At the [facility] (unknown) (no (unknown) (unknown) fire (units (unkno wn) date) extinguisher in unknown) home: Yes (unknown) (no (unknown) (unknown) firearms in (units (un known) date) home: No unknown) (unknown) (no (unknown) (unknown) frequency: 3-4 (units (unknown) date) times per week unknown) (unknown) (no (unknown) (unknown) gastric bypass (units (unknown) date) surgery. She is unknown) unable to tolerate the iron pills. Will try to (unknown) (no (unknown) (unknown) get prior (units (unkn own) date) authorization for unknown) IV iron infusions. Patient with some structures not (unknown) (no (unknown) (unknown) have occurred. (units (unknown) date) If there are any unknown) questions, please contact the Medical Records (unknown) (no (unknown) (unknown) hours a day and (units (unknown) date) participation of unknown) father in care and office visits (unknown) (no (unknown) (unknown) household (units (unkn own) date) members: spouse unknown) and children (unknown) (no (unknown) (unknown) housing: (units (unkno wn) date) apartment unknown) (townhouse ) (unknown) (no (unknown) (unknown) improving (units (unkn own) date) significantly. unknown) She has significant constipation and she was okay to (unknown) (no (unknown) (unknown) inherited (units (unkn own) date) genetic or unknown) chromosomal disorder, Denies Maternal Metabolic Disorder (unknown) (no (unknown) (unknown) intrauterine (units (u nknown) date) gestational sac unknown) with a fetus measuring 4.99 cm consistent with 11 (unknown) (no (unknown) (unknown) is receiving (units (u nknown) date) Zofran infusions unknown) for nausea and vomiting. No movement. No (unknown) (no (unknown) (unknown) kag (units (unkno wn) date) unknown) (unknown) (no (unknown) (unknown) leakage of fluid (units (unknown) date) or vaginal unknown) bleeding. Plan: Quad screen ordered. Twenty week (unknown) (no (unknown) (unknown) lives (units (unkno wn) date) independently: unknown) Yes (unknown) (no (unknown) (unknown) marital status: (units (unknown) date) unknown) (unknown) (no (unknown) (unknown) may occur. (units (unk nown) date) Occasional unknown) wrong-word or 'sound-alike' substitutions may have (unknown) (no (unknown) (unknown) number of (units (unkn own) date) children: 1 unknown) (unknown) (no (unknown) (unknown) occasionally use (units (unknown) date) an enema. Patient unknown) with significant anemia with a history of (unknown) (no (unknown) (unknown) occupational (units (u nknown) date) status: employed unknown) (Works from home ) (unknown) (no (unknown) (unknown) occurred due to (units (unknown) date) the inherent unknown) limitations of voice recognition software. Please (unknown) (no (unknown) (unknown) ondansetron 4 mg (units (unknown) date) disintegrating unknown) tablet 4 mg PO Q6H PRN nausea and vomiting #20 (unknown) (no (unknown) (unknown) other (units (unkno wn) date) unknown) (unknown) (no (unknown) (unknown) pets and (units (unkno wn) date) animals: No unknown) (unknown) (no (unknown) (unknown) precautions (units (un known) date) reviewed. unknown) Follow-up in 4 weeks. (unknown) (no (unknown) (unknown) precautions, (units (u nknown) date) Listeriosis unknown) prevention and Rubella Immunization (unknown) (no (unknown) (unknown) prenat.vits,charles, (units (unknown) date) [id number] 1 unknown) tab PO DAILY 08/23/21 [History Confirmed (unknown) (no (unknown) (unknown) labor (units ( unknown) date) Denisa unknown) (unknown) (no (unknown) (unknown) labor (units ( unknown) date) symptoms. Good unknown) movement. Routine precautions reviewed. (unknown) (no (unknown) (unknown) read the note (units ( unknown) date) carefully and unknown) recognize, using context, where these substitutions (unknown) (no (unknown) (unknown) relatives)); (units (u nknown) date) unknown) (unknown) (no (unknown) (unknown) right ovary. The (units (unknown) date) left ovary was unknown) not visualized. Plan: Zofran. Labs with quad (unknown) (no (unknown) (unknown) screen next (units (un known) date) visit. Warning unknown) signs reviewed. kag (unknown) (no (unknown) (unknown) seatbelt use: (units ( unknown) date) always unknown) (unknown) (no (unknown) (unknown) second hand (units (un known) date) exposure: Yes unknown) ( smokes, mostly outside) (unknown) (no (unknown) (unknown) software. (units (unkn own) date) Although every unknown) effort is made to edit content, gunstock spray unit feeder errors (unknown) (no (unknown) (unknown) some nausea. No (units (unknown) date) meds so far. No unknown) vaginal bleeding. 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 She is going to (unknown) (no (unknown) (unknown) today. NATHANIEL 12.67 (units (unknown) date) cm. BPP 11/07. unknown) Plan: Nonstress test today. Follow-up in 1 (unknown) (no (unknown) (unknown) two vessel cord (units (unknown) date) unknown) (unknown) (no (unknown) (unknown) ultrasound (units (unk nown) date) ordered. unknown) Follow-up in 4 weeks. Warning signs reviewed. kag (unknown) (no (unknown) (unknown) valacyclovir (units (u nknown) date) (Valtrex) 500 mg unknown) PO DAILY 21 tabs 0RF (unknown) (no (unknown) (unknown) valacyclovir 500 (units (unknown) date) mg tablet unknown) (Valtrex) 500 mg PO DAILY #21 tabs 02/17/22 [Rx (unknown) (no (unknown) (unknown) water heater (units (u nknown) date) temp set < 120 unknown) deg: Yes (unknown) (no (unknown) (unknown) week for BPP and (units (unknown) date) NATHANIEL/nonstress unknown) test. Induction at 37 weeks gestation. kag (unknown) (no (unknown) (unknown) weekly or BPP. (units (unknown) date) Good FM. No LOF unknown) or VB. On U/S: BPP 11/07. NATHANIEL 18.45cm. (unknown) (no (unknown) (unknown) weeks 5 days. (units ( unknown) date) heart rate unknown) 176 beats per minute. Corpus luteal cyst on the (unknown) (no (unknown) (unknown) well seen on (units (u nknown) date) ultrasound will unknown) call to schedule follow-up ultrasound. Routine (unknown) (no (unknown) (unknown) well-balanced (units ( unknown) date) diet: daily or unknown) most days (unknown) (no (unknown) (unknown) work hard at (units (u nknown) date) trying to get unknown) this started. She has an appointment next week with (unknown) (no (unknown) (unknown) working smoke (units ( unknown) date) detector in home: unknown) Yes Result panel 136 (unknown) (no (unknown) (unknown) (no value) (units (unk nown) date) unknown) (unknown) (no (unknown) (unknown) 1. Single live (units (unknown) date) intrauterine unknown) with normal biophysical profile. (unknown) (no (unknown) (unknown) 02/17/2022, (units (un known) date) 16:45. unknown) (unknown) (no (unknown) (unknown) 02/24/22 (units (unkno wn) date) unknown) (unknown) (no (unknown) (unknown) [address] [place] [address] (units (unknown) date) unknown) (unknown) (no (unknown) (unknown) 2. Bilateral (units (u nknown) date) pelviectasis/hydr unknown) onephrosis, similar compared to the prior study. (unknown) (no (unknown) (unknown) 3. Normal (units (unkn own) date) amniotic fluid unknown) volume. (unknown) (no (unknown) (unknown) [id number] (units (unkno wn) date) unknown) (unknown) (no (unknown) (unknown) Accession (units (unkn own) date) Number: unknown) [id number] (unknown) (no (unknown) (unknown) Age/Sex: 27 / F (units (unknown) date) Date of Service: unknown) (unknown) (no (unknown) (unknown) Amniotic fluid (units (unknown) date) index: 10.3 cm, unknown) normal range is 5-24 cm. (unknown) (no (unknown) (unknown) MORENA Hurtado (units ( unknown) date) [id number] unknown) (unknown) (no (unknown) (unknown) Approved by: (units (u nknown) date) zhen Webb) Facundo on 02/24/2022 at 12:37 (unknown) (no (unknown) (unknown) Biophysical (units (un known) date) profile: unknown) (unknown) (no (unknown) (unknown) COMPARISON: (units (un known) date) [facility] [place], OB >= 14 WEEKS FETUS, (unknown) (no (unknown) (unknown) Clinically (units (unk nown) date) estimated unknown) gestational age: 35 weeks 0 days (unknown) (no (unknown) (unknown) : 1995 (units (unknown) date) Acct:[id number] unknown) (unknown) (no (unknown) (unknown) Dictated by: (units (u nknown) date) steven Webb M.D. on 02/24/2022 at 12:23 (unknown) (no (unknown) (unknown) Endovaginal (units (un known) date) scanning: Not unknown) performed (unknown) (no (unknown) (unknown) Estimated date (units (unknown) date) of delivery (BRET) unknown) from first dating scan: 04/01/22. (unknown) (no (unknown) (unknown) FINDINGS: (units (unkn own) date) unknown) (unknown) (no (unknown) (unknown) heart (units (un known) date) rate: 139 beats unknown) per minute. (unknown) (no (unknown) (unknown) First dating (units (u nknown) date) scan (date and unknown) location): 09/15/21. (unknown) (no (unknown) (unknown) General: A (units (unk nown) date) single living unknown) intrauterine gestation is present. (unknown) (no (unknown) (unknown) IMPRESSION: (units (un known) date) unknown) (unknown) (no (unknown) (unknown) INDICATIONS: (units (u nknown) date) HISTORY OF LOW unknown) GROWTH PERCENTILES - WEEKLY BIOPHYSICAL (unknown) (no (unknown) (unknown) Incidental note (units (unknown) date) made of bilateral unknown) renal pelviectasis/hydr onephrosis. (unknown) (no (unknown) (unknown) [facility] (units (unknown) date) unknown) (unknown) (no (unknown) (unknown) LMP-based (units (unkn own) date) estimated date of unknown) delivery (BRET): 03/31/22. (unknown) (no (unknown) (unknown) Largest pocket (units (unknown) date) of fluid: 2 unknown) points. (unknown) (no (unknown) (unknown) Last menstrual (units (unknown) date) period (LMP): unknown) 06/24/21. (unknown) (no (unknown) (unknown) Loc: LABOR (units (unk nown) date) [id number] unknown) (unknown) (no (unknown) (unknown) Maternal (units (unkno wn) date) cervical canal: unknown) Not seen (unknown) (no (unknown) (unknown) Movement: 2 (units (un known) date) points. unknown) (unknown) (no (unknown) (unknown) OUTSIDE/PRIOR (units ( unknown) date) DATING DATA: unknown) (unknown) (no (unknown) (unknown) Ordering (units (unkno wn) date) Provider: unknown) Destinee Colin MD (unknown) (no (unknown) (unknown) PROCEDURE: US OB (units (unknown) date) BIOPHYSICAL unknown) PROFILE (unknown) (no (unknown) (unknown) Patient: (units (unkno wn) date) Suzi Diaz MR#: unknown) [id number] (unknown) (no (unknown) (unknown) Placenta: (units (unkn own) date) Placental unknown) position is anterior , without previa. (unknown) (no (unknown) (unknown) Presentation: (units ( unknown) date) Vertex. unknown) (unknown) (no (unknown) (unknown) Procedure: US OB (units (unknown) date) biophysical unknown) profile (unknown) (no (unknown) (unknown) Real-time (units (unkn own) date) scanning was unknown) performed of the fetus for biophysical profile, with (unknown) (no (unknown) (unknown) Respiration: 2 (units (unknown) date) points. unknown) (unknown) (no (unknown) (unknown) Signed (units (unkno wn) date) unknown) (unknown) (no (unknown) (unknown) Single deepest (units (unknown) date) vertical pocket unknown) is 3.4 cm. (unknown) (no (unknown) (unknown) TECHNIQUE: (units (unk nown) date) unknown) (unknown) (no (unknown) (unknown) The calculations (units (unknown) date) are made using unknown) the clinical BRET of 03/31/22. (unknown) (no (unknown) (unknown) To assist (units (unkn own) date) unknown) (unknown) (no (unknown) (unknown) Tone: 2 points. (units (unknown) date) unknown) (unknown) (no (unknown) (unknown) Ultrasound (units (unk nown) date) Report unknown) (unknown) (no (unknown) (unknown) We strive to (units (u nknown) date) produce accurate, unknown) complete, and clear reports of imaging services. (unknown) (no (unknown) (unknown) and voice (units (unkn own) date) recognition unknown) software. Therefore, it may contain abnormal punctuation, (unknown) (no (unknown) (unknown) documentation. (units (unknown) date) unknown) (unknown) (no (unknown) (unknown) image (units (unkno wn) date) unknown) (unknown) (no (unknown) (unknown) inaccuracies. (units ( unknown) date) unknown) (unknown) (no (unknown) (unknown) insertions (units (unk nown) date) and/or omissions. unknown) Occasional wrong-word or sound-alike substitutions (unknown) (no (unknown) (unknown) may (units (unkno wn) date) unknown) (unknown) (no (unknown) (unknown) occur. Though we (units (unknown) date) review the report unknown) and make efforts to correct it, we do (unknown) (no (unknown) (unknown) recommend that (units (unknown) date) unknown) (unknown) (no (unknown) (unknown) templates (units (unkn own) date) unknown) (unknown) (no (unknown) (unknown) the report be (units ( unknown) date) read carefully in unknown) proper context to recognize any text (unknown) (no (unknown) (unknown) us in improving (units (unknown) date) patient care, unknown) this report was composed using standard report Result panel 137 (unknown) (no (unknown) (unknown) (no value) (units (unk nown) date) unknown) (unknown) (no (unknown) (unknown) 02/24/22 1140 (units ( unknown) date) unknown) (unknown) (no (unknown) (unknown) 35+3 wks (units (unkno wn) date) gestation unknown) (unknown) (no (unknown) (unknown) 364 (units (unkno wn) date) unknown) (unknown) (no (unknown) (unknown) Age/Sex: 27 / F (units (unknown) date) unknown) (unknown) (no (unknown) (unknown) Anemia (-2010) (units (unknown) date) unknown) (unknown) (no (unknown) (unknown) Anesthesia (units (unk nown) date) unknown) (unknown) (no (unknown) (unknown) Assessment: (units (un known) date) unknown) (unknown) (no (unknown) (unknown) Asthma (units (unkno wn) date) unknown) (unknown) (no (unknown) (unknown) Autoimmune (units (unk nown) date) vasculitis unknown) (unknown) (no (unknown) (unknown) BPP 8/8 (units (unkno wn) date) unknown) (unknown) (no (unknown) (unknown) Baseline (units (unknown) date) heart rate: 135 unknown) (unknown) (no (unknown) (unknown) Comments: (units (unkn own) date) unknown) (unknown) (no (unknown) (unknown) : 1995 (units (unknown) date) Acct:[id number] unknown) (unknown) (no (unknown) (unknown) Date of Service: (units (unknown) date) 02/24/22 unknown) (unknown) (no (unknown) (unknown) Date of (units (unkno wn) date) evaluation: unknown) 02/24/22 (unknown) (no (unknown) (unknown) Diabetes (units (unkno wn) date) mellitus unknown) (unknown) (no (unknown) (unknown) Diagnosis, (units (unk nown) date) Plan/Disposition unknown) (unknown) (no (unknown) (unknown) Emphysema lung (units (unknown) date) unknown) (unknown) (no (unknown) (unknown) Evaluation (units (unk nown) date) unknown) (unknown) (no (unknown) (unknown) F/U 1 wk for ob (units (unknown) date) appt, NST and BPP unknown) (unknown) (no (unknown) (unknown) FGR (units (unkno wn) date) unknown) (unknown) (no (unknown) (unknown) Family History (units (unknown) date) (Updated 10/04/21 unknown) @ 15:41 by Kiki Barksdale) (unknown) (no (unknown) (unknown) Father TBI (units (unk nown) date) (traumatic brain unknown) injury) (unknown) (no (unknown) (unknown) Monitor (units ( unknown) date) Decelerations: unknown) Absent (unknown) (no (unknown) (unknown) Status: (units ( unknown) date) Category l unknown) (unknown) (no (unknown) (unknown) monitor (units ( unknown) date) accelerations: unknown) Present (unknown) (no (unknown) (unknown) GERD (units (unkno wn) date) (gastroesophageal unknown) reflux disease) (-2017) (unknown) (no (unknown) (unknown) Grandfather (units (un known) date) Asthma unknown) (unknown) (no (unknown) (unknown) Grandfather (units (un known) date) Heart unknown) disease (unknown) (no (unknown) (unknown) Grandmother (units (un known) date) Bladder cancer unknown) (unknown) (no (unknown) (unknown) Grandmother (units (un known) date) unknown) Hypertension (unknown) (no (unknown) (unknown) H/O gastric (units (un known) date) sleeve () unknown) (unknown) (no (unknown) (unknown) 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) (unknown) (no (unknown) (unknown) Heart disease (units ( unknown) date) unknown) (unknown) (no (unknown) (unknown) Heavy menstrual (units (unknown) date) period (-2009) unknown) (unknown) (no (unknown) (unknown) History of (units (unk nown) date) repair of hiatal unknown) hernia (-06/2019) (unknown) (no (unknown) (unknown) Hyperlipidemia (units (unknown) date) unknown) (unknown) (no (unknown) (unknown) Hypertension (units (u nknown) date) unknown) (unknown) (no (unknown) (unknown) [facility] (units (unknown) date) [address] unknown) [place] [address] (unknown) (no (unknown) (unknown) Labor and (units (unkn own) date) Delivery Triage unknown) Note (unknown) (no (unknown) (unknown) Lung cancer (units (un known) date) unknown) (unknown) (no (unknown) (unknown) Medical History (units (unknown) date) (Updated 01/22/22 unknown) @ 18:14 by Destinee Colin MD) (unknown) (no (unknown) (unknown) Mother (units (unkno wn) date) Gestational unknown) diabetes (unknown) (no (unknown) (unknown) Myocardial (units (unk nown) date) infarction unknown) (unknown) (no (unknown) (unknown) OB Disposition: (units (unknown) date) home unknown) (unknown) (no (unknown) (unknown) PFSH (units (unkno wn) date) unknown) (unknown) (no (unknown) (unknown) Painful (units (unkno wn) date) menstrual periods unknown) () (unknown) (no (unknown) (unknown) Patient: (units (unkno wn) date) Suzi Diaz MR#: unknown) [id number] (unknown) (no (unknown) (unknown) Plan/Disposition (units (unknown) date) unknown) (unknown) (no (unknown) (unknown) Plan: (units (unkno wn) date) unknown) (unknown) (no (unknown) (unknown) (units (unk nown) date) depression unknown) (unknown) (no (unknown) (unknown) Pre-diabetes (units (u nknown) date) unknown) (unknown) (no (unknown) (unknown) Primary OB (units (unk nown) date) Provider: unknown) Destinee Colin (unknown) (no (unknown) (unknown) Provider: (units (unkn own) date) Destinee Colin unknown) (unknown) (no (unknown) (unknown) Reactive NST (units (u nknown) date) unknown) (unknown) (no (unknown) (unknown) Reason for (units (unk nown) date) Evaluation: Yes unknown) non-stress test non-stress test reason: other ( (unknown) (no (unknown) (unknown) Signed (units (unkno wn) date) By:<Electronicall unknown) y signed by Destinee Colin MD> (unknown) (no (unknown) (unknown) Sister Asthma (units ( unknown) date) unknown) (unknown) (no (unknown) (unknown) Smoking Status: (units (unknown) date) Never smoker unknown) (unknown) (no (unknown) (unknown) Social History (units (unknown) date) unknown) (unknown) (no (unknown) (unknown) Surgical History (units (unknown) date) (Updated 11/14/21 unknown) @ 15:06 by Anitra Najera MD) (unknown) (no (unknown) (unknown) Two vessel (units (unk nown) date) umbilical cord in unknown) gates , antepartum (unknown) (no (unknown) (unknown) Type(s) of (units (unk nown) date) exercise: walking unknown) (unknown) (no (unknown) (unknown) Variability: (units (u nknown) date) Moderate (11-25) unknown) (unknown) (no (unknown) (unknown) Visit (units (unkno wn) date) Information unknown) (unknown) (no (unknown) (unknown) Warning signs (units ( unknown) date) reviewed unknown) (unknown) (no (unknown) (unknown) [place] teeth (units (u nknown) date) extracted unknown) () (unknown) (no (unknown) (unknown) alcohol intake: (units (unknown) date) former unknown) (unknown) (no (unknown) (unknown) caffeine: Yes (units ( unknown) date) unknown) (unknown) (no (unknown) (unknown) carbon monox (units (u nknown) date) detector in home: unknown) Yes (unknown) (no (unknown) (unknown) current (units (unkno wn) date) occupational unknown) exposures/hazards : No (unknown) (no (unknown) (unknown) daily servings (units (unknown) date) fruits/ve-4 unknown) (unknown) (no (unknown) (unknown) do you feel safe (units (unknown) date) at home: Yes unknown) (unknown) (no (unknown) (unknown) during the past (units (unknown) date) year weight has: unknown) remained stable (unknown) (no (unknown) (unknown) education level: (units (unknown) date) vocational unknown) (unknown) (no (unknown) (unknown) octavio/confucianism: (units (unknown) date) Mandaen unknown) (unknown) (no (unknown) (unknown) fire (units (unkno wn) date) extinguisher in unknown) home: Yes (unknown) (no (unknown) (unknown) firearms in (units (un known) date) home: No unknown) (unknown) (no (unknown) (unknown) frequency: 3-4 (units (unknown) date) times per week unknown) (unknown) (no (unknown) (unknown) growth (units (unkno wn) date) restriction) unknown) (unknown) (no (unknown) (unknown) household (units (unkn own) date) members: spouse unknown) and children (unknown) (no (unknown) (unknown) housing: (units (unkno wn) date) [facility] ([place]) (no (unknown) (unknown) lives (units (unkno wn) date) independently: unknown) Yes (unknown) (no (unknown) (unknown) marital status: (units (unknown) date) unknown) (unknown) (no (unknown) (unknown) number of (units (unkn own) date) children: 1 unknown) (unknown) (no (unknown) (unknown) occupational (units (u nknown) date) status: employed unknown) (Works from home ) (unknown) (no (unknown) (unknown) pets and (units (unkno wn) date) animals: No unknown) (unknown) (no (unknown) (unknown) seatbelt use: (units ( unknown) date) always unknown) (unknown) (no (unknown) (unknown) second hand (units (un known) date) exposure: Yes unknown) ( smokes, mostly outside) (unknown) (no (unknown) (unknown) special octavio (units ( unknown) date) needs: No unknown) (unknown) (no (unknown) (unknown) substance use (units ( unknown) date) type: does not unknown) use (unknown) (no (unknown) (unknown) water heater (units (u nknown) date) temp set < 120 unknown) deg: Yes (unknown) (no (unknown) (unknown) well-balanced (units ( unknown) date) diet: daily or unknown) most days (unknown) (no (unknown) (unknown) working smoke (units ( unknown) date) detector in home: unknown) Yes Result panel 138 (unknown) (no (unknown) (unknown) (no value) (units (unk nown) date) unknown) (unknown) (no (unknown) (unknown) (1) 36 weeks (units (u nknown) date) gestation of unknown) : (unknown) (no (unknown) (unknown) (2) growth (units (unknown) date) restriction: unknown) (unknown) (no (unknown) (unknown) (3) 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: unknown) (unknown) (no (unknown) (unknown) 364 (units (unkno wn) date) unknown) (unknown) (no (unknown) (unknown) Age/Sex: 27 / F (units (unknown) date) unknown) (unknown) (no (unknown) (unknown) Anemia (-2010) (units (unknown) date) unknown) (unknown) (no (unknown) (unknown) Anesthesia (units (unk nown) date) unknown) (unknown) (no (unknown) (unknown) Asthma (units (unkno wn) date) unknown) (unknown) (no (unknown) (unknown) Autoimmune (units (unk nown) date) vasculitis unknown) (unknown) (no (unknown) (unknown) : 1995 (units (unknown) date) Acct:[id number] unknown) (unknown) (no (unknown) (unknown) Date of Service: (units (unknown) date) 03/02/22 unknown) (unknown) (no (unknown) (unknown) Date of (units (unkno wn) date) evaluation: unknown) 03/02/22 (unknown) (no (unknown) (unknown) Diabetes (units (unkno wn) date) mellitus unknown) (unknown) (no (unknown) (unknown) Diagnosis, (units (unk nown) date) Plan/Disposition unknown) (unknown) (no (unknown) (unknown) Emphysema lung (units (unknown) date) unknown) (unknown) (no (unknown) (unknown) Family History (units (unknown) date) (Reviewed unknown) 03/02/22 @ 16:48 by Isabel Abarca DO) (unknown) (no (unknown) (unknown) Father TBI (units (unk nown) date) (traumatic brain unknown) injury) (unknown) (no (unknown) (unknown) Final Diagnosis (units (unknown) date) unknown) (unknown) (no (unknown) (unknown) GERD (units (unkno wn) date) (gastroesophageal unknown) reflux disease) () (unknown) (no (unknown) (unknown) Grandfather (units (un known) date) Asthma unknown) (unknown) (no (unknown) (unknown) Grandfather (units (un known) date) Heart unknown) disease (unknown) (no (unknown) (unknown) Grandmother (units (un known) date) Bladder cancer unknown) (unknown) (no (unknown) (unknown) Grandmother (units (un known) date) unknown) Hypertension (unknown) (no (unknown) (unknown) H/O gastric (units (un known) date) sleeve () unknown) (unknown) (no (unknown) (unknown) 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) (unknown) (no (unknown) (unknown) Heart disease (units ( unknown) date) unknown) (unknown) (no (unknown) (unknown) Heavy menstrual (units (unknown) date) period (-2009) unknown) (unknown) (no (unknown) (unknown) History of (units (unk nown) date) repair of hiatal unknown) hernia () (unknown) (no (unknown) (unknown) Hyperlipidemia (units (unknown) date) unknown) (unknown) (no (unknown) (unknown) Hypertension (units (u nknown) date) unknown) (unknown) (no (unknown) (unknown) [facility] (units (unknown) date) [address] unknown) [place] [address] (unknown) (no (unknown) (unknown) Labor and (units (unkn own) date) Delivery Triage unknown) Note (unknown) (no (unknown) (unknown) Lung cancer (units (un known) date) unknown) (unknown) (no (unknown) (unknown) Medical History (units (unknown) date) (Reviewed unknown) 03/02/22 @ 16:48 by Isabel Abarca DO) (unknown) (no (unknown) (unknown) Mother (units (unkno wn) date) Gestational unknown) diabetes (unknown) (no (unknown) (unknown) Myocardial (units (unk nown) date) infarction unknown) (unknown) (no (unknown) (unknown) On-call OB (units (unk nown) date) Provider: unknown) Isabel Abarca (unknown) (no (unknown) (unknown) PFSH (units (unkno wn) date) unknown) (unknown) (no (unknown) (unknown) Painful (units (unkno wn) date) menstrual periods unknown) () (unknown) (no (unknown) (unknown) Patient: (units (unkno wn) date) Suzi Diaz MR#: unknown) [id number] (unknown) (no (unknown) (unknown) (units (unk nown) date) depression unknown) (unknown) (no (unknown) (unknown) Pre-diabetes (units (u nknown) date) unknown) (unknown) (no (unknown) (unknown) Primary OB (units (unk nown) date) Provider: unknown) Destinee Colin (unknown) (no (unknown) (unknown) Provider: (units (unkn own) date) Isabel Abarca unknown) D.O. (unknown) (no (unknown) (unknown) Reason for (units (unk nown) date) Evaluation: Yes unknown) non-stress test (unknown) (no (unknown) (unknown) Signed By: (units (unk nown) date) unknown) (unknown) (no (unknown) (unknown) Sister Asthma (units ( unknown) date) unknown) (unknown) (no (unknown) (unknown) Smoking Status: (units (unknown) date) Never smoker unknown) (unknown) (no (unknown) (unknown) Social History (units (unknown) date) (Reviewed unknown) 03/02/22 @ 16:48 by Isabel Abarca DO) (unknown) (no (unknown) (unknown) Status: Acute (units ( unknown) date) unknown) (unknown) (no (unknown) (unknown) Surgical History (units (unknown) date) (Reviewed unknown) 03/02/22 @ 16:48 by Isabel Abarca DO) (unknown) (no (unknown) (unknown) Two vessel (units (unk nown) date) umbilical cord in unknown) gates , antepartum (unknown) (no (unknown) (unknown) Type(s) of (units (unk nown) date) exercise: walking unknown) (unknown) (no (unknown) (unknown) Visit (units (unkno wn) date) Information unknown) (unknown) (no (unknown) (unknown) [place] teeth (units (u nknown) date) extracted unknown) () (unknown) (no (unknown) (unknown) alcohol intake: (units (unknown) date) former unknown) (unknown) (no (unknown) (unknown) caffeine: Yes (units ( unknown) date) unknown) (unknown) (no (unknown) (unknown) carbon monox (units (u nknown) date) detector in home: unknown) Yes (unknown) (no (unknown) (unknown) current (units (unkno wn) date) occupational unknown) exposures/hazards : No (unknown) (no (unknown) (unknown) daily servings (units (unknown) date) fruits/ve-4 unknown) (unknown) (no (unknown) (unknown) do you feel safe (units (unknown) date) at home: Yes unknown) (unknown) (no (unknown) (unknown) during the past (units (unknown) date) year weight has: unknown) remained stable (unknown) (no (unknown) (unknown) education level: (units (unknown) date) vocational unknown) (unknown) (no (unknown) (unknown) octavio/confucianism: (units (unknown) date) Mandaen unknown) (unknown) (no (unknown) (unknown) fire (units (unkno wn) date) extinguisher in unknown) home: Yes (unknown) (no (unknown) (unknown) firearms in (units (un known) date) home: No unknown) (unknown) (no (unknown) (unknown) frequency: 3-4 (units (unknown) date) times per week unknown) (unknown) (no (unknown) (unknown) household (units (unkn own) date) members: spouse unknown) and children (unknown) (no (unknown) (unknown) housing: (units (unkno wn) date) apartment [place] [place] [place] (unknown) (no (unknown) (unknown) lives (units (unkno wn) date) independently: unknown) Yes (unknown) (no (unknown) (unknown) marital status: (units (unknown) date) unknown) (unknown) (no (unknown) (unknown) number of (units (unkn own) date) children: 1 unknown) (unknown) (no (unknown) (unknown) occupational (units (u nknown) date) status: employed unknown) (Works from home ) (unknown) (no (unknown) (unknown) pets and (units (unkno wn) date) animals: No unknown) (unknown) (no (unknown) (unknown) seatbelt use: (units ( unknown) date) always unknown) (unknown) (no (unknown) (unknown) second hand (units (un known) date) exposure: Yes unknown) ( smokes, mostly outside) (unknown) (no (unknown) (unknown) special octavio (units ( unknown) date) needs: No unknown) (unknown) (no (unknown) (unknown) substance use (units ( unknown) date) type: does not unknown) use (unknown) (no (unknown) (unknown) water heater (units (u nknown) date) temp set < 120 unknown) deg: Yes (unknown) (no (unknown) (unknown) well-balanced (units ( unknown) date) diet: daily or unknown) most days (unknown) (no (unknown) (unknown) working smoke (units ( unknown) date) detector in home: unknown) Yes Result panel 139 (unknown) (no (unknown) (unknown) (no value) (units (unk nown) date) unknown) (unknown) (no (unknown) (unknown) (1) 36 weeks (units (u nknown) date) gestation of unknown) : (unknown) (no (unknown) (unknown) (2) growth (units (unknown) date) restriction: unknown) (unknown) (no (unknown) (unknown) (3) 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: unknown) (unknown) (no (unknown) (unknown) (Umbilical cord (units (unknown) date) varix, FGR) unknown) (unknown) (no (unknown) (unknown) 27-year-old (units (unknown) date) at 36 weeks and 2 unknown) days gestation here for scheduled NST and (unknown) (no (unknown) (unknown) 364 (units (unkno wn) date) unknown) (unknown) (no (unknown) (unknown) Age/Sex: 27 / F (units (unknown) date) unknown) (unknown) (no (unknown) (unknown) Anemia (-2009) (units (unknown) date) unknown) (unknown) (no (unknown) (unknown) Anesthesia (units (unk nown) date) unknown) (unknown) (no (unknown) (unknown) Asthma (units (unkno wn) date) unknown) (unknown) (no (unknown) (unknown) Autoimmune (units (unk nown) date) vasculitis unknown) (unknown) (no (unknown) (unknown) BPP. She is been (units (unknown) date) followed by unknown) maternal medicine for growth restriction as (unknown) (no (unknown) (unknown) Baseline (units (unknown) date) heart rate: 140 unknown) (unknown) (no (unknown) (unknown) Category of (units (un known) date) Tracing: Reactive unknown) (unknown) (no (unknown) (unknown) : 1995 (units (unknown) date) Acct:[id number] unknown) (unknown) (no (unknown) (unknown) Date of Service: (units (unknown) date) 03/02/22 unknown) (unknown) (no (unknown) (unknown) Date of (units (unkno wn) date) evaluation: unknown) 03/02/22 (unknown) (no (unknown) (unknown) Diabetes (units (unkno wn) date) mellitus unknown) (unknown) (no (unknown) (unknown) Diagnosis, (units (unk nown) date) Plan/Disposition unknown) (unknown) (no (unknown) (unknown) Emphysema lung (units (unknown) date) unknown) (unknown) (no (unknown) (unknown) Evaluation (units (unk nown) date) unknown) (unknown) (no (unknown) (unknown) Family History (units (unknown) date) (Reviewed unknown) 03/02/22 @ 16:52 by Isabel Abarca DO) (unknown) (no (unknown) (unknown) Father TBI (units (unk nown) date) (traumatic brain unknown) injury) (unknown) (no (unknown) (unknown) Monitor (units ( unknown) date) Decelerations: unknown) Absent (unknown) (no (unknown) (unknown) monitor (units ( unknown) date) accelerations: unknown) Present (unknown) (no (unknown) (unknown) Final Diagnosis (units (unknown) date) unknown) (unknown) (no (unknown) (unknown) GERD (units (unkno wn) date) (gastroesophageal unknown) reflux disease) (-2017) (unknown) (no (unknown) (unknown) Grandfather (units (un known) date) Asthma unknown) (unknown) (no (unknown) (unknown) Grandfather (units (un known) date) Heart unknown) disease (unknown) (no (unknown) (unknown) Grandmother (units (un known) date) Bladder cancer unknown) (unknown) (no (unknown) (unknown) Grandmother (units (un known) date) unknown) Hypertension (unknown) (no (unknown) (unknown) H/O gastric (units (un known) date) sleeve () unknown) (unknown) (no (unknown) (unknown) 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) (unknown) (no (unknown) (unknown) Heart disease (units ( unknown) date) unknown) (unknown) (no (unknown) (unknown) Heavy menstrual (units (unknown) date) period () unknown) (unknown) (no (unknown) (unknown) History of (units (unk nown) date) repair of hiatal unknown) hernia (-06/2019) (unknown) (no (unknown) (unknown) Hyperlipidemia (units (unknown) date) unknown) (unknown) (no (unknown) (unknown) Hypertension (units (u nknown) date) unknown) (unknown) (no (unknown) (unknown) [facility] (units (unknown) date) [address] unknown) [place] [address] (unknown) (no (unknown) (unknown) Labor and (units (unkn own) date) Delivery Triage unknown) Note (unknown) (no (unknown) (unknown) Lung cancer (units (un known) date) unknown) (unknown) (no (unknown) (unknown) MFM on 02/07. She (units (unknown) date) is scheduled for unknown) induction next week with Dr. Coiln. NST (unknown) (no (unknown) (unknown) Medical History (units (unknown) date) (Reviewed unknown) 03/02/22 @ 16:52 by Isabel Abarca DO) (unknown) (no (unknown) (unknown) Mother (units (unkno wn) date) Gestational unknown) diabetes (unknown) (no (unknown) (unknown) Myocardial (units (unk nown) date) infarction unknown) (unknown) (no (unknown) (unknown) On-call OB (units (unk nown) date) Provider: unknown) Isabel Abarca (unknown) (no (unknown) (unknown) PFSH (units (unkno wn) date) unknown) (unknown) (no (unknown) (unknown) Painful (units (unkno wn) date) menstrual periods unknown) () (unknown) (no (unknown) (unknown) Patient: (units (unkno wn) date) Suzi Diaz MR#: unknown) [id number] (unknown) (no (unknown) (unknown) Plan/Disposition (units (unknown) date) unknown) (unknown) (no (unknown) (unknown) Plan: (units (unkno wn) date) unknown) (unknown) (no (unknown) (unknown) (units (unk nown) date) depression unknown) (unknown) (no (unknown) (unknown) Pre-diabetes (units (u nknown) date) unknown) (unknown) (no (unknown) (unknown) Primary OB (units (unk nown) date) Provider: unknown) Destinee Colin (unknown) (no (unknown) (unknown) Provider: (units (unkn own) date) Isabel Abarca unknown) D.O. (unknown) (no (unknown) (unknown) Reason for (units (unk nown) date) Evaluation: Yes unknown) non-stress test non-stress test reason: other (unknown) (no (unknown) (unknown) Signed By: (units (unk nown) date) unknown) (unknown) (no (unknown) (unknown) Sister Asthma (units ( unknown) date) unknown) (unknown) (no (unknown) (unknown) Smoking Status: (units (unknown) date) Never smoker unknown) (unknown) (no (unknown) (unknown) Social History (units (unknown) date) (Reviewed unknown) 03/02/22 @ 16:52 by Isabel Abarca DO) (unknown) (no (unknown) (unknown) Status: Acute (units ( unknown) date) unknown) (unknown) (no (unknown) (unknown) Surgical History (units (unknown) date) (Reviewed unknown) 03/02/22 @ 16:52 by Isabel Abarca DO) (unknown) (no (unknown) (unknown) Temperature (units (un known) date) 36.5? blood unknown) pressure 93/55 heart rate 114 (unknown) (no (unknown) (unknown) Two vessel (units (unk nown) date) umbilical cord in unknown) gates , antepartum (unknown) (no (unknown) (unknown) Type(s) of (units (unk nown) date) exercise: walking unknown) (unknown) (no (unknown) (unknown) Variability: (units (u nknown) date) Moderate (11-25) unknown) (unknown) (no (unknown) (unknown) Visit (units (unkno wn) date) Information unknown) (unknown) (no (unknown) (unknown) Vital Signs (units (un known) date) unknown) (unknown) (no (unknown) (unknown) Vital Signs: (units (u nknown) date) unknown) (unknown) (no (unknown) (unknown) [place] teeth (units (u nknown) date) extracted unknown) (-10/2017) (unknown) (no (unknown) (unknown) alcohol intake: (units (unknown) date) former unknown) (unknown) (no (unknown) (unknown) caffeine: Yes (units ( unknown) date) unknown) (unknown) (no (unknown) (unknown) carbon monox (units (u nknown) date) detector in home: unknown) Yes (unknown) (no (unknown) (unknown) current (units (unkno wn) date) occupational unknown) exposures/hazards : No (unknown) (no (unknown) (unknown) daily servings (units (unknown) date) fruits/ve-4 unknown) (unknown) (no (unknown) (unknown) do you feel safe (units (unknown) date) at home: Yes unknown) (unknown) (no (unknown) (unknown) during the past (units (unknown) date) year weight has: unknown) remained stable (unknown) (no (unknown) (unknown) education level: (units (unknown) date) vocational unknown) (unknown) (no (unknown) (unknown) octavio/confucianism: (units (unknown) date) Mandaen unknown) (unknown) (no (unknown) (unknown) fire (units (unkno wn) date) extinguisher in unknown) home: Yes (unknown) (no (unknown) (unknown) firearms in (units (un known) date) home: No unknown) (unknown) (no (unknown) (unknown) frequency: 3-4 (units (unknown) date) times per week unknown) (unknown) (no (unknown) (unknown) household (units (unkn own) date) members: spouse unknown) and children (unknown) (no (unknown) (unknown) housing: (units (unkno wn) date) apartment unknown) (townhouse ) (unknown) (no (unknown) (unknown) lives (units (unkno wn) date) independently: unknown) Yes (unknown) (no (unknown) (unknown) marital status: (units (unknown) date) unknown) (unknown) (no (unknown) (unknown) number of (units (unkn own) date) children: 1 unknown) (unknown) (no (unknown) (unknown) occupational (units (u nknown) date) status: employed unknown) (Works from home ) (unknown) (no (unknown) (unknown) pets and (units (unkno wn) date) animals: No unknown) (unknown) (no (unknown) (unknown) seatbelt use: (units ( unknown) date) always unknown) (unknown) (no (unknown) (unknown) second hand (units (un known) date) exposure: Yes unknown) ( smokes, mostly outside) (unknown) (no (unknown) (unknown) special octavio (units ( unknown) date) needs: No unknown) (unknown) (no (unknown) (unknown) substance use (units ( unknown) date) type: does not unknown) use (unknown) (no (unknown) (unknown) today []. BPP (units ( unknown) date) []. GBS unknown) collected. (unknown) (no (unknown) (unknown) water heater (units (u nknown) date) temp set < 120 unknown) deg: Yes (unknown) (no (unknown) (unknown) well as (units (unkno wn) date) umbilical vein unknown) varix. Last estimated weight at the 39th percentile at (unknown) (no (unknown) (unknown) well-balanced (units ( unknown) date) diet: daily or unknown) most days (unknown) (no (unknown) (unknown) working smoke (units ( unknown) date) detector in home: unknown) Yes Result panel 140 (unknown) (no date) (unknown) (unknown) NEG for (units (unkn own) Grp B Strep unknown) Result panel 141 (unknown) (no (unknown) (unknown) (no value) (units (unk nown) date) unknown) (unknown) (no (unknown) (unknown) (1) 36 weeks (units (u nknown) date) gestation of unknown) : (unknown) (no (unknown) (unknown) (2) growth (units (unknown) date) restriction: unknown) (unknown) (no (unknown) (unknown) (3) 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: unknown) (unknown) (no (unknown) (unknown) (Umbilical cord (units (unknown) date) varix, FGR) unknown) (unknown) (no (unknown) (unknown) 03/03/22 0709 (units ( unknown) date) unknown) (unknown) (no (unknown) (unknown) 27-year-old (units (unknown) date) at 36 weeks and 2 unknown) days gestation here for scheduled NST and (unknown) (no (unknown) (unknown) 364 (units (unkno wn) date) unknown) (unknown) (no (unknown) (unknown) Age/Sex: 27 / F (units (unknown) date) unknown) (unknown) (no (unknown) (unknown) Anemia (-2009) (units (unknown) date) unknown) (unknown) (no (unknown) (unknown) Anesthesia (units (unk nown) date) unknown) (unknown) (no (unknown) (unknown) Asthma (units (unkno wn) date) unknown) (unknown) (no (unknown) (unknown) Autoimmune (units (unk n) date) vasculitis unknown) (unknown) (no (unknown) (unknown) BPP. She is been (units (unknown) date) followed by unknown) Maternal Medicine for growth restriction as (unknown) (no (unknown) (unknown) Baseline (units (unknown) date) heart rate: 140 unknown) (unknown) (no (unknown) (unknown) Category of (units (un known) date) Tracing: Reactive unknown) (unknown) (no (unknown) (unknown) : 1995 (units (unknown) date) Acct:[id number] unknown) (unknown) (no (unknown) (unknown) Date of Service: (units (unknown) date) 03/02/22 unknown) (unknown) (no (unknown) (unknown) Date of (units (unkno wn) date) evaluation: unknown) 03/02/22 (unknown) (no (unknown) (unknown) Diabetes (units (unkno wn) date) mellitus unknown) (unknown) (no (unknown) (unknown) Diagnosis, (units (unk nown) date) Plan/Disposition unknown) (unknown) (no (unknown) (unknown) Emphysema lung (units (unknown) date) unknown) (unknown) (no (unknown) (unknown) Evaluation (units (unk nown) date) unknown) (unknown) (no (unknown) (unknown) Family History (units (unknown) date) (Reviewed unknown) 03/03/22 @ 07:06 by Isabel Abarca DO) (unknown) (no (unknown) (unknown) Father TBI (units (unk nown) date) (traumatic brain unknown) injury) (unknown) (no (unknown) (unknown) Monitor (units ( unknown) date) Decelerations: unknown) Absent (unknown) (no (unknown) (unknown) monitor (units ( unknown) date) accelerations: unknown) Present (unknown) (no (unknown) (unknown) Final Diagnosis (units (unknown) date) unknown) (unknown) (no (unknown) (unknown) GERD (units (unkno wn) date) (gastroesophageal unknown) reflux disease) (-2017) (unknown) (no (unknown) (unknown) Grandfather (units (un known) date) Asthma unknown) (unknown) (no (unknown) (unknown) Grandfather (units (un known) date) Heart unknown) disease (unknown) (no (unknown) (unknown) Grandmother (units (un known) date) Bladder cancer unknown) (unknown) (no (unknown) (unknown) Grandmother (units (un known) date) unknown) Hypertension (unknown) (no (unknown) (unknown) H/O gastric (units (un known) date) sleeve () unknown) (unknown) (no (unknown) (unknown) 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) (unknown) (no (unknown) (unknown) Heart disease (units ( unknown) date) unknown) (unknown) (no (unknown) (unknown) Heavy menstrual (units (unknown) date) period (-2009) unknown) (unknown) (no (unknown) (unknown) History of (units (unk nown) date) repair of hiatal unknown) hernia () (unknown) (no (unknown) (unknown) Hyperlipidemia (units (unknown) date) unknown) (unknown) (no (unknown) (unknown) Hypertension (units (u nknown) date) unknown) (unknown) (no (unknown) (unknown) [facility] (units (unknown) date) [address] unknown) [place] [address] (unknown) (no (unknown) (unknown) Labor and (units (unkn own) date) Delivery Triage unknown) Note (unknown) (no (unknown) (unknown) Lung cancer (units (un known) date) unknown) (unknown) (no (unknown) (unknown) MFM on 02/07. She (units (unknown) date) is scheduled for unknown) induction next week with Dr. Colin. NST (unknown) (no (unknown) (unknown) Medical History (units (unknown) date) (Reviewed unknown) 03/03/22 @ 07:06 by Isabel Abarca DO) (unknown) (no (unknown) (unknown) Mother (units (unkno wn) date) Gestational unknown) diabetes (unknown) (no (unknown) (unknown) Myocardial (units (unk nown) date) infarction unknown) (unknown) (no (unknown) (unknown) OB Disposition: (units (unknown) date) home unknown) (unknown) (no (unknown) (unknown) On-call OB (units (unk nown) date) Provider: unknown) Isabel Abarca (unknown) (no (unknown) (unknown) PFSH (units (unkno wn) date) unknown) (unknown) (no (unknown) (unknown) Painful (units (unkno wn) date) menstrual periods unknown) () (unknown) (no (unknown) (unknown) Patient: (units (unkno wn) date) Suzi Diaz MR#: unknown) [id number] (unknown) (no (unknown) (unknown) Plan/Disposition (units (unknown) date) unknown) (unknown) (no (unknown) (unknown) Plan: (units (unkno wn) date) unknown) (unknown) (no (unknown) (unknown) (units (unk nown) date) depression unknown) (unknown) (no (unknown) (unknown) Pre-diabetes (units (u nknown) date) unknown) (unknown) (no (unknown) (unknown) Primary OB (units (unk nown) date) Provider: unknown) Destinee Colin (unknown) (no (unknown) (unknown) Provider: (units (unkn own) date) Isabel Abarca unknown) D.O. (unknown) (no (unknown) (unknown) Reason for (units (unk nown) date) Evaluation: Yes unknown) non-stress test non-stress test reason: other (unknown) (no (unknown) (unknown) Signed (units (unkno wn) date) By:<Electronicall unknown) y signed by Isabel Abarca D.O.> (unknown) (no (unknown) (unknown) Sister Asthma (units ( unknown) date) unknown) (unknown) (no (unknown) (unknown) Smoking Status: (units (unknown) date) Never smoker unknown) (unknown) (no (unknown) (unknown) Social History (units (unknown) date) (Reviewed unknown) 03/03/22 @ 07:06 by Isabel Abarca DO) (unknown) (no (unknown) (unknown) Status: Acute (units ( unknown) date) unknown) (unknown) (no (unknown) (unknown) Surgical History (units (unknown) date) (Reviewed unknown) 03/03/22 @ 07:06 by Isabel Abarca DO) (unknown) (no (unknown) (unknown) Temperature (units (un known) date) 36.5? blood unknown) pressure 93/55 heart rate 114 (unknown) (no (unknown) (unknown) Two vessel (units (unk nown) date) umbilical cord in unknown) gates , antepartum (unknown) (no (unknown) (unknown) Type(s) of (units (unk nown) date) exercise: walking unknown) (unknown) (no (unknown) (unknown) Variability: (units (u nknown) date) Moderate (11-25) unknown) (unknown) (no (unknown) (unknown) Visit (units (unkno wn) date) Information unknown) (unknown) (no (unknown) (unknown) Vital Signs (units (un known) date) unknown) (unknown) (no (unknown) (unknown) Vital Signs: (units (u nknown) date) unknown) (unknown) (no (unknown) (unknown) [place] teeth (units (u nknown) date) extracted unknown) () (unknown) (no (unknown) (unknown) alcohol intake: (units (unknown) date) former unknown) (unknown) (no (unknown) (unknown) caffeine: Yes (units ( unknown) date) unknown) (unknown) (no (unknown) (unknown) carbon monox (units (u nknown) date) detector in home: unknown) Yes (unknown) (no (unknown) (unknown) current (units (unkno wn) date) occupational unknown) exposures/hazards : No (unknown) (no (unknown) (unknown) daily servings (units (unknown) date) fruits/ve-4 unknown) (unknown) (no (unknown) (unknown) do you feel safe (units (unknown) date) at home: Yes unknown) (unknown) (no (unknown) (unknown) during the past (units (unknown) date) year weight has: unknown) remained stable (unknown) (no (unknown) (unknown) education level: (units (unknown) date) vocational unknown) (unknown) (no (unknown) (unknown) octavio/confucianism: (units (unknown) date) Mandaen unknown) (unknown) (no (unknown) (unknown) fire (units (unkno wn) date) extinguisher in unknown) home: Yes (unknown) (no (unknown) (unknown) firearms in (units (un known) date) home: No unknown) (unknown) (no (unknown) (unknown) frequency: 3-4 (units (unknown) date) times per week unknown) (unknown) (no (unknown) (unknown) household (units (unkn own) date) members: spouse unknown) and children (unknown) (no (unknown) (unknown) housing: (units (unkno wn) date) apartment unknown) ([facility] ) (unknown) (no (unknown) (unknown) is scheduled to (units (unknown) date) return 12/ for unknown) induction and will return sooner if needed. (unknown) (no (unknown) (unknown) lives (units (unkno wn) date) independently: unknown) Yes (unknown) (no (unknown) (unknown) marital status: (units (unknown) date) unknown) (unknown) (no (unknown) (unknown) number of (units (unkn own) date) children: 1 unknown) (unknown) (no (unknown) (unknown) occupational (units (u nknown) date) status: employed unknown) (Works from home ) (unknown) (no (unknown) (unknown) patient was (units (un known) date) unable to stay. unknown) BPP 11/07 on 02/24. GBS collected and negative. She (unknown) (no (unknown) (unknown) pets and (units (unkno wn) date) animals: No unknown) (unknown) (no (unknown) (unknown) reactive. There (units (unknown) date) was a 2+ hours unknown) wait for ultrasound to come do the BPP and (unknown) (no (unknown) (unknown) seatbelt use: (units ( unknown) date) always unknown) (unknown) (no (unknown) (unknown) second hand (units (un known) date) exposure: Yes unknown) ( smokes, mostly outside) (unknown) (no (unknown) (unknown) special octavio (units ( unknown) date) needs: No unknown) (unknown) (no (unknown) (unknown) substance use (units ( unknown) date) type: does not unknown) use (unknown) (no (unknown) (unknown) water heater (units (u nknown) date) temp set < 120 unknown) deg: Yes (unknown) (no (unknown) (unknown) well as (units (unkno wn) date) umbilical vein unknown) varix. 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 (unknown) (no date) (unknown) (unknown) PETERSON Broth (units (unk nown) plated after 18 unknown) hours incubation Result panel 143 (unknown) (no (unknown) (unknown) (no value) (units (unk nown) date) unknown) (unknown) (no (unknown) (unknown) Heavy growth (units (u nknown) date) mixed genital unknown) esau (unknown) (no (unknown) (unknown) PETERSON Broth plated (units (unknown) date) after 18 hours unknown) incubation (unknown) (no (unknown) (unknown) Negative for (units (u nknown) date) Group B unknown) Streptococcus Result panel 144 (unknown) (no date) (unknown) (unknown) 0 /ul (unkn own) (unknown) (no date) (unknown) (unknown) 0 /ul (unkn own) (unknown) (no date) (unknown) (unknown) 0.2 % (unkn own) (unknown) (no date) (unknown) (unknown) 0.4 % (unkn own) (unknown) (no date) (unknown) (unknown) 10.4 g/dl (unkn own) (unknown) (no date) (unknown) (unknown) 124 x10 3/ul (unkn own) (unknown) (no date) (unknown) (unknown) 16.8 % (unkn own) (unknown) (no date) (unknown) (unknown) 1600 /ul (unkn own) (unknown) (no date) (unknown) (unknown) 2500 /ul (unkn own) (unknown) (no date) (unknown) (unknown) 3.42 x10 6/ul (unkn own) (unknown) (no date) (unknown) (unknown) 30.6 pg (unkn own) (unknown) (no date) (unknown) (unknown) 31.0 % (unkn own) (unknown) (no date) (unknown) (unknown) 33.7 % (unkn own) (unknown) (no date) (unknown) (unknown) 34.7 % (unkn own) (unknown) (no date) (unknown) (unknown) 4.6 x10 3/ul (unkn own) (unknown) (no date) (unknown) (unknown) 400 /ul (unkn own) (unknown) (no date) (unknown) (unknown) 54.9 % (unkn own) (unknown) (no date) (unknown) (unknown) 9.8 % (unkn own) (unknown) (no date) (unknown) (unknown) 90.6 fl (unkn own) Result panel 145 (unknown) (no date) (unknown) (unknown) Negative (units (unkn own) unknown) (unknown) (no date) (unknown) (unknown) Negative (units (unkn own) unknown) Result panel 146 (unknown) (no date) (unknown) (unknown) A Negative (units (un known) unknown) (unknown) (no date) (unknown) (unknown) POSITIVE (units (unkn own) unknown) Result panel 147 (unknown) (no date) (unknown) (unknown) Anti-D (units unknown) (unknown) (unknown) (no date) (unknown) (unknown) Anti-D (units unknown) (unknown) Result panel 148 (unknown) (no (unknown) (unknown) (no value) (units (unk nown) date) unknown) (unknown) (no (unknown) (unknown) (Valtrex) (units (unkn own) date) unknown) (unknown) (no (unknown) (unknown) 08/04/20 39 15 6 (units (unknown) date) lb 13 oz Female unknown) vaginal live - full term (unknown) (no (unknown) (unknown) 03/06/22 (units (unkno wn) date) 03/06/22 03/06/22 unknown) (unknown) (no (unknown) (unknown) 03/06/22 22:50 (units (unknown) date) unknown) (unknown) (no (unknown) (unknown) 04/01/22 (units (unkno wn) date) Ultrasound #2 36w unknown) 3d (unknown) (no (unknown) (unknown) 17:31 (units (unkno wn) date) unknown) (unknown) (no (unknown) (unknown) 22:50 22:50 (units (un known) date) 22:50 unknown) (unknown) (no (unknown) (unknown) 364 (units (unkno wn) date) unknown) (unknown) (no (unknown) (unknown) :31 (units (unkno wn) date) unknown) (unknown) (no (unknown) (unknown) Age/Sex: 27 / F (units (unknown) date) unknown) (unknown) (no (unknown) (unknown) Allergies (units (unkn own) date) unknown) (unknown) (no (unknown) (unknown) Allergy/AdvReac (units (unknown) date) Type Severity unknown) Reaction Status Date / Time (unknown) (no (unknown) (unknown) Anemia (-2010) (units (unknown) date) unknown) (unknown) (no (unknown) (unknown) Anesthesia (units (unk nown) date) unknown) (unknown) (no (unknown) (unknown) Antibiotics) (units (u nknown) date) unknown) (unknown) (no (unknown) (unknown) Antibody (units (unkno wn) date) Identification unknown) Anti-D (unknown) (no (unknown) (unknown) Antibody Screen (units (unknown) date) Positive 03/06/22 unknown) 22:50 (unknown) (no (unknown) (unknown) Antibody Screen (units (unknown) date) Positive unknown) (unknown) (no (unknown) (unknown) Asthma (units (unkno wn) date) unknown) (unknown) (no (unknown) (unknown) Autoimmune (units (unk nown) date) vasculitis unknown) (unknown) (no (unknown) (unknown) Baso # (Auto) 0 (units (unknown) date) unknown) (unknown) (no (unknown) (unknown) Baso % (Auto) (units ( unknown) date) 0.4 unknown) (unknown) (no (unknown) (unknown) Blood Type A (units (u nknown) date) Negative 03/06/22 unknown) 22:50 (unknown) (no (unknown) (unknown) Blood Type A (units (u nknown) date) Negative unknown) (unknown) (no (unknown) (unknown) Breastfeed Preg (units (unknown) date) Comp Name unknown) (unknown) (no (unknown) (unknown) Chief complaint: (units (unknown) date) observation of unknown) labor (unknown) (no (unknown) (unknown) Consistency: (units (u nknown) date) soft unknown) (unknown) (no (unknown) (unknown) Current Estimate (units (unknown) date) 03/28/22 unknown) Ultrasound #1 37w 0d (unknown) (no (unknown) (unknown) : 1995 (units (unknown) date) Acct:[id number] unknown) (unknown) (no (unknown) (unknown) Date Patient (units (u nknown) date) Seen: 03/07/22 unknown) (unknown) (no (unknown) (unknown) Date of Service: (units (unknown) date) 03/06/22 unknown) (unknown) (no (unknown) (unknown) Date of (units (unkno wn) date) admission: unknown) 03/06/22 (unknown) (no (unknown) (unknown) Date/Time (units (unkn own) date) unknown) (unknown) (no (unknown) (unknown) Del. Date (units (unkn own) date) GA/Weeks Labor unknown) Lgth Wt Sex Route Outcome Anesthesia Place (unknown) (no (unknown) (unknown) Delivery Date: (units (unknown) date) 08/04/20 Last unknown) Updated by: Courtney Hanson R.N. (unknown) (no (unknown) (unknown) Delv (units (unkno wn) date) unknown) (unknown) (no (unknown) (unknown) Diabetes (units (unkno wn) date) mellitus unknown) (unknown) (no (unknown) (unknown) Dilation (cm): 6 (units (unknown) date) unknown) (unknown) (no (unknown) (unknown) BRET Calculator (units (unknown) date) unknown) (unknown) (no (unknown) (unknown) Effacement (%): (units (unknown) date) 85 unknown) (unknown) (no (unknown) (unknown) Emphysema lung (units (unknown) date) unknown) (unknown) (no (unknown) (unknown) Eos # (Auto) 0 (units (unknown) date) unknown) (unknown) (no (unknown) (unknown) Eos % (Auto) 0.2 (units (unknown) date) L unknown) (unknown) (no (unknown) (unknown) Estimated (units (unkn own) date) Delivery Date unknown) Method Current (unknown) (no (unknown) (unknown) Evaluation (units (unk nown) date) unknown) (unknown) (no (unknown) (unknown) Family History (units (unknown) date) (Reviewed unknown) 03/03/22 @ 07:06 by Isabel Abarca DO) (unknown) (no (unknown) (unknown) Father TBI (units (unk nown) date) (traumatic brain unknown) injury) (unknown) (no (unknown) (unknown) station: 0 (units (unknown) date) unknown) (unknown) (no (unknown) (unknown) GERD (units (unkno wn) date) (gastroesophageal unknown) reflux disease) (-2017) (unknown) (no (unknown) (unknown) Grandfather (units (un known) date) Asthma unknown) (unknown) (no (unknown) (unknown) Grandfather (units (un known) date) Heart unknown) disease (unknown) (no (unknown) (unknown) Grandmother (units (un known) date) Bladder cancer unknown) (unknown) (no (unknown) (unknown) Grandmother (units (un known) date) unknown) Hypertension (unknown) (no (unknown) (unknown) Group B (units (unkno wn) date) Streptococcus unknown) (PCR) Neg for grp b strep 03/02/22 17:12 (unknown) (no (unknown) (unknown) H/O gastric (units (un known) date) sleeve () unknown) (unknown) (no (unknown) (unknown) 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) (unknown) (no (unknown) (unknown) Hct 31.0 L (units (unk nown) date) unknown) (unknown) (no (unknown) (unknown) Heart disease (units ( unknown) date) unknown) (unknown) (no (unknown) (unknown) Heavy menstrual (units (unknown) date) period (-2009) unknown) (unknown) (no (unknown) (unknown) Hematocrit 31.0 (units (unknown) date) % (36-46) L unknown) 03/06/22 22:50 (unknown) (no (unknown) (unknown) Hemoglobin 10.4 (units (unknown) date) g/dL (12.0-16.0) unknown) L 03/06/22 22:50 (unknown) (no (unknown) (unknown) Hepatitis B (units (un known) date) Surface Antigen unknown) Negative s/c (NEGATIVE) 11/11/21 17 (unknown) (no (unknown) (unknown) Hepatitis C (units (un known) date) Antibody Negative unknown) s/c (NEGATIVE) 11/11/21 17:31 (unknown) (no (unknown) (unknown) Hgb 10.4 L (units (unk nown) date) unknown) (unknown) (no (unknown) (unknown) History of (units (unk nown) date) Present Condition unknown) (unknown) (no (unknown) (unknown) History of (units (unk nown) date) repair of hiatal unknown) hernia (-06/2019) (unknown) (no (unknown) (unknown) Home Medications (units (unknown) date) and Allergies unknown) (unknown) (no (unknown) (unknown) Home Medications (units (unknown) date) unknown) (unknown) (no (unknown) (unknown) Hyperlipidemia (units (unknown) date) unknown) (unknown) (no (unknown) (unknown) Hypertension (units (u nknown) date) unknown) (unknown) (no (unknown) (unknown) [facility] (units (unknown) date) [address] [place] [address] Street unknown) [place] [address] (unknown) (no (unknown) (unknown) Laboratory (units (unk nown) date) Results - last 24 unknown) hr (unknown) (no (unknown) (unknown) Labs (units (unkno wn) date) unknown) (unknown) (no (unknown) (unknown) Labs: (units (unkno wn) date) unknown) (unknown) (no (unknown) (unknown) Last OB Lab (units (un known) date) Results: unknown) (unknown) (no (unknown) (unknown) Lung cancer (units (un known) date) unknown) (unknown) (no (unknown) (unknown) Lymph # (Auto) (units (unknown) date) 1600 unknown) (unknown) (no (unknown) (unknown) Lymph % (Auto) (units (unknown) date) 34.7 unknown) (unknown) (no (unknown) (unknown) MCH 30.6 (units (unkno wn) date) unknown) (unknown) (no (unknown) (unknown) MCHC 33.7 (units (unkn own) date) unknown) (unknown) (no (unknown) (unknown) MCV 90.6 (units (unkno wn) date) unknown) (unknown) (no (unknown) (unknown) Medical History (units (unknown) date) (Reviewed unknown) 03/03/22 @ 07:06 by Isabel Abarca DO) (unknown) (no (unknown) (unknown) Medication (units (unk nown) date) Instructions unknown) Recorded Confirmed Type (unknown) (no (unknown) (unknown) Meds (units (unkno wn) date) unknown) (unknown) (no (unknown) (unknown) Scurry # (Auto) (units ( unknown) date) 400 unknown) (unknown) (no (unknown) (unknown) Scurry % (Auto) (units ( unknown) date) 9.8 unknown) (unknown) (no (unknown) (unknown) Mother (units (unkno wn) date) Gestational unknown) diabetes (unknown) (no (unknown) (unknown) Myocardial (units (unk nown) date) infarction unknown) (unknown) (no (unknown) (unknown) Neut # (Auto) (units ( unknown) date) 2500 unknown) (unknown) (no (unknown) (unknown) Neut % (Auto) (units ( unknown) date) 54.9 unknown) (unknown) (no (unknown) (unknown) OB HPI (units (unkno wn) date) unknown) (unknown) (no (unknown) (unknown) 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 + (units (unknown) date) Physical unknown) (unknown) (no (unknown) (unknown) Objective (units (unkn own) date) unknown) (unknown) (no (unknown) (unknown) Other Estimates (units (unknown) date) 03/31/22 LMP unknown) (Certain) 36w 4d (unknown) (no (unknown) (unknown) PFSH (units (unkno wn) date) unknown) (unknown) (no (unknown) (unknown) Painful (units (unkno wn) date) menstrual periods unknown) (-2009) (unknown) (no (unknown) (unknown) Past Pregnancies (units (unknown) date) unknown) (unknown) (no (unknown) (unknown) Patient: (units (unkno wn) date) Suzi Diaz MR#: unknown) [id number] (unknown) (no (unknown) (unknown) Plt Count 124 L (units (unknown) date) unknown) (unknown) (no (unknown) (unknown) Position of (units (un known) date) cervix: anterior unknown) (unknown) (no (unknown) (unknown) (units (unk nown) date) depression unknown) (unknown) (no (unknown) (unknown) Pre-diabetes (units (u nknown) date) unknown) (unknown) (no (unknown) (unknown) Preadmission (units (u nknown) date) Labs unknown) (unknown) (no (unknown) (unknown) Prior (units (unkno wn) date) (ies) unknown) (unknown) (no (unknown) (unknown) Provider: (units (unkn own) date) Destinee Colin unknown) (unknown) (no (unknown) (unknown) RBC 3.42 L (units (unk nown) date) unknown) (unknown) (no (unknown) (unknown) RDW 16.8 H (units (unk nown) date) unknown) (unknown) (no (unknown) (unknown) Result Diagrams: (units (unknown) date) unknown) (unknown) (no (unknown) (unknown) Rubella Antibody (units (unknown) date) 9.7 IU/mL (>15) L unknown) 11/11/21 17:31 (unknown) (no (unknown) (unknown) SARS-CoV-2 (PCR) (units (unknown) date) Negative unknown) (unknown) (no (unknown) (unknown) Signed By: (units (unk nown) date) unknown) (unknown) (no (unknown) (unknown) Sister Asthma (units ( unknown) date) unknown) (unknown) (no (unknown) (unknown) Smoking Status: (units (unknown) date) Never smoker unknown) (unknown) (no (unknown) (unknown) Social History (units (unknown) date) (Reviewed unknown) 03/03/22 @ 07:06 by Isabel Abarca DO) (unknown) (no (unknown) (unknown) Sulfa (units (unkno wn) date) (Sulfonamide unknown) AdvReac Mild Rash Verified 02/17/22 16:11 (unknown) (no (unknown) (unknown) Surgical History (units (unknown) date) (Reviewed unknown) 03/03/22 @ 07:06 by Isabel Abarca DO) (unknown) (no (unknown) (unknown) Time Patient (units (u nknown) date) Seen: 10:31 unknown) (unknown) (no (unknown) (unknown) Two vessel (units (unk nown) date) umbilical cord in unknown) gates , antepartum (unknown) (no (unknown) (unknown) Type(s) of (units (unk nown) date) exercise: walking unknown) (unknown) (no (unknown) (unknown) Varicella-Zoster (units (unknown) date) IgG Antibody 544 unknown) index (Immune >165) 11/11/21 (unknown) (no (unknown) (unknown) WBC 4.6 (units (unkno wn) date) unknown) (unknown) (no (unknown) (unknown) WG (units (unkno wn) date) unknown) (unknown) (no (unknown) (unknown) [facility] month (units (un known) date) unknown) (unknown) (no (unknown) (unknown) [place] teeth (units (u nknown) date) extracted unknown) (-10/2017) (unknown) (no (unknown) (unknown) [Embedded Image (units (unknown) date) Not Available] unknown) (unknown) (no (unknown) (unknown) alcohol intake: (units (unknown) date) former unknown) (unknown) (no (unknown) (unknown) caffeine: Yes (units ( unknown) date) unknown) (unknown) (no (unknown) (unknown) carbon monox (units (u nknown) date) detector in home: unknown) Yes (unknown) (no (unknown) (unknown) current (units (unkno wn) date) occupational unknown) exposures/hazards : No (unknown) (no (unknown) (unknown) daily servings (units (unknown) date) fruits/ve-4 unknown) (unknown) (no (unknown) (unknown) do you feel safe (units (unknown) date) at home: Yes unknown) (unknown) (no (unknown) (unknown) during the past (units (unknown) date) year weight has: unknown) remained stable (unknown) (no (unknown) (unknown) education level: (units (unknown) date) vocational unknown) (unknown) (no (unknown) (unknown) octavio/confucianism: (units (unknown) date) Mandaen unknown) (unknown) (no (unknown) (unknown) fire (units (unkno wn) date) extinguisher in unknown) home: Yes (unknown) (no (unknown) (unknown) firearms in (units (un known) date) home: No unknown) (unknown) (no (unknown) (unknown) frequency: 3-4 (units (unknown) date) times per week unknown) (unknown) (no (unknown) (unknown) household (units (unkn own) date) members: spouse unknown) and children (unknown) (no (unknown) (unknown) housing: (units (unkno wn) date) [facility] ([facility]) (no (unknown) (unknown) lives (units (unkno wn) date) independently: unknown) Yes (unknown) (no (unknown) (unknown) marital status: (units (unknown) date) unknown) (unknown) (no (unknown) (unknown) number of (units (unkn own) date) children: 1 unknown) (unknown) (no (unknown) (unknown) occupational (units (u nknown) date) status: employed unknown) (Works from home ) (unknown) (no (unknown) (unknown) ondansetron 4 mg (units (unknown) date) disintegrating 4 unknown) mg PO Q6H PRN nausea and 09/27/21 03/07/22 Rx (unknown) (no (unknown) (unknown) other (units (unkno wn) date) unknown) (unknown) (no (unknown) (unknown) pets and (units (unkno wn) date) animals: No unknown) (unknown) (no (unknown) (unknown) prenat.vits,charles, (units (unknown) date) [id number] 1 unknown) tab PO DAILY 08/23/21 03/07/22 History (unknown) (no (unknown) (unknown) labor (units ( unknown) date) Denisa unknown) (unknown) (no (unknown) (unknown) seatbelt use: (units ( unknown) date) always unknown) (unknown) (no (unknown) (unknown) second hand (units (un known) date) exposure: Yes unknown) ( smokes, mostly outside) (unknown) (no (unknown) (unknown) special octavio (units ( unknown) date) needs: No unknown) (unknown) (no (unknown) (unknown) substance use (units ( unknown) date) type: does not unknown) use (unknown) (no (unknown) (unknown) tablet vomiting (units (unknown) date) #20 tabs unknown) (unknown) (no (unknown) (unknown) two vessel cord (units (unknown) date) unknown) (unknown) (no (unknown) (unknown) valacyclovir 500 (units (unknown) date) mg tablet 500 mg unknown) PO DAILY #21 tabs 02/17/22 03/07/22 Rx (unknown) (no (unknown) (unknown) water heater (units (u nknown) date) temp set < 120 unknown) deg: Yes (unknown) (no (unknown) (unknown) well-balanced (units ( unknown) date) diet: daily or unknown) most days (unknown) (no (unknown) (unknown) working smoke (units ( unknown) date) detector in home: unknown) Yes Result panel 149 (unknown) (no (unknown) (unknown) (no value) (units (unk nown) date) unknown) (unknown) (no (unknown) (unknown) (Valtrex) (units (unkn own) date) unknown) (unknown) (no (unknown) (unknown) -: Chlamydia (units (u nknown) date) screen: negative, unknown) Gonorrhea screen: negative and Urine: negative (unknown) (no (unknown) (unknown) -: PAP smear: (units ( unknown) date) Normal unknown) (unknown) (no (unknown) (unknown) -: Urine: (units (unkn own) date) negative unknown) (unknown) (no (unknown) (unknown) 08/04/20 39 15 6 (units (unknown) date) lb 13 oz Female unknown) vaginal live - full term (unknown) (no (unknown) (unknown) 03/06/22 (units (unkno wn) date) 03/06/22 03/06/22 unknown) (unknown) (no (unknown) (unknown) 03/06/22 22:50 (units (unknown) date) unknown) (unknown) (no (unknown) (unknown) 04/01/22 (units (unkno wn) date) Ultrasound #2 36w unknown) 3d (unknown) (no (unknown) (unknown) 17:31 (units (unkno wn) date) unknown) (unknown) (no (unknown) (unknown) 22:50 22:50 (units (un known) date) 22:50 unknown) (unknown) (no (unknown) (unknown) 364 (units (unkno wn) date) unknown) (unknown) (no (unknown) (unknown) :31 (units (unkno wn) date) unknown) (unknown) (no (unknown) (unknown) Age/Sex: 27 / F (units (unknown) date) unknown) (unknown) (no (unknown) (unknown) Allergies (units (unkn own) date) unknown) (unknown) (no (unknown) (unknown) Allergy/AdvReac (units (unknown) date) Type Severity unknown) Reaction Status Date / Time (unknown) (no (unknown) (unknown) Anemia (-2009) (units (unknown) date) unknown) (unknown) (no (unknown) (unknown) Anesthesia (units (unk nown) date) unknown) (unknown) (no (unknown) (unknown) Antibiotics) (units (u nknown) date) unknown) (unknown) (no (unknown) (unknown) Antibody (units (unkno wn) date) Identification unknown) Anti-D (unknown) (no (unknown) (unknown) Antibody Screen (units (unknown) date) Positive 03/06/22 unknown) 22:50 (unknown) (no (unknown) (unknown) Antibody Screen (units (unknown) date) Positive unknown) (unknown) (no (unknown) (unknown) Asthma (units (unkno wn) date) unknown) (unknown) (no (unknown) (unknown) Autoimmune (units (unk nown) date) vasculitis unknown) (unknown) (no (unknown) (unknown) Baso # (Auto) 0 (units (unknown) date) unknown) (unknown) (no (unknown) (unknown) Baso % (Auto) (units ( unknown) date) 0.4 unknown) (unknown) (no (unknown) (unknown) Blood Type A (units (u nknown) date) Negative 03/06/22 unknown) 22:50 (unknown) (no (unknown) (unknown) Blood Type A (units (u nknown) date) Negative unknown) (unknown) (no (unknown) (unknown) Breastfeed Preg (units (unknown) date) Comp Name unknown) (unknown) (no (unknown) (unknown) Chief complaint: (units (unknown) date) observation of unknown) labor (unknown) (no (unknown) (unknown) Consistency: (units (u nknown) date) soft unknown) (unknown) (no (unknown) (unknown) Current Estimate (units (unknown) date) 03/28/22 unknown) Ultrasound #1 37w 0d (unknown) (no (unknown) (unknown) : 1995 (units (unknown) date) Acct:[id number] unknown) (unknown) (no (unknown) (unknown) Date Patient (units (u nknown) date) Seen: 03/07/22 unknown) (unknown) (no (unknown) (unknown) Date of Service: (units (unknown) date) 03/06/22 unknown) (unknown) (no (unknown) (unknown) Date of (units (unkno wn) date) admission: unknown) 03/06/22 (unknown) (no (unknown) (unknown) Date/Time (units (unkn own) date) unknown) (unknown) (no (unknown) (unknown) Dating criteria (units (unknown) date) OB: LMP confirmed unknown) by 1st trimester US (unknown) (no (unknown) (unknown) Del. Date (units (unkn own) date) GA/Weeks Labor unknown) Lgth Wt Sex Route Outcome Anesthesia Place (unknown) (no (unknown) (unknown) Delivery Date: (units (unknown) date) 08/04/20 Last unknown) Updated by: Courtney Hanson R.N. (unknown) (no (unknown) (unknown) Delv (units (unkno wn) date) unknown) (unknown) (no (unknown) (unknown) Diabetes (units (unkno wn) date) mellitus unknown) (unknown) (no (unknown) (unknown) Dilation (cm): 6 (units (unknown) date) unknown) (unknown) (no (unknown) (unknown) BRET Calculator (units (unknown) date) unknown) (unknown) (no (unknown) (unknown) Effacement (%): (units (unknown) date) 85 unknown) (unknown) (no (unknown) (unknown) Emphysema lung (units (unknown) date) unknown) (unknown) (no (unknown) (unknown) Eos # (Auto) 0 (units (unknown) date) unknown) (unknown) (no (unknown) (unknown) Eos % (Auto) 0.2 (units (unknown) date) L unknown) (unknown) (no (unknown) (unknown) Estimated (units (unkn own) date) Delivery Date unknown) Method Current (unknown) (no (unknown) (unknown) Evaluation (units (unk nown) date) unknown) (unknown) (no (unknown) (unknown) External Labs (units ( unknown) date) unknown) (unknown) (no (unknown) (unknown) Family History (units (unknown) date) (Reviewed unknown) 03/03/22 @ 07:06 by Isabel Abarca DO) (unknown) (no (unknown) (unknown) Father TBI (units (unk nown) date) (traumatic brain unknown) injury) (unknown) (no (unknown) (unknown) station: 0 (units (unknown) date) unknown) (unknown) (no (unknown) (unknown) GERD (units (unkno wn) date) (gastroesophageal unknown) reflux disease) () (unknown) (no (unknown) (unknown) Grandfather (units (un known) date) Asthma unknown) (unknown) (no (unknown) (unknown) Grandfather (units (un known) date) Heart unknown) disease (unknown) (no (unknown) (unknown) Grandmother (units (un known) date) Bladder cancer unknown) (unknown) (no (unknown) (unknown) Grandmother (units (un known) date) unknown) Hypertension (unknown) (no (unknown) (unknown) : 2 (units (unk nown) date) unknown) (unknown) (no (unknown) (unknown) Group B (units (unkno wn) date) Streptococcus unknown) (PCR) Neg for grp b strep 03/02/22 17:12 (unknown) (no (unknown) (unknown) H/O gastric (units (un known) date) sleeve () unknown) (unknown) (no (unknown) (unknown) 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) (unknown) (no (unknown) (unknown) Hct 31.0 L (units (unk nown) date) unknown) (unknown) (no (unknown) (unknown) Heart disease (units ( unknown) date) unknown) (unknown) (no (unknown) (unknown) Heavy menstrual (units (unknown) date) period (-2009) unknown) (unknown) (no (unknown) (unknown) Hematocrit 31.0 (units (unknown) date) % (36-46) L unknown) 03/06/22 22:50 (unknown) (no (unknown) (unknown) Hemoglobin 10.4 (units (unknown) date) g/dL (12.0-16.0) unknown) L 03/06/22 22:50 (unknown) (no (unknown) (unknown) Hepatitis B (units (un known) date) Surface Antigen unknown) Negative s/c (NEGATIVE) 11/11/21 17 (unknown) (no (unknown) (unknown) Hepatitis C (units (un known) date) Antibody Negative unknown) s/c (NEGATIVE) 11/11/21 17:31 (unknown) (no (unknown) (unknown) Hgb 10.4 L (units (unk nown) date) unknown) (unknown) (no (unknown) (unknown) History of (units (unk nown) date) Present Condition unknown) (unknown) (no (unknown) (unknown) History of (units (unk nown) date) repair of hiatal unknown) hernia () (unknown) (no (unknown) (unknown) Home Medications (units (unknown) date) and Allergies unknown) (unknown) (no (unknown) (unknown) Home Medications (units (unknown) date) unknown) (unknown) (no (unknown) (unknown) Hyperlipidemia (units (unknown) date) unknown) (unknown) (no (unknown) (unknown) Hypertension (units (u nknown) date) unknown) (unknown) (no (unknown) (unknown) Indication for (units (unknown) date) induction OB: unknown) intra-uterine growth restriction (unknown) (no (unknown) (unknown) Indications (units (un known) date) unknown) (unknown) (no (unknown) (unknown) [facility] (units (unknown) date) [address] unknown) [place] [address] (unknown) (no (unknown) (unknown) Laboratory (units (unk nown) date) Results - last 24 unknown) hr (unknown) (no (unknown) (unknown) Labs (units (unkno wn) date) unknown) (unknown) (no (unknown) (unknown) Labs: (units (unkno wn) date) unknown) (unknown) (no (unknown) (unknown) Last OB Lab (units (un known) date) Results: unknown) (unknown) (no (unknown) (unknown) Lung cancer (units (un known) date) unknown) (unknown) (no (unknown) (unknown) Lymph # (Auto) (units (unknown) date) 1600 unknown) (unknown) (no (unknown) (unknown) Lymph % (Auto) (units (unknown) date) 34.7 unknown) (unknown) (no (unknown) (unknown) MCH 30.6 (units (unkno wn) date) unknown) (unknown) (no (unknown) (unknown) MCHC 33.7 (units (unkn own) date) unknown) (unknown) (no (unknown) (unknown) MCV 90.6 (units (unkno wn) date) unknown) (unknown) (no (unknown) (unknown) Medical History (units (unknown) date) (Reviewed unknown) 03/03/22 @ 07:06 by Isabel Abarca DO) (unknown) (no (unknown) (unknown) Medical (units (unkno wn) date) complications OB: unknown) none (unknown) (no (unknown) (unknown) Medication (units (unk nown) date) Instructions unknown) Recorded Confirmed Type (unknown) (no (unknown) (unknown) Meds (units (unkno wn) date) unknown) (unknown) (no (unknown) (unknown) Scurry # (Auto) (units ( unknown) date) 400 unknown) (unknown) (no (unknown) (unknown) [place]urry % (Auto) (units ( unknown) date) 9.8 unknown) (unknown) (no (unknown) (unknown) Mother (units (unkno wn) date) Gestational unknown) diabetes (unknown) (no (unknown) (unknown) Myocardial (units (unk nown) date) infarction unknown) (unknown) (no (unknown) (unknown) Neut # (Auto) (units ( unknown) date) 2500 unknown) (unknown) (no (unknown) (unknown) Neut % (Auto) (units ( unknown) date) 54.9 unknown) (unknown) (no (unknown) (unknown) OB HPI (units (unkno wn) date) unknown) (unknown) (no (unknown) (unknown) 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 + (units (unknown) date) Physical unknown) (unknown) (no (unknown) (unknown) Objective (units (unkn own) date) unknown) (unknown) (no (unknown) (unknown) Obstetrical (units (un known) date) complications: unknown) growth restriction (unknown) (no (unknown) (unknown) Other Estimates (units (unknown) date) 03/31/22 LMP unknown) (Certain) 36w 4d (unknown) (no (unknown) (unknown) PFSH (units (unkno wn) date) unknown) (unknown) (no (unknown) (unknown) Painful (units (unkno wn) date) menstrual periods unknown) () (unknown) (no (unknown) (unknown) Para: 1 (units (unkno wn) date) unknown) (unknown) (no (unknown) (unknown) Past Pregnancies (units (unknown) date) unknown) (unknown) (no (unknown) (unknown) Patient: (units (unkno wn) date) Suzi Diaz MR#: unknown) [id number] (unknown) (no (unknown) (unknown) Plt Count 124 L (units (unknown) date) unknown) (unknown) (no (unknown) (unknown) Position of (units (un known) date) cervix: anterior unknown) (unknown) (no (unknown) (unknown) (units (unk nown) date) depression unknown) (unknown) (no (unknown) (unknown) Pre-diabetes (units (u nknown) date) unknown) (unknown) (no (unknown) (unknown) Preadmission (units (u nknown) date) Labs unknown) (unknown) (no (unknown) (unknown) care: (units (unknown) date) good care, unknown) initiated at week # (12), number of visits (7) and (unknown) (no (unknown) (unknown) Prior (units (unkno wn) date) (ies) unknown) (unknown) (no (unknown) (unknown) Provider: (units (unkn own) date) Destinee Colin unknown) (unknown) (no (unknown) (unknown) RBC 3.42 L (units (unk nown) date) unknown) (unknown) (no (unknown) (unknown) RDW 16.8 H (units (unk nown) date) unknown) (unknown) (no (unknown) (unknown) Result Diagrams: (units (unknown) date) unknown) (unknown) (no (unknown) (unknown) Rubella Antibody (units (unknown) date) 9.7 IU/mL (>15) L unknown) 11/11/21 17:31 (unknown) (no (unknown) (unknown) SARS-CoV-2 (PCR) (units (unknown) date) Negative unknown) (unknown) (no (unknown) (unknown) Signed By: (units (unk nown) date) unknown) (unknown) (no (unknown) (unknown) Sister Asthma (units ( unknown) date) unknown) (unknown) (no (unknown) (unknown) Smoking Status: (units (unknown) date) Never smoker unknown) (unknown) (no (unknown) (unknown) Social History (units (unknown) date) (Reviewed unknown) 03/03/22 @ 07:06 by Isabel Abarca DO) (unknown) (no (unknown) (unknown) Sulfa (units (unkno wn) date) (Sulfonamide unknown) AdvReac Mild Rash Verified 02/17/22 16:11 (unknown) (no (unknown) (unknown) Surgical History (units (unknown) date) (Reviewed unknown) 03/03/22 @ 07:06 by Isabel Abarca DO) (unknown) (no (unknown) (unknown) Time Patient (units (u nknown) date) Seen: 10:31 unknown) (unknown) (no (unknown) (unknown) Two vessel (units (unk nown) date) umbilical cord in unknown) gates , antepartum (unknown) (no (unknown) (unknown) Type(s) of (units (unk nown) date) exercise: walking unknown) (unknown) (no (unknown) (unknown) Ultrasounds: (units (u nknown) date) normal 1st unknown) trimester US (unknown) (no (unknown) (unknown) Varicella-Zoster (units (unknown) date) IgG Antibody 544 unknown) index (Immune >165) 11/11/21 (unknown) (no (unknown) (unknown) WBC 4.6 (units (unkno wn) date) unknown) (unknown) (no (unknown) (unknown) WG (units (unkno wn) date) unknown) (unknown) (no (unknown) (unknown) [facility] 1 month (units (un known) date) unknown) (unknown) (no (unknown) (unknown) [place] teeth (units (u nknown) date) extracted unknown) (-10/2017) (unknown) (no (unknown) (unknown) [Embedded Image (units (unknown) date) Not Available] unknown) (unknown) (no (unknown) (unknown) alcohol intake: (units (unknown) date) former unknown) (unknown) (no (unknown) (unknown) caffeine: Yes (units ( unknown) date) unknown) (unknown) (no (unknown) (unknown) carbon monox (units (u nknown) date) detector in home: unknown) Yes (unknown) (no (unknown) (unknown) current (units (unkno wn) date) occupational unknown) exposures/hazards : No (unknown) (no (unknown) (unknown) daily servings (units (unknown) date) fruits/ve-4 unknown) (unknown) (no (unknown) (unknown) do you feel safe (units (unknown) date) at home: Yes unknown) (unknown) (no (unknown) (unknown) during the past (units (unknown) date) year weight has: unknown) remained stable (unknown) (no (unknown) (unknown) education level: (units (unknown) date) vocational unknown) (unknown) (no (unknown) (unknown) octavio/confucianism: (units (unknown) date) Mandaen unknown) (unknown) (no (unknown) (unknown) fire (units (unkno wn) date) extinguisher in unknown) home: Yes (unknown) (no (unknown) (unknown) firearms in (units (un known) date) home: No unknown) (unknown) (no (unknown) (unknown) frequency: 3-4 (units (unknown) date) times per week unknown) (unknown) (no (unknown) (unknown) household (units (unkn own) date) members: spouse unknown) and children (unknown) (no (unknown) (unknown) housing: (units (unkno wn) date) apartment unknown) (townhouse ) (unknown) (no (unknown) (unknown) lives (units (unkno wn) date) independently: unknown) Yes (unknown) (no (unknown) (unknown) marital status: (units (unknown) date) unknown) (unknown) (no (unknown) (unknown) number of (units (unkn own) date) children: 1 unknown) (unknown) (no (unknown) (unknown) occupational (units (u nknown) date) status: employed unknown) (Works from home ) (unknown) (no (unknown) (unknown) ondansetron 4 mg (units (unknown) date) disintegrating unknown) See Rx Instructions .Route 03/07/22 Rx (unknown) (no (unknown) (unknown) other (units (unkno wn) date) unknown) (unknown) (no (unknown) (unknown) pets and (units (unkno wn) date) animals: No unknown) (unknown) (no (unknown) (unknown) pounds weight (units ( unknown) date) gain (6) unknown) (unknown) (no (unknown) (unknown) prenat.vits,charles, (units (unknown) date) [id number] 1 unknown) tab PO DAILY 08/23/21 03/07/22 History (unknown) (no (unknown) (unknown) labor (units ( unknown) date) Denisa unknown) (unknown) (no (unknown) (unknown) seatbelt use: (units ( unknown) date) always unknown) (unknown) (no (unknown) (unknown) second hand (units (un known) date) exposure: Yes unknown) ( smokes, mostly outside) (unknown) (no (unknown) (unknown) special octavio (units ( unknown) date) needs: No unknown) (unknown) (no (unknown) (unknown) substance use (units ( unknown) date) type: does not unknown) use (unknown) (no (unknown) (unknown) tablet .COMPLEX (units (unknown) date) #20 tabs unknown) (unknown) (no (unknown) (unknown) two vessel cord (units (unknown) date) unknown) (unknown) (no (unknown) (unknown) valacyclovir 500 (units (unknown) date) mg tablet 500 mg unknown) PO DAILY #21 tabs 02/17/22 03/07/22 Rx (unknown) (no (unknown) (unknown) water heater (units (u nknown) date) temp set < 120 unknown) deg: Yes (unknown) (no (unknown) (unknown) well-balanced (units ( unknown) date) diet: daily or unknown) most days (unknown) (no (unknown) (unknown) working smoke (units ( unknown) date) detector in home: unknown) Yes Result panel 150 (unknown) (no (unknown) (unknown) (no value) (units (unk nown) date) unknown) (unknown) (no (unknown) (unknown) (Valtrex) (units (unkn own) date) unknown) (unknown) (no (unknown) (unknown) -: Chlamydia (units (u nknown) date) screen: negative, unknown) Gonorrhea screen: negative and Urine: negative (unknown) (no (unknown) (unknown) -: PAP smear: (units ( unknown) date) Normal unknown) (unknown) (no (unknown) (unknown) -: Urine: (units (unkn own) date) negative unknown) (unknown) (no (unknown) (unknown) 08/04/20 39 15 6 (units (unknown) date) lb 13 oz Female unknown) vaginal live - full term (unknown) (no (unknown) (unknown) 03/06/22 (units (unkno wn) date) 03/06/22 03/06/22 unknown) (unknown) (no (unknown) (unknown) 03/06/22 22:50 (units (unknown) date) unknown) (unknown) (no (unknown) (unknown) 03/07/22 1744 (units ( unknown) date) unknown) (unknown) (no (unknown) (unknown) 04/01/22 (units (unkno wn) date) Ultrasound #2 36w unknown) 3d (unknown) (no (unknown) (unknown) 17:31 (units (unkno wn) date) unknown) (unknown) (no (unknown) (unknown) 22:50 22:50 (units (un known) date) 22:50 unknown) (unknown) (no (unknown) (unknown) 27-year-old (units (unk nown) date) 2 para 1 unknown) at 37 weeks gestation with growth restriction (unknown) (no (unknown) (unknown) 364 (units (unkno wn) date) unknown) (unknown) (no (unknown) (unknown) :31 (units (unkno wn) date) unknown) (unknown) (no (unknown) (unknown) AROM with clear (units (unknown) date) amniotic fluid unknown) (unknown) (no (unknown) (unknown) Age/Sex: 27 / F (units (unknown) date) unknown) (unknown) (no (unknown) (unknown) Allergies (units (unkn own) date) unknown) (unknown) (no (unknown) (unknown) Allergy/AdvReac (units (unknown) date) Type Severity unknown) Reaction Status Date / Time (unknown) (no (unknown) (unknown) Anemia (-2009) (units (unknown) date) unknown) (unknown) (no (unknown) (unknown) Anesthesia (units (unk nown) date) unknown) (unknown) (no (unknown) (unknown) Antibiotics) (units (u nknown) date) unknown) (unknown) (no (unknown) (unknown) Antibody (units (unkno wn) date) Identification unknown) Anti-D (unknown) (no (unknown) (unknown) Antibody Screen (units (unknown) date) Positive 03/06/22 unknown) 22:50 (unknown) (no (unknown) (unknown) Antibody Screen (units (unknown) date) Positive unknown) (unknown) (no (unknown) (unknown) Assessment and (units (unknown) date) Plan narrative: unknown) (unknown) (no (unknown) (unknown) Assessment and (units (unknown) date) Plan unknown) (unknown) (no (unknown) (unknown) Assessment: (units (un known) date) unknown) (unknown) (no (unknown) (unknown) Asthma (units (unkno wn) date) unknown) (unknown) (no (unknown) (unknown) Autoimmune (units (unk nown) date) vasculitis unknown) (unknown) (no (unknown) (unknown) Baseline (units (unknown) date) heart rate: 135 unknown) (unknown) (no (unknown) (unknown) Baso # (Auto) 0 (units (unknown) date) unknown) (unknown) (no (unknown) (unknown) Baso % (Auto) (units ( unknown) date) 0.4 unknown) (unknown) (no (unknown) (unknown) Blood Type A (units (u nknown) date) Negative 03/06/22 unknown) 22:50 (unknown) (no (unknown) (unknown) Blood Type A (units (u nknown) date) Negative unknown) (unknown) (no (unknown) (unknown) Breastfeed Preg (units (unknown) date) Comp Name unknown) (unknown) (no (unknown) (unknown) Chief complaint: (units (unknown) date) observation of unknown) labor (unknown) (no (unknown) (unknown) Consistency: (units (u nknown) date) soft unknown) (unknown) (no (unknown) (unknown) Current Estimate (units (unknown) date) 03/28/22 unknown) Ultrasound #1 37w 0d (unknown) (no (unknown) (unknown) : 1995 (units (unknown) date) Acct:[id number] unknown) (unknown) (no (unknown) (unknown) Date Patient (units (u nknown) date) Seen: 03/07/22 unknown) (unknown) (no (unknown) (unknown) Date of Service: (units (unknown) date) 03/06/22 unknown) (unknown) (no (unknown) (unknown) Date of (units (unkno wn) date) admission: unknown) 03/06/22 (unknown) (no (unknown) (unknown) Date/Time (units (unkn own) date) unknown) (unknown) (no (unknown) (unknown) Dating criteria (units (unknown) date) OB: LMP confirmed unknown) by 1st trimester US (unknown) (no (unknown) (unknown) Del. Date (units (unkn own) date) GA/Weeks Labor unknown) Lgth Wt Sex Route Outcome Anesthesia Place (unknown) (no (unknown) (unknown) Delivery Date: (units (unknown) date) 08/04/20 Last unknown) Updated by: Courtney Hanson R.N. (unknown) (no (unknown) (unknown) Delv (units (unkno wn) date) unknown) (unknown) (no (unknown) (unknown) Diabetes (units (unkno wn) date) mellitus unknown) (unknown) (no (unknown) (unknown) Dilation (cm): 6 (units (unknown) date) unknown) (unknown) (no (unknown) (unknown) BRET Calculator (units (unknown) date) unknown) (unknown) (no (unknown) (unknown) Effacement (%): (units (unknown) date) 85 unknown) (unknown) (no (unknown) (unknown) Emphysema lung (units (unknown) date) unknown) (unknown) (no (unknown) (unknown) Eos # (Auto) 0 (units (unknown) date) unknown) (unknown) (no (unknown) (unknown) Eos % (Auto) 0.2 (units (unknown) date) L unknown) (unknown) (no (unknown) (unknown) Epidural as (units (un known) date) necessary unknown) (unknown) (no (unknown) (unknown) Estimated (units (unkn own) date) Delivery Date unknown) Method Current (unknown) (no (unknown) (unknown) Estimated (units (unkn own) date) Gestational Age unknown) (weeks): 37 (unknown) (no (unknown) (unknown) Estimated (units (unknown) date) weight: 5 1/2 lbs unknown) (unknown) (no (unknown) (unknown) Evaluation (units (unk nown) date) unknown) (unknown) (no (unknown) (unknown) Exam Narrative: (units (unknown) date) unknown) (unknown) (no (unknown) (unknown) Expected (units (unkno wn) date) management to unknown) spontaneous vaginal delivery (unknown) (no (unknown) (unknown) External Labs (units ( unknown) date) unknown) (unknown) (no (unknown) (unknown) Extremities: (units (u nknown) date) Trace edema unknown) (unknown) (no (unknown) (unknown) Family History (units (unknown) date) (Reviewed unknown) 03/03/22 @ 07:06 by Isabel Abarca DO) (unknown) (no (unknown) (unknown) Father TBI (units (unk nown) date) (traumatic brain unknown) injury) (unknown) (no (unknown) (unknown) Monitor (units ( unknown) date) Decelerations: unknown) Absent (unknown) (no (unknown) (unknown) monitor (units ( unknown) date) accelerations: unknown) Present (unknown) (no (unknown) (unknown) station: 0 (units (unknown) date) unknown) (unknown) (no (unknown) (unknown) Fundal height: (units (unknown) date) 36 cm unknown) (unknown) (no (unknown) (unknown) GERD (units (unkno wn) date) (gastroesophageal unknown) reflux disease) () (unknown) (no (unknown) (unknown) Generally: (units (unk nown) date) Patient sitting unknown) up in bed, no acute distress (unknown) (no (unknown) (unknown) Genetic Screens: (units (unknown) date) Quad screen: unknown) Normal (unknown) (no (unknown) (unknown) Grandfather (units (un known) date) Asthma unknown) (unknown) (no (unknown) (unknown) Grandfather (units (un known) date) Heart unknown) disease (unknown) (no (unknown) (unknown) Grandmother (units (un known) date) Bladder cancer unknown) (unknown) (no (unknown) (unknown) Grandmother (units (un known) date) unknown) Hypertension (unknown) (no (unknown) (unknown) : 2 (units (unk nown) date) unknown) (unknown) (no (unknown) (unknown) Group B (units (unkno wn) date) Streptococcus unknown) (PCR) Neg for grp b strep 03/02/22 17:12 (unknown) (no (unknown) (unknown) H/O gastric (units (un known) date) sleeve () unknown) (unknown) (no (unknown) (unknown) 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) (unknown) (no (unknown) (unknown) Hct 31.0 L (units (unk nown) date) unknown) (unknown) (no (unknown) (unknown) Heart disease (units ( unknown) date) unknown) (unknown) (no (unknown) (unknown) Heavy menstrual (units (unknown) date) period (-2010) unknown) (unknown) (no (unknown) (unknown) Hematocrit 31.0 (units (unknown) date) % (36-46) L unknown) 03/06/22 22:50 (unknown) (no (unknown) (unknown) Hemoglobin 10.4 (units (unknown) date) g/dL (12.0-16.0) unknown) L 03/06/22 22:50 (unknown) (no (unknown) (unknown) Hepatitis B (units (un known) date) Surface Antigen unknown) Negative s/c (NEGATIVE) 11/11/21 17 (unknown) (no (unknown) (unknown) Hepatitis C (units (un known) date) Antibody Negative unknown) s/c (NEGATIVE) 11/11/21 17:31 (unknown) (no (unknown) (unknown) Hgb 10.4 L (units (unk nown) date) unknown) (unknown) (no (unknown) (unknown) History of (units (unk nown) date) Present Condition unknown) (unknown) (no (unknown) (unknown) History of (units (unk nown) date) repair of hiatal unknown) hernia () (unknown) (no (unknown) (unknown) Home Medications (units (unknown) date) and Allergies unknown) (unknown) (no (unknown) (unknown) Home Medications (units (unknown) date) unknown) (unknown) (no (unknown) (unknown) Hyperlipidemia (units (unknown) date) unknown) (unknown) (no (unknown) (unknown) Hypertension (units (u nknown) date) unknown) (unknown) (no (unknown) (unknown) Indication for (units (unknown) date) induction OB: unknown) intra-uterine growth restriction (unknown) (no (unknown) (unknown) Indications (units (un known) date) unknown) (unknown) (no (unknown) (unknown) [facility] (units (unknown) date) [address] unknown) [place] [address] (unknown) (no (unknown) (unknown) Laboratory (units (unk nown) date) Results - last 24 unknown) hr (unknown) (no (unknown) (unknown) Labs (units (unkno wn) date) unknown) (unknown) (no (unknown) (unknown) Labs: (units (unkno wn) date) unknown) (unknown) (no (unknown) (unknown) Last OB Lab (units (un known) date) Results: unknown) (unknown) (no (unknown) (unknown) Lung cancer (units (un known) date) unknown) (unknown) (no (unknown) (unknown) Lymph # (Auto) (units (unknown) date) 1600 unknown) (unknown) (no (unknown) (unknown) Lymph % (Auto) (units (unknown) date) 34.7 unknown) (unknown) (no (unknown) (unknown) MCH 30.6 (units (unkno wn) date) unknown) (unknown) (no (unknown) (unknown) MCHC 33.7 (units (unkn own) date) unknown) (unknown) (no (unknown) (unknown) MCV 90.6 (units (unkno wn) date) unknown) (unknown) (no (unknown) (unknown) Medical History (units (unknown) date) (Reviewed unknown) 03/03/22 @ 07:06 by Isabel Abarca DO) (unknown) (no (unknown) (unknown) Medical (units (unkno wn) date) complications OB: unknown) none (unknown) (no (unknown) (unknown) Medication (units (unk nown) date) Instructions unknown) Recorded Confirmed Type (unknown) (no (unknown) (unknown) Meds (units (unkno wn) date) unknown) (unknown) (no (unknown) (unknown) Scurry # (Auto) (units ( unknown) date) 400 unknown) (unknown) (no (unknown) (unknown) Scurry % (Auto) (units ( unknown) date) 9.8 unknown) (unknown) (no (unknown) (unknown) Mother (units (unkno wn) date) Gestational unknown) diabetes (unknown) (no (unknown) (unknown) Myocardial (units (unk nown) date) infarction unknown) (unknown) (no (unknown) (unknown) Narrative (units (unkn own) date) unknown) (unknown) (no (unknown) (unknown) Neut # (Auto) (units ( unknown) date) 2500 unknown) (unknown) (no (unknown) (unknown) Neut % (Auto) (units ( unknown) date) 54.9 unknown) (unknown) (no (unknown) (unknown) OB Exam (units (unkno wn) date) unknown) (unknown) (no (unknown) (unknown) OB HPI (units (unkno wn) date) unknown) (unknown) (no (unknown) (unknown) 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 + (units (unknown) date) Physical unknown) (unknown) (no (unknown) (unknown) Objective (units (unkn own) date) unknown) (unknown) (no (unknown) (unknown) Obstetrical (units (un known) date) complications: unknown) growth restriction (unknown) (no (unknown) (unknown) Other Estimates (units (unknown) date) 03/31/22 LMP unknown) (Certain) 36w 4d (unknown) (no (unknown) (unknown) PFSH (units (unkno wn) date) unknown) (unknown) (no (unknown) (unknown) Painful (units (unkno wn) date) menstrual periods unknown) () (unknown) (no (unknown) (unknown) Para: 1 (units (unkno wn) date) unknown) (unknown) (no (unknown) (unknown) Past Pregnancies (units (unknown) date) unknown) (unknown) (no (unknown) (unknown) Patient: (units (unkno wn) date) Suzi Diaz MR#: unknown) [id number] (unknown) (no (unknown) (unknown) Pitocin per (units (un known) date) protocol 1 unknown) (unknown) (no (unknown) (unknown) Plan: (units (unkno wn) date) unknown) (unknown) (no (unknown) (unknown) Plt Count 124 L (units (unknown) date) unknown) (unknown) (no (unknown) (unknown) Position of (units (un known) date) cervix: anterior unknown) (unknown) (no (unknown) (unknown) (units (unk nown) date) depression unknown) (unknown) (no (unknown) (unknown) Pre-diabetes (units (u nknown) date) unknown) (unknown) (no (unknown) (unknown) Preadmission (units (u nknown) date) Labs unknown) (unknown) (no (unknown) (unknown) care: (units (unknown) date) good care, unknown) initiated at week # (12), number of visits (7) and (unknown) (no (unknown) (unknown) Prior (units (unkno wn) date) (ies) unknown) (unknown) (no (unknown) (unknown) Provider: (units (unkn own) date) Destinee Colin unknown) (unknown) (no (unknown) (unknown) RBC 3.42 L (units (unk nown) date) unknown) (unknown) (no (unknown) (unknown) RDW 16.8 H (units (unk nown) date) unknown) (unknown) (no (unknown) (unknown) Result Diagrams: (units (unknown) date) unknown) (unknown) (no (unknown) (unknown) Rubella Antibody (units (unknown) date) 9.7 IU/mL (>15) L unknown) 11/11/21 17:31 (unknown) (no (unknown) (unknown) SARS-CoV-2 (PCR) (units (unknown) date) Negative unknown) (unknown) (no (unknown) (unknown) Signed (units (unkno wn) date) By:<Electronicall unknown) y signed by Destinee Colin MD> (unknown) (no (unknown) (unknown) Sister Asthma (units ( unknown) date) unknown) (unknown) (no (unknown) (unknown) Smoking Status: (units (unknown) date) Never smoker unknown) (unknown) (no (unknown) (unknown) Social History (units (unknown) date) (Reviewed unknown) 03/03/22 @ 07:06 by Isabel Abarca DO) (unknown) (no (unknown) (unknown) Sulfa (units (unkno wn) date) (Sulfonamide unknown) AdvReac Mild Rash Verified 02/17/22 16:11 (unknown) (no (unknown) (unknown) Surgical History (units (unknown) date) (Reviewed unknown) 03/03/22 @ 07:06 by Isabel Abarca DO) (unknown) (no (unknown) (unknown) Time Patient (units (u nknown) date) Seen: 10:31 unknown) (unknown) (no (unknown) (unknown) Time Spent with (units (unknown) date) Patient unknown) (unknown) (no (unknown) (unknown) Total time spent (units (unknown) date) with greater than unknown) 50% in coordination of care (as documented) (unknown) (no (unknown) (unknown) Two vessel (units (unk nown) date) umbilical cord in unknown) gates , antepartum (unknown) (no (unknown) (unknown) Type(s) of (units (unk nown) date) exercise: walking unknown) (unknown) (no (unknown) (unknown) Ultrasounds: (units (u nknown) date) normal 1st unknown) trimester US (unknown) (no (unknown) (unknown) Variability: (units (u nknown) date) Moderate (11-25) unknown) (unknown) (no (unknown) (unknown) Varicella-Zoster (units (unknown) date) IgG Antibody 544 unknown) index (Immune >165) 11/11/21 (unknown) (no (unknown) (unknown) WBC 4.6 (units (unkno wn) date) unknown) (unknown) (no (unknown) (unknown) WG (units (unkno wn) date) unknown) (unknown) (no (unknown) (unknown) [facility] 1 month (units (un known) date) unknown) (unknown) (no (unknown) (unknown) [place] teeth (units (u nknown) date) extracted unknown) (-10/2017) (unknown) (no (unknown) (unknown) [Embedded Image (units (unknown) date) Not Available] unknown) (unknown) (no (unknown) (unknown) alcohol intake: (units (unknown) date) former unknown) (unknown) (no (unknown) (unknown) at patient's (units (u nknown) date) floor/unit and/or unknown) counseling patient:: 15-24 minutes (unknown) (no (unknown) (unknown) caffeine: Yes (units ( unknown) date) unknown) (unknown) (no (unknown) (unknown) carbon monox (units (u nknown) date) detector in home: unknown) Yes (unknown) (no (unknown) (unknown) current (units (unkno wn) date) occupational unknown) exposures/hazards : No (unknown) (no (unknown) (unknown) daily servings (units (unknown) date) fruits/ve-4 unknown) (unknown) (no (unknown) (unknown) do you feel safe (units (unknown) date) at home: Yes unknown) (unknown) (no (unknown) (unknown) during the past (units (unknown) date) year weight has: unknown) remained stable (unknown) (no (unknown) (unknown) education level: (units (unknown) date) vocational unknown) (unknown) (no (unknown) (unknown) octavio/confucianism: (units (unknown) date) Mandaen unknown) (unknown) (no (unknown) (unknown) fire (units (unkno wn) date) extinguisher in unknown) home: Yes (unknown) (no (unknown) (unknown) firearms in (units (un known) date) home: No unknown) (unknown) (no (unknown) (unknown) frequency: 3-4 (units (unknown) date) times per week unknown) (unknown) (no (unknown) (unknown) household (units (unkn own) date) members: spouse unknown) and children (unknown) (no (unknown) (unknown) housing: (units (unkno wn) date) [facility] ([facility]) (no (unknown) (unknown) lives (units (unkno wn) date) independently: unknown) Yes (unknown) (no (unknown) (unknown) marital status: (units (unknown) date) unknown) (unknown) (no (unknown) (unknown) number of (units (unkn own) date) children: 1 unknown) (unknown) (no (unknown) (unknown) occupational (units (u nknown) date) status: employed unknown) (Works from home ) (unknown) (no (unknown) (unknown) ondansetron 4 mg (units (unknown) date) disintegrating unknown) See Rx Instructions .Route 03/07/22 Rx (unknown) (no (unknown) (unknown) other (units (unkno wn) date) unknown) (unknown) (no (unknown) (unknown) pets and (units (unkno wn) date) animals: No unknown) (unknown) (no (unknown) (unknown) pounds weight (units ( unknown) date) gain (6) unknown) (unknown) (no (unknown) (unknown) prenat.vits,charles, (units (unknown) date) [id number] 1 unknown) tab PO DAILY 08/23/21 03/07/22 History (unknown) (no (unknown) (unknown) labor (units ( unknown) date) Denisa unknown) (unknown) (no (unknown) (unknown) seatbelt use: (units ( unknown) date) always unknown) (unknown) (no (unknown) (unknown) second hand (units (un known) date) exposure: Yes unknown) ( smokes, mostly outside) (unknown) (no (unknown) (unknown) special octavio (units ( unknown) date) needs: No unknown) (unknown) (no (unknown) (unknown) substance use (units ( unknown) date) type: does not unknown) use (unknown) (no (unknown) (unknown) tablet .COMPLEX (units (unknown) date) #20 tabs unknown) (unknown) (no (unknown) (unknown) two vessel cord (units (unknown) date) unknown) (unknown) (no (unknown) (unknown) valacyclovir 500 (units (unknown) date) mg tablet 500 mg unknown) PO DAILY #21 tabs 02/17/22 03/07/22 Rx (unknown) (no (unknown) (unknown) water heater (units (u nknown) date) temp set < 120 unknown) deg: Yes (unknown) (no (unknown) (unknown) well-balanced (units ( unknown) date) diet: daily or unknown) most days (unknown) (no (unknown) (unknown) working smoke (units ( unknown) date) detector in home: unknown) Yes Result panel 151 (unknown) (no (unknown) (unknown) (no value) (units (unk nown) date) unknown) (unknown) (no (unknown) (unknown) 364 (units (unkno wn) date) unknown) (unknown) (no (unknown) (unknown) Age/Sex: 27 / F (units (unknown) date) unknown) (unknown) (no (unknown) (unknown) Anesthesia (units (unk nown) date) Type: Epidural unknown) (unknown) (no (unknown) (unknown) Cervical (units (unkno wn) date) ripening method: unknown) none (unknown) (no (unknown) (unknown) Complications: (units (unknown) date) unknown) (unknown) (no (unknown) (unknown) : 1995 (units (unknown) date) Acct:[id number] unknown) (unknown) (no (unknown) (unknown) Date of (units (unkno wn) date) Service: unknown) 03/06/22 (unknown) (no (unknown) (unknown) Delivery (units (unkno wn) date) augmentation: unknown) rupture of membranes (clear) (unknown) (no (unknown) (unknown) Delivery date: (units (unknown) date) 03/07/22 unknown) (unknown) (no (unknown) (unknown) Delivery (units (unkno wn) date) monitor: unknown) external FHT and external uterine (unknown) (no (unknown) (unknown) Episiotomy (units (unk nown) date) description: unknown) None (unknown) (no (unknown) (unknown) Induction (units (unkn own) date) method: per unknown) pitocin protocol (unknown) (no (unknown) (unknown) [facility] (units (unknown) date) [address] unknown) [place] [address] (unknown) (no (unknown) (unknown) L+D Laceration (units (unknown) date) Description: unknown) None (unknown) (no (unknown) (unknown) Labor + (units (unkno wn) date) Delivery unknown) (unknown) (no (unknown) (unknown) None (units (unkno wn) date) unknown) (unknown) (no (unknown) (unknown) [employer] DESIGNER (units (unkno wn) date) Procedure Note unknown) (unknown) (no (unknown) (unknown) Patient: (units (unkno wn) date) Suzi Diaz MR#: unknown) [id number] (unknown) (no (unknown) (unknown) Plan for (units (unkno wn) date) aftercare: unknown) Routine care (unknown) (no (unknown) (unknown) (units (unk nown) date) unknown) (unknown) (no (unknown) (unknown) (units (unkno wn) date) Events: Labor unknown) Induction and Other ( growth restriction) (unknown) (no (unknown) (unknown) (units (unkno wn) date) unknown) (unknown) (no (unknown) (unknown) Provider: (units (unkn own) date) Destinee Colin unknown) (unknown) (no (unknown) (unknown) Quantitative (units (u nknown) date) Blood Loss: 250 unknown) (unknown) (no (unknown) (unknown) Route of (units (unkno wn) date) delivery: unknown) (unknown) (no (unknown) (unknown) Signed By: (units (unk nown) date) unknown) Result panel 152 (unknown) (no date) (unknown) (unknown) 10.8 g/dl (unkn own) (unknown) (no date) (unknown) (unknown) 31.7 % (unkn own) Result panel 153 (unknown) (no (unknown) (unknown) (no value) (units (unk nown) date) unknown) (unknown) (no (unknown) (unknown) 364 (units (unkno wn) date) unknown) (unknown) (no (unknown) (unknown) Age/Sex: 27 / F (units (unknown) date) unknown) (unknown) (no (unknown) (unknown) Anesthesia (units (unk nown) date) Type: Epidural unknown) (unknown) (no (unknown) (unknown) Cervical (units (unkno wn) date) ripening method: unknown) none (unknown) (no (unknown) (unknown) Complete and (units (u nknown) date) pushed for 3 unknown) minutes. At 2:45 p.m., a live (unknown) (no (unknown) (unknown) Complications: (units (unknown) date) unknown) (unknown) (no (unknown) (unknown) : 1995 (units (unknown) date) Acct:[id number] unknown) (unknown) (no (unknown) (unknown) Date of (units (unkno wn) date) Service: unknown) 03/06/22 (unknown) (no (unknown) (unknown) Delivery (units (unkno wn) date) augmentation: unknown) rupture of membranes (clear) (unknown) (no (unknown) (unknown) Delivery date: (units (unknown) date) 12/06/22 unknown) (unknown) (no (unknown) (unknown) Delivery (units (unkno wn) date) monitor: unknown) external FHT and external uterine (unknown) (no (unknown) (unknown) Episiotomy (units (unk nown) date) description: unknown) None (unknown) (no (unknown) (unknown) Induction (units (unkn own) date) method: per unknown) pitocin protocol (unknown) (no (unknown) (unknown) [facility] (units (unknown) date) [address]) [place] [address] (unknown) (no (unknown) (unknown) L+D Laceration (units (unknown) date) Description: unknown) None (unknown) (no (unknown) (unknown) Labor + (units (unkno wn) date) Delivery unknown) (unknown) (no (unknown) (unknown) Narrative: (units (unk nown) date) unknown) (unknown) (no (unknown) (unknown) None (units (unkno wn) date) unknown) (unknown) (no (unknown) (unknown) [employer] DES[employer] (units (unkno wn) date) Procedure Note unknown) (unknown) (no (unknown) (unknown) Patient: (units (unkno wn) date) Suzi Diaz MR#: unknown) [id number] (unknown) (no (unknown) (unknown) Plan for (units (unkno wn) date) aftercare: unknown) Routine care (unknown) (no (unknown) (unknown) (units (unk nown) date) unknown) (unknown) (no (unknown) (unknown) (units (unkno wn) date) Events: Labor unknown) Induction and Other ( growth restriction) (unknown) (no (unknown) (unknown) (units (unkno wn) date) unknown) (unknown) (no (unknown) (unknown) Provider: (units (unkn own) date) Destinee Colin unknown) (unknown) (no (unknown) (unknown) Quantitative (units (u nknown) date) Blood Loss: 250 unknown) (unknown) (no (unknown) (unknown) Route of (units (unkno wn) date) delivery: unknown) (unknown) (no (unknown) (unknown) Signed By: (units (unk nown) date) unknown) Result panel 154 (unknown) (no (unknown) (unknown) (no value) (units (unk nown) date) unknown) (unknown) (no (unknown) (unknown) 03/23/22 1244 (units ( unknown) date) unknown) (unknown) (no (unknown) (unknown) 1: (units (unkno wn) date) unknown) (unknown) (no (unknown) (unknown) 364 (units (unkno wn) date) unknown) (unknown) (no (unknown) (unknown) score (1 (units (unknown) date) min): 8 unknown) (unknown) (no (unknown) (unknown) score (5 (units (unknown) date) min): 9 unknown) (unknown) (no (unknown) (unknown) Age/Sex: 27 / F (units (unknown) date) unknown) (unknown) (no (unknown) (unknown) Anesthesia Type: (units (unknown) date) Epidural unknown) (unknown) (no (unknown) (unknown) weight: 5 (units (unknown) date) lb 11 oz unknown) (unknown) (no (unknown) (unknown) Cervical (units (unkno wn) date) ripening method: unknown) none (unknown) (no (unknown) (unknown) Complete and (units (u nknown) date) pushed for 3 unknown) minutes. At 2:45 p.m., a live female infant delivered (unknown) (no (unknown) (unknown) Complications: (units (unknown) date) unknown) (unknown) (no (unknown) (unknown) : 1995 (units (unknown) date) Acct:[id number] unknown) (unknown) (no (unknown) (unknown) Date of Service: (units (unknown) date) 03/06/22 unknown) (unknown) (no (unknown) (unknown) Delivery (units (unkno wn) date) augmentation: unknown) rupture of membranes (clear) (unknown) (no (unknown) (unknown) Delivery date: (units (unknown) date) 03/07/22 unknown) (unknown) (no (unknown) (unknown) Delivery (units (unkno wn) date) monitor: external unknown) FHT and external uterine (unknown) (no (unknown) (unknown) Episiotomy (units (unk nown) date) description: None unknown) (unknown) (no (unknown) (unknown) Cord (units (unk nown) date) Vessel unknown) Description: 3 Vessels and Clamped/Cut (After the cord (unknown) (no (unknown) (unknown) (units (unkno wn) date) Presentation: unknown) vertex (unknown) (no (unknown) (unknown) Induction (units (unkn own) date) method: per unknown) pitocin protocol (unknown) (no (unknown) (unknown) gender: (units (unknown) date) Female unknown) (unknown) (no (unknown) (unknown) [facility] (units (unknown) date) [address] unknown) [place] [address] (unknown) (no (unknown) (unknown) L+D Laceration (units (unknown) date) Description: None unknown) (unknown) (no (unknown) (unknown) Labor + Delivery (units (unknown) date) unknown) (unknown) (no (unknown) (unknown) Narrative: (units (unk nown) date) unknown) (unknown) (no (unknown) (unknown) [facility] (units (u nknown) date) unknown) (unknown) (no (unknown) (unknown) None (units (unkno wn) date) unknown) (unknown) (no (unknown) (unknown) [employer] DESIGNER Procedure (units (unknown) date) Note unknown) (unknown) (no (unknown) (unknown) Patient: (units (unkno wn) date) Suzi Diaz MR#: unknown) [id number] (unknown) (no (unknown) (unknown) Placenta (units (unkno wn) date) delivery unknown) description: Spontaneous (unknown) (no (unknown) (unknown) Plan for (units (unkno wn) date) aftercare: unknown) Routine care (unknown) (no (unknown) (unknown) (units (unk nown) date) unknown) (unknown) (no (unknown) (unknown) Events: (units (unknown) date) Labor Induction unknown) and Other ( growth restriction) (unknown) (no (unknown) (unknown) (units (unkno wn) date) unknown) (unknown) (no (unknown) (unknown) Provider: (units (unkn own) date) Destinee Colin unknown) (unknown) (no (unknown) (unknown) Quantitative (units (u nknown) date) Blood Loss: 250 unknown) (unknown) (no (unknown) (unknown) Route of (units (unkno wn) date) delivery: unknown) (unknown) (no (unknown) (unknown) Signed (units (unkno wn) date) By:<Electronicall unknown) y signed by Destinee Colin MD> (unknown) (no (unknown) (unknown) at 1 minute and (units (unknown) date) 9 at 5 minutes. unknown) weight 5 lb 11 oz. Mom and infant stable (unknown) (no (unknown) (unknown) obtained. (units (unkn own) date) Pitocin was given unknown) in the IV fluids. The placenta delivered intact (unknown) (no (unknown) (unknown) precipitously (units ( unknown) date) over an intact unknown) perineum. placed on mom's abdomen. After (unknown) (no (unknown) (unknown) stopped pulsing) (units (unknown) date) unknown) (unknown) (no (unknown) (unknown) the cord stopped (units (unknown) date) pulsing, the cord unknown) was double clamped and cut. Cord bloods were (unknown) (no (unknown) (unknown) to recovery. (units (u nknown) date) unknown) (unknown) (no (unknown) (unknown) with a (units (unkno wn) date) three-vessel cord unknown) at 2:50 p.m.. No lacerations. QBL 250 cc. Apgars 8 Result panel 155 (unknown) (no (unknown) (unknown) (no value) (units (unk nown) date) unknown) (unknown) (no (unknown) (unknown) (-16 oz) 100/68 (units (unknown) date) N unknown) (unknown) (no (unknown) (unknown) (-16 oz) 108/64 (units (unknown) date) N unknown) (unknown) (no (unknown) (unknown) (-5 lb) 100/62 N (units (unknown) date) unknown) (unknown) (no (unknown) (unknown) (-5 lb) 100/68 N (units (unknown) date) unknown) (unknown) (no (unknown) (unknown) (-5 lb) 100/68 (units (unknown) date) unknown) (unknown) (no (unknown) (unknown) (-6 lb) 110/64 N (units (unknown) date) unknown) (unknown) (no (unknown) (unknown) (-6 lb) 110/70 N (units (unknown) date) unknown) (unknown) (no (unknown) (unknown) (EG,TYPE 1 (units (unk nown) date) Diabetes, PKU), unknown) Denies Patient or baby's father had a child with (unknown) (no (unknown) (unknown) Genetic (units (unkn own) date) Screening/Teratol unknown) ogy Counseling - Includes patient, baby's father, or (unknown) (no (unknown) (unknown) -?-?-?-?-?-?-?-? (units (unknown) date) -?-?-?-? unknown) (unknown) (no (unknown) (unknown) 04/18/22 (units (unkno wn) date) unknown) (unknown) (no (unknown) (unknown) 04/18/22] (units (unkn own) date) unknown) (unknown) (no (unknown) (unknown) 08/04/20 39 15 6 (units (unknown) date) lb 13 oz Female unknown) vaginal live - full term (unknown) (no (unknown) (unknown) 09/15/21 (units (unkno wn) date) unknown) (unknown) (no (unknown) (unknown) 10/14/21 (units (unkno wn) date) unknown) (unknown) (no (unknown) (unknown) 11/14/21 (units (unkno wn) date) unknown) (unknown) (no (unknown) (unknown) 09:43 (units (unkno wn) date) unknown) (unknown) (no (unknown) (unknown) 1 wk (units (unkno wn) date) unknown) (unknown) (no (unknown) (unknown) 1+ No no 158 16 (units (unknown) date) N/A absent 4 wks unknown) (unknown) (no (unknown) (unknown) 1+ No no 176 12 (units (unknown) date) N/A absent unknown) long/closed AGA (unknown) (no (unknown) (unknown) 01/06/22 (units (unkno wn) date) unknown) (unknown) (no (unknown) (unknown) 01/20/22 (units (unkno wn) date) unknown) (unknown) (no (unknown) (unknown) 01/27/22 (units (unkno wn) date) unknown) (unknown) (no (unknown) (unknown) 02/17/22 (units (unkno wn) date) unknown) (unknown) (no (unknown) (unknown) 11w5d 4 wks (units (un known) date) unknown) (unknown) (no (unknown) (unknown) 04/01/22 (units (unkno wn) date) Ultrasound #2 42w unknown) 3d (unknown) (no (unknown) (unknown) 12w 2d 179 lb (units ( unknown) date) unknown) (unknown) (no (unknown) (unknown) 16w 3d 174 lb (units ( unknown) date) unknown) (unknown) (no (unknown) (unknown) 20w 6d 179 lb (units ( unknown) date) unknown) (unknown) (no (unknown) (unknown) 28w 3d 175 lb (units ( unknown) date) unknown) (unknown) (no (unknown) (unknown) 30w 3d 175 lb (units ( unknown) date) unknown) (unknown) (no (unknown) (unknown) 31w 3d 175 lb (units ( unknown) date) unknown) (unknown) (no (unknown) (unknown) 34w 3d 174 lb (units ( unknown) date) unknown) (unknown) (no (unknown) (unknown) 364 (units (unkno wn) date) unknown) (unknown) (no (unknown) (unknown) Abnormal lab (units (u nknown) date) values 1st unknown) trimester: discussed (unknown) (no (unknown) (unknown) Add'l Plan (units (unk nown) date) Details unknown) (unknown) (no (unknown) (unknown) Age/Sex: 27 / F (units (unknown) date) Date of Service: unknown) (unknown) (no (unknown) (unknown) Allergies (units (unkn own) date) unknown) (unknown) (no (unknown) (unknown) [place], [place] (units ( unknown) date) [address] unknown) (unknown) (no (unknown) (unknown) Anemia (-2010) (units (unknown) date) unknown) (unknown) (no (unknown) (unknown) Anesthesia (units (unk nown) date) unknown) (unknown) (no (unknown) (unknown) Aneuploidy (units (unk nown) date) Screening unknown) Offered: Accepted (unknown) (no (unknown) (unknown) Anticipated (units (un known) date) course of unknown) care: discussed (unknown) (no (unknown) (unknown) Assessment and (units (unknown) date) Plan unknown) (unknown) (no (unknown) (unknown) Asthma (units (unkno wn) date) unknown) (unknown) (no (unknown) (unknown) Attending Dr: (units ( unknown) date) Destinee Colin unknown) (unknown) (no (unknown) (unknown) Autoimmune (units (unk nown) date) vasculitis unknown) (unknown) (no (unknown) (unknown) BMI 29.8 (units (unkno wn) date) unknown) (unknown) (no (unknown) (unknown) BP 108/70 (units (unkn own) date) unknown) (unknown) (no (unknown) (unknown) (units (unkno wn) date) Plan/Preferences unknown) (unknown) (no (unknown) (unknown) Planning (units (unknown) date) unknown) (unknown) (no (unknown) (unknown) Blood Pressure (units (unknown) date) Location Rt unknown) brachial (unknown) (no (unknown) (unknown) Blood (units (unkno wn) date) transfusions?: unknown) yes (unknown) (no (unknown) (unknown) Breastfeed Preg (units (unknown) date) Comp Name unknown) (unknown) (no (unknown) (unknown) Caffeine use, (units ( unknown) date) Exercise and unknown) activity, work/environmenta l/hazards, Sexual (unknown) (no (unknown) (unknown) [facility] (units (unknown) date) Warning signs unknown) reviewed. F/U 1 wk. kag (unknown) (no (unknown) (unknown) Confirmed (units (unkn own) date) 04/18/22] unknown) (unknown) (no (unknown) (unknown) Covid x 2, boost (units (unknown) date) x1 unknown) (unknown) (no (unknown) (unknown) Current Estimate (units (unknown) date) 03/28/22 unknown) Ultrasound #1 43w 0d (unknown) (no (unknown) (unknown) Current (units (unkno wn) date) History unknown) (unknown) (no (unknown) (unknown) DNA (units (unkno wn) date) unknown) (unknown) (no (unknown) (unknown) : 1995 (units (unknown) date) Acct:[id number] unknown) (unknown) (no (unknown) (unknown) Date of positive (units (unknown) date) home unknown) test: 07/19/21 (unknown) (no (unknown) (unknown) Date (units (unkno wn) date) unknown) (unknown) (no (unknown) (unknown) Del. Date (units (unkn own) date) GA/Weeks Labor unknown) Lgth Wt Sex Route Outcome Anesthesia Place (unknown) (no (unknown) (unknown) Delivery Date: (units (unknown) date) 08/04/20 Last unknown) Updated by: Courtney Hanson R.N. (unknown) (no (unknown) (unknown) Delivery Date: (units (unknown) date) 03/07/22 unknown) (unknown) (no (unknown) (unknown) Delv (units (unkno wn) date) unknown) (unknown) (no (unknown) (unknown) Denies Congenital (units (unknown) date) Heart Defect, unknown) Denies Down Syndrome, Denies Muscular Dystrophy, (unknown) (no (unknown) (unknown) Denies Neural (units ( unknown) date) Tube Defect unknown) (Meningomyelocele , Spina Bifida, or Anencephaly), (unknown) (no (unknown) (unknown) Denies Sickle (units ( unknown) date) Cell Disease or unknown) Trait (), Denies Hemophilia or other blood (unknown) (no (unknown) (unknown) Denies Giancarlo-Sachs (units (unknown) date) (Ashkenazi unknown) Confucianism, [facility], [place]), Denies Sebastian (unknown) (no (unknown) (unknown) Denies other (units (u nknown) date) unknown) (unknown) (no (unknown) (unknown) Denies over the (units (unknown) date) counter unknown) medications, Denies alcohol, Denies illicit drugs and (unknown) (no (unknown) (unknown) Depression: (units (un known) date) discussed unknown) (unknown) (no (unknown) (unknown) Dept at (units (unkno wn) date) . unknown) (unknown) (no (unknown) (unknown) Diabetes (units (unkno wn) date) mellitus unknown) (unknown) (no (unknown) (unknown) Diet and (units (unkno wn) date) Exercise unknown) (unknown) (no (unknown) (unknown) Disease (units (unkno wn) date) (Ashkenazi unknown) Confucianism), Denies Familial Dysautonomia (Ashkenazi Confucianism), (unknown) (no (unknown) (unknown) Documented By: (units (unknown) date) Destinee Colin unknownYe YOUNG 04/18/22 0943 (unknown) (no (unknown) (unknown) Draft (units (unkno wn) date) unknown) (unknown) (no (unknown) (unknown) BRET Calculator (units (unknown) date) unknown) (unknown) (no (unknown) (unknown) EGA Weight BP (units ( unknown) date) UGlucose unknown) (unknown) (no (unknown) (unknown) Emphysema lung (units (unknown) date) unknown) (unknown) (no (unknown) (unknown) Estimated (units (unkn own) date) Delivery Date unknown) Method Current (unknown) (no (unknown) (unknown) FM. No LOF/VB. (units (unknown) date) On U/S: NATHANIEL unknown) 15.66cm. Placenta Grade 0. BPP 11/07. Plan: To (unknown) (no (unknown) (unknown) Family History (units (unknown) date) (Reviewed unknown) 03/03/22 @ 07:06 by Isabel Abarca DO) (unknown) (no (unknown) (unknown) Father TBI (units (unk nown) date) (traumatic brain unknown) injury) (unknown) (no (unknown) (unknown) Father of Baby: (units (unknown) date) same unknown) (unknown) (no (unknown) (unknown) Feeding: bottle (units (unknown) date) unknown) (unknown) (no (unknown) (unknown) [facility]) (unknown) (no (unknown) (unknown) First Trimester (units (unknown) date) Education unknown) Checklist (unknown) (no (unknown) (unknown) (units (unkno wn) date) unknown) (unknown) (no (unknown) (unknown) GERD (units (unkno wn) date) (gastroesophageal unknown) reflux disease) () (unknown) (no (unknown) (unknown) Genetic (units (unkno wn) date) Screening + unknown) Counseling (unknown) (no (unknown) (unknown) Genetic (units (unkno wn) date) Screening unknown) (unknown) (no (unknown) (unknown) Grandfather (units (un known) date) Asthma unknown) (unknown) (no (unknown) (unknown) Grandfather (units (un known) date) Heart unknown) disease (unknown) (no (unknown) (unknown) Grandmother (units (un known) date) Bladder cancer unknown) (unknown) (no (unknown) (unknown) Grandmother (units (un known) date) unknown) Hypertension (unknown) (no (unknown) (unknown) 2 (units (unkn own) date) Multiple births unknown) (unknown) (no (unknown) (unknown) : 2 (units (unk nown) date) unknown) (unknown) (no (unknown) (unknown) H/O gastric (units (un known) date) sleeve () unknown) (unknown) (no (unknown) (unknown) HEG, Reglan, (units (u nknown) date) added Zofran unknown) (unknown) (no (unknown) (unknown) HIV risk (units (unkno wn) date) evaluation: low unknown) risk (unknown) (no (unknown) (unknown) 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) (unknown) (no (unknown) (unknown) Health Center (units ( unknown) date) Education unknown) (unknown) (no (unknown) (unknown) Health center (units ( unknown) date) information: unknown) nature of practice discussed, personnel (unknown) (no (unknown) (unknown) Heart disease (units ( unknown) date) unknown) (unknown) (no (unknown) (unknown) Heavy menstrual (units (unknown) date) period (-2009) unknown) (unknown) (no (unknown) (unknown) Height 5 ft 2 in (units (unknown) date) unknown) (unknown) (no (unknown) (unknown) Hepatitis C risk (units (unknown) date) evaluation: low unknown) risk (unknown) (no (unknown) (unknown) History of (units (unk nown) date) Hepatitis B: No unknown) (unknown) (no (unknown) (unknown) History of (units (unk nown) date) Hepatitis C: No unknown) (unknown) (no (unknown) (unknown) History of (units (unk nown) date) repair of hiatal unknown) hernia () (unknown) (no (unknown) (unknown) History/Interim (units (unknown) date) Details unknown) (unknown) (no (unknown) (unknown) [facility] (units (u nknown) date) unknown) (unknown) (no (unknown) (unknown) 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) (unknown) (no (unknown) (unknown) Hx # (units (u nknown) date) Pregnancies unknown) Elective abortions (unknown) (no (unknown) (unknown) Hx # Term (units (unkn own) date) Pregnancies 1 unknown) Ectopic pregnancies (unknown) (no (unknown) (unknown) Hx HSV-2, 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 (unknown) (no (unknown) (unknown) Hx severe anemia (units (unknown) date) w/ 1st pg unknown) requiring weekly iron infusion (unknown) (no (unknown) (unknown) Hyperlipidemia (units (unknown) date) unknown) (unknown) (no (unknown) (unknown) Hypertension (units (u nknown) date) unknown) (unknown) (no (unknown) (unknown) Infant (units (u nknown) date) Weight: 5 lbs 11 unknown) oz (unknown) (no (unknown) (unknown) Infant Longest (units (unknown) date) Sleep: 4 hrs unknown) (unknown) (no (unknown) (unknown) Recent (units ( unknown) date) Weight: 6 lbs 8 unknown) oz (unknown) (no (unknown) (unknown) will be (units (unknown) date) adopted?: no unknown) (unknown) (no (unknown) (unknown) Infant's Name: (units (unknown) date) Mely unknown) (unknown) (no (unknown) (unknown) 's Sex: (units ( unknown) date) Female unknown) (unknown) (no (unknown) (unknown) Infection (units (unkn own) date) History unknown) (unknown) (no (unknown) (unknown) Infectious (units (unk nown) date) Disease Education unknown) (unknown) (no (unknown) (unknown) Infectious (units (unk nown) date) disease exposure: unknown) chicken pox immunity discussed, hepatitis risk (unknown) (no (unknown) (unknown) Initial Weight: (units (unknown) date) 180 lb unknown) (unknown) (no (unknown) (unknown) Initials (units (unkno wn) date) unknown) (unknown) (no (unknown) (unknown) Intake Clinical (units (unknown) date) Staff unknown) (unknown) (no (unknown) (unknown) Intake Note: (units (u nknown) date) unknown) (unknown) (no (unknown) (unknown) Intake performed (units (unknown) date) by: unknown) Johana Salazar (unknown) (no (unknown) (unknown) Intake (units (unkno wn) date) unknown) (unknown) (no (unknown) (unknown) Live with (units (unkn own) date) someone with TB unknown) or exposed to TB: No (unknown) (no (unknown) (unknown) Loc: [facility] (units (unkno wn) date) unknown) (unknown) (no (unknown) (unknown) Lung cancer (units (un known) date) unknown) (unknown) (no (unknown) (unknown) Marital status: (units (unknown) date) unknown) (unknown) (no (unknown) (unknown) Maternal (units (unknown) date) Medicine to unknown) evaluate the enlarged renal pelvises. No (unknown) (no (unknown) (unknown) Medical History (units (unknown) date) (Reviewed unknown) 03/03/22 @ 07:06 by Isabel Abarca DO) (unknown) (no (unknown) (unknown) Medications (units (un known) date) unknown) (unknown) (no (unknown) (unknown) Mother (units (unkno wn) date) Gestational unknown) diabetes (unknown) (no (unknown) (unknown) Myocardial (units (unk nown) date) infarction unknown) (unknown) (no (unknown) (unknown) N Yes no 154 31 (units (unknown) date) Vertex absent NATHANIEL unknown) 15.66cm (unknown) (no (unknown) (unknown) NF (units (unkno wn) date) unknown) (unknown) (no (unknown) (unknown) Notes (units (unkno wn) date) unknown) (unknown) (no (unknown) (unknown) Number of Living (units (unknown) date) Children unknown) (unknown) (no (unknown) (unknown) Number of Weeks (units (unknown) date) Post : 6 unknown) (unknown) (no (unknown) (unknown) Number of (units (unkn own) date) fetuses:: Single unknown) (unknown) (no (unknown) (unknown) Nutrition and (units ( unknown) date) weight gain unknown) counseling: special diet: discussed (unknown) (no (unknown) (unknown) OB Office Visit (units (unknown) date) unknown) (unknown) (no (unknown) (unknown) OB Visit Log (units (u nknown) date) unknown) (unknown) (no (unknown) (unknown) On control (units (unknown) date) at conception?: unknown) No (unknown) (no (unknown) (unknown) Orders: (units (unkno wn) date) unknown) (unknown) (no (unknown) (unknown) Other Estimates (units (unknown) date) 03/31/22 LMP unknown) (Certain) 42w 4d (unknown) (no (unknown) (unknown) PFSH (units (unkno wn) date) unknown) (unknown) (no (unknown) (unknown) Painful (units (unkno wn) date) menstrual periods unknown) (-2010) (unknown) (no (unknown) (unknown) Para 1 (units (unkno wn) date) Spontaneous unknown) abortions (unknown) (no (unknown) (unknown) Para: 2 (units (unkno wn) date) unknown) (unknown) (no (unknown) (unknown) Partner history (units (unknown) date) of STD: denies hx unknown) (unknown) (no (unknown) (unknown) Partner history (units (unknown) date) of genital unknown) herpes: No (unknown) (no (unknown) (unknown) Partner: Manny (units ( unknown) date) Diaz unknown) (unknown) (no (unknown) (unknown) Past Pregnancies (units (unknown) date) unknown) (unknown) (no (unknown) (unknown) Patient comes in (units (unknown) date) for routine OB unknown) visit at 28 weeks. She has not been able (unknown) (no (unknown) (unknown) Patient presents (units (unknown) date) for a new OB unknown) visit at 12 weeks gestation. She has had (unknown) (no (unknown) (unknown) Patient presents (units (unknown) date) for a routine unknown) visit at 16 weeks gestation. She (unknown) (no (unknown) (unknown) Patient presents (units (unknown) date) for a routine unknown) visit at 34 weeks gestation. Good (unknown) (no (unknown) (unknown) Patient states (units (unknown) date) she is starting unknown) to feel some baby movement. Her nausea is (unknown) (no (unknown) (unknown) Patient's age 34 (units (unknown) date) years or older as unknown) of estimated date of delivery: No (unknown) (no (unknown) (unknown) Patient: (units (unkno wn) date) Suzi Diaz MR#: unknown) [id number] (unknown) (no (unknown) (unknown) [employer]: (units ( unknown) date) Pediatric unknown) [facility] (unknown) (no (unknown) (unknown) Personal history (units (unknown) date) of STD: other unknown) (unknown) (no (unknown) (unknown) Personal history (units (unknown) date) of genital unknown) herpes: Yes (unknown) (no (unknown) (unknown) Placenta grade (units (unknown) date) 0. Plan: To BC unknown) for NST. F/U 1 wk for BPP/NST. FKC's discussed. (unknown) (no (unknown) (unknown) Position Sitting (units (unknown) date) unknown) (unknown) (no (unknown) (unknown) Post (units (un known) date) unknown) (unknown) (no (unknown) (unknown) (units (unk nown) date) depression unknown) (unknown) (no (unknown) (unknown) Pre-diabetes (units (u nknown) date) unknown) (unknown) (no (unknown) (unknown) (units (unkn own) date) History unknown) (unknown) (no (unknown) (unknown) type:: (units (unknown) date) Other Normal unknown) (unknown) (no (unknown) (unknown) (units (unkno wn) date) Education unknown) (unknown) (no (unknown) (unknown) Initial (units (unknown) date) Assessment unknown) (unknown) (no (unknown) (unknown) (units (unkno wn) date) Specific unknown) Issues/Plans (unknown) (no (unknown) (unknown) (units (unkno wn) date) Testing: unknown) discussed (unknown) (no (unknown) (unknown) Visit (units (unknown) date) unknown) (unknown) (no (unknown) (unknown) (units (unkno wn) date) education packet: unknown) Child education/plan, symptoms, (unknown) (no (unknown) (unknown) Primary Care (units (u nknown) date) Provider: Mar unknown) CARRINGTON Chapin (unknown) (no (unknown) (unknown) Primary Ob (units (unk nown) date) Provider: unknown) Destinee Colin (unknown) (no (unknown) (unknown) Prior (units (unkno wn) date) GBS-Infected unknown) child: No (unknown) (no (unknown) (unknown) Providers (units (unkn own) date) unknown) (unknown) (no (unknown) (unknown) Pt presents for (units (unknown) date) a routine PNV at unknown) 30 wks gest. Seen at [facility] 01/17/22 for (unknown) (no (unknown) (unknown) Pt presents for (units (unknown) date) a routine PNV at unknown) 31 wks gestation. AC at 8%ile. Good (unknown) (no (unknown) (unknown) Rash or viral (units ( unknown) date) illness since unknown) last menstrual period: No (unknown) (no (unknown) (unknown) Rash (units (unkno wn) date) unknown) (unknown) (no (unknown) (unknown) Reason For Visit (units (unknown) date) unknown) (unknown) (no (unknown) (unknown) Recent travel (units ( unknown) date) outside of unknown) country?: No (unknown) (no (unknown) (unknown) Recurrent (units (unkn own) date) loss or unknown) a stillbirth: No (unknown) (no (unknown) (unknown) Referral (units (unkno wn) date) Community unknown) Resource Z97.5 - Presence of (intrauterine) contraceptive (unknown) (no (unknown) (unknown) Referrals (units (unkn own) date) unknown) (unknown) (no (unknown) (unknown) Reports Mental (units (unknown) date) Retardation/Autis unknown) m; (unknown) (no (unknown) (unknown) Safety (units (unkno wn) date) unknown) (unknown) (no (unknown) (unknown) Signed By: (units (unk nown) date) unknown) (unknown) (no (unknown) (unknown) Sister Asthma (units ( unknown) date) unknown) (unknown) (no (unknown) (unknown) Smoking Status: (units (unknown) date) Never smoker unknown) (unknown) (no (unknown) (unknown) Social History (units (unknown) date) unknown) (unknown) (no (unknown) (unknown) Sulfa (units (unkno wn) date) (Sulfonamide unknown) Antibiotics) Adverse Reaction (Mild, Verified 04/18/22 09:43) (unknown) (no (unknown) (unknown) Support (units (unkno wn) date) Person(s):: Manny unknown) (unknown) (no (unknown) (unknown) Surgical History (units (unknown) date) (Reviewed unknown) 03/03/22 @ 07:06 by Isabel Abarca DO) (unknown) (no (unknown) (unknown) Surrogate (units (unkn own) date) ?: no unknown) (unknown) (no (unknown) (unknown) Symptoms since (units (unknown) date) LMP: Reports unknown) amenorrhea, nausea, vomiting, fatigue, breast (unknown) (no (unknown) (unknown) TR Yes no 144 34 (units (unknown) date) Vertex absent NATHANIEL unknown) 12.67 c (unknown) (no (unknown) (unknown) TR Yes no 150 20 (units (unknown) date) N/A absent 4wk unknown) (unknown) (no (unknown) (unknown) TR Yes no 152 28 (units (unknown) date) N/A absent 2wk unknown) (unknown) (no (unknown) (unknown) Teratogen (units (unkn own) date) Exposures since unknown) LMP/Conception: Denies prescription medications, (unknown) (no (unknown) (unknown) Testing (units (unkno wn) date) Education unknown) (unknown) (no (unknown) (unknown) Testing (units (unkno wn) date) education unknown) completed: group B strep, Spina bifida testing and Cell Free (unknown) (no (unknown) (unknown) This note may (units ( unknown) date) have been all or unknown) partially generated using voice recognition (unknown) (no (unknown) (unknown) Tobacco + (units (unkn own) date) Substance Use unknown) (unknown) (no (unknown) (unknown) Tobacco Status (units (unknown) date) unknown) (unknown) (no (unknown) (unknown) Two vessel (units (unk nown) date) umbilical cord in unknown) gates , antepartum (unknown) (no (unknown) (unknown) Type of (units (unkno wn) date) Delivery: unknown) (unknown) (no (unknown) (unknown) Type(s) of (units (unk nown) date) exercise: walking unknown) (unknown) (no (unknown) (unknown) UProtein Movement (units (unknown) date) PreLabor FHR Fndl unknown) Ht Pres Edema Cerv Exam US/Comment Next Appt (unknown) (no (unknown) (unknown) Varicella/chicke (units (unknown) date) n pox status: unknown) immunized (unknown) (no (unknown) (unknown) Visit Date: (units (un known) date) 09/15/21 Last unknown) Updated by: Destinee Colin MD (unknown) (no (unknown) (unknown) Visit Date: (units (un known) date) 10/14/21 Last unknown) Updated by: Destinee Colin MD (unknown) (no (unknown) (unknown) Visit Date: (units (un known) date) 11/14/21 Last unknown) Updated by: Anitra Najera MD (unknown) (no (unknown) (unknown) Visit Date: (units (un known) date) 01/06/22 Last unknown) Updated by: Anitra Najera MD (unknown) (no (unknown) (unknown) Visit Date: (units (un known) date) 01/20/22 Last unknown) Updated by: Destinee Colin MD (unknown) (no (unknown) (unknown) Visit Date: (units (un known) date) 01/27/22 Last unknown) Updated by: Destinee Colin MD (unknown) (no (unknown) (unknown) Visit Date: (units (un known) date) 02/17/22 Last unknown) Updated by: Destinee Colin MD (unknown) (no (unknown) (unknown) Visit Reasons: 6 (units (unknown) date) wk pp unknown) (unknown) (no (unknown) (unknown) Vitals (units (unkno wn) date) unknown) (unknown) (no (unknown) (unknown) Vitamins and (units (u nknown) date) iron, Diet and unknown) weight gain, Fish and mercury intake, Smoking, (unknown) (no (unknown) (unknown) WG (units (unkno wn) date) unknown) (unknown) (no (unknown) (unknown) [facility] 1 month (units (un known) date) unknown) (unknown) (no (unknown) (unknown) Warning signs (units ( unknown) date) reviewed. unknown) (unknown) (no (unknown) (unknown) Vega last (units (unknown) date) week baby was at unknown) the thirty-ninth percentile. On ultrasound (unknown) (no (unknown) (unknown) Weight 163 lb (units ( unknown) date) unknown) (unknown) (no (unknown) (unknown) [place] teeth (units (u nknown) date) extracted unknown) (-10/2017) (unknown) (no (unknown) (unknown) Yes no 132 30 (units ( unknown) date) Vertex absent NATHANIEL unknown) 18.45cm (unknown) (no (unknown) (unknown) Zika virus (units (unk nown) date) exposure: No unknown) (unknown) (no (unknown) (unknown) activity, X-ray (units (unknown) date) exposure, unknown) Medication use, Sauna/hot tub use, Dental care, HIV (unknown) (no (unknown) (unknown) alcohol intake: (units (unknown) date) former unknown) (unknown) (no (unknown) (unknown) anyone in either (units (unknown) date) family with: unknown) (unknown) (no (unknown) (unknown) defects (units ( unknown) date) not listed above unknown) and Denies Other (unknown) (no (unknown) (unknown) caffeine: Yes (units ( unknown) date) unknown) (unknown) (no (unknown) (unknown) carbon monox (units (u nknown) date) detector in home: unknown) Yes (unknown) (no (unknown) (unknown) current (units (unkno wn) date) occupational unknown) exposures/hazards : No (unknown) (no (unknown) (unknown) daily servings (units (unknown) date) fruits/ve-4 unknown) (unknown) (no (unknown) (unknown) described, visit (units (unknown) date) schedule unknown) reviewed, ultrasounds policy reviewed, coverage 24 (unknown) (no (unknown) (unknown) device (units (unkno wn) date) unknown) (unknown) (no (unknown) (unknown) discussed, (units (unk nown) date) tuberculosis unknown) exposure discussed, CMV discussed, Toxoplasmosis (unknown) (no (unknown) (unknown) disorders, (units (unk nown) date) Denies Cystic unknown) Fibrosis, Denies [place]'s Chorea, Denies Other (unknown) (no (unknown) (unknown) do you feel safe (units (unknown) date) at home: Yes unknown) (unknown) (no (unknown) (unknown) during the past (units (unknown) date) year weight has: unknown) remained stable (unknown) (no (unknown) (unknown) education level: (units (unknown) date) vocational unknown) (unknown) (no (unknown) (unknown) education, (units (unk nown) date) Travel and unknown) Influenza vaccine (unknown) (no (unknown) (unknown) f/u dilated (units (un known) date) renal pelvices in unknown) baby. Found AC at 8%ile. Recommend dopplers (unknown) (no (unknown) (unknown) octavio/confucianism: (units (unknown) date) Mandaen unknown) (unknown) (no (unknown) (unknown) movement. (units (unknown) date) No leakage of unknown) fluid or vaginal bleeding. At the [facility] (unknown) (no (unknown) (unknown) fire (units (unkno wn) date) extinguisher in unknown) home: Yes (unknown) (no (unknown) (unknown) firearms in (units (un known) date) home: No unknown) (unknown) (no (unknown) (unknown) frequency: 3-4 (units (unknown) date) times per week unknown) (unknown) (no (unknown) (unknown) gastric bypass (units (unknown) date) surgery. She is unknown) unable to tolerate the iron pills. Will try to (unknown) (no (unknown) (unknown) get prior (units (unkn own) date) authorization for unknown) IV iron infusions. Patient with some structures not (unknown) (no (unknown) (unknown) have occurred. (units (unknown) date) If there are any unknown) questions, please contact the Medical Records (unknown) (no (unknown) (unknown) hours a day and (units (unknown) date) participation of unknown) father in care and office visits (unknown) (no (unknown) (unknown) household (units (unkn own) date) members: spouse unknown) and children (unknown) (no (unknown) (unknown) housing: (units (unkno wn) date) apartment unknown) (unknown) (no (unknown) (unknown) ibuprofen 600 mg (units (unknown) date) tablet 600 mg PO unknown) Q6-8H PRN cramping #20 tabs 04/05/22 [Rx (unknown) (no (unknown) (unknown) improving (units (unkn own) date) significantly. unknown) She has significant constipation and she was okay to (unknown) (no (unknown) (unknown) inherited (units (unkn own) date) genetic or unknown) chromosomal disorder, Denies Maternal Metabolic Disorder (unknown) (no (unknown) (unknown) intrauterine (units (u nknown) date) gestational sac unknown) with a fetus measuring 4.99 cm consistent with 11 (unknown) (no (unknown) (unknown) is receiving (units (u nknown) date) Zofran infusions unknown) for nausea and vomiting. No movement. No (unknown) (no (unknown) (unknown) kag (units (unkno wn) date) unknown) (unknown) (no (unknown) (unknown) leakage of fluid (units (unknown) date) or vaginal unknown) bleeding. Plan: Quad screen ordered. Twenty week (unknown) (no (unknown) (unknown) lives (units (unkno wn) date) independently: unknown) Yes (unknown) (no (unknown) (unknown) m 1 wk (units (unkno wn) date) unknown) (unknown) (no (unknown) (unknown) marital status: (units (unknown) date) unknown) (unknown) (no (unknown) (unknown) may occur. (units (unk nown) date) Occasional unknown) wrong-word or 'sound-alike' substitutions may have (unknown) (no (unknown) (unknown) number of (units (unkn own) date) children: 1 unknown) (unknown) (no (unknown) (unknown) occasionally use (units (unknown) date) an enema. Patient unknown) with significant anemia with a history of (unknown) (no (unknown) (unknown) occupational (units (u nknown) date) status: employed unknown) (unknown) (no (unknown) (unknown) occurred due to (units (unknown) date) the inherent unknown) limitations of voice recognition software. Please (unknown) (no (unknown) (unknown) other (units (unkno wn) date) unknown) (unknown) (no (unknown) (unknown) pets and (units (unkno wn) date) animals: No unknown) (unknown) (no (unknown) (unknown) precautions (units (un known) date) reviewed. unknown) Follow-up in 4 weeks. (unknown) (no (unknown) (unknown) precautions, (units (u nknown) date) Listeriosis unknown) prevention and Rubella Immunization (unknown) (no (unknown) (unknown) prenat.vits,charles, (units (unknown) date) [id number] 1 unknown) tab PO DAILY 08/23/21 [History Confirmed (unknown) (no (unknown) (unknown) labor (units ( unknown) date) Denisa unknown) (unknown) (no (unknown) (unknown) labor (units ( unknown) date) symptoms. Good unknown) movement. Routine precautions reviewed. (unknown) (no (unknown) (unknown) pt here for 6 wk (units (unknown) date) pp unknown) (unknown) (no (unknown) (unknown) read the note (units ( unknown) date) carefully and unknown) recognize, using context, where these substitutions (unknown) (no (unknown) (unknown) right ovary. The (units (unknown) date) left ovary was unknown) not visualized. Plan: Zofran. Labs with quad (unknown) (no (unknown) (unknown) screen next (units (un known) date) visit. Warning unknown) signs reviewed. kag (unknown) (no (unknown) (unknown) seatbelt use: (units ( unknown) date) always unknown) (unknown) (no (unknown) (unknown) second hand (units (un known) date) exposure: Yes unknown) ( smokes, mostly outside) (unknown) (no (unknown) (unknown) software. (units (unkn own) date) Although every unknown) effort is made to edit content, gunstock spray unit feeder errors (unknown) (no (unknown) (unknown) some nausea. No (units (unknown) date) meds so far. No unknown) vaginal bleeding. 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 She is going to (unknown) (no (unknown) (unknown) today. NATHANIEL 12.67 (units (unknown) date) cm. BPP 8. unknown) Plan: Nonstress test today. Follow-up in 1 (unknown) (no (unknown) (unknown) two vessel cord (units (unknown) date) unknown) (unknown) (no (unknown) (unknown) ultrasound (units (unk nown) date) ordered. unknown) Follow-up in 4 weeks. Warning signs reviewed. kag (unknown) (no (unknown) (unknown) water heater (units (u nknown) date) temp set < 120 unknown) deg: Yes (unknown) (no (unknown) (unknown) week for BPP and (units (unknown) date) NATHANIEL/nonstress unknown) test. Induction at 37 weeks gestation. kag (unknown) (no (unknown) (unknown) weekly or BPP. (units (unknown) date) Good FM. No LOF unknown) or VB. On U/S: BPP 11/07. NATHANIEL 18.45cm. (unknown) (no (unknown) (unknown) weeks 5 days. (units ( unknown) date) heart rate unknown) 176 beats per minute. Corpus luteal cyst on the (unknown) (no (unknown) (unknown) well seen on (units (u wn) date) ultrasound will unknown) call to schedule follow-up ultrasound. Routine (unknown) (no (unknown) (unknown) well-balanced (units ( unknown) date) diet: daily or unknown) most days (unknown) (no (unknown) (unknown) work hard at (units (u nkwn) date) trying to get unknown) this started. She has an appointment next week with (unknown) (no (unknown) (unknown) working smoke (units ( unknown) date) detector in home: unknown) Yes Result panel 156 (unknown) (no (unknown) (unknown) (no value) (units (unk nown) date) unknown) (unknown) (no (unknown) (unknown) (-16 oz) 100/68 (units (unknown) date) N unknown) (unknown) (no (unknown) (unknown) (-16 oz) 108/64 (units (unknown) date) N unknown) (unknown) (no (unknown) (unknown) (-5 lb) 100/62 N (units (unknown) date) unknown) (unknown) (no (unknown) (unknown) (-5 lb) 100/68 N (units (unknown) date) unknown) (unknown) (no (unknown) (unknown) (-5 lb) 100/68 (units (unknown) date) unknown) (unknown) (no (unknown) (unknown) (-6 lb) 110/64 N (units (unknown) date) unknown) (unknown) (no (unknown) (unknown) (-6 lb) 110/70 N (units (unknown) date) unknown) (unknown) (no (unknown) (unknown) (EG,TYPE 1 (units (unk nown) date) Diabetes, PKU), unknown) Denies Patient or baby's father had a child with (unknown) (no (unknown) (unknown) Genetic (units (unkn own) date) Screening/Teratol unknown) ogy Counseling - Includes patient, baby's father, or (unknown) (no (unknown) (unknown) -?-?-?-?-?-?-?-? (units (unknown) date) -?-?-?-? unknown) (unknown) (no (unknown) (unknown) 04/18/22 (units (unkno wn) date) unknown) (unknown) (no (unknown) (unknown) 04/18/22] (units (unkn own) date) unknown) (unknown) (no (unknown) (unknown) 08/04/20 39 15 6 (units (unknown) date) lb 13 oz Female unknown) vaginal live - full term (unknown) (no (unknown) (unknown) 09/15/21 (units (unkno wn) date) unknown) (unknown) (no (unknown) (unknown) 10/14/21 (units (unkno wn) date) unknown) (unknown) (no (unknown) (unknown) 11/14/21 (units (unkno wn) date) unknown) (unknown) (no (unknown) (unknown) 09:43 (units (unkno wn) date) unknown) (unknown) (no (unknown) (unknown) 1 wk (units (unkno wn) date) unknown) (unknown) (no (unknown) (unknown) 1+ No no 158 16 (units (unknown) date) N/A absent 4 wks unknown) (unknown) (no (unknown) (unknown) 1+ No no 176 12 (units (unknown) date) N/A absent unknown) long/closed AGA (unknown) (no (unknown) (unknown) 01/06/22 (units (unkno wn) date) unknown) (unknown) (no (unknown) (unknown) 01/20/22 (units (unkno wn) date) unknown) (unknown) (no (unknown) (unknown) 01/27/22 (units (unkno wn) date) unknown) (unknown) (no (unknown) (unknown) 02/17/22 (units (unkno wn) date) unknown) (unknown) (no (unknown) (unknown) 11w5d 4 wks (units (un known) date) unknown) (unknown) (no (unknown) (unknown) 04/01/22 (units (unkno wn) date) Ultrasound #2 42w unknown) 3d (unknown) (no (unknown) (unknown) 12w 2d 179 lb (units ( unknown) date) unknown) (unknown) (no (unknown) (unknown) 16w 3d 174 lb (units ( unknown) date) unknown) (unknown) (no (unknown) (unknown) 20w 6d 179 lb (units ( unknown) date) unknown) (unknown) (no (unknown) (unknown) 28w 3d 175 lb (units ( unknown) date) unknown) (unknown) (no (unknown) (unknown) 30w 3d 175 lb (units ( unknown) date) unknown) (unknown) (no (unknown) (unknown) 31w 3d 175 lb (units ( unknown) date) unknown) (unknown) (no (unknown) (unknown) 34w 3d 174 lb (units ( unknown) date) unknown) (unknown) (no (unknown) (unknown) 364 (units (unkno wn) date) unknown) (unknown) (no (unknown) (unknown) Abdomen: (units (unkno wn) date) non-tender unknown) (unknown) (no (unknown) (unknown) Abnormal lab (units (u nknown) date) values 1st unknown) trimester: discussed (unknown) (no (unknown) (unknown) Add'l Plan (units (unk nown) date) Details unknown) (unknown) (no (unknown) (unknown) Age/Sex: 27 / F (units (unknown) date) Date of Service: unknown) (unknown) (no (unknown) (unknown) Allergies (units (unkn own) date) unknown) (unknown) (no (unknown) (unknown) [place], [place] (units ( unknown) date) [id number] unknown) (unknown) (no (unknown) (unknown) Anemia (-2009) (units (unknown) date) unknown) (unknown) (no (unknown) (unknown) Anesthesia (units (unk nown) date) unknown) (unknown) (no (unknown) (unknown) Aneuploidy (units (unk nown) date) Screening unknown) Offered: Accepted (unknown) (no (unknown) (unknown) Anticipated (units (un known) date) course of unknown) care: discussed (unknown) (no (unknown) (unknown) Assessment and (units (unknown) date) Plan unknown) (unknown) (no (unknown) (unknown) Asthma (units (unkno wn) date) unknown) (unknown) (no (unknown) (unknown) Attending Dr: (units ( unknown) date) Destinee Colin unknown) (unknown) (no (unknown) (unknown) Autoimmune (units (unk nown) date) vasculitis unknown) (unknown) (no (unknown) (unknown) BMI 29.8 (units (unkno wn) date) unknown) (unknown) (no (unknown) (unknown) BP 108/70 (units (unkn own) date) unknown) (unknown) (no (unknown) (unknown) (units (unkno wn) date) Plan/Preferences unknown) (unknown) (no (unknown) (unknown) Planning (units (unknown) date) unknown) (unknown) (no (unknown) (unknown) Bladder: Reports (units (unknown) date) emptying; Denies unknown) pain with urination, urge incontinence or (unknown) (no (unknown) (unknown) Bleeding: No (units (u nknown) date) unknown) (unknown) (no (unknown) (unknown) Blood Pressure (units (unknown) date) Location Rt unknown) brachial (unknown) (no (unknown) (unknown) Blood (units (unkno wn) date) transfusions?: unknown) yes (unknown) (no (unknown) (unknown) Blues/Depression (units (unknown) date) /Anxiety: No unknown) (unknown) (no (unknown) (unknown) Bowel: Reports (units (unknown) date) daily and unknown) constipation (not abnormal for her) (unknown) (no (unknown) (unknown) Breastfeed Preg (units (unknown) date) Comp Name unknown) (unknown) (no (unknown) (unknown) Caffeine use, (units ( unknown) date) Exercise and unknown) activity, work/environmenta l/hazards, Sexual (unknown) (no (unknown) (unknown) Center for NST. (units (unknown) date) Warning signs unknown) reviewed. F/U 1 wk. kag (unknown) (no (unknown) (unknown) Confirmed (units (unkn own) date) 04/18/22] unknown) (unknown) (no (unknown) (unknown) Covid x 2, boost (units (unknown) date) x1 unknown) (unknown) (no (unknown) (unknown) Current Estimate (units (unknown) date) 03/28/22 unknown) Ultrasound #1 43w 0d (unknown) (no (unknown) (unknown) Current (units (unkno wn) date) History unknown) (unknown) (no (unknown) (unknown) DNA (units (unkno wn) date) unknown) (unknown) (no (unknown) (unknown) : 1995 (units (unknown) date) Acct:[id number] unknown) (unknown) (no (unknown) (unknown) Date of positive (units (unknown) date) home unknown) test: 07/19/21 (unknown) (no (unknown) (unknown) Date (units (unkno wn) date) unknown) (unknown) (no (unknown) (unknown) Del. Date (units (unkn own) date) GA/Weeks Labor unknown) Lgth Wt Sex Route Outcome Anesthesia Place (unknown) (no (unknown) (unknown) Delivery Date: (units (unknown) date) 08/04/20 Last unknown) Updated by: Courtney Hanson R.N. (unknown) (no (unknown) (unknown) Delivery Date: (units (unknown) date) 03/07/22 unknown) (unknown) (no (unknown) (unknown) Delv (units (unkno wn) date) unknown) (unknown) (no (unknown) (unknown) Denies Congenital (units (unknown) date) Heart Defect, unknown) Denies Down Syndrome, Denies Muscular Dystrophy, (unknown) (no (unknown) (unknown) Denies Neural (units ( unknown) date) Tube Defect unknown) (Meningomyelocele , Spina Bifida, or Anencephaly), (unknown) (no (unknown) (unknown) Denies Sickle (units ( unknown) date) Cell Disease or unknown) Trait (), Denies Hemophilia or other blood (unknown) (no (unknown) (unknown) Denies Giancarlo-Sachs (units (unknown) date) (Ashkenazi unknown) Confucianism, Cajun, [place] Bhutanese), Denies Sebastian (unknown) (no (unknown) (unknown) Denies other (units (u nknown) date) unknown) (unknown) (no (unknown) (unknown) Denies over the (units (unknown) date) counter unknown) medications, Denies alcohol, Denies illicit drugs and (unknown) (no (unknown) (unknown) Depression: (units (un known) date) discussed unknown) (unknown) (no (unknown) (unknown) Dept at (units (unkno wn) date) . unknown) (unknown) (no (unknown) (unknown) Diabetes (units (unkno wn) date) mellitus unknown) (unknown) (no (unknown) (unknown) Diet and (units (unkno wn) date) Exercise unknown) (unknown) (no (unknown) (unknown) Disease (units (unkno wn) date) (Ashkenazi unknown) Confucianism), Denies Familial Dysautonomia (Ashkenazi Confucianism), (unknown) (no (unknown) (unknown) Documented By: (units (unknown) date) Destinee Colin unknownYe YOUNG 04/18/22 0943 (unknown) (no (unknown) (unknown) Draft (units (unkno wn) date) unknown) (unknown) (no (unknown) (unknown) BRET Calculator (units (unknown) date) unknown) (unknown) (no (unknown) (unknown) EGA Weight BP (units ( unknown) date) UGlucose unknown) (unknown) (no (unknown) (unknown) Emphysema lung (units (unknown) date) unknown) (unknown) (no (unknown) (unknown) Estimated (units (unkn own) date) Delivery Date unknown) Method Current (unknown) (no (unknown) (unknown) Exam (units (unkno wn) date) unknown) (unknown) (no (unknown) (unknown) FM. No LOF/VB. (units (unknown) date) On U/S: NATHANIEL unknown) 15.66cm. Placenta Grade 0. BPP 11/07. Plan: To (unknown) (no (unknown) (unknown) Family History (units (unknown) date) (Reviewed unknown) 03/03/22 @ 07:06 by Isabel Abarca DO) (unknown) (no (unknown) (unknown) Father TBI (units (unk nown) date) (traumatic brain unknown) injury) (unknown) (no (unknown) (unknown) Father of Baby: (units (unknown) date) same unknown) (unknown) (no (unknown) (unknown) Feeding: bottle (units (unknown) date) unknown) (unknown) (no (unknown) (unknown) [facility] ([facility] unknown) (unknown) (no (unknown) (unknown) First Trimester (units (unknown) date) Education unknown) Checklist (unknown) (no (unknown) (unknown) (units (unkno wn) date) unknown) (unknown) (no (unknown) (unknown) GERD (units (unkno wn) date) (gastroesophageal unknown) reflux disease) () (unknown) (no (unknown) (unknown) Genetic (units (unkno wn) date) Screening + unknown) Counseling (unknown) (no (unknown) (unknown) Genetic (units (unkno wn) date) Screening unknown) (unknown) (no (unknown) (unknown) Grandfather (units (un known) date) Asthma unknown) (unknown) (no (unknown) (unknown) Grandfather (units (un known) date) Heart unknown) disease (unknown) (no (unknown) (unknown) Grandmother (units (un known) date) Bladder cancer unknown) (unknown) (no (unknown) (unknown) Grandmother (units (un known) date) unknown) Hypertension (unknown) (no (unknown) (unknown) 2 (units (unkn own) date) Multiple births unknown) (unknown) (no (unknown) (unknown) : 2 (units (unk nown) date) unknown) (unknown) (no (unknown) (unknown) H/O gastric (units (un known) date) sleeve () unknown) (unknown) (no (unknown) (unknown) HEG, Reglan, (units (u nknown) date) added Zofran unknown) (unknown) (no (unknown) (unknown) HIV risk (units (unkno wn) date) evaluation: low unknown) risk (unknown) (no (unknown) (unknown) 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) (unknown) (no (unknown) (unknown) [facility] Center (units ( unknown) date) Education unknown) (unknown) (no (unknown) (unknown) Health center (units ( unknown) date) information: unknown) nature of practice discussed, personnel (unknown) (no (unknown) (unknown) Heart disease (units ( unknown) date) unknown) (unknown) (no (unknown) (unknown) Heavy menstrual (units (unknown) date) period () unknown) (unknown) (no (unknown) (unknown) Height 5 ft 2 in (units (unknown) date) unknown) (unknown) (no (unknown) (unknown) Hepatitis C risk (units (unknown) date) evaluation: low unknown) risk (unknown) (no (unknown) (unknown) History of (units (unk nown) date) Hepatitis B: No unknown) (unknown) (no (unknown) (unknown) History of (units (unk nown) date) Hepatitis C: No unknown) (unknown) (no (unknown) (unknown) History of (units (unk nown) date) repair of hiatal unknown) hernia () (unknown) (no (unknown) (unknown) History/Interim (units (unknown) date) Details unknown) (unknown) (no (unknown) (unknown) [facility] (units (u nknown) date) unknown) (unknown) (no (unknown) (unknown) 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) (unknown) (no (unknown) (unknown) Hx # (units (u nknown) date) Pregnancies unknown) Elective abortions (unknown) (no (unknown) (unknown) Hx # Term (units (unkn own) date) Pregnancies 1 unknown) Ectopic pregnancies (unknown) (no (unknown) (unknown) Hx HSV-2, 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 (unknown) (no (unknown) (unknown) Hx severe anemia (units (unknown) date) w/ 1st pg unknown) requiring weekly iron infusion (unknown) (no (unknown) (unknown) Hyperlipidemia (units (unknown) date) unknown) (unknown) (no (unknown) (unknown) Hypertension (units (u nknown) date) unknown) (unknown) (no (unknown) (unknown) Infant (units (u nknown) date) Weight: 5 lbs 11 unknown) oz (unknown) (no (unknown) (unknown) Infant Longest (units (unknown) date) Sleep: 4 hrs unknown) (unknown) (no (unknown) (unknown) Infant Recent (units ( unknown) date) Weight: 6 lbs 8 unknown) oz (unknown) (no (unknown) (unknown) will be (units (unknown) date) adopted?: no unknown) (unknown) (no (unknown) (unknown) 's Name: (units (unknown) date) Mely unknown) (unknown) (no (unknown) (unknown) Infant's Sex: (units ( unknown) date) Female unknown) (unknown) (no (unknown) (unknown) Infection (units (unkn own) date) History unknown) (unknown) (no (unknown) (unknown) Infectious (units (unk nown) date) Disease Education unknown) (unknown) (no (unknown) (unknown) Infectious (units (unk nown) date) disease exposure: unknown) chicken pox immunity discussed, hepatitis risk (unknown) (no (unknown) (unknown) Initial Weight: (units (unknown) date) 180 lb unknown) (unknown) (no (unknown) (unknown) Initials (units (unkno wn) date) unknown) (unknown) (no (unknown) (unknown) Intake Clinical (units (unknown) date) Staff unknown) (unknown) (no (unknown) (unknown) Intake Note: (units (u nknown) date) unknown) (unknown) (no (unknown) (unknown) Intake performed (units (unknown) date) by: unknown) Johana Salazar (unknown) (no (unknown) (unknown) Intake (units (unkno wn) date) unknown) (unknown) (no (unknown) (unknown) [place]: (units (u nknown) date) Reports resumed; unknown) Denies issues (unknown) (no (unknown) (unknown) Interim (units ( unknown) date) control method: unknown) Reports none (unknown) (no (unknown) (unknown) Live with (units (unkn own) date) someone with TB unknown) or exposed to TB: No (unknown) (no (unknown) (unknown) Loc: [facility] (units (unkno wn) date) unknown) (unknown) (no (unknown) (unknown) Lung cancer (units (un known) date) unknown) (unknown) (no (unknown) (unknown) Marital status: (units (unknown) date) unknown) (unknown) (no (unknown) (unknown) Maternal (units (unknown) date) Medicine to unknown) evaluate the enlarged renal pelvises. No (unknown) (no (unknown) (unknown) Medical History (units (unknown) date) (Reviewed unknown) 03/03/22 @ 07:06 by Isabel Abarca DO) (unknown) (no (unknown) (unknown) Medications (units (un known) date) unknown) (unknown) (no (unknown) (unknown) Mother (units (unkno wn) date) Gestational unknown) diabetes (unknown) (no (unknown) (unknown) Myocardial (units (unk nown) date) infarction unknown) (unknown) (no (unknown) (unknown) N Yes no 154 31 (units (unknown) date) Vertex absent NATHANIEL unknown) 15.66cm (unknown) (no (unknown) (unknown) NF (units (unkno wn) date) unknown) (unknown) (no (unknown) (unknown) Notes (units (unkno wn) date) unknown) (unknown) (no (unknown) (unknown) Number of Living (units (unknown) date) Children unknown) (unknown) (no (unknown) (unknown) Number of Weeks (units (unknown) date) Post : 6 unknown) (unknown) (no (unknown) (unknown) Number of (units (unkn own) date) fetuses:: Single unknown) (unknown) (no (unknown) (unknown) Nutrition and (units ( unknown) date) weight gain unknown) counseling: special diet: discussed (unknown) (no (unknown) (unknown) OB Office Visit (units (unknown) date) unknown) (unknown) (no (unknown) (unknown) OB Visit Log (units (u nknown) date) unknown) (unknown) (no (unknown) (unknown) On control (units (unknown) date) at conception?: unknown) No (unknown) (no (unknown) (unknown) Orders: (units (unkno wn) date) unknown) (unknown) (no (unknown) (unknown) Other Estimates (units (unknown) date) 03/31/22 LMP unknown) (Certain) 42w 4d (unknown) (no (unknown) (unknown) PFSH (units (unkno wn) date) unknown) (unknown) (no (unknown) (unknown) Painful (units (unkno wn) date) menstrual periods unknown) (-2009) (unknown) (no (unknown) (unknown) Para 2 (units (unkno wn) date) Spontaneous unknown) abortions (unknown) (no (unknown) (unknown) Para: 2 (units (unkno wn) date) unknown) (unknown) (no (unknown) (unknown) Partner history (units (unknown) date) of STD: denies hx unknown) (unknown) (no (unknown) (unknown) Partner history (units (unknown) date) of genital unknown) herpes: No (unknown) (no (unknown) (unknown) Partner: Manny (units ( unknown) date) Diaz unknown) (unknown) (no (unknown) (unknown) Past Pregnancies (units (unknown) date) unknown) (unknown) (no (unknown) (unknown) Patient comes in (units (unknown) date) for routine OB unknown) visit at 28 weeks. She has not been able (unknown) (no (unknown) (unknown) Patient presents (units (unknown) date) for a new OB unknown) visit at 12 weeks gestation. She has had (unknown) (no (unknown) (unknown) Patient presents (units (unknown) date) for a routine unknown) visit at 16 weeks gestation. She (unknown) (no (unknown) (unknown) Patient presents (units (unknown) date) for a routine unknown) visit at 34 weeks gestation. Good (unknown) (no (unknown) (unknown) Patient states (units (unknown) date) she is starting unknown) to feel some baby movement. Her nausea is (unknown) (no (unknown) (unknown) Patient's age 34 (units (unknown) date) years or older as unknown) of estimated date of delivery: No (unknown) (no (unknown) (unknown) Patient: (units (unkno wn) date) Suzi Diaz MR#: unknown) [id number] (unknown) (no (unknown) (unknown) [employer]: (units ( unknown) date) Pediatric unknown) [facility] (unknown) (no (unknown) (unknown) Personal history (units (unknown) date) of STD: other unknown) (unknown) (no (unknown) (unknown) Personal history (units (unknown) date) of genital unknown) herpes: Yes (unknown) (no (unknown) (unknown) Placenta grade (units (unknown) date) 0. Plan: To BC unknown) for NST. F/U 1 wk for BPP/NST. [facility]'s discussed. (unknown) (no (unknown) (unknown) Position Sitting (units (unknown) date) unknown) (unknown) (no (unknown) (unknown) Post (units (un known) date) unknown) (unknown) (no (unknown) (unknown) (units (unk nown) date) depression unknown) (unknown) (no (unknown) (unknown) Pre-diabetes (units (u nknown) date) unknown) (unknown) (no (unknown) (unknown) (units (unkn own) date) History unknown) (unknown) (no (unknown) (unknown) type:: (units (unknown) date) Other Normal unknown) (unknown) (no (unknown) (unknown) (units (unkno wn) date) Education unknown) (unknown) (no (unknown) (unknown) Initial (units (unknown) date) Assessment unknown) (unknown) (no (unknown) (unknown) (units (unkno wn) date) Specific unknown) Issues/Plans (unknown) (no (unknown) (unknown) (units (unkno wn) date) Testing: unknown) discussed (unknown) (no (unknown) (unknown) Visit (units (unknown) date) unknown) (unknown) (no (unknown) (unknown) (units (unkno wn) date) education packet: unknown) Child education/plan, symptoms, (unknown) (no (unknown) (unknown) Primary Care (units (u nknown) date) Provider: Mar unknown) CARRINGTON Chapin (unknown) (no (unknown) (unknown) Primary Ob (units (unk nown) date) Provider: unknown) Destinee Colin (unknown) (no (unknown) (unknown) Prior (units (unkno wn) date) GBS-Infected unknown) child: No (unknown) (no (unknown) (unknown) Providers (units (unkn own) date) unknown) (unknown) (no (unknown) (unknown) Pt presents for (units (unknown) date) a routine PNV at unknown) 30 wks gest. Seen at [facility] 01/17/22 for (unknown) (no (unknown) (unknown) Pt presents for (units (unknown) date) a routine PNV at unknown) 31 wks gestation. AC at 8%ile. Good (unknown) (no (unknown) (unknown) ROS (units (unkno wn) date) unknown) (unknown) (no (unknown) (unknown) Rash or viral (units ( unknown) date) illness since unknown) last menstrual period: No (unknown) (no (unknown) (unknown) Rash (units (unkno wn) date) unknown) (unknown) (no (unknown) (unknown) Reason For Visit (units (unknown) date) unknown) (unknown) (no (unknown) (unknown) Recent travel (units ( unknown) date) outside of unknown) country?: No (unknown) (no (unknown) (unknown) Recurrent (units (unkn own) date) loss or unknown) a stillbirth: No (unknown) (no (unknown) (unknown) Referral (units (unkno wn) date) Community unknown) Resource Z97.5 - Presence of (intrauterine) contraceptive (unknown) (no (unknown) (unknown) Referrals (units (unkn own) date) unknown) (unknown) (no (unknown) (unknown) Reports Mental (units (unknown) date) Retardation/Autis unknown) m; (unknown) (no (unknown) (unknown) Safety (units (unkno wn) date) unknown) (unknown) (no (unknown) (unknown) Signed By: (units (unk nown) date) unknown) (unknown) (no (unknown) (unknown) Sister Asthma (units ( unknown) date) unknown) (unknown) (no (unknown) (unknown) Smoking Status: (units (unknown) date) Never smoker unknown) (unknown) (no (unknown) (unknown) Social History (units (unknown) date) unknown) (unknown) (no (unknown) (unknown) Sulfa (units (unkno wn) date) (Sulfonamide unknown) Antibiotics) Adverse Reaction (Mild, Verified 04/18/22 09:43) (unknown) (no (unknown) (unknown) Support (units (unkno wn) date) Person(s):: Manny unknown) (unknown) (no (unknown) (unknown) Surgical History (units (unknown) date) (Reviewed unknown) 03/03/22 @ 07:06 by Isabel Abarca DO) (unknown) (no (unknown) (unknown) Surrogate (units (unkn own) date) ?: no unknown) (unknown) (no (unknown) (unknown) Symptoms since (units (unknown) date) LMP: Reports unknown) amenorrhea, nausea, vomiting, fatigue, breast (unknown) (no (unknown) (unknown) TR Yes no 144 34 (units (unknown) date) Vertex absent NATHANIEL unknown) 12.67 c (unknown) (no (unknown) (unknown) TR Yes no 150 20 (units (unknown) date) N/A absent 4wk unknown) (unknown) (no (unknown) (unknown) TR Yes no 152 28 (units (unknown) date) N/A absent 2wk unknown) (unknown) (no (unknown) (unknown) Teratogen (units (unkn own) date) Exposures since unknown) LMP/Conception: Denies prescription medications, (unknown) (no (unknown) (unknown) Testing (units (unkno wn) date) Education unknown) (unknown) (no (unknown) (unknown) Testing (units (unkno wn) date) education unknown) completed: group B strep, Spina bifida testing and Cell Free (unknown) (no (unknown) (unknown) This note may (units ( unknown) date) have been all or unknown) partially generated using voice recognition (unknown) (no (unknown) (unknown) Tobacco + (units (unkn own) date) Substance Use unknown) (unknown) (no (unknown) (unknown) Tobacco Status (units (unknown) date) unknown) (unknown) (no (unknown) (unknown) Two vessel (units (unk nown) date) umbilical cord in unknown) gates , antepartum (unknown) (no (unknown) (unknown) Type of (units (unkno wn) date) Delivery: unknown) (unknown) (no (unknown) (unknown) Type(s) of (units (unk nown) date) exercise: walking unknown) (unknown) (no (unknown) (unknown) UProtein Movement (units (unknown) date) PreLabor FHR Fndl unknown) Ht Pres Edema Cerv Exam US/Comment Next Appt (unknown) (no (unknown) (unknown) Varicella/chicke (units (unknown) date) n pox status: unknown) immunized (unknown) (no (unknown) (unknown) Visit Date: (units (un known) date) 09/15/21 Last unknown) Updated by: Destinee Colin MD (unknown) (no (unknown) (unknown) Visit Date: (units (un known) date) 10/14/21 Last unknown) Updated by: Destinee Colin MD (unknown) (no (unknown) (unknown) Visit Date: (units (un known) date) 11/14/21 Last unknown) Updated by: Anitra Najera MD (unknown) (no (unknown) (unknown) Visit Date: (units (un known) date) 01/06/22 Last unknown) Updated by: Anitra Najera MD (unknown) (no (unknown) (unknown) Visit Date: (units (un known) date) 01/20/22 Last unknown) Updated by: Destinee Colin MD (unknown) (no (unknown) (unknown) Visit Date: (units (un known) date) 01/27/22 Last unknown) Updated by: Destinee Colin MD (unknown) (no (unknown) (unknown) Visit Date: (units (un known) date) 02/17/22 Last unknown) Updated by: Destinee Colin MD (unknown) (no (unknown) (unknown) Visit Reasons: 6 (units (unknown) date) wk pp unknown) (unknown) (no (unknown) (unknown) Vitals (units (unkno wn) date) unknown) (unknown) (no (unknown) (unknown) Vitamins and (units (u nknown) date) iron, Diet and unknown) weight gain, Fish and mercury intake, Smoking, (unknown) (no (unknown) (unknown) WG (units (unkno wn) date) unknown) (unknown) (no (unknown) (unknown) [facility] 1 month (units (un known) date) unknown) (unknown) (no (unknown) (unknown) Warning signs (units ( unknown) date) reviewed. unknown) (unknown) (no (unknown) (unknown) [place] last (units (unknown) date) week baby was at unknown) the thirty-ninth percentile. On ultrasound (unknown) (no (unknown) (unknown) Weight 163 lb (units ( unknown) date) unknown) (unknown) (no (unknown) (unknown) [place] teeth (units (u nknown) date) extracted unknown) (-10/2017) (unknown) (no (unknown) (unknown) Yes no 132 30 (units ( unknown) date) Vertex absent NATHANIEL unknown) 18.45cm (unknown) (no (unknown) (unknown) Zika virus (units (unk nown) date) exposure: No unknown) (unknown) (no (unknown) (unknown) activity, X-ray (units (unknown) date) exposure, unknown) Medication use, Sauna/hot tub use, Dental care, HIV (unknown) (no (unknown) (unknown) alcohol intake: (units (unknown) date) former unknown) (unknown) (no (unknown) (unknown) anyone in either (units (unknown) date) family with: unknown) (unknown) (no (unknown) (unknown) defects (units ( unknown) date) not listed above unknown) and Denies Other (unknown) (no (unknown) (unknown) caffeine: Yes (units ( unknown) date) unknown) (unknown) (no (unknown) (unknown) carbon monox (units (u nknown) date) detector in home: unknown) Yes (unknown) (no (unknown) (unknown) current (units (unkno wn) date) occupational unknown) exposures/hazards : No (unknown) (no (unknown) (unknown) daily servings (units (unknown) date) fruits/ve-4 unknown) (unknown) (no (unknown) (unknown) described, visit (units (unknown) date) schedule unknown) reviewed, ultrasounds policy reviewed, coverage 24 (unknown) (no (unknown) (unknown) device (units (unkno wn) date) unknown) (unknown) (no (unknown) (unknown) discussed, (units (unk nown) date) tuberculosis unknown) exposure discussed, CMV discussed, Toxoplasmosis (unknown) (no (unknown) (unknown) disorders, (units (unk nown) date) Denies Cystic unknown) Fibrosis, Denies [place]'s Chorea, Denies Other (unknown) (no (unknown) (unknown) do you feel safe (units (unknown) date) at home: Yes unknown) (unknown) (no (unknown) (unknown) during the past (units (unknown) date) year weight has: unknown) remained stable (unknown) (no (unknown) (unknown) education level: (units (unknown) date) vocational unknown) (unknown) (no (unknown) (unknown) education, (units (unk nown) date) Travel and unknown) Influenza vaccine (unknown) (no (unknown) (unknown) f/u dilated (units (un known) date) renal pelvices in unknown) baby. Found AC at 8%ile. Recommend dopplers (unknown) (no (unknown) (unknown) octavio/confucianism: (units (unknown) date) Mandaen unknown) (unknown) (no (unknown) (unknown) movement. (units (unknown) date) No leakage of unknown) fluid or vaginal bleeding. At [employer] of (unknown) (no (unknown) (unknown) fire (units (unkno wn) date) extinguisher in unknown) home: Yes (unknown) (no (unknown) (unknown) firearms in (units (un known) date) home: No unknown) (unknown) (no (unknown) (unknown) frequency: 3-4 (units (unknown) date) times per week unknown) (unknown) (no (unknown) (unknown) gastric bypass (units (unknown) date) surgery. She is unknown) unable to tolerate the iron pills. Will try to (unknown) (no (unknown) (unknown) get prior (units (unkn own) date) authorization for unknown) IV iron infusions. Patient with some structures not (unknown) (no (unknown) (unknown) have occurred. (units (unknown) date) If there are any unknown) questions, please contact the Medical Records (unknown) (no (unknown) (unknown) hours a day and (units (unknown) date) participation of unknown) father in care and office visits (unknown) (no (unknown) (unknown) household (units (unkn own) date) members: spouse unknown) and children (unknown) (no (unknown) (unknown) housing: (units (unkno wn) date) apartment unknown) (unknown) (no (unknown) (unknown) ibuprofen 600 mg (units (unknown) date) tablet 600 mg PO unknown) Q6-8H PRN cramping #20 tabs 04/05/22 [Rx (unknown) (no (unknown) (unknown) improving (units (unkn own) date) significantly. unknown) She has significant constipation and she was okay to (unknown) (no (unknown) (unknown) inherited (units (unkn own) date) genetic or unknown) chromosomal disorder, Denies Maternal Metabolic Disorder (unknown) (no (unknown) (unknown) intrauterine (units (u nknown) date) gestational sac unknown) with a fetus measuring 4.99 cm consistent with 11 (unknown) (no (unknown) (unknown) is receiving (units (u nknown) date) Zofran infusions unknown) for nausea and vomiting. No movement. No (unknown) (no (unknown) (unknown) kag (units (unkno wn) date) unknown) (unknown) (no (unknown) (unknown) leakage of fluid (units (unknown) date) or vaginal unknown) bleeding. Plan: Quad screen ordered. Twenty week (unknown) (no (unknown) (unknown) lives (units (unkno wn) date) independently: unknown) Yes (unknown) (no (unknown) (unknown) m 1 wk (units (unkno wn) date) unknown) (unknown) (no (unknown) (unknown) marital status: (units (unknown) date) unknown) (unknown) (no (unknown) (unknown) may occur. (units (unk nown) date) Occasional unknown) wrong-word or 'sound-alike' substitutions may have (unknown) (no (unknown) (unknown) number of (units (unkn own) date) children: 1 unknown) (unknown) (no (unknown) (unknown) occasionally use (units (unknown) date) an enema. Patient unknown) with significant anemia with a history of (unknown) (no (unknown) (unknown) occupational (units (u nknown) date) status: employed unknown) (unknown) (no (unknown) (unknown) occurred due to (units (unknown) date) the inherent unknown) limitations of voice recognition software. Please (unknown) (no (unknown) (unknown) other (units (unkno wn) date) unknown) (unknown) (no (unknown) (unknown) pets and (units (unkno wn) date) animals: No unknown) (unknown) (no (unknown) (unknown) precautions (units (un known) date) reviewed. unknown) Follow-up in 4 weeks. (unknown) (no (unknown) (unknown) precautions, (units (u nknown) date) Listeriosis unknown) prevention and Rubella Immunization (unknown) (no (unknown) (unknown) prenat.vits,charles, (units (unknown) date) [id number] 1 unknown) tab PO DAILY 08/23/21 [History Confirmed (unknown) (no (unknown) (unknown) labor (units ( unknown) date) Denisa unknown) (unknown) (no (unknown) (unknown) labor (units ( unknown) date) symptoms. Good unknown) movement. Routine precautions reviewed. (unknown) (no (unknown) (unknown) pt here for 6 wk (units (unknown) date) pp unknown) (unknown) (no (unknown) (unknown) read the note (units ( unknown) date) carefully and unknown) recognize, using context, where these substitutions (unknown) (no (unknown) (unknown) right ovary. The (units (unknown) date) left ovary was unknown) not visualized. Plan: Zofran. Labs with quad (unknown) (no (unknown) (unknown) screen next (units (un known) date) visit. Warning unknown) signs reviewed. kag (unknown) (no (unknown) (unknown) seatbelt use: (units ( unknown) date) always unknown) (unknown) (no (unknown) (unknown) second hand (units (un known) date) exposure: Yes unknown) ( smokes, mostly outside) (unknown) (no (unknown) (unknown) software. (units (unkn own) date) Although every unknown) effort is made to edit content, gunstock spray unit feeder errors (unknown) (no (unknown) (unknown) some nausea. No (units (unknown) date) meds so far. No unknown) vaginal bleeding. 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 She is going to (unknown) (no (unknown) (unknown) today. NATHANIEL 12.67 (units (unknown) date) cm. BPP 11/07. unknown) Plan: Nonstress test today. Follow-up in 1 (unknown) (no (unknown) (unknown) two vessel cord (units (unknown) date) unknown) (unknown) (no (unknown) (unknown) ultrasound (units (unk nown) date) ordered. unknown) Follow-up in 4 weeks. Warning signs reviewed. kag (unknown) (no (unknown) (unknown) water heater (units (u nknown) date) temp set < 120 unknown) deg: Yes (unknown) (no (unknown) (unknown) week for BPP and (units (unknown) date) NATHANIEL/nonstress unknown) test. Induction at 37 weeks gestation. kag (unknown) (no (unknown) (unknown) weekly or BPP. (units (unknown) date) Good FM. No LOF unknown) or VB. On U/S: BPP 11/07. NATHANIEL 18.45cm. (unknown) (no (unknown) (unknown) weeks 5 days. (units ( unknown) date) heart rate unknown) 176 beats per minute. Corpus luteal cyst on the (unknown) (no (unknown) (unknown) well seen on (units (u ) ) ultrasound will unknown) call to schedule follow-up ultrasound. Routine (unknown) (no (unknown) (unknown) well-balanced (units ( unknown) date) diet: daily or unknown) most days (unknown) (no (unknown) (unknown) work hard at (units (u n) ) trying to get unknown) this started. She has an appointment next week with (unknown) (no (unknown) (unknown) working smoke (units ( unknown) date) detector in home: unknown) Yes Result panel 157 (unknown) (no (unknown) (unknown) (no value) (units (unk nown) date) unknown) (unknown) (no (unknown) (unknown) (-16 oz) 100/68 N (units (unknown) date) unknown) (unknown) (no (unknown) (unknown) (-16 oz) 108/64 N (units (unknown) date) unknown) (unknown) (no (unknown) (unknown) (-5 lb) 100/62 N (units (unknown) date) unknown) (unknown) (no (unknown) (unknown) (-5 lb) 100/68 N (units (unknown) date) unknown) (unknown) (no (unknown) (unknown) (-5 lb) 100/68 (units (unknown) date) unknown) (unknown) (no (unknown) (unknown) (-6 lb) 110/64 N (units (unknown) date) unknown) (unknown) (no (unknown) (unknown) (-6 lb) 110/70 N (units (unknown) date) unknown) (unknown) (no (unknown) (unknown) (1) (units (unknown) date) examination unknown) following vaginal delivery: (unknown) (no (unknown) (unknown) (EG,TYPE 1 (units (unk nown) date) Diabetes, PKU), unknown) Denies Patient or baby's father had a child with (unknown) (no (unknown) (unknown) Genetic (units (unkn own) date) Screening/Teratolog unknown) y Counseling - Includes patient, baby's father, or (unknown) (no (unknown) (unknown) -?-?-?-?-?-?-?-?-? (units (unknown) date) -?-?-? unknown) (unknown) (no (unknown) (unknown) 04/18/22 1008 (units ( unknown) date) unknown) (unknown) (no (unknown) (unknown) 04/18/22 (units (unkno wn) date) unknown) (unknown) (no (unknown) (unknown) 04/18/22] (units (unkn own) date) unknown) (unknown) (no (unknown) (unknown) 08/04/20 39 15 6 (units (unknown) date) lb 13 oz Female unknown) vaginal live - full term (unknown) (no (unknown) (unknown) 09/15/21 (units (unkno wn) date) unknown) (unknown) (no (unknown) (unknown) 10/14/21 (units (unkno wn) date) unknown) (unknown) (no (unknown) (unknown) 11/14/21 (units (unkno wn) date) unknown) (unknown) (no (unknown) (unknown) 09:43 (units (unkno wn) date) unknown) (unknown) (no (unknown) (unknown) 1 wk (units (unkno wn) date) unknown) (unknown) (no (unknown) (unknown) 1+ No no 158 16 (units (unknown) date) N/A absent 4 wks unknown) (unknown) (no (unknown) (unknown) 1+ No no 176 12 (units (unknown) date) N/A absent unknown) long/closed AGA (unknown) (no (unknown) (unknown) 01/06/22 (units (unkno wn) date) unknown) (unknown) (no (unknown) (unknown) 01/20/22 (units (unkno wn) date) unknown) (unknown) (no (unknown) (unknown) 01/27/22 (units (unkno wn) date) unknown) (unknown) (no (unknown) (unknown) 02/17/22 (units (unkno wn) date) unknown) (unknown) (no (unknown) (unknown) 11w5d 4 wks (units (un known) date) unknown) (unknown) (no (unknown) (unknown) 04/01/22 (units (unkno wn) date) Ultrasound #2 42w unknown) 3d (unknown) (no (unknown) (unknown) 12w 2d 179 lb (units ( unknown) date) unknown) (unknown) (no (unknown) (unknown) 16w 3d 174 lb (units ( unknown) date) unknown) (unknown) (no (unknown) (unknown) 20w 6d 179 lb (units ( unknown) date) unknown) (unknown) (no (unknown) (unknown) 27-year-old (units (un known) date) 2 para 2 unknown) for a 6 week exam following a vaginal (unknown) (no (unknown) (unknown) 28w 3d 175 lb (units ( unknown) date) unknown) (unknown) (no (unknown) (unknown) 30w 3d 175 lb (units ( unknown) date) unknown) (unknown) (no (unknown) (unknown) 31w 3d 175 lb (units ( unknown) date) unknown) (unknown) (no (unknown) (unknown) 34w 3d 174 lb (units ( unknown) date) unknown) (unknown) (no (unknown) (unknown) 364 (units (unkno wn) date) unknown) (unknown) (no (unknown) (unknown) Abdomen: soft and (units (unknown) date) non-tender; unknown) Negative for uterus palp or hepatosplemegaly (unknown) (no (unknown) (unknown) Abnormal lab (units (u nknown) date) values 1st unknown) trimester: discussed (unknown) (no (unknown) (unknown) Add'l Plan Details (units (unknown) date) unknown) (unknown) (no (unknown) (unknown) Age/Sex: 27 / F (units (unknown) date) Date of Service: unknown) (unknown) (no (unknown) (unknown) Allergies (units (unkn own) date) unknown) (unknown) (no (unknown) (unknown) [place], [place] (units ( unknown) date) [id number] unknown) (unknown) (no (unknown) (unknown) Anemia (-2010) (units (unknown) date) unknown) (unknown) (no (unknown) (unknown) Anesthesia (units (unk nown) date) unknown) (unknown) (no (unknown) (unknown) Aneuploidy (units (unk nown) date) Screening Offered: unknown) Accepted (unknown) (no (unknown) (unknown) Anticipated course (units (unknown) date) of care: unknown) discussed (unknown) (no (unknown) (unknown) Assessment and (units (unknown) date) Plan unknown) (unknown) (no (unknown) (unknown) Assessment: (units (un known) date) unknown) (unknown) (no (unknown) (unknown) Asthma (units (unkno wn) date) unknown) (unknown) (no (unknown) (unknown) Attending Dr: (units ( unknown) date) Destinee Colin MD unknown) (unknown) (no (unknown) (unknown) Autoimmune (units (unk nown) date) vasculitis unknown) (unknown) (no (unknown) (unknown) BMI 29.8 (units (unkno wn) date) unknown) (unknown) (no (unknown) (unknown) BP 108/70 (units (unkn own) date) unknown) (unknown) (no (unknown) (unknown) Baby has had some (units (unknown) date) issues with failure unknown) to thrive (unknown) (no (unknown) (unknown) Bimanual: week (units (unknown) date) size: (6) and unknown) mobile; Negative for tender, adnexal mass or (unknown) (no (unknown) (unknown) (units (unkno wn) date) Plan/Preferences unknown) (unknown) (no (unknown) (unknown) Planning (units (unknown) date) unknown) (unknown) (no (unknown) (unknown) control (units ( unknown) date) method:: other unknown) (handouts for Mirena and Paraguard IUD given) (unknown) (no (unknown) (unknown) Bladder: Reports (units (unknown) date) emptying; Denies unknown) pain with urination, urge incontinence or (unknown) (no (unknown) (unknown) Bleeding: No (units (u nknown) date) unknown) (unknown) (no (unknown) (unknown) Blood Pressure (units (unknown) date) Location Rt unknown) brachial (unknown) (no (unknown) (unknown) Blood (units (unkno wn) date) transfusions?: yes unknown) (unknown) (no (unknown) (unknown) Blues/Depression/A (units (unknown) date) nxiety: No unknown) (unknown) (no (unknown) (unknown) Bowel: Reports (units (unknown) date) daily and unknown) constipation (not abnormal for her) (unknown) (no (unknown) (unknown) Breastfeed Preg (units (unknown) date) Comp Name unknown) (unknown) (no (unknown) (unknown) Breasts: (units (unkno wn) date) symmetric; Negative unknown) for masses, JAKUB, nipple discharge, erythema or (unknown) (no (unknown) (unknown) Caffeine use, (units ( unknown) date) Exercise and unknown) activity, work/environmental/ hazards, Sexual (unknown) (no (unknown) (unknown) Center for NST. (units (unknown) date) Warning signs unknown) reviewed. F/U 1 wk. kag (unknown) (no (unknown) (unknown) Cervix: parous; (units (unknown) date) Negative for well unknown) healed, polyps or lesions (unknown) (no (unknown) (unknown) Confirmed (units (unkn own) date) 04/18/22] unknown) (unknown) (no (unknown) (unknown) Covid x 2, boost (units (unknown) date) x1 unknown) (unknown) (no (unknown) (unknown) Current Estimate (units (unknown) date) 03/28/22 Ultrasound unknown) #1 43w 0d (unknown) (no (unknown) (unknown) Current (units (unknown) date) History unknown) (unknown) (no (unknown) (unknown) DNA (units (unkno wn) date) unknown) (unknown) (no (unknown) (unknown) : 1995 (units (unknown) date) Acct:[id number] unknown) (unknown) (no (unknown) (unknown) Date of positive (units (unknown) date) home unknown) test: 07/19/21 (unknown) (no (unknown) (unknown) Date (units (unkno wn) date) unknown) (unknown) (no (unknown) (unknown) Del. Date GA/Weeks (units (unknown) date) Labor Lgth Wt unknown) Sex Route Outcome Anesthesia Place (unknown) (no (unknown) (unknown) Delivery Date: (units (unknown) date) 08/04/20 Last unknown) Updated by: Courtney Hanson R.N. (unknown) (no (unknown) (unknown) Delivery Date: (units (unknown) date) 03/07/22 unknown) (unknown) (no (unknown) (unknown) Delv (units (unkno wn) date) unknown) (unknown) (no (unknown) (unknown) Denies Congenital (units (unknown) date) Heart Defect, unknown) Denies Down Syndrome, Denies Muscular Dystrophy, (unknown) (no (unknown) (unknown) Denies Neural Tube (units (unknown) date) Defect unknown) (Meningomyelocele, Spina Bifida, or Anencephaly), (unknown) (no (unknown) (unknown) Denies Sickle Cell (units (unknown) date) Disease or Trait unknown) (), Denies Hemophilia or other blood (unknown) (no (unknown) (unknown) Denies Giancarlo-Sachs (units (unknown) date) (Ashkenazi Confucianism, unknown) [place], [place] Bhutanese), Denies Sebastian (unknown) (no (unknown) (unknown) Denies other (units (u nknown) date) unknown) (unknown) (no (unknown) (unknown) Denies over the (units (unknown) date) counter unknown) medications, Denies alcohol, Denies illicit drugs and (unknown) (no (unknown) (unknown) Depression: (units (un known) date) discussed unknown) (unknown) (no (unknown) (unknown) Dept at (units (unkno wn) date) . 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 No LOF/VB. On (units (unknown) date) U/S: NATHANIEL 15.66cm. unknown) Placenta Grade 0. BPP 11/07. Plan: To (unknown) (no (unknown) (unknown) Family History (units (unknown) date) (Reviewed 03/03/22 unknown) @ 07:06 by Isabel Abarca DO) (unknown) (no (unknown) (unknown) Father TBI (units (unk nown) date) (traumatic brain unknown) injury) (unknown) (no (unknown) (unknown) Father of Baby: (units (unknown) date) same unknown) (unknown) (no (unknown) (unknown) Feeding: bottle (units (unknown) date) unknown) (unknown) (no (unknown) (unknown) [facility] ([facility] unknown) (unknown) (no (unknown) (unknown) First Trimester (units (unknown) date) Education Checklist unknown) (unknown) (no (unknown) (unknown) (units (unkno wn) date) unknown) (unknown) (no (unknown) (unknown) GERD (units (unkno wn) date) (gastroesophageal unknown) reflux disease) (-2017) (unknown) (no (unknown) (unknown) Genetic Screening (units (unknown) date) + Counseling unknown) (unknown) (no (unknown) (unknown) Genetic Screening (units (unknown) date) unknown) (unknown) (no (unknown) (unknown) Grandfather (units (un known) date) Asthma unknown) (unknown) (no (unknown) (unknown) Grandfather (units (un known) date) Heart unknown) disease (unknown) (no (unknown) (unknown) Grandmother (units (un known) date) Bladder cancer unknown) (unknown) (no (unknown) (unknown) Grandmother (units (un known) date) unknown) Hypertension (unknown) (no (unknown) (unknown) 2 Multiple (units (unknown) date) births unknown) (unknown) (no (unknown) (unknown) : 2 (units (unk nown) date) unknown) (unknown) (no (unknown) (unknown) H/O gastric sleeve (units (unknown) date) () unknown) (unknown) (no (unknown) (unknown) HEG, Reglan, added (units (unknown) date) Zofran unknown) (unknown) (no (unknown) (unknown) HIV risk (units (unkno wn) date) evaluation: low unknown) risk (unknown) (no (unknown) (unknown) HSV-2 seropositive (units (unknown) date) unknown) (unknown) (no (unknown) (unknown) Health Center (units ( unknown) date) Education unknown) (unknown) (no (unknown) (unknown) Health center (units ( unknown) date) information: nature unknown) of practice discussed, personnel (unknown) (no (unknown) (unknown) Heart disease (units ( unknown) date) unknown) (unknown) (no (unknown) (unknown) Heavy menstrual (units (unknown) date) period (-2010) unknown) (unknown) (no (unknown) (unknown) Height 5 ft 2 in (units (unknown) date) unknown) (unknown) (no (unknown) (unknown) Hepatitis C risk (units (unknown) date) evaluation: low unknown) risk (unknown) (no (unknown) (unknown) History of GERD (units (unknown) date) unknown) (unknown) (no (unknown) (unknown) History of (units (unk nown) date) Hepatitis B: No unknown) (unknown) (no (unknown) (unknown) History of (units (unk nown) date) Hepatitis C: No unknown) (unknown) (no (unknown) (unknown) History of repair (units (unknown) date) of hiatal hernia unknown) () (unknown) (no (unknown) (unknown) History/Interim (units (unknown) date) Details unknown) (unknown) (no (unknown) (unknown) [facility] (units (u nknown) date) unknown) (unknown) (no (unknown) (unknown) 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) (unknown) (no (unknown) (unknown) Hx # (units (u nknown) date) Pregnancies unknown) Elective abortions (unknown) (no (unknown) (unknown) Hx # Term (units (unkn own) date) Pregnancies 1 unknown) Ectopic pregnancies (unknown) (no (unknown) (unknown) Hx HSV-2, 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 (unknown) (no (unknown) (unknown) Hx severe anemia (units (unknown) date) w/ 1st pg requiring unknown) weekly iron infusion (unknown) (no (unknown) (unknown) Hyperlipidemia (units (unknown) date) unknown) (unknown) (no (unknown) (unknown) Hypertension (units (u nknown) date) unknown) (unknown) (no (unknown) (unknown) (units (u nknown) date) Weight: 5 lbs 11 oz unknown) (unknown) (no (unknown) (unknown) Longest (units (unknown) date) Sleep: 4 hrs unknown) (unknown) (no (unknown) (unknown) Infant Recent (units ( unknown) date) Weight: 6 lbs 8 oz unknown) (unknown) (no (unknown) (unknown) Infant will be (units (unknown) date) adopted?: no unknown) (unknown) (no (unknown) (unknown) Infant's Name: (units (unknown) date) Mely unknown) (unknown) (no (unknown) (unknown) 's Sex: (units ( unknown) date) Female unknown) (unknown) (no (unknown) (unknown) Infection History (units (unknown) date) unknown) (unknown) (no (unknown) (unknown) Infectious Disease (units (unknown) date) Education unknown) (unknown) (no (unknown) (unknown) Infectious disease (units (unknown) date) exposure: chicken unknown) pox immunity discussed, hepatitis risk (unknown) (no (unknown) (unknown) Initial Weight: (units (unknown) date) 180 lb unknown) (unknown) (no (unknown) (unknown) Initials (units (unkno wn) date) unknown) (unknown) (no (unknown) (unknown) Intake Clinical (units (unknown) date) Staff unknown) (unknown) (no (unknown) (unknown) Intake Note: (units (u nknown) date) unknown) (unknown) (no (unknown) (unknown) Intake performed (units (unknown) date) by: unknown) Johana Salazar (unknown) (no (unknown) (unknown) Intake (units (unkno wn) date) unknown) (unknown) (no (unknown) (unknown) [place]: (units (u nknown) date) Reports resumed; unknown) Denies issues (unknown) (no (unknown) (unknown) Interim (units ( unknown) date) control method: unknown) Reports none (unknown) (no (unknown) (unknown) Live with someone (units (unknown) date) with TB or exposed unknown) to TB: No (unknown) (no (unknown) (unknown) Loc: [facility] (units (unkno wn) date) unknown) (unknown) (no (unknown) (unknown) Lung cancer (units (un known) date) unknown) (unknown) (no (unknown) (unknown) Marital status: (units (unknown) date) unknown) (unknown) (no (unknown) (unknown) Maternal (units (unknown) date) Medicine to unknown) evaluate the enlarged renal pelvises. No (unknown) (no (unknown) (unknown) Medical History (units (unknown) date) (Reviewed 03/03/22 unknown) @ 07:06 by Isabel Abarca DO) (unknown) (no (unknown) (unknown) Medications (units (un known) date) unknown) (unknown) (no (unknown) (unknown) Mirena and (units (unk nown) date) ParaGard IUD unknown) handouts given (unknown) (no (unknown) (unknown) Mother Gestational (units (unknown) date) diabetes unknown) (unknown) (no (unknown) (unknown) Myocardial (units (unk nown) date) infarction unknown) (unknown) (no (unknown) (unknown) N Yes no 154 31 (units (unknown) date) Vertex absent NATHANIEL unknown) 15.66cm (unknown) (no (unknown) (unknown) NF (units (unkno wn) date) unknown) (unknown) (no (unknown) (unknown) No Pap (units (unkno wn) date) unknown) (unknown) (no (unknown) (unknown) Notes (units (unkno wn) date) unknown) (unknown) (no (unknown) (unknown) Number of Living (units (unknown) date) Children unknown) (unknown) (no (unknown) (unknown) Number of Weeks (units (unknown) date) Post : 6 unknown) (unknown) (no (unknown) (unknown) Number of (units (unkn own) date) fetuses:: Single unknown) (unknown) (no (unknown) (unknown) Nutrition and (units ( unknown) date) weight gain unknown) counseling: special diet: discussed (unknown) (no (unknown) (unknown) OB Office Visit (units (unknown) date) unknown) (unknown) (no (unknown) (unknown) OB Visit Log (units (u nknown) date) unknown) (unknown) (no (unknown) (unknown) On control (units (unknown) date) at conception?: No unknown) (unknown) (no (unknown) (unknown) Orders: (units (unkno wn) date) unknown) (unknown) (no (unknown) (unknown) Other Estimates (units (unknown) date) 03/31/22 LMP unknown) (Certain) 42w 4d (unknown) (no (unknown) (unknown) PFSH (units (unkno wn) date) unknown) (unknown) (no (unknown) (unknown) Painful menstrual (units (unknown) date) periods (-2009) unknown) (unknown) (no (unknown) (unknown) Pap:: no (units (unkno wn) date) unknown) (unknown) (no (unknown) (unknown) Para 2 Spontaneous (units (unknown) date) abortions unknown) (unknown) (no (unknown) (unknown) Para: 2 (units (unkno wn) date) unknown) (unknown) (no (unknown) (unknown) Partner history of (units (unknown) date) STD: denies hx unknown) (unknown) (no (unknown) (unknown) Partner history of (units (unknown) date) genital herpes: No unknown) (unknown) (no (unknown) (unknown) Partner: Manny Diaz (units (unknown) date) unknown) (unknown) (no (unknown) (unknown) Past Pregnancies (units (unknown) date) unknown) (unknown) (no (unknown) (unknown) Patient comes in (units (unknown) date) for routine OB unknown) visit at 28 weeks. She has not been able (unknown) (no (unknown) (unknown) Patient is having (units (unknown) date) some mid upper unknown) abdomen discomfort, with belching and radiation (unknown) (no (unknown) (unknown) Patient presents (units (unknown) date) for a new OB visit unknown) at 12 weeks gestation. She has had (unknown) (no (unknown) (unknown) Patient presents (units (unknown) date) for a routine unknown) visit at 16 weeks gestation. She (unknown) (no (unknown) (unknown) Patient presents (units (unknown) date) for a routine unknown) visit at 34 weeks gestation. Good (unknown) (no (unknown) (unknown) Patient states she (units (unknown) date) is starting to feel unknown) some baby movement. Her nausea is (unknown) (no (unknown) (unknown) Patient to call (units (unknown) date) with her decision unknown) regarding IUD (unknown) (no (unknown) (unknown) Patient's age 34 (units (unknown) date) years or older as unknown) of estimated date of delivery: No (unknown) (no (unknown) (unknown) Patient: (units (unkno wn) date) Suzi Diaz MR#: unknown) [id number] (unknown) (no (unknown) (unknown) [employer]: (units ( unknown) date) Pediatric unknown) [facility] (unknown) (no (unknown) (unknown) Perineum: intact (units (unknown) date) and healing well; unknown) Negative for granulation tissue or lesions (unknown) (no (unknown) (unknown) Personal history (units (unknown) date) of STD: other unknown) (unknown) (no (unknown) (unknown) Personal history (units (unknown) date) of genital herpes: unknown) Yes (unknown) (no (unknown) (unknown) Placenta grade 0. (units (unknown) date) Plan: To BC for unknown) NST. F/U 1 wk for BPP/NST. [facility]'s discussed. (unknown) (no (unknown) (unknown) Plan: (units (unkno wn) date) unknown) (unknown) (no (unknown) (unknown) Position Sitting (units (unknown) date) unknown) (unknown) (no (unknown) (unknown) Post Order (units (unknown) date) Checklist unknown) (unknown) (no (unknown) (unknown) Post (units (un known) date) unknown) (unknown) (no (unknown) (unknown) (units (unk nown) date) depression unknown) (unknown) (no (unknown) (unknown) Pre-diabetes (units (u nknown) date) unknown) (unknown) (no (unknown) (unknown) History (units (unknown) date) unknown) (unknown) (no (unknown) (unknown) type:: (units (unknown) date) Other Normal unknown) (unknown) (no (unknown) (unknown) Education (units (unknown) date) unknown) (unknown) (no (unknown) (unknown) Initial (units (unknown) date) Assessment unknown) (unknown) (no (unknown) (unknown) Specific (units (unknown) date) Issues/Plans unknown) (unknown) (no (unknown) (unknown) Testing: (units (unknown) date) discussed unknown) (unknown) (no (unknown) (unknown) Visit (units (unknown) date) unknown) (unknown) (no (unknown) (unknown) education (units (unknown) date) packet: Child unknown) education/plan, symptoms, (unknown) (no (unknown) (unknown) Primary Care (units (u nknown) date) Provider: Mar unknown) CARRINGTON Chapin (unknown) (no (unknown) (unknown) Primary Ob (units (unk nown) date) Provider: unknown) Destinee Colin (unknown) (no (unknown) (unknown) Prior GBS-Infected (units (unknown) date) child: No unknown) (unknown) (no (unknown) (unknown) Providers (units (unkn own) date) unknown) (unknown) (no (unknown) (unknown) Pt presents for a (units (unknown) date) routine PNV at 30 unknown) wks gest. Seen at [facility] 01/17/22 for (unknown) (no (unknown) (unknown) Pt presents for a (units (unknown) date) routine PNV at 31 unknown) wks gestation. AC at 8%ile. Good (unknown) (no (unknown) (unknown) ROS (units (unkno wn) date) unknown) (unknown) (no (unknown) (unknown) Rash or viral (units ( unknown) date) illness since last unknown) menstrual period: No (unknown) (no (unknown) (unknown) Rash (units (unkno wn) date) unknown) (unknown) (no (unknown) (unknown) Reason For Visit (units (unknown) date) unknown) (unknown) (no (unknown) (unknown) Recent travel (units ( unknown) date) outside of unknown) country?: No (unknown) (no (unknown) (unknown) Recurrent (units (unkn own) date) loss or a unknown) stillbirth: No (unknown) (no (unknown) (unknown) Referral Community (units (unknown) date) Resource Z97.5 - unknown) Presence of (intrauterine) contraceptive (unknown) (no (unknown) (unknown) Referrals (units (unkn own) date) unknown) (unknown) (no (unknown) (unknown) Reports Mental (units (unknown) date) Retardation/Autism; unknown) (unknown) (no (unknown) (unknown) Safety (units (unkno wn) date) unknown) (unknown) (no (unknown) (unknown) Signed By: (units (unk nown) date) <Electronically unknown) signed by Destinee Colin MD> (unknown) (no (unknown) (unknown) Signed (units (unkno wn) date) unknown) (unknown) (no (unknown) (unknown) Sister Asthma (units ( unknown) date) unknown) (unknown) (no (unknown) (unknown) Smoking Status: (units (unknown) date) Never smoker unknown) (unknown) (no (unknown) (unknown) Social History (units (unknown) date) unknown) (unknown) (no (unknown) (unknown) Sulfa (Sulfonamide (units (unknown) date) Antibiotics) unknown) Adverse Reaction (Mild, Verified 04/18/22 09:43) (unknown) (no (unknown) (unknown) Support (units (unkno wn) date) Person(s):: Manny unknown) (unknown) (no (unknown) (unknown) Surgical History (units (unknown) date) (Reviewed 03/03/22 unknown) @ 07:06 by Isabel Abarca DO) (unknown) (no (unknown) (unknown) Surrogate (units (unkn own) date) ?: no unknown) (unknown) (no (unknown) (unknown) Symptoms since (units (unknown) date) LMP: Reports unknown) amenorrhea, nausea, vomiting, fatigue, breast (unknown) (no (unknown) (unknown) TR Yes no 144 34 (units (unknown) date) Vertex absent NATHANIEL unknown) 12.67 c (unknown) (no (unknown) (unknown) TR Yes no 150 20 (units (unknown) date) N/A absent 4wk unknown) (unknown) (no (unknown) (unknown) TR Yes no 152 28 (units (unknown) date) N/A absent 2wk unknown) (unknown) (no (unknown) (unknown) Teratogen (units (unkn own) date) Exposures since unknown) LMP/Conception: Denies prescription medications, (unknown) (no (unknown) (unknown) Testing Education (units (unknown) date) unknown) (unknown) (no (unknown) (unknown) Testing education (units (unknown) date) completed: group B unknown) strep, Spina bifida testing and Cell Free (unknown) (no (unknown) (unknown) This note may have (units (unknown) date) been all or unknown) partially generated using voice recognition (unknown) (no (unknown) (unknown) Thyroid: normal; (units (unknown) date) Negative for unknown) thyromegaly (unknown) (no (unknown) (unknown) Tobacco + (units (unkn own) date) Substance Use unknown) (unknown) (no (unknown) (unknown) Tobacco Status (units (unknown) date) unknown) (unknown) (no (unknown) (unknown) Two vessel (units (unk nown) date) umbilical cord in unknown) gates , antepartum (unknown) (no (unknown) (unknown) Type of Delivery: (units (unknown) date) unknown) (unknown) (no (unknown) (unknown) Type(s) of (units (unk nown) date) exercise: walking unknown) (unknown) (no (unknown) (unknown) UProtein Movement (units (unknown) date) PreLabor FHR Fndl unknown) Ht Pres Edema Cerv Exam US/Comment Next Appt (unknown) (no (unknown) (unknown) Unsure about (units (unknown) date) control at this unknown) time (unknown) (no (unknown) (unknown) Varicella/chicken (units (unknown) date) pox status: unknown) immunized (unknown) (no (unknown) (unknown) Visit Date: (units (un known) date) 09/15/21 Last unknown) Updated by: Destinee Colin MD (unknown) (no (unknown) (unknown) Visit Date: (units (un known) date) 10/14/21 Last unknown) Updated by: Destinee Colin MD (unknown) (no (unknown) (unknown) Visit Date: (units (un known) date) 11/14/21 Last unknown) Updated by: Anitra Najera MD (unknown) (no (unknown) (unknown) Visit Date: (units (un known) date) 01/06/22 Last unknown) Updated by: Anitra Najera MD (unknown) (no (unknown) (unknown) Visit Date: (units (un known) date) 01/20/22 Last unknown) Updated by: Destinee Colin MD (unknown) (no (unknown) (unknown) Visit Date: (units (un known) date) 01/27/22 Last unknown) Updated by: Destinee Colin MD (unknown) (no (unknown) (unknown) Visit Date: (units (un known) date) 02/17/22 Last unknown) Updated by: Destinee Colin MD (unknown) (no (unknown) (unknown) Visit Reasons: 6 (units (unknown) date) wk pp unknown) (unknown) (no (unknown) (unknown) Vitals (units (unkno wn) date) unknown) (unknown) (no (unknown) (unknown) Vitamins and iron, (units (unknown) date) Diet and weight unknown) gain, Fish and mercury intake, Smoking, (unknown) (no (unknown) (unknown) WG (units (unkno wn) date) unknown) (unknown) (no (unknown) (unknown) [facility] 1 month (units (un known) date) unknown) (unknown) (no (unknown) (unknown) Warning signs (units ( unknown) date) reviewed. unknown) (unknown) (no (unknown) (unknown) [place] last (units (unknown) date) week baby was at unknown) the thirty-ninth percentile. On ultrasound (unknown) (no (unknown) (unknown) Weight 163 lb (units ( unknown) date) unknown) (unknown) (no (unknown) (unknown) [place] teeth (units (u nknown) date) extracted unknown) (-10/2017) (unknown) (no (unknown) (unknown) Yes no 132 30 (units ( unknown) date) Vertex absent NATHANIEL unknown) 18.45cm (unknown) (no (unknown) (unknown) Zika virus (units (unk nown) date) exposure: No unknown) (unknown) (no (unknown) (unknown) activity, X-ray (units (unknown) date) exposure, unknown) Medication use, Sauna/hot tub use, Dental care, HIV (unknown) (no (unknown) (unknown) adnexal tenderness (units (unknown) date) unknown) (unknown) (no (unknown) (unknown) alcohol intake: (units (unknown) date) former unknown) (unknown) (no (unknown) (unknown) and then to (units (un known) date) follow-up with unknown) primary care provider (unknown) (no (unknown) (unknown) anyone in either (units (unknown) date) family with: unknown) (unknown) (no (unknown) (unknown) defects not (units (unknown) date) listed above and unknown) Denies Other (unknown) (no (unknown) (unknown) caffeine: Yes (units ( unknown) date) unknown) (unknown) (no (unknown) (unknown) carbon monox (units (u nknown) date) detector in home: unknown) Yes (unknown) (no (unknown) (unknown) cracked nipples (units (unknown) date) unknown) (unknown) (no (unknown) (unknown) current (units (unkno wn) date) occupational unknown) exposures/hazards: No (unknown) (no (unknown) (unknown) daily servings (units (unknown) date) fruits/ve-4 unknown) (unknown) (no (unknown) (unknown) delivery (units (unkno wn) date) unknown) (unknown) (no (unknown) (unknown) described, visit (units (unknown) date) schedule reviewed, unknown) ultrasounds policy reviewed, coverage 24 (unknown) (no (unknown) (unknown) device (units (unkno wn) date) unknown) (unknown) (no (unknown) (unknown) discussed, (units (unk nown) date) tuberculosis unknown) exposure discussed, CMV discussed, Toxoplasmosis (unknown) (no (unknown) (unknown) disorders, Denies (units (unknown) date) Cystic Fibrosis, unknown) Denies [place] Chorea, Denies Other (unknown) (no (unknown) (unknown) do you feel safe (units (unknown) date) at home: Yes unknown) (unknown) (no (unknown) (unknown) during the past (units (unknown) date) year weight has: unknown) remained stable (unknown) (no (unknown) (unknown) education level: (units (unknown) date) vocational unknown) (unknown) (no (unknown) (unknown) education, Travel (units (unknown) date) and Influenza unknown) vaccine (unknown) (no (unknown) (unknown) f/u dilated renal (units (unknown) date) pelvices in baby. unknown) Found AC at 8%ile. Recommend dopplers (unknown) (no (unknown) (unknown) octavio/confucianism: (units (unknown) date) Mandaen unknown) (unknown) (no (unknown) (unknown) movement. No (units (unknown) date) leakage of fluid or unknown) vaginal bleeding. At the [place] of (unknown) (no (unknown) (unknown) fire extinguisher (units (unknown) date) in home: Yes unknown) (unknown) (no (unknown) (unknown) firearms in home: (units (unknown) date) No unknown) (unknown) (no (unknown) (unknown) frequency: 3-4 (units (unknown) date) times per week unknown) (unknown) (no (unknown) (unknown) gastric bypass (units (unknown) date) surgery. She is unknown) unable to tolerate the iron pills. Will try to (unknown) (no (unknown) (unknown) get prior (units (unkn own) date) authorization for unknown) IV iron infusions. Patient with some structures not (unknown) (no (unknown) (unknown) have occurred. If (units (unknown) date) there are any unknown) questions, please contact the Medical Records (unknown) (no (unknown) (unknown) hours a day and (units (unknown) date) participation of unknown) father in care and office visits (unknown) (no (unknown) (unknown) household members: (units (unknown) date) spouse and children unknown) (unknown) (no (unknown) (unknown) housing: apartment (units (unknown) date) unknown) (unknown) (no (unknown) (unknown) ibuprofen 600 mg (units (unknown) date) tablet 600 mg PO unknown) Q6-8H PRN cramping #20 tabs 04/05/22 [Rx (unknown) (no (unknown) (unknown) improving (units (unkn own) date) significantly. She unknown) has significant constipation and she was okay to (unknown) (no (unknown) (unknown) inherited genetic (units (unknown) date) or chromosomal unknown) disorder, Denies Maternal Metabolic Disorder (unknown) (no (unknown) (unknown) into chest (units (unk nown) date) unknown) (unknown) (no (unknown) (unknown) intrauterine (units (u nknown) date) gestational sac unknown) with a fetus measuring 4.99 cm consistent with 11 (unknown) (no (unknown) (unknown) is receiving (units (u nknown) date) Zofran infusions unknown) for nausea and vomiting. No movement. No (unknown) (no (unknown) (unknown) kag (units (unkno wn) date) unknown) (unknown) (no (unknown) (unknown) leakage of fluid (units (unknown) date) or vaginal unknown) bleeding. Plan: Quad screen ordered. Twenty week (unknown) (no (unknown) (unknown) lives (units (unkno wn) date) independently: Yes unknown) (unknown) (no (unknown) (unknown) m 1 wk (units (unkno wn) date) unknown) (unknown) (no (unknown) (unknown) marital status: (units (unknown) date) unknown) (unknown) (no (unknown) (unknown) may occur. (units (unk nown) date) Occasional unknown) wrong-word or 'sound-alike' substitutions may have (unknown) (no (unknown) (unknown) number of (units (unkn own) date) children: 1 unknown) (unknown) (no (unknown) (unknown) occasionally use (units (unknown) date) an enema. Patient unknown) with significant anemia with a history of (unknown) (no (unknown) (unknown) occupational (units (u nknown) date) status: employed unknown) (unknown) (no (unknown) (unknown) occurred due to (units (unknown) date) the inherent unknown) limitations of voice recognition software. Please (unknown) (no (unknown) (unknown) other (units (unkno wn) date) unknown) (unknown) (no (unknown) (unknown) pets and animals: (units (unknown) date) No unknown) (unknown) (no (unknown) (unknown) precautions (units (un known) date) reviewed. Follow-up unknown) in 4 weeks. (unknown) (no (unknown) (unknown) precautions, (units (u nknown) date) Listeriosis unknown) prevention and Rubella Immunization (unknown) (no (unknown) (unknown) prenat.vits,charles,mi (units (unknown) date) [id number] 1 tab unknown) PO DAILY 08/23/21 [History Confirmed (unknown) (no (unknown) (unknown) labor (units ( unknown) date) Denisa unknown) (unknown) (no (unknown) (unknown) labor (units ( unknown) date) symptoms. Good unknown) movement. Routine precautions reviewed. (unknown) (no (unknown) (unknown) pt here for 6 wk (units (unknown) date) pp unknown) (unknown) (no (unknown) (unknown) read the note (units ( unknown) date) carefully and unknown) recognize, using context, where these substitutions (unknown) (no (unknown) (unknown) right ovary. The (units (unknown) date) left ovary was not unknown) visualized. Plan: Zofran. Labs with quad (unknown) (no (unknown) (unknown) screen next visit. (units (unknown) date) Warning signs unknown) reviewed. kag (unknown) (no (unknown) (unknown) seatbelt use: (units ( unknown) date) always unknown) (unknown) (no (unknown) (unknown) second hand (units (un known) date) exposure: Yes unknown) ( smokes, mostly outside) (unknown) (no (unknown) (unknown) software. Although (units (unknown) date) every effort is unknown) made to edit content, gunstock spray unit feeder errors (unknown) (no (unknown) (unknown) some nausea. No (units (unknown) date) meds so far. No unknown) vaginal bleeding. 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 She is going to (unknown) (no (unknown) (unknown) today. NATHANIEL 12.67 (units (unknown) date) cm. BPP 88. Plan: unknown) Nonstress test today. Follow-up in 1 (unknown) (no (unknown) (unknown) two vessel cord (units (unknown) date) unknown) (unknown) (no (unknown) (unknown) ultrasound (units (unk nown) date) ordered. Follow-up unknown) in 4 weeks. Warning signs reviewed. kag (unknown) (no (unknown) (unknown) water heater temp (units (unknown) date) set < 120 deg: Yes unknown) (unknown) (no (unknown) (unknown) week for BPP and (units (unknown) date) NATHANIEL/nonstress test. unknown) Induction at 37 weeks gestation. kag (unknown) (no (unknown) (unknown) weekly or BPP. (units (unknown) date) Good FM. No LOF or unknown) VB. On U/S: BPP 11/07. NATHANIEL 18.45cm. (unknown) (no (unknown) (unknown) weeks 5 days. (units ( unknown) date) heart rate unknown) 176 beats per minute. Corpus luteal cyst on the (unknown) (no (unknown) (unknown) well seen on (units (u ) date) ultrasound will unknown) call to schedule follow-up ultrasound. Routine (unknown) (no (unknown) (unknown) well-balanced (units ( unknown) date) diet: daily or most unknown) days (unknown) (no (unknown) (unknown) work hard at (units (u ) date) trying to get this unknown) started. She has an appointment next week with (unknown) (no (unknown) (unknown) working smoke (units ( unknown) date) detector in home: unknown) Yes Social History date description facility 2022-01-27 00:00 Never smoked tobacco (finding) [facility] 2022-02-17 00:00 Never smoked tobacco (finding) [facility] 2022-03-08 00:00 Never smoked tobacco (finding) [facility] 2022-04-18 00:00 Never smoked tobacco (finding) [facility] Vital Signs date measurement value units 2022-01-20 00:00 BMI 32.0 kg/m2 2022-01-20 00:00 BP_diastolic 68 mmHg 2022-01-20 00:00 BP_systolic 100 mmHg 2022-01-20 00:00 height_metric 157.48 cm 2022-01-20 00:00 height_standard 62 in 2022-01-20 00:00 weight_metric 79.37 kg 2022-01-20 00:00 weight_standard 174.98 lb 2022-01-27 00:00 BMI 32.0 kg/m2 2022-01-27 00:00 BP_diastolic 68 mmHg 2022-01-27 00:00 BP_systolic 100 mmHg 2022-01-27 00:00 height_metric 157.48 cm 2022-01-27 00:00 height_standard 62 in 2022-01-27 00:00 weight_metric 79.37 kg 2022-01-27 00:00 weight_standard 174.98 lb 2022-02-17 00:00 BMI 31.8 kg/m2 2022-02-17 00:00 BP_diastolic 70 mmHg 2022-02-17 00:00 BP_systolic 110 mmHg 2022-02-17 00:00 height_metric 157.48 cm 2022-02-17 00:00 height_standard 62 in 2022-02-17 00:00 weight_metric 78.92 kg 2022-02-17 00:00 weight_standard 173.99 lb 2022-03-08 00:00 BP_diastolic 83 mmHg 2022-03-08 00:00 BP_systolic 115 mmHg 2022-03-08 00:00 heart_rate 94 /min 2022-03-08 00:00 height_metric 157.48 cm 2022-03-08 00:00 height_standard 62 in 2022-03-08 00:00 respiration_rate 18 /min 2022-03-08 00:00 temperature_metric 36.78 C 2022-03-08 00:00 temperature_standard 98.2 F 2022-03-08 00:00 weight_metric 78.92 kg 2022-03-08 00:00 weight_standard 173.99 lb 2022-04-18 00:00 BMI 29.8 kg/m2 2022-04-18 00:00 BP_diastolic 70 mmHg 2022-04-18 00:00 BP_systolic 108 mmHg 2022-04-18 00:00 height_metric 157.48 cm 2022-04-18 00:00 height_standard 62 in 2022-04-18 00:00 weight_metric 73.93 kg 2022-04-18 00:00 weight_standard 162.99 lb
[2022-04-18 13:04] LABS: BASOPHILS % (AUTO) 0.4 %; EOSINOPHILS # (AUTO) 0.1 10^3/uL (0.0-0.7); EOSINOPHILS % (AUTO) 1.1 %; HGB - HEMOGLOBIN 13.9 g/dL (12.0-16.0); LYMPHOCYTES # (AUTO) 1.3 10^3/uL (1.5-3.5); LYMPHOCYTES % (AUTO) 23.4 %; MEAN CORPUSCULAR HEMOGLOBIN 29.4 pg (27.0-31.0); MEAN CORPUSCULAR HGB CONC 31.6 g/dL (32.0-36.0); MEAN PLATELET VOLUME 10.1 fL (7.9-10.8); MONOCYTES # (AUTO) 0.4 10^3/uL (0.0-1.0); MONOCYTES % (AUTO) 7.5 %; NEUTROPHILS # (AUTO) 3.8 10^3/uL (1.5-6.6); NEUTROPHILS % (AUTO) 67.4 %; PLT - PLATELET COUNT 164 10^3/uL (130-450); RED BLOOD COUNT 4.73 10^6/uL (4.20-5.40); RED CELL DISTRIBUTION WIDTH 15.9 % (12.0-15.0); WHITE BLOOD COUNT 5.6 x10^3/uL (4.8-10.8)
[2022-04-18 13:33] LABS: ALBUMIN 3.9 g/dL (3.2-5.5); ALBUMIN/GLOBULIN RATIO 1.1 (1.0-2.2); BILIRUBIN,TOTAL 0.9 mg/dL (0.2-1.0); CALCIUM 8.6 mg/dL (8.5-10.3); CREATININE 0.8 mg/dL (0.4-1.0); TOTAL PROTEIN 7.4 g/dL (6.7-8.2)
[2022-04-18] MEDS ORDERED: MORPHINE 2 MG/ML CARPUJECT IVP STA (15:49)
[2022-04-18] MEDS ORDERED: ONDANSETRON 4 MG/2 ML VIAL IVP STA (15:49)
[2022-04-18] MEDS ORDERED: SODIUM CHLORIDE 0.9% 1,000 ML IV STA (15:49)
--- NOTE | 2022-04-18 16:19 | ED Physician Documentation ---
PD HPI ABD PAIN - Stated complaint Stated Complaint: CHEST/ABD PX - Chief complaint Chief Complaint: Cardiac - History obtained from History obtained from: Patient - Additional information Additional information: Patient is a 27-year-old who is approximately 6 weeks presenting for evaluation of epigastric abdominal pain that started this morning. She feels that it is sharp.She is also been vomiting anytime she tries to take p.o. She denies a history of similar symptoms. She does report having regular alcohol use with 1 to 2 glasses of wine when she is making dinner but does report having increased amounts of alcohol this weekend.She is not breast-feeding. She has had prior abdominal surgery with a gastric sleeve. She had a vaginal delivery that was uncomplicated.She feels at times that her pain is radiating up to her chest. She otherwise denies feeling labored breathing. Review of Systems Constitutional: denies: Fever Nose: denies: Congestion Respiratory: denies: Dyspnea GI: reports: Abdominal Pain, Vomiting : denies: Dysuria, Vaginal bleeding Musculoskeletal: denies: Back pain Neurologic: denies: Headache PD PAST MEDICAL HISTORY - Past Medical History Cardiovascular: None Respiratory: None Neuro: None Endocrine/Autoimmune: None GI: GERD : None Musculoskeletal: None Derm: None - Past Surgical History General: Gastric surgery - Present Medications Home Medications: Ambulatory Orders Medication Instructions Recorded Confirmed Valacyclovir HCl [Valtrex] 500 mg PO BID 08/03/20 08/04/20 Metoclopramide [Reglan] 10 mg PO Q6H PRN #20 tablet 07/27/21 - Allergies Allergies/Adverse Reactions: Allergies Allergy/AdvReac Type Severity Reaction Status Date / Time Sulfa (Sulfonamide AdvReac Rash Verified 04/18/22 12:14 Antibiotics) - Social History Does the pt smoke?: No Smoking Status: Never smoker PD ED PE NORMAL - General General: Alert and oriented X 3, No acute distress, Well developed/nourished - HEENT HEENT: Atraumatic - Neck Neck: Supple, no meningeal sign - Cardiac Cardiac: RRR, No murmur - Respiratory Respiratory: No respiratory distress, Clear bilaterally - Abdomen Abdomen: Normal bowel sounds, Soft, Non distended, Other (Epigastric and left upper quadrant tenderness to palpation) - Derm Derm: Warm and dry - Extremities Extremities: No edema - Neuro Neuro: Normal speech Results - Vitals Vitals: Vital Signs - 24 hr 04/18/22 04/18/22 04/18/22 12:04 14:42 15:00 Temperature 36.3 C L 36.5 C 36.5 C Heart Rate 90 88 90 Respiratory 18 16 22 Rate Blood Pressure 128/76 128/76 115/85 H O2 Saturation 98 98 100 Oxygen O2 Source Room air - EKG (time done) 1212 Rate: Rate (enter#) (88) Rhythm: NSR [place]: Normal Ischemia: No: ST elevation c/w ischemia - Labs Labs: Laboratory Tests 04/18/22 04/18/22 04/18/22 12:59 12:59 12:59 WBC 5.6 RBC 4.73 Hgb 13.9 Hct 44.0 MCV 93.0 MCH 29.4 MCHC 31.6 L RDW 15.9 H Plt Count 164 MPV 10.1 Neut # (Auto) 3.8 Lymph # (Auto) 1.3 L Boyle # (Auto) 0.4 Eos # (Auto) 0.1 Baso # (Auto) 0.0 Absolute Nucleated RBC 0.00 Nucleated RBC % 0.0 Sodium 136 Potassium 4.0 Chloride 100 L Carbon Dioxide 23 Anion Gap 13.0 BUN 8 Creatinine 0.8 Estimated GFR (MDRD) 85 L Glucose 85 Calcium 8.6 Total Bilirubin 0.9 AST 102 H ALT 56 Alkaline Phosphatase 90 Troponin I High Sens < 2.3 L Total Protein 7.4 Albumin 3.9 Globulin 3.5 Albumin/Globulin Ratio 1.1 Lipase 1661 H Urine Color Urine Clarity Urine pH Ur Specific Jolley Urine Protein Urine Glucose (UA) Urine Ketones Urine Occult Blood Urine Nitrite Urine Bilirubin Urine Urobilinogen Ur Leukocyte Esterase Urine RBC Urine WBC Ur Squamous Epith Cells Urine Bacteria Ur Microscopic Review Urine Culture Comments Urine HCG, Qual 04/18/22 17:12 WBC RBC Hgb Hct MCV MCH MCHC RDW Plt Count MPV Neut # (Auto) Lymph # (Auto) Boyle # (Auto) Eos # (Auto) Baso # (Auto) Absolute Nucleated RBC Nucleated RBC % Sodium Potassium Chloride Carbon Dioxide Anion Gap BUN Creatinine Estimated GFR (MDRD) Glucose Calcium Total Bilirubin AST ALT Alkaline Phosphatase Troponin I High Sens Total Protein Albumin Globulin Albumin/Globulin Ratio Lipase Urine Color YELLOW Urine Clarity HAZY Urine pH 5.5 Ur Specific [place] 1.015 Urine Protein NEGATIVE Urine Glucose (UA) NEGATIVE Urine Ketones 15 H Urine Occult Blood MODERATE H Urine Nitrite POSITIVE H Urine Bilirubin NEGATIVE Urine Urobilinogen 0.2 (NORMAL) Ur Leukocyte Esterase MODERATE H Urine RBC 6-10 H Urine WBC 11-25 H Ur Squamous Epith Cells FEW Squamous Urine Bacteria Many H Ur Microscopic Review INDICATED Urine Culture Comments INDICATED Urine HCG, Qual NEGATIVE PD Medical Decision Making - ED course Complexity details: reviewed results, re-evaluated patient, d/w patient ED course: Patient presenting for evaluation of upper abdominal pain. She is 6 weeks .Low concern that she would be again so soon. Her labs were reviewed and significant for elevated lipase. She does report having significant alcohol use this past weekend which could be a contributing factor. She does not appear to be in alcohol withdrawal. CT scan confirms pancreatitis without evidence of necrosis or pseudocyst.Patient is requiring pain medication. She does report at times feeling short of breath but I feel that this is related to pain and not an alternate process.Discussed the case with hospitalist, Dr. Wills who will admit the patient for further management. Departure - Departure Disposition: [facility] DC/[place] Clinical Impression: Acute pancreatitis Condition: Stable Discharge Date/Time: 04/18/22 18:45
[2022-04-18] MEDS ORDERED: iohexoL-300 100 ML VIAL ONE (16:35)
[2022-04-18] MEDS ORDERED: HYDROmorphone 1 MG/ML CARPUJECT IVP STA (17:10)
--- NOTE | 2022-04-18 17:16 | CT Report ---
PROCEDURE: ABDOMEN/PELVIS W INDICATIONS: pancreatitis/history of gastric sleeve CONTRAST: 100mL Omni 300 TECHNIQUE: After the administration of IV contrast, 5 mm thick sections acquired from the diaphragms to the symp hysis. 5 mm thick coronal and sagittal reformats were acquired. For radiation dose reduction, the f ollowing was used: automated exposure control, adjustment of mA and/or kV according to patient size. COMPARISON: Correlation is made with the accompanying chest radiograph, 04/18/2022. FINDINGS: Image quality: Excellent. ABDOMEN: Lung bases: Lung bases are clear. Heart size is normal. A small hiatal hernia is incidentally note d. Solid organs: Diffuse fatty liver infiltration can be seen. The liver demonstrates normal size and demonstrates no suspicious lesions. Gallbladder wall does not appear thickened. Biliary system i s non dilated. The spleen demonstrates normal size and demonstrates no suspicious lesions. Moderate inflammatory changes had a screening can be seen surrounding the pancreas. The pancreas itse lf demonstrates normal enhancement, without necrotic regions. No loculated peripancreatic fluid colle ctions are seen. No adrenal nodules. Kidneys demonstrate normal size and enhancement, without hydronephrosis. Peritoneum and bowel: Bariatric surgery can be seen. Bowel loops demonstrate normal wall thickness and caliber. No free air. Mild ascites is seen. Nodes and vessels: No retroperitoneal or mesenteric adenopathy by size criteria. Aorta and inferior vena cava are normal in size. Miscellaneous: No ventral hernias. PELVIS: Genitourinary: Bladder wall thickness is normal. The uterus demonstrates an unremarkable appearance for age. No adnexal masses are seen. Miscellaneous: No inguinal hernias or adenopathy. Bones: No suspicious bony lesions. No vertebral body compression fractures. Focal L5-S1 degenerati ve change is seen, with moderate disc space narrowing with associated moderate bilateral neuroforamin al narrowing. IMPRESSION: Peripancreatic inflammatory changes are seen, which are consistent with the given clinical history of pancreatitis. No findings of pancreatic necrosis or loculated peripancreatic fluid collections. Mild ascites is seen. Additional findings: Small hiatal hernia Bariatric surgery Diffuse fatty liver infiltration Focal L5-S1 degenerative change Reviewed by: Isreal Samson MD on 04/18/2022 4:15 PM [place] Approved by: Isreal Samson MD on 04/18/2022 4:15 PM [place] Station ID: [id number]
[2022-04-18 17:24] LABS: BILIRUBIN,URINE NEGATIVE (NEGATIVE); GLUCOSE, URINE (UA) NEGATIVE (NEGATIVE); KETONES,URINE (UA) 15 mg/dL (NEGATIVE); LEUKOCYTE ESTERASE, URINE MODERATE (NEGATIVE); NITRITE,URINE POSITIVE (NEGATIVE); OCCULT BLOOD,URINE MODERATE (NEGATIVE); PH,URINE 5.5 PH (5.0-7.5); PROTEIN,URINE NEGATIVE (NEGATIVE); UROBILINOGEN,URINE 0.2 (NORMAL) E.U./dL (NORMAL)
[2022-04-18 17:28] LABS: CLARITY,URINE HAZY (CLEAR); HCG UR QUAL NEGATIVE
[2022-04-18] MEDS ORDERED: SODIUM CHLORIDE FLUSH 0.9% 10 ML SYRINGE IVP PRN (17:36)
[2022-04-18] MEDS ORDERED: MORPHINE 2 MG/ML CARPUJECT IVP PRN (17:36)
[2022-04-18 17:41] LABS: BACTERIA,URINE Many /HPF (None Seen); SQUAMOUS EPITHELIAL CELL,UR FEW Squamous (<= Few)
--- NOTE | 2022-04-18 17:46 | HISTORY & PHYSICAL EXAMINATION ---
Chief Complaint - Chief Complaint Chief Complaint: epigastric abd pain History of Present Illness - Admitted From Admitted From:: home - History Obtained From Records Reviewed: [facility] [employer] History obtained from: patient and Dr. Le Exam Limitations: none - History of Present Illness HPI Comment/Other: 27-year-old white female who drove her self to the emergency room today because of substernal chest pain and epigastric abdominal pain. It woke her up from her sleep. It made her short of breath and she is 6 weeks . The ER provider elicited a history of heavy alcohol use with 1 to 2 glasses of wine usually, but drinking more over the last 3 to 4 days. She does not have a history of a DVT or hypercoagulable state. She does have a history of gastric sleeve surgery. She also has a hx of hiatal hernia with repair in the past but the GERD has returned. The was a normal spontaneous vaginal delivery. Uncomplicated. In the emergency room temperature was 36.3. Heart rate 90. Respirations 18. 98% saturated on room air. She was an alert and oriented well-groomed female. No acute distress. No respiratory distress. Normal bowel sounds. She had epigastric and left upper quadrant tenderness to palpation. White cell count was 5.6. Hemoglobin 13.9. Hematocrit 44. Sodium 136 potassium 4.0. Calcium 8.6. BUN and creatinine were normal. Troponin less than 2.3. Lipase was 1661. Urine had moderate leukocyte Estrace. Moderate occult blood. Positive nitrites. The rest of her microscopic exam is pending. I do not know the status of squamous epithelial cells, bacteria, red cells or white cells. CT of the abdomen showed diffuse fatty infiltration in the liver. Otherwise normal size. Gallbladder wall was normal. Biliary system nondilated. Moderate inflammatory changes were seen surrounding the pancreas. The pancreas itself was normal enhancement without necrotic regions. The emergency room provider and I discussed the case. We feel that this is alcohol induced pancreatitis. 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 Unfortunately he suffered the consequences of an autoimmune cellulitis with cerebral hemorrhage in his 30s. He now lives in a [facility] facility and has diabetes, amputated toes due to peripheral vascular disease and dementia. Mom is in her mid 50s and healthy. 3 sisters all healthy except for one who has asthma. 2 children that are healthy Living arrangement: At home Living Situation: With spouse/s.o. Social History Notes: From [place]. She has been here a few years because her is [place] [facility] [employer] is his current duty station. She inhales by vaping. No history of tobacco abuse. She denies any cocaine, heroin, LSD, speed. Alcohol use is 2 glasses of wine a day, sometimes more. Ongoing for years. No history of withdrawal or seizures or blackouts - Substance History Use: Uses substance without health or social issues: NONE Abuse: Recurrent use of substance despite neg consequences: Alcohol Dependence: Experiences withdrawal or developed tolerances: NONE Tobacco Details: E-Cigarettes - POLST Patient has POLST: No POLST Status: Full Code Meds/Allgy - Home Medications Home Medications: Ambulatory Orders Medication Instructions Recorded Confirmed Valacyclovir HCl [Valtrex] 500 mg PO BID 08/03/20 08/04/20 Metoclopramide [Reglan] 10 mg PO Q6H PRN #20 tablet 07/27/21 - Allergies Allergies/Adverse Reactions: Allergies Allergy/AdvReac Type Severity Reaction Status Date / Time Sulfa (Sulfonamide AdvReac Rash Verified 04/18/22 12:14 Antibiotics) Review of Systems - Constitutional Constitutional: reports: Fatigue (new baby). denies: Fever, Chills, Malaise, Weakness, Poor appetite - Eyes Eyes: denies: Pain, Irritation, Amaurosis, Vision loss - Ears, Nose & Throat Ears, Nose & Throat: denies: Ear pain, Hearing loss, Hearing aids, Dentures, Sore throat - Cardiovascular Cariovascular: reports: Chest pain (radiates up sternum and straight to back, sob w it.). denies: Irregular heart rate, Palpitations, Edema, Lightheadedness, Syncope, Exertional dyspnea, Decr. exercise tolerance - Respiratory Respiratory: reports: SOB at rest. denies: Cough, Sputum production, Wheezing, SOB with exertion - Gastrointestinal Gastrointestinal: reports: Abdominal pain, Abdominal distention, Nausea, Vomiting, Reflux/heartburn, Bloating. denies: Constipation, Diarrhea, Change in bowel habits, Rectal bleeding, Black stools, Bloody stools, Bile emesis, Ruel blood emesis - Genitourinary Genitourinary: denies: Dysuria, Frequency, Urgency, Hematuria - Musculoskeletal Musculoskeletal: denies: Muscle pain, Back pain, Muscle aches, Stiffness - Integumentary Integumentary: denies: Rash, Lesions, Acne - Neurological Neurological: denies: General weakness, Focal weakness, Headache, Dizziness - Psychiatric Psychiatric: reports: Depression ( w first baby, not w this one) - Endocrine Endocrine: denies: Polyuria, Polydypsia - Hematologic/Lymphatic Hematologic/Lymphatic: denies: Anemia, Bruising, Petechiae Prior Level of Functionality: No use of durable medical equipment. Does laundry, cooks, cleans, pays bills. Exam - Vital Signs Reviewed Vital Signs: Yes Vital Signs: Vital Signs x48h Temp Pulse Resp BP Pulse Ox 04/18/22 15:00 36.5 C 90 22 115/85 H 100 04/18/22 14:42 36.5 C 88 16 128/76 98 04/18/22 12:04 36.3 C L 90 18 128/76 98 - Physical Exam General Appearance: positive: No acute distress, Alert, Other (pale, fatigued appearing w 18 month old and 6 week old in room w her as well as ) Eyes Bilateral: positive: PERRL, EOMI, No scleral icterus ENT: positive: No signs of dehydration Neck: positive: No JVD. negative: Stiff neck Respiratory: positive: No respiratory distress. negative: Wheezes, Rales, Rhonchi Cardiovascular: positive: Regular rate & rhythm. negative: Systolic murmur, Gallop/S4, Friction rub Peripheral Pulses: positive: 1+ Abdomen: positive: Tenderness (epigastrium, LUQ and down from flank to both lower quadrants), Other (quiet bowel sounds). negative: Guarding, Rebound Back: negative: CVA tenderness (R), CVA tenderness (L) Skin: positive: Color nml, No rash Extremities: positive: Non-tender, Full ROM, No pedal edema Neurologic/Psychiatric: positive: Oriented x3, CN's nml (2-12), Motor nml Conclusion/Plan - Problem List (1) Pancreatitis, alcoholic, acute Conclusion/Plan: IV fluids for hydration Zofran or Phenergan for nausea Opiates for pain relief Daily labs to make sure calcium, magnesium, lipase are monitored Social work consult to address alcohol abuse Qualifiers: Acute pancreatitis complication: no infection or necrosis Qualified C ode(s): K85.20 - Alcohol induced acute pancreatitis without necrosis or infection (2) Alcohol abuse Conclusion/Plan: Monitor closely for signs and symptoms of withdrawal CIWA protocol if those become evident Banana bag x1 L and then switch over to continuous until she can take p.o. (3) Chest pain Conclusion/Plan: She has a history of reflux and a hiatal hernia has been repaired in the past. So she could be having esophageal spasm. But she also is 5 to 6 weeks . And I worry about PE. Troponin is negative. EKG is negative. Plan: CT pulmonary angiogram DVT prophylaxis with Lovenox Qualifiers: Chest pain type: unspecified Qualified Code(s): R07.9 - Chest pain, unspecified - Lab Results Lab results reviewed: Yes Fish Bones: 04/18/22 12:59 04/18/22 12:59 - Diagnostic Imaging Results Diagnostic Imaging Results: positive: Final report reviewed (As in history of present illness) Core Measures - Anticipated LOS I expect patient to be DC'd or transferred within 96 hours.: Yes - DVT/VTE - Prophylaxis VTE/DVT Device ordered at admit?: Yes
[2022-04-18] MEDS: ONDANSETRON 4 MG/2 ML VIAL IVP PRN (18:44)
[2022-04-18] MEDS: SODIUM CHLORIDE 0.9% 1,000 ML IV SCH (18:44)
[2022-04-18] MEDS: iohexoL-300 100 ML VIAL IVP ONE (19:05)
[2022-04-18] MEDS ORDERED: THIAMINE INJ 100 MG in SODIUM CHLORIDE 0.9% 50 ML IV SCH (19:22)
[2022-04-18] MEDS: HYDROmorphone 0.5 MG/0.5 ML SYRINGE IVP PRN ×2 (20:39→22:38)
[2022-04-18 20:55] LABS: MUDS CUTOFF CONCENTRATIONS CUTOFF CONC BELOW:
[2022-04-18 21:10] LABS: COCAINE SCREEN URINE NEGATIVE (NEGATIVE); METHAMPHETAMINES SCREEN, URINE NEGATIVE (NEGATIVE); OPIATE SCREEN, URINE POSITIVE (NEGATIVE); THC CANNABINOID SCREEN, URINE NEGATIVE (NEGATIVE)
[2022-04-18 21:11] LABS: AMPHETAMINE SCREEN,URINE NEGATIVE (NEGATIVE); BARBITURATE SCREEN,UR NEGATIVE (NEGATIVE); BENZODIAZEPINES SCREEN, URINE NEGATIVE (NEGATIVE); METHADONE SCREEN, URINE NEGATIVE (NEGATIVE); OXYCODONE SCREEN, URINE NEGATIVE (NEGATIVE); PROPOXYPHENE SCREEN, URINE NEGATIVE (NEGATIVE); TRICYCLIC ANTIDEPRESSANT,URINE NEGATIVE (NEGATIVE)
[2022-04-18] MEDS ORDERED: SODIUM CHLORIDE 0.9% 1,000 ML IV SCH (23:00)
[2022-04-19] MEDS: oxyCODONE 5 MG TABLET PO PRN ×3 (00:30→21:12)
[2022-04-19] MEDS: SODIUM CHLORIDE FLUSH 0.9% 10 ML SYRINGE IVP SCH ×3 (00:30→06:23)
[2022-04-19] MEDS: ONDANSETRON ODT 4 MG TABLET TL PRN ×4 (00:30→23:45)
[2022-04-19] MEDS: CARBOXYMETHYLCELLULOSE OPHTH DROPS EACHEYE PRN ×2 (01:51→12:45)
[2022-04-19] MEDS: SODIUM CHLORIDE 0.9% 1,000 ML IV SCH ×3 (03:26→23:46)
[2022-04-19] MEDS: HYDROmorphone 0.5 MG/0.5 ML SYRINGE IVP PRN ×5 (03:37→16:52)
[2022-04-19 04:53] LABS: BASOPHILS % (AUTO) 0.2 %; EOSINOPHILS % (AUTO) 0.2 %; HGB - HEMOGLOBIN 12.7 g/dL (12.0-16.0); LYMPHOCYTES # (AUTO) 0.9 10^3/uL (1.5-3.5); MEAN CORPUSCULAR HEMOGLOBIN 29.9 pg (27.0-31.0); MEAN CORPUSCULAR HGB CONC 31.8 g/dL (32.0-36.0); MEAN CORPUSCULAR VOLUME 94.1 fL (81.0-99.0); MEAN PLATELET VOLUME 10.6 fL (7.9-10.8); MONOCYTES # (AUTO) 0.6 10^3/uL (0.0-1.0); MONOCYTES % (AUTO) 7.7 %; NEUTROPHILS # (AUTO) 6.6 10^3/uL (1.5-6.6); NEUTROPHILS % (AUTO) 80.7 %; PLT - PLATELET COUNT 147 10^3/uL (130-450); RED BLOOD COUNT 4.25 10^6/uL (4.20-5.40); RED CELL DISTRIBUTION WIDTH 16.3 % (12.0-15.0); WHITE BLOOD COUNT 8.2 x10^3/uL (4.8-10.8)
[2022-04-19 05:15] LABS: ALBUMIN 3.1 g/dL (3.2-5.5); BILIRUBIN,TOTAL 1.2 mg/dL (0.2-1.0); CALCIUM 8.2 mg/dL (8.5-10.3); CREATININE 0.6 mg/dL (0.4-1.0); TOTAL PROTEIN 6.3 g/dL (6.7-8.2)
[2022-04-19] MEDS: PANTOPRAZOLE 40 MG VIAL IVP SCH (06:23)
[2022-04-19] MEDS ORDERED: iohexoL-300 100 ML VIAL ONE (07:56)
[2022-04-19] MEDS ORDERED: THIAMINE INJ 100 MG in SODIUM CHLORIDE 0.9% 50 ML IV SCH (09:00)
[2022-04-19] MEDS: iohexoL-300 100 ML VIAL IVP ONE (09:04)
[2022-04-19] MEDS: ENOXAPARIN 40 MG/0.4 ML SYRINGE SUBQ SCH (09:12)
--- NOTE | 2022-04-19 09:51 | CT Report ---
PROCEDURE: ANGIO CHEST W/WO INDICATIONS: Sternal Chest pain, 5wks ,r/o PE CONTRAST: 80mL Omni 300 TECHNIQUE: After the administration of intravenous contrast, 2 mm axial images were acquired from the pulmonary apices to the posterior costophrenic angles during the arterial phase. In addition, 1 mm lung kernel and 5 mm soft tissue kernel reconstructions were performed. 3-dimensional coronal oblique maximum int ensity projection (MIP) reformats, 8 mm axial MIP, and 5 mm coronal and sagittal MPR reformats were t hen performed through the thorax. For radiation dose reduction, the following was used: automated exp osure control, adjustment of mA and/or kV according to patient size. COMPARISON: None FINDINGS: Image quality: Excellent. Aorta: The aorta has a normal caliber. There is no aneurysm or dissection. The SMA and celiac trunk a re patent. Pulmonary arteries: The pulmonary arteries are well-opacified with no evidence of thromboembolism. Lungs and pleura: There is a focal area of groundglass opacity in the right upper lobe which has a li near appearance consistent with atelectasis on coronal and sagittal images. No pleural effusions or p neumothorax. Central and peripheral airways are patent. Mediastinum: Heart size is normal, without pericardial effusion. No mediastinal or hilar adenopathy . Thoracic aorta is normal in caliber and enhancement. Esophagus is normal in caliber, without hiat al hernia. Bones and chest wall: No suspicious bony lesions. Ribs and thoracic spine appear intact throughout. No axillary or supraclavicular adenopathy. The thyroid is normal in size and there are no incident al findings. Abdomen: The gallbladder contains excreted contrast and multiple stones. The liver is hypodense and e nlarged consistent with hepatic steatosis. Peripancreatic inflammation is seen consistent with pancre atitis as seen on CT yesterday. IMPRESSION: 1. No acute abnormality of the chest. 2. No aortic dissection, aneurysm, or pulmonary embolism. 3. Hepatic steatosis, pancreatitis, and cholelithiasis. Reviewed by: Marty Gary on 04/19/2022 9:[address] [facility] Approved by: Marty Gary on 04/19/2022 9:50 AM PST Station ID: [id number]
[2022-04-19] MEDS: MULTIVITAMIN 10 ML, THIAMINE INJ 100 MG, MAGNESIUM SULFATE 2 GM, FOLIC ACID INJ 1 MG in... IV SCH ×5 (11:25)
--- NOTE | 2022-04-19 11:37 | PHARMACY PROGRESS NOTE ---
- Best Possible Medication History Admit Date and Time: 04/18/22 1736 Processed by: Pharmacy Medication History completed: Yes Patient Interview: Completed Secondary Source(s): Pharmacy records (pt is a good historian) As the person ultimately responsible for medication therapy, providers are able to order a medication from an existing home medication list in [facility] via the "Reconcile Routine" prior to Confirmation of that medication by fire support specialist. Such practice is discouraged except when the physician, in their clinical judgment, deems that a medical need exists for a medication without regard to previous use.
[2022-04-19] MEDS: DOCUSATE SODIUM 250 MG CAPSULE PO SCH (12:45)
[2022-04-19] MEDS ORDERED: GADOBUTROL 7.5 MMOL/7.5 ML VIAL ONE (14:00)
[2022-04-19] MEDS: CALCIUM CARBONATE CHEW 500 MG TABLET PO PRN (14:13)
[2022-04-19] MEDS ORDERED: LORazepam 2 MG/ML VIAL IVP STA (14:57)
[2022-04-19] MEDS ORDERED: GADOBUTROL 7.5 MMOL/7.5 ML VIAL IVP ONE (17:20)
--- NOTE | 2022-04-19 17:38 | MRI Report ---
PROCEDURE: MRCP W/WO INDICATIONS: STONES AND PANCREATITIS CONTRAST: Gadavist 7.5ml TECHNIQUE: Coronal ultra fast SE through the abdomen, axial 2-D spoiled GE in- and [id number], and breath-hold T2 FSE with fat saturation through the biliary system and pancreas. Oblique coronal and axial thin- slice ultra fast SE, radial thick-slab ultra fast SE centered on the extrahepatic bile ducts. Axial v arely pre and postcontrast T1 images. Coronal T1 vibe. Axial Cortez. COMPARISON: CT abdomen and pelvis 04/18/2022. FINDINGS: Image quality: Fair. Postcontrast images are particularly dictated by artifact. Pancreas and biliary system: Intra- and extra-hepatic biliary ducts are non dilated. No filling defe ct is seen in the CBD. Pancreas is edematous. No focal areas of hypoenhancement to suggest acute proc ess. No pancreatic ductal dilatation. Several larger gallstones. For example a gallstone measuring 1. 6 cm. Gallbladder is prominent in size. Other solid organs: Liver and spleen are normal in size. Hepatic steatosis. No adrenal nodules. Devin th kidneys are normal in size, without hydronephrosis. Nodes and vessels: No retroperitoneal or mesenteric adenopathy by size criteria. Aorta and inferior vena cava are normal in size. Bowel and peritoneum: Unenhanced bowel loops are normal in caliber. Mild ascites, increased. Lung bases: No basal pleural effusions. Heart size is normal. Bones and soft tissues: No ventral hernias. Bone marrow is of normal overall signal. IMPRESSION: 1. Acute interstitial edematous pancreatitis. 2. No biliary or pancreatic ductal dilatation. No choledocholithiasis demonstrated. 3. Several large gallstones. 4. Hepatic steatosis. 5. Mild ascites. Reviewed by: Carlos Enrique Vora MD on 04/19/2022 5:37 PM PST Approved by: Carlos Enrique Vora MD on 04/19/2022 5:37 PM PST Station ID: [id number]
--- NOTE | 2022-04-19 18:31 | PROVIDER PROGRESS NOTE ---
Progress Note April 19, 2022 6:30 PM Patient continues to have abdominal pain. Centered in the epigastrium and left upper quadrant. CT pulmonary angiogram was not done until this morning due to eating disorder specialist error. She does not have pulmonary embolism. However she does have gallstones. I ordered an MRCP and the MRCP shows acute interstitial edematous pancreatitis. No biliary or pancreatic ductal dilatation. No choledocholithiasis demonstrated. Several large gallstones in the gallbladder. 1 gallstone measures 1.6 cm. She has hepatic steatosis, and mild ascites. She is asking to see social work because she would like to have some help with stopping drinking. She also fears that she is sliding into depression. Active Medications Acetaminophen (Acetaminophen 325 Mg Tablet) 650 mg PO Q4HR PRN PRN Reason: Pain 1 to 4, or Fever Calcium Carbonate/Glycine (Calcium Carbonate Chew 500 Mg Tablet) 500 mg PO TID PRN PRN Reason: INDIGESTION Last Admin: 04/19/22 14:13 Dose: 500 mg Carboxymethylcellulose (Carboxymethylcellulose Ophth Drops) 1 drops EACHEYE PRN PRN PRN Reason: Dry Eye Last Admin: 04/19/22 12:45 Dose: 1 drops Docusate Sodium (Docusate Sodium 250 Mg Capsule) 250 - 500 mg PO DAILY [facility] Last Admin: 04/19/22 12:45 Dose: 250 mg Enoxaparin Sodium (Enoxaparin 40 Mg/0.4 Ml Syringe) 40 mg SUBQ DAILY [facility] Last Admin: 04/19/22 09:12 Dose: 40 mg Hydromorphone HCl (Hydromorphone 0.5 Mg/0.5 Ml Syringe) 0.5 mg IVP Q2H PRN PRN Reason: PAIN Last Admin: 04/19/22 16:52 Dose: 0.5 mg Sodium Chloride (Normal Saline 0.9%) 1,000 mls @ 100 mls/hr IV .Q10H [facility] Last Admin: 04/19/22 15:00 Dose: Not Given Multivitamins 10 ml/ Thiamine HCl 100 mg/ Magnesium Sulfate 2 gm/ Folic Acid 1 mg/ Sodium Chloride 1,015.2 mls @ 100 mls/hr IV DAILY [facility] Last Infusion: 04/19/22 16:52 Dose: 100 mls/hr Ondansetron HCl (Ondansetron Odt 4 Mg Tablet) 4 mg TL Q6HR PRN PRN Reason: Nausea / Vomiting Last Admin: 04/19/22 12:39 Dose: 4 mg Ondansetron HCl (Ondansetron 4 Mg/2 Ml Vial) 4 mg IVP Q6HR PRN PRN Reason: Nausea / Vomiting Last Admin: 04/18/22 18:44 Dose: 4 mg Oxycodone HCl (Oxycodone 5 Mg Tablet) 5 mg PO Q4HR PRN PRN Reason: Pain 5 to 7 Last Admin: 04/19/22 06:23 Dose: 5 mg Pantoprazole Sodium (Pantoprazole 40 Mg Vial) 40 mg IVP QDAC ALL Last Admin: 04/19/22 06:23 Dose: 40 mg Sodium Chloride (Sodium Chloride Flush 0.9% 10 Ml Syringe) 10 ml IVP PRN PRN PRN Reason: NEEDED PER PROVIDER ORDERS Sodium Chloride (Sodium Chloride Flush 0.9% 10 Ml Syringe) 10 ml IVP 0100,0900,1700 [facility] Last Admin: 04/19/22 06:23 Dose: 10 ml Acetaminophen [Acetaminophen Extra Strength] 2 tab PO DAILY PRN 04/19/22 Ibuprofen [Motrin] 1 tab PO DAILY PRN 04/19/22 Ondansetron Odt [Zofran Odt] 1 tab PO DAILY PRN 04/19/22 Temperature is 36.4. Heart rate 104. Blood pressure 117/75. Respirations 16. 98% on room air. No respiratory distress, lungs are clear. She is a little tearful about the overwhelming case presentation. Abdomen is tender, slightly distended. Pain is epigastrium, left upper quadrant, left lower quadrant and right lower quadrant. There is no rebound or guarding. She has bowel sounds. She has flatus. Extremities are without edema. Assessment/Plan: (1) Pancreatitis, alcoholic, acute Conclusion/Plan: Evaluated for possible gallstones. While she does have gallstones, they are not the cause of the current episode of pancreatitis according to radiologic imaging. IV fluids for hydration Zofran or Phenergan for nausea Opiates for pain relief Daily labs to make sure calcium, magnesium, lipase are monitored Social work consult to address alcohol abuse In the outpatient setting she would be a candidate for general surgery to see to consider removing her gallbladder simply on the basis of biliary colic Qualifiers: Acute pancreatitis complication: no infection or necrosis Qualified Code(s): K85.20 - Alcohol induced acute pancreatitis without necrosis or infection (2) Alcohol abuse Conclusion/Plan: Monitor closely for signs and symptoms of withdrawal CIWA protocol if those become evident Banana bag x1 L and then switch over to continuous until she can take p.o. (3) Chest pain Conclusion/Plan: She has a history of reflux and a hiatal hernia has been repaired in the past. So she could be having esophageal spasm. But she also is 5 to 6 weeks . Troponin is negative. EKG is negative.Pulmonary embolism negative on CT angiogram. Plan: Tums or reflux measures. Continue DVT prophylaxis with Lovenox Qualifiers: Chest pain type: unspecified Qualified Code(s): R07.9 - Chest pain, unspecified
[2022-04-19] MEDS: ONDANSETRON 4 MG/2 ML VIAL IVP PRN (20:05)
[2022-04-20] MEDS: SODIUM CHLORIDE FLUSH 0.9% 10 ML SYRINGE IVP SCH ×3 (00:08→16:57)
[2022-04-20] MEDS: oxyCODONE 5 MG TABLET PO PRN ×4 (01:57→23:28)
[2022-04-20] MEDS: ONDANSETRON 4 MG/2 ML VIAL IVP PRN (01:58)
[2022-04-20] MEDS ORDERED: iohexoL-300 100 ML VIAL IVP ONE (04:02)
[2022-04-20 05:19] LABS: BASOPHILS % (AUTO) 0.3 %; EOSINOPHILS % (AUTO) 0.7 %; HCT - HEMATOCRIT 34.7 % (37.0-47.0); HGB - HEMOGLOBIN 10.8 g/dL (12.0-16.0); LYMPHOCYTES # (AUTO) 1.1 10^3/uL (1.5-3.5); LYMPHOCYTES % (AUTO) 18.2 %; MEAN CORPUSCULAR HEMOGLOBIN 29.5 pg (27.0-31.0); MEAN CORPUSCULAR HGB CONC 31.1 g/dL (32.0-36.0); MEAN CORPUSCULAR VOLUME 94.8 fL (81.0-99.0); MEAN PLATELET VOLUME 10.3 fL (7.9-10.8); MONOCYTES # (AUTO) 0.5 10^3/uL (0.0-1.0); MONOCYTES % (AUTO) 8.3 %; NEUTROPHILS # (AUTO) 4.4 10^3/uL (1.5-6.6); NEUTROPHILS % (AUTO) 72.2 %; PLT - PLATELET COUNT 115 10^3/uL (130-450); RED BLOOD COUNT 3.66 10^6/uL (4.20-5.40); RED CELL DISTRIBUTION WIDTH 16.6 % (12.0-15.0); WHITE BLOOD COUNT 6.2 x10^3/uL (4.8-10.8)
[2022-04-20 05:38] LABS: ALBUMIN 2.5 g/dL (3.2-5.5); ALBUMIN/GLOBULIN RATIO 0.9 (1.0-2.2); BILIRUBIN,TOTAL 1.1 mg/dL (0.2-1.0); CALCIUM 7.5 mg/dL (8.5-10.3); CREATININE 0.6 mg/dL (0.4-1.0); POTASSIUM 3.2 mmol/L (3.5-5.0); TOTAL PROTEIN 5.3 g/dL (6.7-8.2)
[2022-04-20] MEDS: PANTOPRAZOLE 40 MG VIAL IVP SCH (07:01)
[2022-04-20] MEDS: ACETAMINOPHEN 325 MG TABLET PO PRN ×3 (07:07→20:42)
[2022-04-20] MEDS: ONDANSETRON ODT 4 MG TABLET TL PRN ×3 (07:07→23:29)
[2022-04-20] MEDS: DOCUSATE SODIUM 250 MG CAPSULE PO SCH ×3 (08:50→16:14)
[2022-04-20] MEDS: ENOXAPARIN 40 MG/0.4 ML SYRINGE SUBQ SCH (08:50)
[2022-04-20] MEDS: D5NS W/20 MEQ KCL 1,000 ML IV SCH (08:51)
[2022-04-20] MEDS: POTASSIUM CHLORIDE INJ 10 MEQ in SODIUM CHLORIDE 0.9% 100ML 100 ML IV SCH ×4 (09:02→12:22)
[2022-04-20] MEDS: CALCIUM CARBONATE CHEW 500 MG TABLET PO PRN (10:08)
[2022-04-20] MEDS ORDERED: FOSFOMYCIN TROMETHAMINE 3 GM PACKET PO ONE (10:29)
[2022-04-20] MEDS: MULTIVITAMIN 10 ML, THIAMINE INJ 100 MG, MAGNESIUM SULFATE 2 GM, FOLIC ACID INJ 1 MG in... IV SCH ×10 (12:27→19:41)
--- NOTE | 2022-04-20 13:28 | PROVIDER PROGRESS NOTE ---
Progress Note April 20, 2022 1:25 PM Subjective Pain is still present. Generalized, diffuse. But along paracolic gutters on both flanks. No nausea or vomiting. No diarrhea. Started having urgency and frequency and UA did grow out E. coli. She would like a letter that is general and stating when she was admitted and discharged. Her needs it because he is going to be asking for emergency leave as active duty [place]. I started her on clear liquids this morning and so far she is tolerating it. Pain is stable. No new nausea or vomiting. No new abdominal pain. She feels hot, sweaty sometimes. T-max has been 37.2-37.8. Heart rates a little tachycardic at 104. Blood pressure stable. Oxygenation stable. Active Medications Acetaminophen (Acetaminophen 325 Mg Tablet) 650 mg PO Q4HR PRN PRN Reason: Pain 1 to 4, or Fever Last Admin: 04/20/22 11:19 Dose: 650 mg Calcium Carbonate/Glycine (Calcium Carbonate Chew 500 Mg Tablet) 500 mg PO TID PRN PRN Reason: INDIGESTION Last Admin: 04/20/22 10:08 Dose: 500 mg Carboxymethylcellulose (Carboxymethylcellulose Ophth Drops) 1 drops EACHEYE PRN PRN PRN Reason: Dry Eye Last Admin: 04/19/22 12:45 Dose: 1 drops Docusate Sodium (Docusate Sodium 250 Mg Capsule) 250 - 500 mg PO DAILY [facility] Last Admin: 04/20/22 09:02 Dose: 250 mg Enoxaparin Sodium (Enoxaparin 40 Mg/0.4 Ml Syringe) 40 mg SUBQ DAILY [facility] Last Admin: 04/20/22 08:50 Dose: 40 mg Hydromorphone HCl (Hydromorphone 0.5 Mg/0.5 Ml Syringe) 0.5 mg IVP Q2H PRN PRN Reason: PAIN Last Admin: 04/19/22 16:52 Dose: 0.5 mg Multivitamins 10 ml/ Thiamine HCl 100 mg/ Magnesium Sulfate 2 gm/ Folic Acid 1 mg/ Sodium Chloride 1,015.2 mls @ 100 mls/hr IV DAILY [facility] Last Admin: 04/20/22 12:27 Dose: Not Given Potassium Chloride/Dextrose/Sod Cl (D5ns W/20 Meq Kcl) 1,000 mls @ 100 mls/hr IV .Q10H [facility] Last Admin: 04/20/22 08:51 Dose: 100 mls/hr Ondansetron HCl (Ondansetron Odt 4 Mg Tablet) 4 mg TL Q6HR PRN PRN Reason: Nausea / Vomiting Last Admin: 04/20/22 07:07 Dose: 4 mg Ondansetron HCl (Ondansetron 4 Mg/2 Ml Vial) 4 mg IVP Q6HR PRN PRN Reason: Nausea / Vomiting Last Admin: 04/20/22 01:58 Dose: 4 mg Oxycodone HCl (Oxycodone 5 Mg Tablet) 5 mg PO Q4HR PRN PRN Reason: Pain 5 to 7 Last Admin: 04/20/22 09:02 Dose: 5 mg Pantoprazole Sodium (Pantoprazole 40 Mg Vial) 40 mg IVP QDAC [facility] Last Admin: 04/20/22 07:01 Dose: 40 mg Sodium Chloride (Sodium Chloride Flush 0.9% 10 Ml Syringe) 10 ml IVP PRN PRN PRN Reason: NEEDED PER PROVIDER ORDERS Sodium Chloride (Sodium Chloride Flush 0.9% 10 Ml Syringe) 10 ml IVP 0100,0900,1700 [facility] Last Admin: 04/20/22 09:04 Dose: Not Given Acetaminophen [Acetaminophen Extra Strength] 2 tab PO DAILY PRN 04/19/22 Ibuprofen [Motrin] 1 tab PO DAILY PRN 04/19/22 Ondansetron Odt [Zofran Odt] 1 tab PO DAILY PRN 04/19/22 Exam: Temperature is 37.8. Heart rate 103. Blood pressure 108/62. Respirations 12. 99% on room air. Alert, oriented white female. 5 feet 3 inches tall, 75 kg. Neck is supple Lungs are clear without tachypnea, increased respiratory effort Slightly tachycardic regular rate and rhythm but no murmur Abdomen slightly distended, hypoactive bowel sounds, diffuse achiness that is more in the right upper and left upper quadrants and down to the mid abdomen. No rebound or guarding. Extremities without edema Sodium 132, potassium 3.2. Carbon dioxide 19. BUN 7, creatinine 0.6. Calcium 7.5. Total bili 1.1. Total protein 5.3. Albumin 2.5. Amylase was 807 yesterday and is 465 today. White cell count 6.2, hemoglobin 10.8 Med screen positive for opioids negative for everything else Urine culture positive for E. coli Assessment/Plan: (1) Pancreatitis, alcoholic, acute Conclusion/Plan: Evaluated for possible gallstones. While she does have gallstones, they are not the cause of the current episode of pancreatitis according to radiologic imaging. IV fluids for hydration Plan: Clear liquid diet today. Soft diet tomorrow morning. I did offer to give her a full regular breakfast but she says she rather have soft diet tomorrow morning. Zofran or Phenergan for nausea Opiates for pain relief. She wanted a prescription for Zofran and oxycodone for home. That was sent to her pharmacy. Daily labs to make sure calcium, magnesium, lipase are monitored. I will supplement magnesium and calcium today. Social work consult to address alcohol abuse In the outpatient setting she would be a candidate for general surgery to see to consider removing her gallbladder simply on the basis of biliary colic. She says that she is very interested in getting that done. She does see would be daily c linics and would like a name of a surgeon. I told her that she could always see my , Dr. Emery. I will also dictate a generic letter stating that she is in the hospital that she can give to her to use with [employer]. Qualifiers: Acute pancreatitis complication: no infection or necrosis Qualified Code(s): K85.20 - Alcohol induced acute pancreatitis without necrosis or infection (2) Alcohol withdrawal Conclusion/Plan: She is getting flushed, feels diaphoretic and sweaty, and is tachycardic. No fever, no elevated white cell count. Appears to be having mild withdrawal. Will start a fixed scheduled dose of Ativan Change IV banana bag to p.o. vitamins. (3) Chest pain Conclusion/Plan: She has a history of reflux and a hiatal hernia has been repaired in the past. So she could be having esophageal spasm. But she also is 5 to 6 weeks . Troponin is negative. EKG is negative. Pulmonary embolism negative on CT angiogram. Plan: Tums or reflux measures. Continue DVT prophylaxis with Lovenox She would like a prescription for Protonix at home and that was sent to her pharmacy. Qualifiers: Chest pain type: unspecified Qualified Code(s): R07.9 - Chest pain, unspec ified (4) E. coli UTI 1 dose of fosfomycin
[2022-04-21] MEDS: SODIUM CHLORIDE FLUSH 0.9% 10 ML SYRINGE IVP SCH ×3 (01:03→16:54)
[2022-04-21] MEDS: oxyCODONE 5 MG TABLET PO PRN (04:29)
[2022-04-21] MEDS: ACETAMINOPHEN 325 MG TABLET PO PRN ×3 (04:31→20:13)
[2022-04-21 04:42] LABS: BASOPHILS % (AUTO) 0.2 %; EOSINOPHILS # (AUTO) 0.1 10^3/uL (0.0-0.7); EOSINOPHILS % (AUTO) 1.3 %; HCT - HEMATOCRIT 32.5 % (37.0-47.0); HGB - HEMOGLOBIN 10.3 g/dL (12.0-16.0); LYMPHOCYTES # (AUTO) 1.1 10^3/uL (1.5-3.5); LYMPHOCYTES % (AUTO) 24.1 %; MEAN CORPUSCULAR HGB CONC 31.7 g/dL (32.0-36.0); MEAN CORPUSCULAR VOLUME 94.8 fL (81.0-99.0); MEAN PLATELET VOLUME 10.3 fL (7.9-10.8); MONOCYTES # (AUTO) 0.5 10^3/uL (0.0-1.0); MONOCYTES % (AUTO) 11.8 %; NEUTROPHILS # (AUTO) 2.8 10^3/uL (1.5-6.6); NEUTROPHILS % (AUTO) 62.4 %; PLT - PLATELET COUNT 107 10^3/uL (130-450); RED BLOOD COUNT 3.43 10^6/uL (4.20-5.40); RED CELL DISTRIBUTION WIDTH 16.4 % (12.0-15.0); WHITE BLOOD COUNT 4.5 x10^3/uL (4.8-10.8)
[2022-04-21] MEDS: ONDANSETRON 4 MG/2 ML VIAL IVP PRN (04:46)
[2022-04-21 04:52] LABS: ALBUMIN 2.2 g/dL (3.2-5.5); ALBUMIN/GLOBULIN RATIO 0.8 (1.0-2.2); BILIRUBIN,TOTAL 0.9 mg/dL (0.2-1.0); CALCIUM 7.3 mg/dL (8.5-10.3); CREATININE 0.5 mg/dL (0.4-1.0); POTASSIUM 3.6 mmol/L (3.5-5.0)
[2022-04-21] MEDS: D5NS W/20 MEQ KCL 1,000 ML IV SCH ×3 (05:51→15:55)
[2022-04-21] MEDS: PANTOPRAZOLE 40 MG VIAL IVP SCH (06:39)
[2022-04-21] MEDS: ENOXAPARIN 40 MG/0.4 ML SYRINGE SUBQ SCH (09:18)
--- NOTE | 2022-04-21 10:52 | PROVIDER PROGRESS NOTE ---
Progress Note April 21, 2022 10:42 AM We advance her diet this morning. But even before she went to a soft diet, she had emesis. Yesterday she was advanced to clear liquids. Pain is still the same. It is diffuse, but concentrated along the sides of her abdomen and flanks. Worse in the left upper quadrant. Temperature still borderline at 37.9. This morning she is 37.1. Electrolytes are stable. White cell count is low. Amylase is down to 189. Active Medications Acetaminophen (Acetaminophen 325 Mg Tablet) 650 mg PO Q4HR PRN PRN Reason: Pain 1 to 4, or Fever Last Admin: 04/21/22 04:31 Dose: 650 mg Calcium Carbonate/Glycine (Calcium Carbonate Chew 500 Mg Tablet) 500 mg PO TID PRN PRN Reason: INDIGESTION Last Admin: 04/20/22 10:08 Dose: 500 mg Carboxymethylcellulose (Carboxymethylcellulose Ophth Drops) 1 drops EACHEYE PRN PRN PRN Reason: Dry Eye Last Admin: 04/19/22 12:45 Dose: 1 drops Docusate Sodium (Docusate Sodium 250 Mg Capsule) 250 - 500 mg PO DAILY [facility] Last Admin: 04/20/22 16:14 Dose: 250 mg Enoxaparin Sodium (Enoxaparin 40 Mg/0.4 Ml Syringe) 40 mg SUBQ DAILY [facility] Last Admin: 04/21/22 09:18 Dose: 40 mg Hydromorphone HCl (Hydromorphone 0.5 Mg/0.5 Ml Syringe) 0.5 mg IVP Q2H PRN PRN Reason: PAIN Last Admin: 04/19/22 16:52 Dose: 0.5 mg Potassium Chloride/Dextrose/Sod Cl (D5ns W/20 Meq Kcl) 1,000 mls @ 100 mls/hr IV .Q10H ALL Last Admin: 04/21/22 05:52 Dose: 100 mls/hr Multivitamins 10 ml/ Thiamine HCl 100 mg/ Folic Acid 1 mg/Potassium Chloride/Dextrose/Sod Cl 1,011.2 mls @ 100 mls/hr IV QPM [facility] Ondansetron HCl (Ondansetron Odt 4 Mg Tablet) 4 mg TL Q6HR PRN PRN Reason: Nausea / Vomiting Last Admin: 04/20/22 23:29 Dose: 4 mg Ondansetron HCl (Ondansetron 4 Mg/2 Ml Vial) 4 mg IVP Q6HR PRN PRN Reason: Nausea / Vomiting Last Admin: 04/21/22 04:46 Dose: 4 mg Oxycodone HCl (Oxycodone 5 Mg Tablet) 5 mg PO Q4HR PRN PRN Reason: Pain 5 to 7 Last Admin: 04/21/22 04:29 Dose: 5 mg Pantoprazole Sodium (Pantoprazole 40 Mg Tablet) 40 mg PO QDAC [facility] Sodium Chloride (Sodium Chloride Flush 0.9% 10 Ml Syringe) 10 ml IVP PRN PRN PRN Reason: NEEDED PER PROVIDER ORDERS Last Admin: 04/21/22 06:39 Dose: 10 ml Sodium Chloride (Sodium Chloride Flush 0.9% 10 Ml Syringe) 10 ml IVP 0100,0900,1700 [facility] Last Admin: 04/21/22 09:18 Dose: Not Given Acetaminophen [Acetaminophen Extra Strength] 2 tab PO DAILY PRN 04/19/22 Ibuprofen [Motrin] 1 tab PO DAILY PRN 04/19/22 Ondansetron Odt [Zofran Odt] 1 tab PO DAILY PRN 04/19/22 Temperature 37.1. Heart rate 83. Blood pressure 102/68. Respirations 17. 98% on room air. 5 foot 3 and female, 75 kg Pale, fatigued appearing, but no acute distress. Pain is controlled, no respiratory distress. Supple neck Lungs clear Regular rate and rhythm Abdomen slightly distended, hypoactive bowel sounds, tenderness as above. But no rebound or guarding. Extremities without edema White cell count 4.5. Hemoglobin 10.3. Hematocrit 32.5. Platelet 107. She is dropping. On admission she was 164. Sodium 135, potassium 3.6, BUN 5, creatinine 0.5, calcium 7.3. Total bili 0.9. AST 53. Protein 5. Albumin 2.2. Amylase 189 Assessment/Plan: (1) Pancreatitis, alcoholic, acute Conclusion/Plan: While she does have gallstones, they are not the cause of the current episode of pancreatitis according to radiologic imaging. She does want surgery for this. I explained that with this acute episode of alcoholic pancreatitis, she will have to wait for outpt eval and appt. Plan: Back to clear liquid diet today after emesis this morning even before a low fiber soft diet tomorrow morning. Continue: +Zofran or Phenergan for nausea +Opiates for pain relief. She wanted a prescription for Zofran and oxycodone for home. That was sent to her pharmacy 04/20. +Daily labs to make sure calcium, magnesium, lipase are monitored. Calcium and Mg supplemented 04/20 +Social work consult to address alcohol abuse was done. In the outpatient setting she would be a candidate for general surgery to see to consider removing her gallbladder simply on the basis of biliary colic. She says that she is very interested in getting that done. She does see would be daily clinics and would like a name of a surgeon. I told her that she could always see my , Dr. Emery. I will also dictate a generic letter stating that she is in the hospital that she can give to her to use with [employer]. Qualifiers: Acute pancreatitis complication: no infection or necrosis Qualified Code(s): K85.20 - Alcohol induced acute pancreatitis without necrosis or infection (2) Alcohol withdrawal Conclusion/Plan: She is getting flushed, feels diaphoretic and sweaty, and is tachycardic. No fever, no elevated white cell count. Appears to be having mild withdrawal. Will start a fixed scheduled dose of Ativan I was going to change IV banana bag in NS to p.o. vitamins but w ememsis keep the IV but change to D5 w vitamins since glucose is low. (3) Chest pain Conclusion/Plan: She has a history of reflux and a hiatal hernia has been repaired in the past. So she could be having esophageal spasm. But she also is 5 to 6 weeks . Troponin is negative. EKG is negative. Pulmonary embolism negative on CT angiogram. As such my suspicion is GERD and spasm. Plan: Tums or reflux measures. Continue DVT prophylaxis with Lovenox ( but hold if plts <100) She would like a prescription for Protonix at home and that was sent to her pharmacy. Qualifiers: Chest pain type: unspecified Qualified Code(s): R07.9 - Chest pain, unspecified (4) E. coli UTI 1 dose of fosfomycin 04/20.
[2022-04-21] MEDS: ONDANSETRON ODT 4 MG TABLET TL PRN (13:43)
[2022-04-21] MEDS ORDERED: MULTIVITAMIN IV SCH (21:00)
[2022-04-21] MEDS ORDERED: FOLIC ACID IV SCH (21:00)
[2022-04-21] MEDS ORDERED: [UNRECOGNIZED DRUG - OTHER] IV SCH (21:00)
[2022-04-21] MEDS ORDERED: THIAMINE IV SCH (21:00)
[2022-04-22] MEDS: oxyCODONE 5 MG TABLET PO PRN ×2 (00:11→05:53)
[2022-04-22] MEDS: ONDANSETRON ODT 4 MG TABLET TL PRN ×2 (00:12→14:08)
[2022-04-22 04:52] LABS: BASOPHILS % (AUTO) 0.3 %; EOSINOPHILS # (AUTO) 0.1 10^3/uL (0.0-0.7); EOSINOPHILS % (AUTO) 1.8 %; HCT - HEMATOCRIT 31.5 % (37.0-47.0); LYMPHOCYTES # (AUTO) 1.1 10^3/uL (1.5-3.5); LYMPHOCYTES % (AUTO) 31.8 %; MEAN CORPUSCULAR HGB CONC 31.7 g/dL (32.0-36.0); MEAN CORPUSCULAR VOLUME 94.6 fL (81.0-99.0); MEAN PLATELET VOLUME 10.5 fL (7.9-10.8); MONOCYTES # (AUTO) 0.4 10^3/uL (0.0-1.0); MONOCYTES % (AUTO) 13.2 %; NEUTROPHILS # (AUTO) 1.8 10^3/uL (1.5-6.6); NEUTROPHILS % (AUTO) 52.9 %; PLT - PLATELET COUNT 112 10^3/uL (130-450); RED BLOOD COUNT 3.33 10^6/uL (4.20-5.40); RED CELL DISTRIBUTION WIDTH 16.3 % (12.0-15.0); WHITE BLOOD COUNT 3.3 x10^3/uL (4.8-10.8)
[2022-04-22 05:22] LABS: ALBUMIN 2.1 g/dL (3.2-5.5); ALBUMIN/GLOBULIN RATIO 0.8 (1.0-2.2); ALKALINE PHOSPHATASE 59 IU/L (42-121); ALT ALANINE AMINOTRANSFERASE 28 IU/L (10-60); AMYLASE 159 U/L (28-100); AST ASPARTATE AMINOTRANSFERASE 47 IU/L (10-42); BILIRUBIN,TOTAL 0.6 mg/dL (0.2-1.0); BUN - BLOOD UREA NITROGEN < 5 mg/dL (6-20); CALCIUM 7.5 mg/dL (8.5-10.3); CARBON DIOXIDE - CO2 23 mmol/L (21-32); CHLORIDE 108 mmol/L (101-111); CREATININE 0.6 mg/dL (0.4-1.0); GFR - MDRD 119 (>89); GLUCOSE 110 mg/dL (70-100); POTASSIUM 3.6 mmol/L (3.5-5.0); SODIUM 137 mmol/L (135-145); TOTAL PROTEIN 4.9 g/dL (6.7-8.2)
[2022-04-22] MEDS: D5NS W/20 MEQ KCL 1,000 ML IV SCH (06:23)
[2022-04-22] MEDS ORDERED: PANTOPRAZOLE 40 MG TABLET PO SCH (07:00)
[2022-04-22] MEDS: SODIUM CHLORIDE FLUSH 0.9% 10 ML SYRINGE IVP SCH ×2 (08:04→08:05)
[2022-04-22] MEDS: ENOXAPARIN 40 MG/0.4 ML SYRINGE SUBQ SCH (08:49)
[2022-04-22] MEDS ORDERED: DOCUSATE SODIUM 250 MG CAPSULE PO SCH (09:00)
[2022-04-22] MEDS: ACETAMINOPHEN 325 MG TABLET PO PRN (14:07)
--- NOTE | 2022-04-22 16:55 | Discharge Plan ---
Discharge Plan Problem Reviewed?: Yes Disposition: Home, Self Care Condition: Stable Prescriptions: oxyCODONE [Roxicodone] 5 mg PO Q4HR PRN #30 tab PRN Reason: Pain 5 to 7 Ondansetron Odt [Zofran Odt] 4 mg TL Q6HR PRN #30 tab PRN Reason: Nausea / Vomiting Pantoprazole [Protonix] 40 mg PO DAILY #30 tablet Diet: Cardiac (low fat, small meals 4 times a day) Activity Restrictions: Activity as Tolerated Shower Restrictions: No Driving Restrictions: No Health Concerns: You presented to our emergency room with a history of being approximately 5 weeks , history of reflux disease, and gastric surgery in the past and now having pain in the center of your chest and top of your stomach. 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 Your blood test and CAT scan showed you to have alcoholic pancreatitis. Another cause of pancreatitis could be gallstones. You do have gallstones but they are so big that we doubt that this was the problem since they cannot get down your gallbladder duct to cause obstruction. After having nothing to eat by mouth, being supported with pain medicines and nausea medicines , your pancreatitis gradually improved. You still have some pain in the left side/left flank. But you are able to keep food down. We feel you are stable to go home. Your blood work has normalized. Plan of Treatment: 1. We have asked that you please not drink anymore. Not even 1 glass of wine or 1 beer or 1 shot. 2. Please make sure you take a vitamin with thiamine for the next few weeks to boost up your immune system. 3. Please see your primary care provider in follow-up in the next 1 to 2 weeks and have a CBC and a CMP which is blood work to make sure that your white cell count, red cell count, and liver are normal. 4. You are asking for referral to have your gallbladder removed since you do have large 1.6 cm gallstones present. Again, we do not think this was the cause of your pancreatitis. The bile ducts of your liver and common bile duct and pancreas were not engorged or enlarged from stone obstruction. I recommended that you see Dr. Alex Emery and his office number is [phone]. Tell Vielka, his front end engineer, that Dr. Wills referred you. 5. Please make sure that you eat small, low-fat meals. I have sent you home with pain medicine and nausea medicine. Those have been called into your pharmacy as prescriptions and you tell me that your has already picked them up. Care Goals: To have your liver and pancreas heal normally over time. Not to have any recurrence of abdominal pain like this. Assessment: Patient is comfortable, alert, and has a list of things that she wants to follow through on. No Smoking: If you smoke, Please STOP! Call for help. Follow-up with: Mar Chapin ARNP [Primary Care Provider] -
--- NOTE | 2022-04-22 17:12 | DISCHARGE SUMMARY ---
"Discharge Summary Admit Date: 04/18/22 Discharge Date: 04/22/22 Discharging Provider: Naz Wills MD Primary Care Provider: ERIC Moore Code Status: Attempt Resuscitation Condition at Discharge: Stable Discharge Disposition: 01 Home, Self Care - DIAGNOSES Discharge Diagnoses with Status of Each Condition: 1. Acute alcoholic pancreatitis 2. Alcohol dependence with withdrawal 3. Chest pain due to #4 4. Gastroesophageal reflux 5. E. coli UTI 6. status 7. Cholelithiasis - HPI History of Present Illness: 27-year-old white female who drove her self to the emergency room today because of substernal chest pain and epigastric abdominal pain. It woke her up from her sleep. It made her short of breath and she is 6 weeks . The ER provider elicited a history of heavy alcohol use with 1 to 2 glasses of wine usually, but drinking more over the last 3 to 4 days. She does not have a history of a DVT or hypercoagulable state. She does have a history of gastric sleeve surgery. She also has a hx of hiatal hernia with repair in the past but the GERD has returned. The was a normal spontaneous vaginal delivery. Uncomplicated. In the emergency room temperature was 36.3. Heart rate 90. Respirations 18. 98% saturated on room air. She was an alert and oriented well-groomed female. No acute distress. No respiratory distress. Normal bowel sounds. She had ep igastric and left upper quadrant tenderness to palpation. White cell count was 5.6. Hemoglobin 13.9. Hematocrit 44. Sodium 136 potassium 4.0. Calcium 8.6. BUN and creatinine were normal. Troponin less than 2.3. Lipase was 1661. Urine had moderate leukocyte Estrace. Moderate occult blood. Positive nitrites. The rest of her microscopic exam is pending. I do not know the status of squamous epithelial cells, bacteria, red cells or white cells. CT of the abdomen showed diffuse fatty infiltration in the liver. Otherwise normal size. Gallbladder wall was normal. Biliary system nondilated. Moderate inflammatory changes were seen surrounding the pancreas. The pancreas itself was normal enhancement without necrotic regions. The emergency room provider and I discussed the case. We feel that this is alcohol induced pancreatitis. - Past Medical History Cardiovascular: reports: None Respiratory: reports: None Neuro: reports: None Endocrine/Autoimmune: reports: Other (Gestational diabetes) GI: reports: GERD, Hiatal hernia (w repair but returned) [employer] OFFICER: reports: Other () : reports: None HEENT: reports: None Psych: reports: None Musculoskeletal: reports: None Derm: reports: None - Past Surgical History General: reports: Gastric surgery - CONSULTS | PROCEDURES Procedures: 1. Chest x-ray without acute cardiopulmonary process 2. Abdomen pelvis CT with diffuse fatty liver infiltration. Liver normal size without lesions. Gallbladder wall not thickened. Biliary system not dilated. Spleen normal size. Moderate inflammatory changes seen surrounding the pancreas. Pancreas itself demonstrates normal enhancement. No necrosis. No loculated peripancreatic fluid. Kidneys without hydronephrosis. Previous bariatric surgery seen. Bowel loops normal. 3. Chest/thorax CT angiogram without thromboembolism. Focal area of groundglass opacity in the right upper lobe which has a linear appearance co nsistent with atelectasis. Heart size normal. Gallbladder contains excreted contrast and multiple stones. Liver is hypodense and enlarged consistent with hepatic steatosis. Peripancreatic inflammation seen consistent with pancreatitis. 4. MRCP has intra and extrahepatic biliary ducts that are not dilated. No filling defects in the common bile duct. Pancreas is edematous and has signs of acute interstitial edematous pancreatitis. No choledocholithiasis.. No focal areas of hypoenhancement to suggest acute process. No pancreatic ductal dilatation. Several large gallstones measuring 1.6 cm. - HOSPITAL COURSE Hospital Course: The patient was treated as alcoholic pancreatitis. She received IV fluids, antiemetics, and IV pain medicines in the face of an n.p.o. status. Her labs gradually improved, pain dissipated somewhat and we started her on clear liquids. As we advanced her she did have 1 episode of emesis. At discharge she has left flank pain that is not severe. We wanted to make sure that this was alcoholic pancreatitis and not gallstone pancreatitis and did an MRCP. It looks like there is no biliary dilatation, or evidence of a passed stone. And the stones are quite large to been passed. Severe back to alcoholic pancreatitis. 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 Sometimes tremulous after drinking. Current drinking is wine, gradually increasing in usage over the last several weeks since her baby was born. She did have mild tachycardia, anxiety, and diaphoresis for a couple of days with mild alcohol withdrawal. But it was not severe. She has been asked to stop drinking. She did receive a banana bag in addition to the above therapy. She has been switched over to oral vitamins and thiamine and B12. Since she is now able to eat, keep food down, and pain is controlled she is felt stable for discharge. I discharge medications will be Zofran, Roxicodone, and Protonix. She is asking to have her gallbladder removed due to the gallstones and I have given her the name of one of the local surgeons.An E. coli UTI was treated with single dose fosfomycin. At discharge temperature is 36.9. Heart rate 82. Blood pressure 123/74. Respirations 16. 100% on room air. She is 5 feet 3 inches tall, 75 kg A comfortable, alert, young white female who is ambulating in the room without any assist. Lungs are clear. No tachypnea or respiratory distress. Regular rate and rhythm. Abdomen is soft, mild tenderness at the left upper quadrant but no rebound or guarding. Normal bowel sounds. Bowel movement normal. Extremities without edema. Greater than 30 minutes spent corning discharge, discussing alcohol abuse, and her desire to avail herself of opportunity for counseling and rehab. Social work is already given her pamphlets and referrals. - ALLERGIES Allergies/Adverse Reactions: Allergies Allergy/AdvReac Type Severity Reaction Status Date / Time Sulfa (Sulfonamide AdvReac Rash Verified 04/18/22 12:14 Antibiotics) - MEDICATIONS Home Medications: Ambulatory Orders Medication Instructions Recorded Confirmed Acetaminophen [Acetaminophen Extra 2 tab PO DAILY PRN 04/19/22 04/19/22 Strength] Ibuprofen [Motrin] 1 tab PO DAILY PRN 04/19/22 04/19/22 Ondansetron Odt [Zofran Odt] 1 tab PO DAILY PRN 04/19/22 04/19/22 Ondansetron Odt [Zofran Odt] 4 mg TL Q6HR PRN #30 tab 04/20/22 Pantoprazole [Protonix] 40 mg PO DAILY #30 tablet 04/20/22 oxyCODONE [Roxicodone] 5 mg PO Q4HR PRN #30 tab 04/20/22 - LABS Result Diagrams: 04/22/22 04:36 04/22/22 04:36"
[2022-04-22 17:18] VITALS: BP 115/78
== END 2022-04-22 18:30 | disposition home or self-care (01) | DRG 776 ==
LOC: ED 12:00 → MS3 17:36
PROVIDERS: ADMIT Specialist; ATTEND Specialist
DX: O90.89 Other complications of the puerperium, not elsewhere classified (principal); K85.20 Alcohol induced acute pancreatitis without necrosis or infection; F10.239 Alcohol dependence with withdrawal, unspecified; N39.0 Urinary tract infection, site not specified; K21.9 Gastro-esophageal reflux disease without esophagitis; O86.20 Urinary tract infection following delivery, unspecified; O99.63 Diseases of the digestive system complicating the puerperium; K80.20 Calculus of gallbladder without cholecystitis without obstruction; B96.20 Unspecified Escherichia coli [E. coli] as the cause of diseases classified elsewhere; K76.0 Fatty (change of) liver, not elsewhere classified; Z20.822 Contact with and (suspected) exposure to COVID-19
CPT/HCPCS: 36415; 71045; 71275; 74177; 74183; 80053; 80306; 81001; 81025; 82150; 83690; 84484; 85025; 87077; 87086; 87181; 87635; 93005; 96361; 96374; 99284; 99285; A9270; A9585; J1170; J1650; J2060; J3411; J7040; J8499; Q0162; Q9967; 81003

== ENCOUNTER 2022-05-02 09:35 | Outpatient (CLI) | payer OTHER ==
[2022-05-02 11:58] LABS: BASOPHILS # (AUTO) 0.1 10^3/uL (0.0-0.1); BASOPHILS % (AUTO) 0.8 %; EOSINOPHILS # (AUTO) 0.1 10^3/uL (0.0-0.7); EOSINOPHILS % (AUTO) 2.3 %; HCT - HEMATOCRIT 37.6 % (37.0-47.0); HGB - HEMOGLOBIN 11.9 g/dL (12.0-16.0); LYMPHOCYTES # (AUTO) 1.8 10^3/uL (1.5-3.5); LYMPHOCYTES % (AUTO) 28.4 %; MEAN CORPUSCULAR HEMOGLOBIN 29.7 pg (27.0-31.0); MEAN CORPUSCULAR HGB CONC 31.6 g/dL (32.0-36.0); MEAN CORPUSCULAR VOLUME 93.8 fL (81.0-99.0); MEAN PLATELET VOLUME 10.8 fL (7.9-10.8); MONOCYTES # (AUTO) 0.5 10^3/uL (0.0-1.0); MONOCYTES % (AUTO) 8.5 %; NEUTROPHILS # (AUTO) 3.7 10^3/uL (1.5-6.6); NEUTROPHILS % (AUTO) 59.8 %; PLT - PLATELET COUNT 356 10^3/uL (130-450); RED BLOOD COUNT 4.01 10^6/uL (4.20-5.40); RED CELL DISTRIBUTION WIDTH 15.9 % (12.0-15.0); WHITE BLOOD COUNT 6.2 x10^3/uL (4.8-10.8)
[2022-05-02 12:16] LABS: ALBUMIN 3.7 g/dL (3.2-5.5); ALBUMIN/GLOBULIN RATIO 1.1 (1.0-2.2); BILIRUBIN,TOTAL 0.7 mg/dL (0.2-1.0); CALCIUM 8.9 mg/dL (8.5-10.3); CREATININE 0.6 mg/dL (0.4-1.0); POTASSIUM 3.3 mmol/L (3.5-5.0)
== END 2022-05-02 09:36 | disposition home or self-care (01) ==
LOC: LAB.N 09:35
PROVIDERS: ATTEND Nurse Practitioner Family
DX: K85.21 Alcohol induced acute pancreatitis with uninfected necrosis (principal)
CPT/HCPCS: 36415; 80053; 82150; 83690; 85025

== ENCOUNTER 2022-10-27 11:16 | Emergency (ER) | payer OTHER ==
[2022-10-27 11:31] VITALS: BP 118/79
[2022-10-27 11:49] LABS: BASOPHILS % (AUTO) 0.5 %; EOSINOPHILS # (AUTO) 0.1 10^3/uL (0.0-0.7); EOSINOPHILS % (AUTO) 2.1 %; HCT - HEMATOCRIT 38.4 % (37.0-47.0); HGB - HEMOGLOBIN 12.1 g/dL (12.0-16.0); LYMPHOCYTES # (AUTO) 1.3 10^3/uL (1.5-3.5); LYMPHOCYTES % (AUTO) 29.4 %; MEAN CORPUSCULAR HEMOGLOBIN 27.8 pg (27.0-31.0); MEAN CORPUSCULAR HGB CONC 31.5 g/dL (32.0-36.0); MEAN CORPUSCULAR VOLUME 88.1 fL (81.0-99.0); MEAN PLATELET VOLUME 10.5 fL (7.9-10.8); MONOCYTES # (AUTO) 0.3 10^3/uL (0.0-1.0); MONOCYTES % (AUTO) 7.9 %; NEUTROPHILS # (AUTO) 2.6 10^3/uL (1.5-6.6); NEUTROPHILS % (AUTO) 59.9 %; PLT - PLATELET COUNT 148 10^3/uL (130-450); RED BLOOD COUNT 4.36 10^6/uL (4.20-5.40); RED CELL DISTRIBUTION WIDTH 15.7 % (12.0-15.0); WHITE BLOOD COUNT 4.3 x10^3/uL (4.8-10.8)
[2022-10-27 12:03] LABS: ALBUMIN 4.4 g/dL (3.2-5.5); ALBUMIN/GLOBULIN RATIO 1.4 (1.0-2.2); ALKALINE PHOSPHATASE 62 IU/L (42-121); ALT ALANINE AMINOTRANSFERASE 26 IU/L (10-60); AST ASPARTATE AMINOTRANSFERASE 39 IU/L (10-42); BILIRUBIN,TOTAL 0.7 mg/dL (0.2-1.0); BUN - BLOOD UREA NITROGEN 15 mg/dL (6-20); CALCIUM 9.5 mg/dL (8.5-10.3); CARBON DIOXIDE - CO2 25 mmol/L (21-32); CHLORIDE 102 mmol/L (101-111); CREATININE 0.6 mg/dL (0.6-1.3); ETOH - ETHANOL < 10.0 mg/dL; GFR - MDRD 119 (>89); GLUCOSE 86 mg/dL (74-104); LIPASE 103 U/L (11-82); POTASSIUM 3.7 mmol/L (3.5-4.5); SODIUM 136 mmol/L (135-145); TOTAL PROTEIN 7.5 g/dL (6.4-8.9)
--- NOTE | 2022-10-27 12:03 | ED Physician Documentation ---
PD HPI ABD PAIN - Stated complaint Stated Complaint: ABD PX - Chief complaint Chief Complaint: Abd Pain - History obtained from History obtained from: Patient - History of Present Illness Timing - onset: How many days ago (5) Timing - duration: Days (5) Timing - details: Abrupt onset, Still present Quality: Aching, Sharp, Pain Location: Epigastric Radiation: Upper back Improved by: Laying still Worsened by: Eating, Palpation Associated symptoms: Nausea. No: Fever, Vomiting, Hematemesis, Diarrhea, Melena, Dysuria Similar symptoms before: Diagnosis (Has had alcoholic pancreatitis in the past. She has been mostly sober lately but did celebrate October 03 with friends and drank heavily then. Some abd pain few days later but tolerable and able to eat. Has increased the past 5 days. Denies more recent alcohol.) Recently seen: Not recently seen Review of Systems Constitutional: denies: Fever, Chills Nose: denies: Rhinorrhea / runny nose, Congestion Throat: denies: Sore throat Respiratory: denies: Cough GI: reports: Abdominal Pain, Nausea. denies: Abdominal Swelling, Vomiting, Diarrhea, Bloody / black stool Neurologic: denies: Generalized weakness, Near syncope PD PAST MEDICAL HISTORY - Past Medical History Cardiovascular: None Respiratory: None Neuro: None Endocrine/Autoimmune: None GI: GERD, Pancreatitis PULP ROLLER: Other () : None HEENT: None Psych: None Musculoskeletal: None Derm: None - Past Surgical History General: Gastric surgery - Present Medications Home Medications: Ambulatory Orders Medication Instructions Recorded Confirmed Acetaminophen [Acetaminophen Extra 2 tab PO DAILY PRN 04/19/22 04/19/22 Strength] Ibuprofen [Motrin] 1 tab PO DAILY PRN 04/19/22 04/19/22 Ondansetron Odt [Zofran Odt] 1 tab PO DAILY PRN 04/19/22 04/19/22 Ondansetron Odt [Zofran Odt] 4 mg TL Q6HR PRN #30 tab 04/20/22 Pantoprazole [Protonix] 40 mg PO DAILY #30 tablet 04/20/22 oxyCODONE [Roxicodone] 5 mg PO Q4HR PRN #30 tab 04/20/22 Famotidine [Pepcid] 20 mg PO DAILY #30 tablet 10/27/22 HYDROcod/ACETAM 5/325 [[place] 5/325] 1 ea PO Q6H PRN #12 tablet 10/27/22 Ondansetron Odt [Zofran] 4 mg TL Q6H PRN #20 tablet 10/27/22 - Allergies Allergies/Adverse Reactions: Allergies Allergy/AdvReac Type Severity Reaction Status Date / Time Sulfa (Sulfonamide AdvReac Rash Verified 10/27/22 11:23 Antibiotics) - Social History Does the pt smoke?: No Smoking Status: Never smoker - POLST Patient has POLST: No POLST Status: Full Code PD ED PE NORMAL - Vitals Vital signs reviewed: Yes - General General: Alert and oriented X 3, No acute distress, Well developed/nourished - HEENT HEENT: PERRL (nonicteric) - Neck Neck: Supple, no meningeal sign, No adenopathy - Cardiac Cardiac: RRR, No murmur - Respiratory Respiratory: No respiratory distress, Clear bilaterally - Abdomen Abdomen: Normal bowel sounds, Soft, Non distended, Other (tender epigastric area without guarding nor percussion tenderness. ) - Derm Derm: Normal color, Warm and dry - Neuro Neuro: Alert and oriented X 3, No motor deficit, Normal speech Results - Vitals Vitals: Vital Signs - 24 hr 10/27/22 11:20 Temperature 36.6 C Heart Rate 97 Respiratory 20 Rate Blood Pressure 118/79 O2 Saturation 99 Oxygen O2 Source Room air - Labs Labs: Laboratory Tests 10/27/22 10/27/22 10/27/22 11:44 11:44 13:55 WBC 4.3 L RBC 4.36 Hgb 12.1 Hct 38.4 MCV 88.1 MCH 27.8 MCHC 31.5 L RDW 15.7 H Plt Count 148 MPV 10.5 Neut # (Auto) 2.6 Lymph # (Auto) 1.3 L [place] # (Auto) 0.3 Eos # (Auto) 0.1 Baso # (Auto) 0.0 Absolute Nucleated RBC 0.00 Nucleated RBC % 0.0 Sodium 136 Potassium 3.7 Chloride 102 Carbon Dioxide 25 Anion Gap 9.0 BUN 15 Creatinine 0.6 Estimated GFR (MDRD) 119 Glucose 86 Calcium 9.5 Total Bilirubin 0.7 AST 39 ALT 26 Alkaline Phosphatase 62 Total Protein 7.5 Albumin 4.4 Globulin 3.1 Albumin/Globulin Ratio 1.4 Lipase 103 H Urine Color YELLOW Urine Clarity CLEAR Urine pH 6.0 Ur Specific [place] >=1.030 H Urine Protein NEGATIVE Urine Glucose (UA) NEGATIVE Urine Ketones 40 H Urine Occult Blood NEGATIVE Urine Nitrite NEGATIVE Urine Bilirubin NEGATIVE Urine Urobilinogen 1 (NORMAL) Ur Leukocyte Esterase NEGATIVE Ur Microscopic Review NOT INDICATED Urine Culture Comments NOT INDICATED Urine HCG, Qual NEGATIVE Ethyl Alcohol < 10.0 PD Medical Decision Making - ED course Complexity details: reviewed results (Lipase is somewhat elevated at 106. Can be some resolving or mild pancreatitis. Consider also having gastritis/ulcer. ), considered differential (may have some pancreatitis and can check labs. Not peritoneal on exam and so I did not feel CT/US was needed at this time. ), d/w patient, other (patient says she has info on alcohol treatment and does not need Social EWork consult here. ) Departure - Departure Disposition: 01 Home, Self Care Clinical Impression: Acute upper abdominal pain Pancreatitis Qualifiers: Chronicity: acute Pancreatitis type: alcohol induced Acute pancreatitis complication: no infection or necrosis Qualified Code(s): K85.20 - Alcohol induced acute pancreatitis without necrosis or infection Condition: Stable Record reviewed to determine appropriate education?: Yes Follow-Up: Mar Chapin ARNP [Primary Care Provider] - Prescriptions: HYDROcod/ACETAM 5/325 [[place] 5/325] 1 ea PO Q6H PRN #12 tablet PRN Reason: Pain Famotidine [Pepcid] 20 mg PO DAILY #30 tablet Ondansetron Odt [Zofran] 4 mg TL Q6H PRN #20 tablet PRN Reason: Nausea / Vomiting Comments: Your lipase today is 103 which is mildly elevated but is likely signifying some degree of inflammation of the pancreas. Your liver enzymes are normal. It is possible you may have an element of irritation of the stomach (gastritis) as well. I would suggest famotidine acid reducing medicine twice daily for the next several days and then daily for another couple of weeks. You can add antacid such as Maalox or Mylanta if needed to help with discomfort if some of it relates to the stomach itself. Regarding the pancreatic inflammation/pain, use Tylenol every 4-6 hours if needed. Ondansetron if needed for nausea. Hydrocodone/acetaminophen if needed for worse pain at times in the short-term. Stay well-hydrated. Modified diet of a low residue, low fat, soft diet initially. Progress diet as tolerated over the next few days. Contact your primary care for recheck particularly on rechecking labs early next week. I sent your prescription to [facility] pharmacy. Return to the ER if worsening symptoms. I am prescribing a short course of narcotic pain medication for you. These are potentially dangerous and addictive medications that should be used carefully. These medications may constipate you. Take an [id number]-putphus stool softener such as docusate twice daily with plenty of water while taking these me dications. If you go 24 hours without a bowel movement, take [id number] MiraLAX, per package instructions. Do not drink or drive while taking these medications. If you received narcotic or sedating medications while in the emergency department do not drive for 24 hours. Store this medication in a safe, secure place and out of reach of children. It is a violation of federal law to give or sell this medication to another person or to use in a manner other than prescribed. The ED will not refill narcotic prescriptions, including prescriptions lost or stolen. You can dispose of unwanted medications at the [facility]'s office or at several pharmacies such as [facility]. Forms: PCP List Discharge Date/Time: 10/27/22 14:24
[2022-10-27 14:07] LABS: GLUCOSE, URINE (UA) NEGATIVE (NEGATIVE); KETONES,URINE (UA) 40 mg/dL (NEGATIVE); LEUKOCYTE ESTERASE, URINE NEGATIVE (NEGATIVE); NITRITE,URINE NEGATIVE (NEGATIVE); OCCULT BLOOD,URINE NEGATIVE (NEGATIVE); PROTEIN,URINE NEGATIVE (NEGATIVE); UROBILINOGEN,URINE 1 (NORMAL) E.U./dL (NORMAL)
[2022-10-27 14:09] LABS: BILIRUBIN,URINE NEGATIVE (NEGATIVE); CLARITY,URINE CLEAR (CLEAR); HCG UR QUAL NEGATIVE; ICTOTEST,URINE NEGATIVE
== END 2022-10-27 14:24 | disposition home or self-care (01) ==
LOC: ED 11:16
DX: K85.20 Alcohol induced acute pancreatitis without necrosis or infection (principal)
CPT/HCPCS: 36415; 80053; 80320; 81001; 81003; 81025; 83690; 85025; 87086; 99283; 99284

== ENCOUNTER 2023-10-31 12:41 | Outpatient (CLI) | payer OTHER ==
[2023-10-31 17:58] LABS: BASOPHILS % (AUTO) 0.9 %; EOSINOPHILS % (AUTO) 0.4 %; HCT - HEMATOCRIT 41.1 % (37.0-47.0); LYMPHOCYTES # (AUTO) 1.5 10^3/uL (1.5-3.5); LYMPHOCYTES % (AUTO) 33.5 %; MEAN CORPUSCULAR HEMOGLOBIN 33.9 pg (27.0-31.0); MEAN CORPUSCULAR HGB CONC 34.1 g/dL (32.0-36.0); MEAN CORPUSCULAR VOLUME 99.5 fL (81.0-99.0); MONOCYTES # (AUTO) 0.5 10^3/uL (0.0-1.0); MONOCYTES % (AUTO) 11.5 %; NEUTROPHILS # (AUTO) 2.4 10^3/uL (1.5-6.6); NEUTROPHILS % (AUTO) 53.5 %; PLT - PLATELET COUNT 153 10^3/uL (130-450); RED BLOOD COUNT 4.13 10^6/uL (4.20-5.40); RED CELL DISTRIBUTION WIDTH 12.8 % (12.0-15.0); WHITE BLOOD COUNT 4.5 x10^3/uL (4.8-10.8)
[2023-10-31 18:20] LABS: THYROID STIMULATING HORMONE 1.45 uIU/mL (0.34-5.60)
[2023-10-31 18:22] LABS: ALBUMIN 3.9 g/dL (3.2-5.5); ALBUMIN/GLOBULIN RATIO 1.2 (1.0-2.2); CALCIUM 9.2 mg/dL (8.5-10.3); CREATININE 0.5 mg/dL (0.6-1.3); POTASSIUM 3.7 mmol/L (3.5-4.5); TOTAL PROTEIN 7.1 g/dL (6.4-8.9)
[2023-11-01 07:10] LABS: HSV 1 IGG TYPE SPEC <0.91 index (0.00-0.90); HSV 2 IGG TYPE SPEC 7.18 index (0.00-0.90)
== END 2023-10-31 12:42 | disposition home or self-care (01) ==
LOC: LAB.N 12:41
PROVIDERS: ATTEND Nurse Practitioner Family
DX: Z00.00 Encounter for general adult medical examination without abnormal findings (principal); Z11.3 Encounter for screening for infections with a predominantly sexual mode of transmission
CPT/HCPCS: 36415; 80053; 84443; 85025; 86695; 86696

== ENCOUNTER 2024-05-10 19:27 | Observation (INO) ==
[2024-05-10 20:32] LABS: BASOPHILS % (AUTO) 0.4 %; EOSINOPHILS % (AUTO) 0.2 %; HCT - HEMATOCRIT 41.3 % (37.0-47.0); HGB - HEMOGLOBIN 14.5 g/dL (12.0-16.0); LYMPHOCYTES # (AUTO) 0.7 10^3/uL (1.5-3.5); LYMPHOCYTES % (AUTO) 13.3 %; MEAN CORPUSCULAR HEMOGLOBIN 34.3 pg (27.0-31.0); MEAN CORPUSCULAR HGB CONC 35.1 g/dL (32.0-36.0); MEAN CORPUSCULAR VOLUME 97.6 fL (81.0-99.0); MEAN PLATELET VOLUME 11.1 fL (7.9-10.8); MONOCYTES # (AUTO) 0.5 10^3/uL (0.0-1.0); MONOCYTES % (AUTO) 9.7 %; PLT - PLATELET COUNT 170 10^3/uL (130-450); RED BLOOD COUNT 4.23 10^6/uL (4.20-5.40); RED CELL DISTRIBUTION WIDTH 12.3 % (12.0-15.0); WHITE BLOOD COUNT 5.3 x10^3/uL (4.8-10.8)
[2024-05-10] MEDS: SODIUM CHLORIDE 0.9% 1,000 ML IV STA ×2 (20:46→22:14)
[2024-05-10 20:53] LABS: MAGNESIUM 1.4 mg/dL (1.7-2.3); TROPONIN I HIGH SENSITIVITY 4.6 ng/L (2.3-14.8)
[2024-05-10 20:56] LABS: HCG,QUALITATIVE BLOOD NEGATIVE
[2024-05-10 20:59] LABS: ALBUMIN/GLOBULIN RATIO 1.1 (1.0-2.2); BILIRUBIN,TOTAL 1.6 mg/dL (0.2-1.0); CALCIUM 9.1 mg/dL (8.5-10.3); CREATININE 0.5 mg/dL (0.6-1.3); POTASSIUM 2.9 mmol/L (3.5-4.5); TOTAL PROTEIN 7.5 g/dL (6.4-8.9)
[2024-05-10 21:17] LABS: THYROID STIMULATING HORMONE 3.72 uIU/mL (0.34-5.60)
[2024-05-10] MEDS: MAGNESIUM SULFATE 2 GRAM 2 GM/50 ML BAG IV ONE (21:30)
--- NOTE | 2024-05-10 21:34 | XRAY Report ---
PROCEDURE: XR Chest 2V INDICATIONS: chest tightness TECHNIQUE: 2 views of the chest were acquired. COMPARISON: None. FINDINGS: Surgical changes and devices: None. Lungs and pleura: No dense airspace disease. No pleural effusions Mediastinum: Normal heart size Bones and chest wall: Mild thoracic spondylosis. IMPRESSION: No acute radiographic abnormality. Reviewed by: Charles Bermudez MD on 05/10/2024 9:33 PM PST Approved by: Charles Bermudez MD on 05/10/2024 9:33 PM PST Station ID: [id number]
[2024-05-10] MEDS: POTASSIUM CHLOR 10 MEQ/100 ML 10 MEQ/100 ML BAG IV SCH (21:36)
--- NOTE | 2024-05-10 22:04 | ED Physician Documentation ---
History of Present Illness Stated complaint Stated Complaint: DIZZY/BACK PX Chief complaint Chief Complaint: Neuro History obtained from History obtained from: Patient History of Present Illness Timing: Prior to arrival Additonal information Additional information: Patient 29-year-old female presenting to the emergency department withFeelings of tingling in her toes nausea vomiting decreased eating and drinking. Symptoms have been going on since evening. She has occasional blurry vision with some tingling in her fingers. She notes she has been having some nausea and vomiting but this is not abnormal for her with a history of gastric bypass she often will have difficulty eating or drinking with persistent nausea symptoms. She takes Zofran daily which did seem to help her symptoms this morning. She has a history of alcohol abuse and has been admitted in the past for history of pancreatitis. She notes she does not have withdrawal symptoms when drinking. Meds/Allgy Home Medications Ambulatory Orders Medication Instructions Recorded Confirmed acetaminophen 500 mg tablet 2 tab PO DAILY PRN Pain 04/19/22 04/19/22 (Acetaminophen Extra Strength) ibuprofen 600 mg tablet 1 tab PO DAILY PRN Pain 04/19/22 04/19/22 ondansetron 4 mg disintegrating 1 tab PO DAILY PRN Nausea / 04/19/22 04/19/22 tablet Vomiting ondansetron 4 mg disintegrating 4 mg translingual Q6HR PRN Nausea 04/20/22 tablet / Vomiting #30 tabs oxycodone 5 mg tablet 5 mg PO Q4HR PRN Pain 5 to 7 #30 04/20/22 tabs pantoprazole 40 mg tablet,delayed 40 mg PO DAILY #30 tabs 04/20/22 release famotidine 20 mg tablet 20 mg PO DAILY #30 tabs 10/27/22 hydrocodone 5 mg-acetaminophen 325 1 ea PO Q6H PRN Pain #12 tabs 10/27/22 mg tablet ondansetron 4 mg disintegrating 4 mg translingual Q6H PRN Nausea / 10/27/22 tablet Vomiting #20 tabs Allergies Allergies Allergy/AdvReac Type Severity Reaction Status Date / Time Sulfa (Sulfonamide AdvReac Rash Verified 10/27/22 11:23 Antibiotics) PFSH Social History Social History Smoking Status: Never smoker Do you dip or chew tobacco?: No Do you vape?: No Living arrangement: At home Living Condition: With spouse/s.o. Relationship: Do you feel safe in your home environment?: Yes Suffered physical, verbal, emotional, or financial abuse?: No Are you sexually active?: Yes POLST Patient has POLST: No POLST Status: Full Code Exam Constitutional normal general appearance HENMT normocephalic and head/scalp atraumatic Eyes PERRL, EOMs intact bilaterally and conjunctivae normal Chest inspection of chest normal Respiratory breath sounds equal bilaterally, normal respiratory effort and clear to auscultation bilaterally Cardiovascular regular rhythm noted, no gallop and no rub Sinus tachycardia with regular rhythm appreciated on auscultation. Gastrointestinal abdomen normal to inspection Mild reproducible epigastric pain but no Grace sign no rebound or guarding on examination. Genitourinary no CVA tenderness Back/Pelvis spine normal to inspection Extremities normal to inspection No lower leg swelling Skin skin color normal Results Vitals Vitals: Vital Signs - 24 hr 05/10/24 19:41 05/10/24 19:45 05/10/24 19:53 Temperature 36.6 C Temperature Source Temporal Artery Scan Pulse Rate 154 H 156 H 152 H Respiratory Rate 18 6 L Blood Pressure 116/84 115/86 O2 Saturation 99 100 100 O2 Source Room air Room air Room air Pain Intensity 8 05/10/24 20:00 05/10/24 20:10 05/10/24 20:15 Temperature Temperature Source Pulse Rate 156 H 139 H 144 H Respiratory Rate 15 19 Blood Pressure O2 Saturation 99 100 100 O2 Source Room air Room air Room air Pain Intensity 05/10/24 20:23 05/10/24 20:30 05/10/24 20:38 Temperature Temperature Source Pulse Rate 145 H 142 H 150 H Respiratory Rate 18 Blood Pressure 126/100 H 137/86 H O2 Saturation 100 99 100 O2 Source Room air Room air Room air Pain Intensity 05/10/24 20:45 05/10/24 20:53 05/10/24 21:00 Temperature Temperature Source Pulse Rate 139 H 127 H 122 H Respiratory Rate 16 21 Blood Pressure 126/53 L O2 Saturation 99 100 100 O2 Source Room air Room air Room air Pain Intensity 05/10/24 21:08 05/10/24 21:15 05/10/24 21:30 Temperature Temperature Source Pulse Rate 127 H 146 H 139 H Respiratory Rate 22 Blood Pressure 135/93 H O2 Saturation 100 92 100 O2 Source Room air Room air Room air Pain Intensity 05/10/24 21:39 05/10/24 22:04 Temperature Temperature Source Pulse Rate 121 H 139 H Respiratory Rate Blood Pressure 129/89 111/85 O2 Saturation 100 96 O2 Source Room air Room air Pain Intensity Oxygen O2 Source Room air Labs Labs: Laboratory Tests 05/10/24 05/10/24 05/10/24 20:08 20:26 21:15 WBC 5.3 RBC 4.23 Hgb 14.5 Hct 41.3 MCV 97.6 MCH 34.3 H MCHC 35.1 RDW 12.3 Plt Count 170 MPV 11.1 H Neut # (Auto) 4.0 Lymph # (Auto) 0.7 L [place] # (Auto) 0.5 Eos # (Auto) 0.0 Baso # (Auto) 0.0 Absolute Nucleated RBC 0.00 Nucleated RBC % 0.0 Sodium 136 Potassium 2.9 L Chloride 98 L Carbon Dioxide 18 L Anion Gap 20.0 H BUN 12 Creatinine 0.5 L Estimated GFR (MDRD) 145 Glucose 106 H POC Whole Bld Glucose 97 Lactic Acid 3.4 H* Calcium 9.1 Magnesium 1.4 L Total Bilirubin 1.6 H AST 112 H ALT 69 H Alkaline Phosphatase 76 Troponin I High Sens 4.6 B-Natriuretic Peptide 11 Total Protein 7.5 Albumin 4.0 Globulin 3.5 Albumin/Globulin Ratio 1.1 Lipase 19 TSH 3.72 Serum HCG, Qual NEGATIVE Ethyl Alcohol 10.0 Rads (name of study) lumbar spine x-ray: Relevant Findings:: EMP independent interpretation of test PD Medical Decision Making ED course Complexity details: reviewed old records and reviewed results ED course: Patient 29-year-old female presenting to the emergency department with persistent tachycardia noted in triage. Patient tachycardic to the 150s on arrival. She notes she has been eating and drinking significantly less and having some epigastric pain. She has a history of alcohol abuse. Last drink this morning with 1 Mimosa. She notes she has significantly cut back after recent diagnosis of pancreatitis a few years ago. She notes she drinks about 3 times a week and does not consume liquor. She denies having withdrawal symptoms when she stops drinking. Vitals remarkable for tachycardia to the 150s on arrival EKG initially difficult to evaluate if this is sinus rhythm. Will plan on giving adenosine once patient has IV access. IV fluids were ordered as patient has been having significant decreased eating and drinking. Initial labs did return with significant anion gap of 20 lactic acid of 3.4. Discussed with nursing staff and will hold off on adenosine at this time as tachycardia significantly resolved to 120s here in the ED. Patient notes she is feeling slightly better. Patient notably hypokalemic to 2.9 and hypomagnesemic to 1.4. Will replace electrolytes here in the ED. Patient tachycardic she appears to have a CIWA score of 8 no appreciable tremors she does appear to have persistent nausea. Will give small dose of Ativan however lower suspicion for withdrawal symptoms causing persistent tachycardia at this time. Chest x-ray shows no acute cardiopulmonary findings troponin within normal range. Alcohol level of 10. TSH negative BMP within normal range as well. Repeat EKG does show Normal Sinus rhythm and HR 122 bpm, pending ativan treatment and second fluid bolus. Patient taken over by Dr. Alfonso at this time. Discharge Plan Discharge Prescriptions: No Action ibuprofen 600 MG tablet 1 tab PO DAILY PRN (Reason: Pain) ondansetron 4 MG tablet,disintegrating 1 tab PO DAILY PRN (Reason: Nausea / Vomiting) Patient Comments: DISSOLVE 1 TABLET ON THE TONGUE EVERY 6 HOURS NEEDED FOR NAUSEA OR VOMITING acetaminophen [Acetaminophen Extra Strength] 500 MG tablet 2 tab PO DAILY PRN (Reason: Pain) ondansetron 4 MG tablet,disintegrating 4 mg translingual Q6HR PRN (Reason: Nausea / Vomiting) Qty: 30 0RF oxycodone 5 MG tablet 5 mg PO Q4HR PRN (Reason: Pain 5 to 7) Qty: 30 0RF pantoprazole 40 MG tablet,delayed release (DR/EC) 40 mg PO DAILY Qty: 30 0RF hydrocodone-acetaminophen 1 TAB tablet 1 ea PO Q6H PRN (Reason: Pain) Qty: 12 0RF famotidine 20 MG tablet 20 mg PO DAILY Qty: 30 0RF ondansetron 4 MG tablet,disintegrating 4 mg translingual Q6H PRN (Reason: Nausea / Vomiting) Qty: 20 0RF Print Language: Brazilian Stand Alone Forms: PCP List
[2024-05-10] MEDS: LORazepam 2 MG/ML VIAL IVP STA (22:13)
[2024-05-10] MEDS: ADENOSINE 6 MG/2 ML VIAL IVP STA (22:15)
[2024-05-11] MEDS: KETOROLAC 15 MG/ML VIAL IVP STA (00:21)
[2024-05-11] MEDS: HYDROmorphone 0.5 MG/0.5 ML SYRINGE IVP STA (00:23)
[2024-05-11] MEDS: SODIUM CHLORIDE 0.9% 1,000 ML IV STA (00:35)
[2024-05-11] MEDS: ONDANSETRON 4 MG/2 ML VIAL IVP STA ×2 (01:54→02:04)
--- NOTE | 2024-05-11 02:44 | ED Physician Documentation ---
ED Addendum Addendum Addendum: The patient has received IV fluids of at least 2 L in electrolyte replacements. The heart rate has come down to approximately 1 20-1 30 and is a sinus rhythm. Blood pressure is 123/86. Unclear the cause of the persistent tachycardia. She does give history to suggest some volume depletion with less intake recently and some lower back pain. No dyspnea or shortness of breath. On signout to me, the patient was appearing comfortable with just some back pain. Consideration of the tachycardia was for pain perhaps so was given Toradol and some hydromorphone. This did not seem to affect the heart rate but she was more comfortable. The patient did not have any fever. There is no obvious point source for infection. Her initial lactate was elevated and we will recheck it and also recheck electrolytes after having some replacements. Also checking D-dimer. TSH had already been evaluated. Awaiting repeat blood test to decide further evaluation. She does not appear to be septic per se though had an lactate and tachycardia. I would consider other abnormalities. Blood tests are pending. Apparently there was no school admissions representative in the lab so some delay in getting blood test drawn by about 2 hours. She remains comfortable at this time. Blood tests were subsequently done and reviewed. Her lactate is corrected and is now 1.2. Kidney function still remains good at 0.5 creatinine. Electrolytes are more normal now with magnesium just slightly low at 1.6. Potassium is good. Blood sugar is still not elevated. Her venous blood gas shows a pH 7.33. Serum ketones are small. This does not seem to be diabetic related. Consideration would be alcoholic ketoacidosis. She did have an anion gap earlier that has improved. Her alcohol level was 10 earlier. She still remains tachycardic but with a normal blood pressure. She is appearing calm but states having nausea still with the significant increase in nausea with attempting oral intake. As such I am concerned about her maintaining hydration and still appearing tachycardic. Previous provider notes state the patient's symptoms that started several days ago with decreased appetite and intake nausea but no diarrhea. Bladder scanner showed only 120 mL in the bladder after approximately 3 L of fluid plus the electrolyte supplements. We will give some more IV fluids at this time. She states she has some mild flank pain that she has been having. No abdominal tenderness or pain noted on exam again. I put a call in for the nighttime hospitalist for concern of the patient's seeming will well dehydrated and electrolyte abnormalities and some ketosis that has been reasonable to collect corrected over hours here in the ER but the patient still remains nauseated and tachycardic. Discharge Plan Discharge Patient Disposition: ED Place in Observation Condition: Stable Clinical Impression: Electrolyte and fluid disorder, Acute dehydration, Nausea and vomiting, Tachycardia, Ketosis Prescriptions: No Action ibuprofen 600 MG tablet 1 tab PO DAILY PRN (Reason: Pain) ondansetron 4 MG tablet,disintegrating 1 tab PO DAILY PRN (Reason: Nausea / Vomiting) Patient Comments: DISSOLVE 1 TABLET ON THE TONGUE EVERY 6 HOURS NEEDED FOR NAUSEA OR VOMITING acetaminophen [Acetaminophen Extra Strength] 500 MG tablet 2 tab PO DAILY PRN (Reason: Pain) ondansetron 4 MG tablet,disintegrating 4 mg translingual Q6HR PRN (Reason: Nausea / Vomiting) Qty: 30 0RF oxycodone 5 MG tablet 5 mg PO Q4HR PRN (Reason: Pain 5 to 7) Qty: 30 0RF pantoprazole 40 MG tablet,delayed release (DR/EC) 40 mg PO DAILY Qty: 30 0RF hydrocodone-acetaminophen 1 TAB tablet 1 ea PO Q6H PRN (Reason: Pain) Qty: 12 0RF famotidine 20 MG tablet 20 mg PO DAILY Qty: 30 0RF ondansetron 4 MG tablet,disintegrating 4 mg translingual Q6H PRN (Reason: Nausea / Vomiting) Qty: 20 0RF Print Language: Portuguese Stand Alone Forms: PCP List
[2024-05-11 02:46] LABS: VBG PCO2 30.8 mmHg (41-51); VBG PH 7.377 (7.31-7.41)
[2024-05-11 02:47] LABS: VBG BASE EXCESS -7.1 mmol/L (-2 - +2); VBG PO2 99.7 mmHg (25-47); VBG TOTAL CO2 19.2 mmol/L (24-29)
[2024-05-11 02:54] LABS: MAGNESIUM 1.6 mg/dL (1.7-2.3)
[2024-05-11 03:00] LABS: BUN - BLOOD UREA NITROGEN 11 mg/dL (6-20); CARBON DIOXIDE - CO2 20 mmol/L (21-32); CHLORIDE 106 mmol/L (101-111); CREATININE 0.5 mg/dL (0.6-1.3); GFR - MDRD 145 (>89); GLUCOSE 124 mg/dL (74-104); POTASSIUM 3.9 mmol/L (3.5-4.5); SODIUM 136 mmol/L (135-145)
[2024-05-11 03:03] LABS: KETONES, SERUM (ACETEST) SMALL (NEGATIVE)
[2024-05-11] MEDS ORDERED: ONDANSETRON 4 MG/2 ML VIAL IVP PRN (04:34)
[2024-05-11] MEDS ORDERED: SODIUM CHLORIDE FLUSH 0.9% 10 ML SYRINGE IVP PRN (04:34)
[2024-05-11] MEDS: LACTATED RINGERS 1,000 ML IV STA (04:47)
--- NOTE | 2024-05-11 04:51 | HISTORY & PHYSICAL EXAMINATION ---
Chief Complaint Chief Complaint Chief Complaint: N/V History of Present Illness Admitted From Admitted From:: ER History Obtained From Records Reviewed: Yes History obtained from: Pt, staff, chart Exam Limitations: Virtual exam History of Present Illness HPI Comment/Other: H&P was conducted via video remotely, using [employer]. [place] No one is at bedside. 29 yo F with PMH of Gastric Sleeve surgery + H. Hernia repair 2019, ETOH abuse and previous hospitalization for Alcoholic Pancreatitis, Migraine H/As presented to the ER with c/o 3 day h/o visual changes, decreased PO intake, N/V, H/A. Pt began to have visual changes/blotchy/spots on with +nausea. Since pt's Gastric sleeve surgery, pt has had to be careful about the food she eats, and takes Zofran PRN. She had decreased PO intake in past 3 days d/t Nausea, vision changes. She only sometimes drinks ETOH now, drank 1 week ago and again this AM at a brunch. Today, she had worsening Nausea with vomiting--non-bloody emesis, not controlled by PO Zofran. She began to have H/A today. Pt usually takes Tylenol for her H/As. No abdo pain/stool change/dysuria/F/C/cough. +heart racing/palpitations. No CP. +tingling in fingers and around lips. +Dizziness. Pt denies h/o W/D symptoms from ETOH. In the ER, HR 156-121, MCH 34.3, K 2.7-3.9, Mg 1.4-1.6, AST 112, ALT 69, TSH 3.72, ETOH 10, +serum ketones, CXR: NAD Pt was given IVF, Zofran IV, Toradol, Dilaudid, Ativan, Mg, KCl IV in the ER. Review of Systems Status of ROS: 10 or more systems reviewed and unremarkable except as noted in history and below PFSH Social History Social History Smoking Status: Never smoker Do you dip or chew tobacco?: No Do you vape?: No Living arrangement: At home Living Condition: With spouse/s.o. Relationship: Do you feel safe in your home environment?: Yes Suffered physical, verbal, emotional, or financial abuse?: No Are you sexually active?: Yes POLST Patient has POLST: No POLST Status: Full Code Meds/Allgy Home Medications Ambulatory Orders Medication Instructions Recorded Confirmed acetaminophen 500 mg tablet 2 tab PO DAILY PRN Pain 04/19/22 04/19/22 (Acetaminophen Extra Strength) ibuprofen 600 mg tablet 1 tab PO DAILY PRN Pain 04/19/22 04/19/22 ondansetron 4 mg disintegrating 1 tab PO DAILY PRN Nausea / 04/19/22 04/19/22 tablet Vomiting ondansetron 4 mg disintegrating 4 mg translingual Q6HR PRN Nausea 04/20/22 tablet / Vomiting #30 tabs oxycodone 5 mg tablet 5 mg PO Q4HR PRN Pain 5 to 7 #30 04/20/22 tabs pantoprazole 40 mg tablet,delayed 40 mg PO DAILY #30 tabs 04/20/22 release famotidine 20 mg tablet 20 mg PO DAILY #30 tabs 10/27/22 hydrocodone 5 mg-acetaminophen 325 1 ea PO Q6H PRN Pain #12 tabs 10/27/22 mg tablet ondansetron 4 mg disintegrating 4 mg translingual Q6H PRN Nausea / 10/27/22 tablet Vomiting #20 tabs Allergies Allergies Allergy/AdvReac Type Severity Reaction Status Date / Time Sulfa (Sulfonamide AdvReac Rash Verified 10/27/22 11:23 Antibiotics) Exam Constitutional normal general appearance and no apparent distress HENMT normocephalic Dry MM Eyes PERRL and no scleral icterus Respiratory cart stethoscope not working; per ER Provider: CTA B/L Cardiovascular cart stethoscope not working; per ER Provider: RR, Tachy, no murmurs Gastrointestinal per ER Provider: Soft, Mild reproducible epigastric pain but no Grace sign no rebound or guarding on examination, no CVA tenderness Extremities per ER Provider: moves all extrem, no edema Neurology A+Ox3, normal speech, cooperative; per ER Provider: NFD Conclusion/Plan Problem List (1) Nausea and vomiting: Plan: Intractable N/V Migraine H/A with aura Hypokalemia Low Magnesium Periorbital tingling Decreased PO intake Dehydration Tachycardia H/o Gastric Sleeve surgery + H. Hernia repair 2019, H/o ETOH abuse and Alcoholic Pancreatitis -HR 156-121, K 2.7-3.9, Mg 1.4-1.6, AST 112, ALT 69, ETOH 10, +serum ketones, lipase 19 -CXR: NAD -Pt was given IVF, Zofran IV, Toradol, Dilaudid, Ativan, Mg, KCl IV in the ER. -admit to Obs/MedSurg -continue IVF -clear liquid diet; advance as tolerated -anti-emetics PRN -check Ca level now -supplement K, Mg PRN -pain meds for H/A PRN VTE Prophylaxis: Lovenox Code Status: Full Code ~Cailin Lerner MD Hospitalist Lab Results Lab results reviewed: Yes 05/10/24 20:26 05/11/24 02:30
[2024-05-11 05:30] LABS: BASOPHILS % (AUTO) 0.6 %; EOSINOPHILS % (AUTO) 0.3 %; HCT - HEMATOCRIT 32.2 % (37.0-47.0); HGB - HEMOGLOBIN 11.3 g/dL (12.0-16.0); LYMPHOCYTES # (AUTO) 0.6 10^3/uL (1.5-3.5); LYMPHOCYTES % (AUTO) 15.8 %; MEAN CORPUSCULAR HGB CONC 35.1 g/dL (32.0-36.0); MEAN CORPUSCULAR VOLUME 99.7 fL (81.0-99.0); MEAN PLATELET VOLUME 10.4 fL (7.9-10.8); MONOCYTES # (AUTO) 0.5 10^3/uL (0.0-1.0); MONOCYTES % (AUTO) 13.9 %; NEUTROPHILS # (AUTO) 2.5 10^3/uL (1.5-6.6); NEUTROPHILS % (AUTO) 68.8 %; PLT - PLATELET COUNT 129 10^3/uL (130-450); RED BLOOD COUNT 3.23 10^6/uL (4.20-5.40); RED CELL DISTRIBUTION WIDTH 12.4 % (12.0-15.0); WHITE BLOOD COUNT 3.6 x10^3/uL (4.8-10.8)
[2024-05-11] MEDS: LACTATED RINGERS 1,000 ML IV SCH (05:30)
[2024-05-11 05:33] LABS: CALCIUM, IONIZED 1.09 mmol/L (1.09-1.30); VBG PH 7.389 (7.31-7.41)
[2024-05-11 05:42] LABS: MAGNESIUM 1.6 mg/dL (1.7-2.3)
[2024-05-11 05:48] LABS: ALBUMIN/GLOBULIN RATIO 1.1 (1.0-2.2); BILIRUBIN,TOTAL 1.1 mg/dL (0.2-1.0); CALCIUM 7.2 mg/dL (8.5-10.3); CREATININE 0.4 mg/dL (0.6-1.3); POTASSIUM 3.6 mmol/L (3.5-4.5); TOTAL PROTEIN 5.7 g/dL (6.4-8.9)
[2024-05-11] MEDS: PROCHLORPERAZINE 10 MG/2 ML VIAL IVP PRN (05:52)
[2024-05-11 06:12] LABS: BILIRUBIN,URINE MODERATE (NEGATIVE); GLUCOSE, URINE (UA) NEGATIVE (NEGATIVE); KETONES,URINE (UA) 40 mg/dL (NEGATIVE); LEUKOCYTE ESTERASE, URINE SMALL (NEGATIVE); NITRITE,URINE POSITIVE (NEGATIVE); OCCULT BLOOD,URINE LARGE (NEGATIVE); PROTEIN,URINE TRACE mg/dL (NEGATIVE); UROBILINOGEN,URINE 2 E.U./dL (NORMAL)
[2024-05-11 06:25] LABS: CLARITY,URINE CLOUDY (CLEAR); WBC,URINE >25 /HPF (0-5)
[2024-05-11 06:26] LABS: BACTERIA,URINE Many /HPF (None Seen); SQUAMOUS EPITHELIAL CELL,UR FEW Squamous (<= Few)
[2024-05-11] MEDS: SODIUM CHLORIDE FLUSH 0.9% 10 ML SYRINGE IVP SCH (08:03)
[2024-05-11] MEDS: ENOXAPARIN 40 MG/0.4 ML SYRINGE SUBQ SCH (08:12)
[2024-05-11] MEDS: ACETAMINOPHEN 325 MG TABLET PO PRN (08:12)
[2024-05-11 08:45] LABS: HCG UR QUAL NEGATIVE
--- NOTE | 2024-05-11 09:15 | CT Report ---
PROCEDURE: CT Abdomen/Pelvis WO INDICATIONS: epigastric, flank pain w UTI TECHNIQUE: A CT scan of the abdomen and pelvis was performed without the use of intravenous contrast. Images we re recorded and evaluated at appropriate window settings. Reformats: coronal and sagittal. For radiat ion dose reduction, the following was used: automated exposure control, adjustment of mA and/or kV ac cording to patient size. COMPARISON: MRCP dated 04/19/[address] of abdomen and pelvis dated 04/18/2022. FINDINGS: Image quality: Diagnostic. Lower chest: Unremarkable. Liver: No contour-deforming mass. Moderate hepatic steatosis is seen. Gallbladder: No radiopaque stones or wall thickening. Biliary tree: No intrahepatic or extrahepatic dilation, accounting for age. Spleen: No splenomegaly. Pancreas: No pancreatic ductal dilation. There is suggestion of mild inflammatory changes adjacent to the head and uncinate process of pancreas. No discrete pancreatic lesion. Necrotic fluid collection. Adrenals: No adrenal nodule. Kidneys and ureters: No hydronephrosis. No contour-deforming mass. Stomach, bowel and peritoneum: Postsurgical changes are noted from prior gastric bypass surgery. No b owel obstruction. No abnormal bowel wall thickening.. No pathologic free fluid. No peritoneal free ai r. Lymph nodes: No central or retroperitoneal adenopathy. Vessels: No infrarenal aortic aneurysm. Reproductive organs: Unremarkable. Bladder: Bladder wall thickness is normal, accounting for underdistention. No calcified bladder stone s. Pelvic lymph nodes: No adenopathy by size criteria. Bones: No aggressive osseous abnormality. Other: No significant ventral or inguinal hernia. IMPRESSION: 1. Finding is may represent early acute pancreatitis suggest clinical correlation. No peripancreatic fluid collection. 2. Moderate hepatic steatosis. Normal-appearing gallbladder. 3. No bowel obstruction or abnormal bowel wall thickening. Prior gastric bypass surgery. No free flui d of free air. Reviewed by: Sukhdeep Salter MD on 05/11/2024 9:14 AM PST Approved by: Sukhdeep Salter MD on 05/11/2024 9:14 AM PST Station ID: [id number]
--- NOTE | 2024-05-11 13:01 | PHARMACY PROGRESS NOTE ---
Best Possible Medication History Admit Date and Time: 05/11/24 120706 Home Medications Medication Instructions Recorded Confirmed Type acetaminophen 500 mg tablet 2 tab PO DAILY PRN Pain 04/19/22 05/11/24 History (Acetaminophen Extra Strength) ondansetron 4 mg disintegrating 4 mg translingual Q6HR PRN Nausea 04/20/22 05/11/24 Rx tablet / Vomiting #30 tabs pantoprazole 40 mg tablet,delayed 20 mg PO DAILY 05/11/24 05/11/24 History release Processed by: Pharmacy Medications reviewed in ED?: No Patient Interview: Completed Secondary Source(s): Insurance records [facility] Statement: Reviewed SureScript medication list with patient and confirmed. As the person ultimately responsible for medication therapy, providers are able to order a medication from an existing home medication list in [facility] via the "Reconcile Routine" prior to Confirmation of that medication by credit support specialist. Such practice is discouraged except when the physician, in their clinical ju dgment, deems that a medical need exists for a medication without regard to previous use.
[2024-05-11] MEDS: KETOROLAC 10 MG TABLET PO PRN (15:39)
--- NOTE | 2024-05-11 18:51 | PROVIDER PROGRESS NOTE ---
Progress Note Progress Note Progress Note: The patient was admitted for intractable nausea. She could not keep food down in the ER after several hours of being there and receiving IV Zofran, IV pain medicines, and this morning she began complaining of severe epigastric pain. This is in a patient who continues to drink in spite of having a history of pancreatitis and being warned not to drink. Her last drink was yesterday. When she does drink she is drinking about 4 times a week, half a bottle of wine at a time. Repeat CMP this morning shows glucose 112. Potassium BUN/creatinine normal. Bili is 1.1. AST 78. ALT 49. Lipase is 13. White cell count is low at 3.6. Hemoglobin 11.3. Exam had epigastric discomfort but it was not severe. No rebound or guarding. She had normal bowel sounds. I did CT of the abdomen and it shows early pancreatitis. But no free air. No stones. She said that she really wanted to try regular food did not want a be on clear liquids. So she had a regular lunch, and part of dinner. Able to tolerate that. Now she is complaining of bilateral hemianopsia. Blurred vision and dizziness is what brought her in. I will order of CT of the head as well as CT head and neck angio.
[2024-05-11] MEDS ORDERED: iohexoL-300 100 ML VIAL ONE (18:52)
[2024-05-11] MEDS: iohexoL-300 100 ML VIAL IVP ONE (19:46)
--- NOTE | 2024-05-11 19:50 | CT Report ---
PROCEDURE: CT Head W/O Stroke Protocol INDICATIONS: bilateral hemianopsia TECHNIQUE: Noncontrast 4.5 mm thick angled axial sections acquired from the foramen magnum to the vertex, with c oronal reformats. For radiation dose reduction, the following was used: automated exposure control, adjustment of mA and/or kV according to patient size. COMPARISON: None. FINDINGS: Image quality: Excellent. CSF spaces: Basal cisterns are patent. No extra-axial fluid collections. Ventricles are normal in size and shape. Brain: No midline shift. No intracranial masses or hemorrhage. Hdz-white matter interface is norm al. Skull and face: Calvarium and visualized facial bones are intact, without suspicious lesions. Sinuses: Visualized sinuses and mastoids are clear. IMPRESSION: No acute intracranial pathology This study fulfills neurological imaging criteria for inclusion or exclusion of acute stroke therapie s based on available published neurological imaging guidelines. Reviewed by: Sukhdeep Greenwood MD on 05/11/2024 7:49 PM PST Approved by: Sukhdeep Greenwood MD on 05/11/2024 7:49 PM PST Station ID: [id number]
--- NOTE | 2024-05-11 19:57 | CT Report ---
PROCEDURE: CT Angio Head/Neck INDICATIONS: bilateral hemianopsia TECHNIQUE: After the administration of intravenous contrast, 1 mm thick sections acquired from the aortic arch t hrough the [place] of Rader. 3-dimensional lytevkx-nwnvtfroc-uorzkfhezp (MIP) and/or volume renderin g reformats were acquired of the central intracranial vasculature and neck separately. For radiation dose reduction, the following was used: automated exposure control, adjustment of mA and/or kV acco rding to patient size. CONTRAST: 100 ML OMNI 300 COMPARISON: None. FINDINGS: Image quality: Diagnostic. HEAD CT: CSF Spaces: Basal cisterns are patent. No extra-axial fluid collections. Ventricles are normal in size and shape. Brain: No significant abnormality is seen for scanning technique. Skull and face: Calvarium and visualized facial bones appear intact, without suspicious lesions. Sinuses: Visualized sinuses and mastoids are clear. HEAD CT ANGIOGRAPHY: Anterior circulation: Intracranial internal carotid arteries are normal in size and flow. The flow within the paired anterior cerebral arteries is normal and symmetric. The flow within the middle cer ebral arteries is normal and symmetric. The anterior communicating artery is seen. No aneurysms are seen. Posterior circulation: Visualized portions of the vertebral arteries demonstrate normal caliber, and join to form a normal appearing basilar artery. Flow within the posterior cerebral arteries is norm al and symmetric. No aneurysms are seen. NECK CT ANGIOGRAPHY: Carotid system: The great vessels demonstrate a conventional anatomy as they arise from the aortic a rch. The origins of the common carotid arteries appear patent. The common carotid arteries demonstr ate normal caliber and courses. The bifurcation regions are both widely patent. The internal caroti d arteries demonstrate normal calibers and courses. Posterior circulation: The origins of the vertebral arteries both appear widely patent. The more dia perior extracranial portions of both vertebral arteries also demonstrate normal courses and calibers. They join to form a normal appearing basilar artery. Soft tissues: Visualized neck soft tissues demonstrate no suspicious abnormalities. Bones: No suspicious bony lesions. Visualized cervical spine appears normally aligned. IMPRESSION: No significant intracranial arterial abnormality is seen. No significant abnormality is seen within the arteries of the neck. The estimate of stenosis included in the report of the imaging study was calculated using the NASCET method Reviewed by: Sukhdeep Salter MD on 05/11/2024 7:56 PM PST Approved by: Sukhdeep Salter MD on 05/11/2024 7:56 PM PST Station ID: [id number]
[2024-05-11] MEDS: hydrOXYzine PAMOATE 25 MG CAPSULE PO PRN (20:13)
[2024-05-12] MEDS: HYDROmorphone 0.5 MG/0.5 ML SYRINGE IVP PRN (00:38)
[2024-05-12] MEDS: cefTRIAXone 1 GM in SODIUM CHLORIDE 0.9% MINIBAG 100 ML IV SCH (02:25)
[2024-05-12 04:47] LABS: BASOPHILS % (AUTO) 0.3 %; EOSINOPHILS % (AUTO) 0.6 %; HGB - HEMOGLOBIN 10.9 g/dL (12.0-16.0); LYMPHOCYTES # (AUTO) 1.1 10^3/uL (1.5-3.5); LYMPHOCYTES % (AUTO) 34.2 %; MEAN CORPUSCULAR HEMOGLOBIN 34.4 pg (27.0-31.0); MEAN CORPUSCULAR HGB CONC 35.2 g/dL (32.0-36.0); MEAN CORPUSCULAR VOLUME 97.8 fL (81.0-99.0); MEAN PLATELET VOLUME 11.1 fL (7.9-10.8); MONOCYTES # (AUTO) 0.5 10^3/uL (0.0-1.0); NEUTROPHILS # (AUTO) 1.6 10^3/uL (1.5-6.6); NEUTROPHILS % (AUTO) 50.6 %; PLT - PLATELET COUNT 111 10^3/uL (130-450); RED BLOOD COUNT 3.17 10^6/uL (4.20-5.40); RED CELL DISTRIBUTION WIDTH 12.1 % (12.0-15.0); WHITE BLOOD COUNT 3.2 x10^3/uL (4.8-10.8)
[2024-05-12 05:04] LABS: ALBUMIN 2.8 g/dL (3.2-5.5); ALBUMIN/GLOBULIN RATIO 1.1 (1.0-2.2); BILIRUBIN,TOTAL 0.8 mg/dL (0.2-1.0); CALCIUM 7.3 mg/dL (8.5-10.3); CREATININE 0.4 mg/dL (0.6-1.3); MAGNESIUM 1.2 mg/dL (1.7-2.3); TOTAL PROTEIN 5.4 g/dL (6.4-8.9)
--- NOTE | 2024-05-12 08:14 | Discharge Summary ---
"Discharge Summary Admit Date: 05/11/24 Discharge Date: 05/12/24 Discharging Provider: Naz Wills MD Primary Care Provider: ERIC Moore Code Status: Attempt Resuscitation DIAGNOSES Discharge Diagnoses with Status of Each Condition: 1. Intractable nausea 2. Chronic pancreatitis, mild 3. History of alcohol abuse 4. Tachycardia, sinus 5. hypokalemia 6. Dehydration 7. Paresthesias of mouth and hands 8. History of migraine headaches 9. Visual changes 10. History of gastric sleeve surgery HPI History of Present Illness: 29 yo F with PMH of Gastric Sleeve surgery + H. Hernia repair 2019, ETOH abuse and previous hospitalization for Alcoholic Pancreatitis, Migraine H/As presented to the ER with c/o 3 day h/o visual changes, decreased PO intake, N/V, H/A. Pt began to have visual changes/blotchy/spots on with +nausea. Since pt's Gastric sleeve surgery, pt has had to be careful about the food she eats, and takes Zofran PRN. She had decreased PO intake in past 3 days d/t Nausea, vision changes. She only sometimes drinks ETOH now, drank 1 week ago and again this AM at a brunch. Today, she had worsening Nausea with vomiting--non-bloody emesis, not controlled by PO Zofran. She began to have H/A today. Pt usually takes Tylenol for her H/As. No abdo pain/stool change/dysuria/F/C/cough. +heart racing/palpitations. No CP. +tingling in fingers and around lips. +Dizziness. Pt denies h/o W/D symptoms from ETOH. In the ER, HR 156-121, MCH 34.3, K 2.7-3.9, Mg 1.4-1.6, AST 112, ALT 69, TSH 3.72, ETOH 10, +serum ketones, CXR: NAD Pt was given IVF, Zofran IV, Toradol, Dilaudid, Ativan, Mg, KCl IV in the ER. CONSULTS | PROCEDURES Procedures: 1. Abdomen and pelvis CT representing early acute pancreatitis, moderate steatosis and normal-appearing gallbladder. 2. Head CT without acute intracranial pathology 3. CT angiogram of head and neck with no significant intracranial arterial abnormality seen HOSPITAL COURSE Hospital Course: The morning of admission the patient complained of severe increasing abdominal pain. She was on a clear liquid diet. CT showed moderate hepatic steatosis. Gallbladder was stable. The biliary tree was stable. Pancreas did not have ductal dilatation but a suggestion of mild inflammatory changes adjacent to the head and uncinate process of the pancreas. These findings may represent early acute pancreatitis. Later in the day she was complaining of numbness and tingling around her mouth, numbness and tingling of her fingers. She admits that she is under a tremendous amount of stress. 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 They are getting ready to move to [place] and she is dreading this move, especially with a toddler at home. She is, however, alcohol abuser. Drinks up to half a bottle of wine, 4 times a week. She sometimes admits to that depending on who she is speaking to. Sometimes she denies that and says that her last drink was a week ago. She had her last drink the morning before admission. She then complained of visual changes where she was losing the outer half of vision in each eyeball. So a CT of the head was done with CT angiogram and they were unremarkable. In spite of her epigastric pain the patient really wanted to eat. I explained that if she was having early pancreatitis the treatment will be n.p.o. status. Amylase was normal. Nevertheless she really wanted to eat solid food and she tolerated lunch and dinner. The next morning she still had tightness around the epigastrium that wrapped around the waist. No visual changes. Continued to have tachycardia which is the reason she came to the ER. Continued to have numbness and tingling of the fingers. I have offered her an opportunity to stay again overnight but I would have to make her n.p.o. if her epigastrium is really bothering her. She said that it was not bothering her enough and she really preferred to eat. As such I was felt she was stable for discharge. When she gets to [place] I would like her to establish yourself with a new primary care provider. And be referred to neurology. She also has a hx of gastric sleeve surgery and should have complete evaluationof her nutrition and lab work for trace elements. Discharge exam had a blood pressure of 124/88. Pulse 111. Respirations 20. Temperature 36.5. O2 sat of 100%. She received a dose of Dilaudid in the crew scheduler hours and was deeply asleep but responded to the light touch on her shoulder and woke up. She is alert and oriented person place and time. Neck is supple. Lungs are completely clear without increased respiratory distress. Regular rate and rhythm with a tachycardia. The abdomen was soft, nondistended, and only a tiny bit of epigastric pain when I palpated her. No rebound or guarding. Extremities without edema. Neurologically there are no focal deficits, no tremors, ikfncr-zx-fcye normal, able to go from supine to sitting, sitting to standing without ataxia. No assist. This document was made in part using voice recognition software. While efforts are made to proofread this document, sound alike and grammatical errors may occur. ALLERGIES Allergies Allergy/AdvReac Type Severity Reaction Status Date / Time Sulfa (Sulfonamide AdvReac Rash Verified 10/27/22 11:23 Antibiotics) MEDICATIONS Ambulatory Orders Medication Instructions Recorded Confirmed acetaminophen 500 mg tablet 2 tab PO DAILY PRN Pain 04/19/22 05/11/24 (Acetaminophen Extra Strength) ondansetron 4 mg disintegrating 4 mg translingual Q6HR PRN Nausea 04/20/22 05/11/24 tablet / Vomiting #30 tabs pantoprazole 40 mg tablet,delayed 20 mg PO DAILY 05/11/24 05/11/24 release LABS 05/12/24 04:28 05/12/24 04:28 Discharge Plan Discharge Patient Disposition: 01 Home, Self Care Condition: Stable Medically Cleared Date:: 05/12/24 Prescriptions: Continued acetaminophen [Acetaminophen Extra Strength] 500 MG tablet 2 tab PO DAILY PRN (Reason: Pain) ondansetron 4 MG tablet,disintegrating 4 mg translingual Q6HR PRN (Reason: Nausea / Vomiting) Qty: 30 0RF pantoprazole 40 MG tablet,delayed release (DR/EC) 20 mg PO DAILY Diet: Regular Interventions: Belongings Inventory Last Done: 05/11/24 05:30 Health Concerns: You have a complicated gastric history. You have a history of gastric sleeve surgery, and a hiatal hernia repair in 2019. Unfortunately he also have a history of pancreatitis due to alcohol abuse. You have migraine headaches and sometimes they are very debilitating. You have been told in the past to never drink again. But you do like your glass of wine and sometimes drink up to half a bottle 4 times a week. Sometimes you only drink 1 drink. For 3 days you have had visual changes, have not been able to eat very much, had nausea and vomiting with a headache. The visual changes give you blotchy spot loss of vision with the nausea getting worse with it. On the day of admission you had worsening nausea. Worsening vomiting. And you felt like your heart was racing and you are having palpitation with numbness and tingling in your hands. And also numbness and tingling around your lips. You are getting ready to move to [facility] and you are dreading this move. It is made worse by the fact that you have a toddler at home. We initially tried to treat your fast heart rate as dehydration. You had not been eating or drinking very much so we thought you are dehydrated and started you on IV fluids. Gave you nausea medicine and a little bit of pain medicine. Your nausea improved but when we tried to feed you, you vomited again in the emergency room. Your heart rate continue to be a little on the fast side at about 110. Because you failed treatment in the ER, we placed you in observation status here in the hospital. We continued IV fluids, a little bit of pain medicine, and nausea medicine. You complained of severe epigastric abdominal pain within a few hours and his CT scan shows you to have signs of your pancreatitis but your blood work shows that the enzymes of your pancreas are normal range right now. I was going to give you no food by mouth but you really wanted to eat something and you tolerated lunch and dinner without vomiting. You still feel a tightness around your epigastrium. You also complained of loss of lateral vision in both eyes. A CT scan of your head was negative. You continue to have numbness and tingling around her hands and mouth. This could be panic disorder, anxiety,. It could be early vitamin deficiency or nerve problems in your neck going down to your hands. You would need to see a neurologist for that. However we do not have neurology here. You are also getting ready to moved to [facility] in 3 weeks. It would be logistically difficult for you to see a specialist between now and then. You continue to have tightness On the top of your tummy and it wraps around your waist. You also still have a fast heart rate. But you also do not want to stop eating. I did offer you the opportunity of staying but I told her that I would not be giving you solid food if this was truly from pancreatitis. You opted to go home. And identify you as having a urinary tract infection while you were here. He has been given a dose of fosfomycin to treat that. It is only a one-time dose. Discharge instructions: 1. No high-fat diet. You need to eat small frequent meals. No chips, no ham, no Syriac fries, no fried food. Eat bland things such as things like chicken pot pie, chicken soup, rice dishes. Once your epigastrium stops hurting and you do not feel the tightness around her, you can advance her diet to what you usually eat. 2. We told you the last time you were here for pancreatitis and we will tell you again, you cannot have any alcohol at any time. Your pancreas does not tolerate it. You cannot even have cough syrup that has alcohol in it. 3. When you get to [place], ask your new primary care provider to refer you to neurology if you continue to have numbness and tingling of the mouth, and fingertips. Right now I think you may be having what we call visual migraines. That is why you have the visual changes. But the neurologist will need to confirm that. Print Language: Lithuanian Patient Instructions: Pancreatitis Chronic Dc Follow-up Care: Mar Chapin ARNP [Primary Care Provider] -"
[2024-05-12] MEDS: FOSFOMYCIN TROMETHAMINE 3 GM PACKET PO ONE (09:15)
[2024-05-12 14:22] VITALS: TEMP 97.9
[2024-05-12] MEDS: ONDANSETRON ODT 4 MG TABLET TL PRN (17:17)
[2024-05-12 17:20] VITALS: BP 122/88; O2SAT 100
--- NOTE | 2024-05-12 20:27 | Discharge Summary ---
"Discharge Summary Admit Date: 05/11/24 Discharge Date: 05/12/24 Discharging Provider: Naz Wills MD Primary Care Provider: Fran Moore Code Status: Attempt Resuscitation DIAGNOSES Discharge Diagnoses with Status of Each Condition: 1. Intractable nausea 2. Chronic pancreatitis 3. History of alcohol abuse 4. Acute epigastric abdominal pain 5. Visual changes with symptoms of stroke 6. Anxiety HPI History of Present Illness: 29 yo F with PMH of Gastric Sleeve surgery + H. Hernia repair 2018, ETOH abuse and previous hospitalization for Alcoholic Pancreatitis, Migraine H/As presented to the ER with c/o 3 day h/o visual changes, decreased PO intake, N/V, H/A. Pt began to have visual changes/blotchy/spots on with +nausea. Since pt's Gastric sleeve surgery, pt has had to be careful about the food she eats, and takes Zofran PRN. She had decreased PO intake in past 3 days d/t Nausea, vision changes. She only sometimes drinks ETOH now, drank 1 week ago and again this AM at a brunch. Today, she had worsening Nausea with vomiting--non-bloody emesis, not controlled by PO Zofran. She began to have H/A today. Pt usually takes Tylenol for her H/As. No abdo pain/stool change/dysuria/F/C/cough. +heart racing/palpitations. No CP. +tingling in fingers and around lips. +Dizziness. Pt denies h/o W/D symptoms from ETOH. In the ER, HR 156-121, MCH 34.3, K 2.7-3.9, Mg 1.4-1.6, AST 112, ALT 69, TSH 3.72, ETOH 10, +serum ketones, [id number] CXR: NAD Pt was given IVF, Zofran IV, Toradol, Dilaudid, Ativan, Mg, KCl IV in the ER. CONSULTS | PROCEDURES Procedures: 1. Abdomen and pelvis CT representing early acute pancreatitis, moderate steatosis and normal-appearing gallbladder. 2. Head CT without acute intracranial pathology 3. CT angiogram of head and neck with no significant intracranial arterial abnormality seen ALLERGIES Allergies Allergy/AdvReac Type Severity Reaction Status Date / Time Sulfa (Sulfonamide AdvReac Rash Verified 07/28/23 11:23 Antibiotics) MEDICATIONS Ambulatory Orders Medication Instructions Recorded Confirmed acetaminophen 500 mg tablet 2 tab PO DAILY PRN Pain 04/19/22 05/11/24 (Acetaminophen Extra Strength) ondansetron 4 mg disintegrating 4 mg translingual Q6HR PRN Nausea 04/20/22 05/11/24 tablet / Vomiting #30 tabs pantoprazole 40 mg tablet,delayed 20 mg PO DAILY 05/11/24 05/11/24 release LABS 05/12/24 04:28 05/12/24 04:28 Discharge Plan Discharge Patient Disposition: 01 Home, Self Care Condition: Stable Medically Cleared Date:: 05/12/24 Prescriptions: Continued acetaminophen [Acetaminophen Extra Strength] 500 MG tablet 2 tab PO DAILY PRN (Reason: Pain) ondansetron 4 MG tablet,disintegrating 4 mg translingual Q6HR PRN (Reason: Nausea / Vomiting) Qty: 30 0RF pantoprazole 40 MG tablet,delayed release (DR/EC) 20 mg PO DAILY Diet: Regular Health Concerns: You have a complicated gastric history. You have a history of gastric sleeve surgery, and a hiatal hernia repair in 2019. Unfortunately he also have a history of pancreatitis due to alcohol abuse. You have migraine headaches and sometimes they are very debilitating. You have been told in the past to never drink again. But you do like your glass of wine and sometimes drink up to half a bottle 4 times a week. Sometimes you only drink 1 drink. For 3 days you have had visual changes, have not been able to eat very much, had nausea and vomiting with a headache. The visual changes give you blotchy spot loss of vision with the nausea getting worse with it. On the day of admission you had worsening nausea. Worsening vomiting. And you felt like your heart was racing and you are having palpitation with numbness and tingling in your hands. And also numbness and tingling around your lips. You are getting ready to move to [facility] and you are dreading this move. It is made worse by the fact that you have a toddler at home. We initially tried to treat your fast heart rate as dehydration. You had not been eating or drinking very much so we thought you are dehydrated and started you on IV fluids. Gave you nausea medicine and a little bit of pain medicine. Your nausea improved but when we tried to feed you, you vomited again in the emergency room. Your heart rate continue to be a little on the fast side at about 110. Because you failed treatment in the ER, we placed you in observation status here in the hospital. We continued IV fluids, a little bit of pain medicine, and nausea medicine. You complained of severe epigastric abdominal pain within a few hours and his CT scan shows you to have signs of your pancreatitis but your blood work shows that the enzymes of your pancreas are normal range right now. I was going to give you no food by mouth but you really wanted to eat something and you tolerated lunch and dinner without vomiting. You still feel a tightness around your epigastrium. You also complained of loss of lateral vision in both eyes. A CT scan of your head was negative. You continue to have numbness and tingling around her hands and mouth. This could be panic disorder, anxiety,. It could be early vitamin deficiency or nerve problems in your neck going down to your hands. You would need to see a neurologist for that. However we do not have neurology here. You are also getting ready to moved to [facility] in 3 weeks. It would be logistically difficult for you to see a specialist between now and then. You continue to have tightness On the top of your tummy and it wraps around your waist. You also still have a fast heart rate. But you also do not want to stop eating. I did offer you the opportunity of staying but I told her that I would not be giving you solid food if this was truly from pancreatitis. You opted to go home. And identify you as having a urinary tract infection while you were here. He has been given a dose of fosfomycin to treat that. It is only a one-time dose. Discharge instructions: 1. No high-fat diet. You need to eat small frequent meals. No chips, no ham, no [place] fries, no fried food. Eat bland things such as things like chicken pot pie, chicken soup, rice dishes. Once your epigastrium stops hurting and you do not feel the tightness around her, you can advance her diet to what you usually eat. 2. We told you the last time you were here for pancreatitis and we will tell you again, you cannot have any alcohol at any time. Your pancreas does not tolerate it. You cannot even have cough syrup that has alcohol in it. 3. When you get to [place], ask your new primary care provider to refer you to neurology if you continue to have numbness and tingling of the mouth, and fingertips. Right now I think you may be having what we call visual migraines. That is why you have the visual changes. But the neurologist will need to confirm that. Print Language: [place] Zeal[place] Patient Instructions: Pancreatitis Chronic Dc Follow-up Care: Mar Chapin ARNP [Primary Care Provider] -"
== END 2024-05-12 21:05 | disposition home or self-care (01) ==
LOC: ED 19:27 → MS2 19:27
PROVIDERS: ADMIT Internal Medicine; ATTEND Internal Medicine
DX: N39.0 Urinary tract infection, site not specified; R00.0 Tachycardia, unspecified; Z98.84 Bariatric surgery status; F10.10 Alcohol abuse, uncomplicated; G43.909 Migraine, unspecified, not intractable, without status migrainosus; K76.0 Fatty (change of) liver, not elsewhere classified; K86.1 Other chronic pancreatitis; F43.9 Reaction to severe stress, unspecified; E87.6 Hypokalemia; H53.47 Heteronymous bilateral field defects; H53.8 Other visual disturbances; E83.42 Hypomagnesemia; E86.0 Dehydration; E88.89 Other specified metabolic disorders; R20.2 Paresthesia of skin